=== PATIENT | male | born 1940 | race Caucasian/White ===

== ENCOUNTER 2017-09-05 09:12 | Inpatient (IN) | payer MEDICARE ==
[2017-09-05] MEDS ORDERED: MORPHINE SULFATE 2 MG/ML SYRINGE IV PRN (15:04)
[2017-09-05] MEDS ORDERED: NALOXONE 0.4 MG/ML 1 ML VIAL IV PRN (15:04)
[2017-09-05] MEDS ORDERED: NITROGLYCERIN SL TABS 0.4 MG TAB SUBLINGUAL PRN (15:16)
[2017-09-05] MEDS ORDERED: ONDANSETRON 4 MG/2 ML VIAL IVP PRN (15:17)
[2017-09-05] MEDS ORDERED: HEPARIN SODIUM,PORCINE 5,000 UNIT/ML 1 ML VIAL IV PRN (15:20)
[2017-09-05 15:45] LABS: Basophils % (A) 0 %; Eosinophils # (A) 0.1 k/uL (0-0.7); Eosinophils % (A) 0 %; HCT 38.9 % (39.0-53.0); HGB 12.9 gm/dL (13.0-17.5); Lymphocytes # (A) 1.4 k/uL (1.0-4.8); Lymphocytes % (A) 12 %; MCH 28.7 pg (25.0-35.0); MCHC 33.2 g/dL (31.0-37.0); MCV 86.4 fL (80.0-100.0); Mean Platelet Volume 7.1; Monocytes # (A) 0.7 k/uL (0-1.0); Monocytes % (A) 6 %; Neutrophils # (A) 8.9 k/uL (1.3-7.7); Neutrophils % (A) 80 %; Platelet Count 164 k/uL (150-450); RDW 14.8 % (11.5-15.5); WBC 11.1 k/uL (3.8-10.6)
[2017-09-05] MEDS: IPRATROPIUM-ALBUTEROL 3 ML NEB INHALATION SCH ×2 (15:51→20:42)
[2017-09-05 15:54] LABS: INR 1.4 (<1.2); Partial Thromboplastin Time 28.2 sec (22.0-30.0); Prothrombin Time 13.2 sec (9.0-12.0)
[2017-09-05] MEDS ORDERED: MD COMMUNICATION TO PHARMACY 1 EACH MISC PO ONE ×2 (16:25)
[2017-09-05] MEDS: GABAPENTIN 100 MG CAP PO SCH ×2 (16:30→21:03)
[2017-09-05] MEDS: DEXTROSE 5%-0.45% NACL 1,000 ML IV SCH (16:30)
--- NOTE | 2017-09-05 17:18 | US ---
EXAMINATION TYPE: US carotid duplex BILAT DATE OF EXAM: 09/05/2017 COMPARISON: NONE CLINICAL HISTORY: preop cardiac surgery. EXAM MEASUREMENTS: RIGHT: Peak Systolic Velocity (PSV) cm/sec ----- Right CCA: 71.6 ----- Right ICA: 81.0 ----- Right ECA: 101.1 ICA/CCA ratio: 1.1 RIGHT: End Diastole cm/sec ----- Right CCA: 20.7 ----- Right ICA: 29.3 ----- Right ECA: 7.7 LEFT: Peak Systolic Velocity (PSV) cm/sec ----- Left CCA: 74.4 ----- Left ICA: 76.4 ----- Left ECA: 74.4 ICA/CCA ratio: 1.0 LEFT: End Diastole cm/sec ----- Left CCA: 14.8 ----- Left ICA: 28.0 ----- Left ECA: 0.0 VERTEBRALS (direction of flow): Right Vertebral: Antegrade Left Vertebral: Antegrade Rhythm: Normal Mild to moderate atherosclerotic changes with no significant velocity elevations. IMPRESSION: There is bilateral moderate plaque formation. There is antegrade flow in the vertebral a rteries. The images and measurements suggest up to 50% stenosis in both internal carotid arteries. Criteria for Assigning % of Stenosis / Diameter reduction (Estimation based on the indirect measurements of the internal carotid artery velocities (ICA PSV). 1. Normal (no stenosis)=ICA PSV < 125 cm/s: ratio < 2.0: ICA EDV<40 cm/s. 2. Less than 50% stenosis=ICA PSV < 125 cm/s: ratio < 2.0: ICA EDV<40 cm/s. 3. 50 to 69% stenosis=ICA PSV of 125 to 230 cm/s: ration 2.0 ? 4.0: ICA EDV 40-100 cm/s. 4. Greater than 70% stenosis to near occlusion= ICA PSV > 230 cm/s: ratio > 4.0: ICA EDV > 100 cm/s. 5. Near occlusion= ICA PSV velocities may be low or undetectable: variable ratio and ICA EDV. 6. Total occlusion=unable to detect flow.
[2017-09-05] MEDS ORDERED: ATROPINE SULFATE 0.1 MG/ML 10ML SYRINGE ONE (17:52)
[2017-09-05 18:10] LABS: Appearance,Urine Clear (Clear); Bilirubin,Urine Negative (Negative); Blood,Urine Large (Negative); Color,Urine Yellow; Glucose,Urine (UA) Negative (Negative); Ketones,Urine Negative (Negative); Leukocyte Esterase,Urine Small (Negative); Mucus,Urine Rare /hpf; Nitrite,Urine Negative (Negative); PH, Urine 5.5 (5.0-8.0); Protein,Urine Trace (Negative); RBC,Urine >182 /hpf (0-5); Specific Gravity,Urine 1.023 (1.001-1.035); Urobilinogen,Urine <2.0 mg/dL (<2.0); WBC,Urine 21 /hpf (0-5)
[2017-09-05] MEDS: HEPARIN SODIUM,PORCINE/D5W PMX 25,000 UNIT in DEXTROSE/WATER 1 500ML.BAG IV SCH (21:01)
[2017-09-05] MEDS: MUPIROCIN 2% OINT 22 GM TUBE NASAL SCH (21:03)
[2017-09-06] MEDS: IPRATROPIUM-ALBUTEROL 3 ML NEB INHALATION SCH ×8 (00:16→23:48)
[2017-09-06] MEDS: DEXTROSE 5%-0.45% NACL 1,000 ML IV SCH ×3 (02:57→20:43)
[2017-09-06 03:57] LABS: Basophils % (A) 0 %; Eosinophils # (A) 0.1 k/uL (0-0.7); Eosinophils % (A) 1 %; HCT 40.4 % (39.0-53.0); HGB 13.3 gm/dL (13.0-17.5); Lymphocytes # (A) 1.4 k/uL (1.0-4.8); Lymphocytes % (A) 20 %; MCH 28.9 pg (25.0-35.0); MCHC 32.9 g/dL (31.0-37.0); MCV 87.7 fL (80.0-100.0); Mean Platelet Volume 6.7; Monocytes # (A) 0.5 k/uL (0-1.0); Monocytes % (A) 7 %; Neutrophils % (A) 71 %; Platelet Count 118 k/uL (150-450); RDW 14.9 % (11.5-15.5)
[2017-09-06 04:02] LABS: Hemoglobin A1C 5.9 % (4.0-6.0)
[2017-09-06 04:22] LABS: INR 1.3 (<1.2); Partial Thromboplastin Time 30.3 sec (22.0-30.0); Prothrombin Time 12.6 sec (9.0-12.0)
[2017-09-06 04:24] LABS: ALT 35 U/L (21-72); AST 33 U/L (17-59); Albumin 3.3 g/dL (3.5-5.0); Alkaline Phosphatase 66 U/L (38-126); Anion Gap 10 mmol/L; Blood Urea Nitrogen 24 mg/dL (9-20); Calcium 8.6 mg/dL (8.4-10.2); Carbon Dioxide 32 mmol/L (22-30); Chloride 101 mmol/L (98-107); Cholesterol 124 mg/dL (<200); Glucose 111 mg/dL (74-99); HDL Cholesterol 43 mg/dL (40-60); LDL Cholesterol,Calculated 61 mg/dL (0-99); Phosphorus 3.6 mg/dL (2.5-4.5); Potassium 3.7 mmol/L (3.5-5.1); Sodium 143 mmol/L (137-145); Total Bilirubin 0.5 mg/dL (0.2-1.3); Total Protein 5.7 g/dL (6.3-8.2); Triglycerides 102 mg/dL (<150)
--- NOTE | 2017-09-06 04:57 | HP ---
HISTORY AND PHYSICAL Mr. Multani is a 77-year-old gentleman who was transferred from [facility] after presenting there with chest pain and shortness of breath. He was found to have elevated troponin values and subsequent heart catheterization revealed severe triple-vessel disease and he has been transported here for further evaluation and appropriate treatment. The patient was seen by Dr. Guaman of Cardiology at [facility]. PAST MEDICAL HISTORY: Is positive for severe underlying COPD, previous smoking history. He also has a history of coronary artery disease, chronic diastolic congestive heart failure, osteoarthritis, specifically of the LS spine with chronic pain syndrome and recurrent feet and hand ulcerations with osteomyelitis requiring some amputations in the past. The patient also has underlying neuropathy and type 2 diabetes. BPH, GERD. HOME MEDICATIONS: Medications on transfer include his DuoNeb respiratory treatments q.4 hours, aspirin 81 mg, digoxin 0.25 daily, furosemide 40 mg daily, gabapentin 100 mg 3 times a day, Glucotrol 2.5 at breakfast, Protonix 40 mg a.c. breakfast and Flomax 0.4 mg at breakfast. ALLERGIES: No known allergies. REVIEW OF SYSTEMS: As mentioned in history of present illness with recurrent anterior chest pain that prior to admission had occurred several times with minimal exertion and also with awakening him up at night, associated with shortness of breath, some cough. No fever or chills. Some nausea, but no nausea, vomiting. No unusual urinary or bowel symptomatology. No unusual leg edema at this time. FAMILY HISTORY: Noncontributory. SOCIAL HISTORY: Is positive for the smoking history. No history of any excessive alcohol usage. He has been for the past year and does have family and some children support. PHYSICAL EXAMINATION: GENERAL: He is alert and oriented. Lying flat in bed, in no acute distress at this time. VITAL SIGNS: The pulse of 63, respirations 18, blood pressure 101/50, and he is 95% saturated on 2 L. Temperature was 98.3. HEENT: Head and neck exam unremarkable. LUNGS: Were generally diminished but otherwise clear without wheezing. HEART: Tones were a regular without murmurs or rubs. ABDOMEN was soft and nontender. EXTREMITIES: Revealed no unusual edema. He does have some partial amputation of toes on the right foot with history of osteomyelitis in the past. NEUROLOGICALLY: He is alert and oriented. Moving all extremities. No focal weakness noted. LABS: Revealed a hemoglobin 12.9 with white count 11.1, and a platelet count of 164. His INR was 1.4. Urinalysis did reveal blood, greater than 182 red cells, but only 21 white cells. Leukocyte esterase was small. Chest x-ray revealed no acute process, though consistent with COPD. The patient did have a carotid vascular studies which did reveal some bilateral plaque formation. Antegrade vertebral flow with measurements suggesting 50% stenosis of both internal carotid arteries. IMPRESSION: This gentleman with a non ST-segment elevated myocardial infarction with recurrent chest pain and elevated troponins at [facility] and also post catheterization and triple-vessel disease with underlying history of atherosclerotic heart disease, atrial fibrillation, and diastolic congestive heart failure with other comorbidities include diabetes, hypertension, previous tobacco usage and chronic obstructive pulmonary disease and also underlying severe degenerative joint disease of the spine and recurrent ulcerations of his hands and feet requiring partial amputations. BPH and GERD. The patient is to be evaluated here by Cardiology, Thoracic surgery and Pulmonary Medicine. Discussed with the patient and family at bedside. We will await further recommendations in terms of further management. Patient and family seem to understand the seriousness of patient's medical condition. MMODL / IJN: [id number] / MTDD
[2017-09-06] MEDS ORDERED: Potassium Replacement Protocol 1 EACH MISC MISCELLANE PRN (05:11)
[2017-09-06] MEDS ORDERED: FUROSEMIDE 10 MG/ML 4 ML VIAL IV STA (06:11)
--- NOTE | 2017-09-06 07:54 | XR ---
EXAMINATION TYPE: XR chest 1V portable DATE OF EXAM: 09/06/2017 COMPARISON: 06/17/2017 HISTORY: Pre-op cardiac surgery TECHNIQUE: Single frontal view of the chest is obtained. FINDINGS: Overlying external pacing devices are seen with multiple lines. Left-sided lead cardiac de vice is again noted with redemonstration of mild cardiomegaly. Minimal bibasilar subsegmental atelect asis is horizontally oriented at the left lung base. No focal consolidation, pleural effusion or pneu mothorax. Moderate acromioclavicular arthropathy and degenerative changes of the thoracic spine. No s izable pleural effusion or pneumothorax IMPRESSION: Normal left basilar subsegmental atelectasis otherwise unremarkable exam.
[2017-09-06] MEDS ORDERED: POTASSIUM CHLORIDE ER 20 MEQ TAB.ER PO SCH ×3 (08:00→20:00)
--- NOTE | 2017-09-06 08:39 | ECHOF ---
Referral Reason:preop cardiac surgery MEASUREMENTS -------- HEIGHT: 172.7 cm WEIGHT: 72.6 kg BP: IVSd: 1.3 cm (0.6 - 1.1) LVIDd: 4.8 cm (3.9 - 5.3) LVPWd: 1.2 cm (0.6 - 1.1) IVSs: 1.5 cm LVIDs: 3.0 cm LVPWs: 1.4 cm LAESV Index (A-L): 26.32 ml/m Ao Diam: 3.1 cm (2.0 - 3.7) AV Cusp: 1.4 cm (1.5 - 2.6) MV E Bernardo: 1.26 m/s MV DecT: 164 ms MV A Bernardo: 0.00 m/s MV E/A Ratio: 19916 RAP: 15.00 mmHg RVSP: 17.86 mmHg FINDINGS -------- Atrial fibrillation. This was a technically difficult study with suboptimal views. The left ventricular size is normal. There is mild concentric left ventricular hypertrophy. Overa ll left ventricular systolic function is mild-moderately impaired with, an EF between 40 - 45 %. The right ventricle is normal in size and function. Normal LA size by volume 22+/-6 ml/m2. The right atrium is normal in size. 3ml of Lumason was utilized for enhancement of images. There is mild aortic valve sclerosis. Trace to mild aortic regurgitation. There is no evidence of aortic stenosis. Moderate mitral annular calcification present. There is trace to mild mitral regurgitation. Trace tricuspid regurgitation present. Right ventricular systolic pressure is normal at < 35 mmHg. There is no evidence of pulmonary hypertension. The pulmonic valve was not well visualized. The aortic root size is normal. The inferior vena cava is dilated with poor inspiratory collapse which is consistent with estimated r ight atrial pressure of 20 mmHg. There is no pericardial effusion. CONCLUSIONS -------- 1. Atrial fibrillation. 2. This was a technically difficult study with suboptimal views. 3. The left ventricular size is normal. 4. There is mild concentric left ventricular hypertrophy. 5. Overall left ventricular systolic function is mild-moderately impaired with, an EF between 40 - 45 %. 6. Normal LA size by volume 22+/-6 ml/m2. 7. 3ml of Lumason was utilized for enhancement of images. 8. There is mild aortic valve sclerosis. 9. Trace to mild aortic regurgitation. 10. Moderate mitral annular calcification present. 11. There is trace to mild mitral regurgitation. 12. Trace tricuspid regurgitation present. 13. Right ventricular systolic pressure is normal at < 35 mmHg. 14. There is no evidence of pulmonary hypertension. 15. The pulmonic valve was not well visualized. 16. The aortic root size is normal. 17. The inferior vena cava is dilated with poor inspiratory collapse which is consistent with estimat ed right atrial pressure of 20 mmHg. 18. There is no pericardial effusion. [employer] LEADER: Sean Mujica RDCS
[2017-09-06] MEDS: ASPIRIN 81 MG PO SCH (08:40)
[2017-09-06] MEDS: DIGOXIN 250 MCG TAB PO SCH (08:40)
[2017-09-06] MEDS: TAMSULOSIN 0.4 MG CAP.ER.24H PO SCH (08:40)
[2017-09-06] MEDS: PANTOPRAZOLE 40 MG TABLET PO SCH (08:40)
[2017-09-06] MEDS: GABAPENTIN 100 MG CAP PO SCH ×3 (08:40→23:32)
[2017-09-06] MEDS: MUPIROCIN 2% OINT 22 GM TUBE NASAL SCH ×2 (08:40→20:43)
--- NOTE | 2017-09-06 10:19 | P.PN ---
Progress Note - Text The patient is a 77-year-old gentleman who was transferred yesterday from [facility] after he presented there with chest pain and an elevated troponin value along with anterior T-wave changes consistent with a non -ST segment elevated myocardial infarction. On catheterization he was found to have rather severe triple-vessel coronary artery disease. Patient has been transferred here for evaluation for further treatment. Patient does have other risk factors that include his underlying COPD with previous smoking history. Chronic diastolic/systolic congestive heart failure, osteoarthritis specifically LS spine with chronic pain. Underlying history of diabetes with neuropathy along with BPH and gastroesophageal reflux and chronic atrial fibrillation for which she has been on Coumadin prior to this admission. The patient has also had finger and feet ulcerations requiring amputations in the past. Patient presently is sitting up in bed. Alert and oriented. Does not appear to be in any distress. Denies any chest pain at this time. No nausea or vomiting. Vital signs Blood pressure is 111/49 with a pulse of 80 and respirations 13. He is 95% saturated on 2 L. Lungs are generally clear without wheezing. Heart tones are controlled with mild irregularity. Abdomen nontender. No unusual edema. No focal neurological changes at this time. Laboratory White count of 7 with a hemoglobin 13.3 and a platelet count of 118 that has changed from 164 yesterday. INR is 1.3 his patient is off his Coumadin. PTT is 30.3. Sodium 143 with a potassium 3.7. BUN of 24 with creatinine of 0.72 given a GFR of 89. Blood sugars 111. Albumin slightly low at 3.3. TSH was normal at 2.7. Urinalysis positive for hematuria with 182 RBCs with 21 white cells but small amount of leukocyte esterase. Culture is pending. Ejection fraction on echo was 40-45%. Portable chest x-ray showed some left basilar subsegmental atelectasis but otherwise unremarkable. Impressions and plans As discussed with patient at bedside this morning. Workup is ongoing to evaluate patient for likely coronary artery bypass surgery. Cardiology, thoracic surgery and pulmonary medicine on the case. We'll await their further recommendations.
--- NOTE | 2017-09-06 11:48 | P.CNPUL ---
History of Present Illness Consult date: 09/06/17 Requesting physician: Jimmy White Reason for consult: COPD Chief complaint: Chest pain History of present illness: This is a 77-year-old white male, familiar to my service, patient is known to have history of severe COPD, FEV1 is in the range of 45%, 1.27 L, patient is O2 dependent, maintained on 3 L nasal cannula. He was admitted yesterday to [facility] with acute chest pain, and increased shortness of breath. He was also noted to have elevated troponin and non-ST elevation myocardial infarction. Undergone cardiac catheterization, and he was found to have severe triple-vessel coronary artery disease. Patient was transferred yesterday to [facility], he will be seen by cardiac surgery, and anticipating myocardial revascularization early next week. Based on the pulmonary status, patient has severe COPD, he is definitely a high surgical risk , but no absolute contraindication to surgery. During my evaluation, patient was complaining of some shortness of breath, no chest pain, no cough, no wheezing, no fever, no chills, no hemoptysis, no nausea, no vomiting, no abdominal pain. Patient is known to have history of multiple medical problems including COPD, chronic atrial fibrillation, previous pacemaker implantation, hypertension, previous osteomyelitis involving feet, history of diabetes and peripheral vessel occlusive disease as well as diabetic neuropathy. He has chronic systolic congestive heart failure, ejection fraction is in the range of 45%. Review of Systems 14 point review of systems were obtained, please refer to pertinent positives and negatives as noted in HPI. Past Medical History Past Medical History: Atrial Fibrillation, Chest Pain / Angina, Heart Failure, COPD, Diabetes Mellitus, Deep Vein Thrombosis (DVT) (To his left leg.), Eye Disorder (History of cataracts), GERD/Reflux, GI Bleed (1960-bleeding peptic ulcer(sx)stated had part of stomach and foot of intestines removed.), Hypertension, Myocardial Infarction (non Q-wave), Osteoarthritis (OA), Pneumonia (Remote history), Prostate Disorder, Respiratory Disorder (COPD, uses 3 L nasal cannula at home.), Sleep Apnea/CPAP/BIPAP, Vascular Disorder Additional Past Medical History / Comment(s): pt is rt side dominant. lumbar disc disease, history of cpap for obstructive sleep apnea-no longer. pt stated he wa born with an irreg heart beat, home 02 3 liters nc at hs. "pt stated may have had a mi or tia they were'nt sure". History of sick sinus syndrome. History of Any Multi-Drug Resistant Organisms: MRSA Date of last positivie culture/infection: 10/29/20131999 MDRO Source:: Left Third Finger/ rt foot Past Surgical History: Appendectomy, Back Surgery, Cholecystectomy, Heart Catheterization, Orthopedic Surgery, Pacemaker Additional Past Surgical History / Comment(s): marshal cataracts, had part of stomach removed and a foot of bowel d/t bleeding peptic ulcers. total lt knee replacment,several sx on marshal feet had 4th toe each foot removed.rt hand 2nd finger partial amp and 3 rd finger amputated, Past Anesthesia/Blood Transfusion Reactions: No Reported Reaction Additional Past Anesthesia/Blood Transfusion Reaction / Comment(s): blood transfusion- no reaction Type of Cardiac Device: Permanent Pacemaker Device Placement Date:: unk Past Psychological History: No Psychological Hx Reported Smoking Status: Former smoker (Quit over 30 years ago.) Past Alcohol Use History: None Reported Past Drug Use History: None Reported - Past Family History Mother Family Medical History: Cancer Additional Family Medical History / Comment(s): age 52 Father Family Medical History: Cancer Additional Family Medical History / Comment(s): rectal cancer- age 75 Brother(s) Family Medical History: Coronary Artery Disease (CAD), Myocardial Infarction ([place] ) Additional Family Medical History / Comment(s): History of myocardial infarction at age 46. Medications and Allergies Home Medications Medication Instructions Recorded Confirmed Type Atenolol [Tenormin] 50 mg PO BID 09/05/17 09/05/17 History Digoxin [Lanoxin] 125 mcg PO DAILY 09/05/17 09/05/17 History Furosemide [Lasix] 40 mg PO DAILY 09/05/17 09/05/17 History Gabapentin [Neurontin] 100 mg PO TID 09/05/17 09/05/17 History Ipratropium-Albuterol Nebulize 3 ml INHALATION RT-QID 09/05/17 09/05/17 History [Duoneb 0.5 mg-3 mg/3 ml Soln] Lisinopril [Zestril] 10 mg PO DAILY 09/05/17 09/05/17 History Losartan [Cozaar] 50 mg PO DAILY 09/05/17 09/05/17 History Ranitidine HCl 150 mg PO HS 09/05/17 09/05/17 History Tamsulosin HCl [Flomax] 0.4 mg PO DAILY 09/05/17 09/05/17 History Warfarin [Coumadin] 5 mg PO DAILY 09/05/17 09/05/17 History glipiZIDE XL [Glucotrol Xl] 2.5 mg PO DAILY 09/05/17 09/05/17 History Allergies Allergy/AdvReac Type Severity Reaction Status Date / Time inhaler AdvReac Rapid Uncoded 09/05/17 15:04 Heart Rate Physical Exam Vitals: Vital Signs Temp Pulse Resp BP Pulse Ox 09/06/17 10:00 80 13 111/49 95 09/06/17 09:10 69 09/06/17 09:00 79 21 96/52 95 09/06/17 08:58 79 96 09/06/17 08:00 98.5 F 76 14 112/58 95 09/06/17 07:00 64 13 114/58 93 L 09/06/17 06:01 57 L 09/06/17 06:00 58 L 18 114/63 99 09/06/17 05:48 57 L 09/06/17 05:00 50 L 18 101/46 94 L 09/06/17 04:00 98 F 52 L 23 106/50 97 09/06/17 03:00 63 13 110/64 96 09/06/17 02:00 60 12 113/58 93 L 09/06/17 01:49 68 09/06/17 01:40 58 L 09/06/17 01:00 52 L 15 102/68 98 09/06/17 00:00 98.2 F 49 L 15 97/49 96 09/05/17 23:00 63 18 101/50 95 09/05/17 22:00 60 19 112/59 94 L 09/05/17 21:00 66 22 97/51 95 09/05/17 20:52 66 09/05/17 20:44 97 09/05/17 20:43 62 09/05/17 20:00 98.3 F 59 L 18 105/65 94 L 09/05/17 19:00 62 25 H 114/61 95 09/05/17 18:30 65 13 114/61 95 06/08/18 18:00 45 L 29 H 97 06/08/18 17:30 62 25 H 96 09/05/17 16:59 49 L 21 96 09/05/17 16:30 69 18 95 09/05/17 16:00 55 L 10 L 109/53 97 09/05/17 15:55 48 L 09/05/17 15:30 48 L 18 109/53 98 09/05/17 15:00 53 L 14 109/53 96 09/05/17 14:30 98.0 F 61 28 H 109/53 97 09/05/17 14:29 64 15 109/53 98 Intake and Output 09/05/17 09/06/17 09/06/17 22:59 06:59 14:59 Intake Total 1040 938.408 200 Output Total 701 850 1879 Balance 415 458.408 -1135 Intake: IV 300 800 200 Dextrose 5%-0.45% NaCl 1, 300 800 200 000 ml @ 100 mls/hr IV . Q10H DAMON Rx#:[id number] Intake, IV Titration 500 138.408 Amount Dextrose 5%-0.45% NaCl 1, 500 000 ml @ 100 mls/hr IV . Q10H DAMON Rx#:[id number] Heparin Sodium,Porcine/ 138.408 D5w Pmx 25,000 unit In Dextrose/Water 1 500ml. bag @ 12 UNITS/KG/HR 17. 52 mls/hr IV .Q24H DAMON Rx #:[id number] Oral 240 Output: Urine 440 514 5196 Other: Voiding Method Indwelling Catheter Indwelling Catheter Indwelling Catheter Weight 73 kg 73.4 kg Physical Exam: Revealed a 77-year-old white male in no distress. Head: Atraumatic, normocephalic. HEENT:[Neck is supple.] [No neck masses.] [No thyromegaly.] [No JVD.] Chest: [Diminished breath sounds at the bases, no crackles or rhonchi or wheezes , no chest wall tenderness..] Cardiac Exam: [Normal S1 and S2, no S3 gallop, no murmur.] Abdomen: [Soft, nontender, no megaly, no rebound, no guarding, normal bowel sounds.] Extremities: [No clubbing, no edema, no cyanosis.] Deformities noted in toes bilaterally in both feet. Diminished distal pulses bilaterally Neurological Exam: [No focal neurologic deficit.] Psychiatric: Normal mood affect and mental status examination. Lymphatics: No lymphadenopathy was appreciated. Results - Laboratory Findings CBC and BMP: 09/06/17 03:45 09/06/17 10:06 PT/INR, D-dimer PT 12.6 sec (9.0-12.0) H 09/06/17 03:45 INR 1.3 (<1.2) H 09/06/17 03:45 Abnormal lab findings: Abnormal Labs 09/05/17 09/05/17 09/05/17 15:40 15:40 17:50 WBC 11.1 H Hgb 12.9 L Hct 38.9 L Plt Count Neutrophils # 8.9 H PT 13.2 H INR 1.4 H APTT Carbon Dioxide BUN Glucose Troponin I Total Protein Albumin Urine Protein Trace H Urine Blood Large H Ur Leukocyte Esterase Small H Urine RBC >182 H Urine WBC 21 H Urine Mucus Rare H 09/06/17 09/06/17 09/06/17 03:45 03:45 03:45 WBC Hgb Hct Plt Count 118 L Neutrophils # PT 12.6 H INR 1.3 H APTT 30.3 H Carbon Dioxide 32 H BUN 24 H Glucose 111 H Troponin I Total Protein 5.7 L Albumin 3.3 L Urine Protein Urine Blood Ur Leukocyte Esterase Urine RBC Urine WBC Urine Mucus 09/06/17 09/06/17 10:06 10:06 WBC Hgb Hct Plt Count Neutrophils # PT INR APTT 31.0 H Carbon Dioxide BUN Glucose Troponin I 0.238 H* Total Protein Albumin Urine Protein Urine Blood Ur Leukocyte Esterase Urine RBC Urine WBC Urine Mucus - Diagnostic Findings Chest x-ray: image reviewed (Left basilar atelectasis otherwise unremarkable.) Assessment and Plan Assessment: Impression: 1 acute non-ST elevation myocardial infarction, status post cardiac catheterization revealing severe triple-vessel coronary artery disease. 2 severe COPD, and chronic hypoxic respiratory failure secondary to COPD FEV1 is in the range of 45%, 1.27 L. Patient is definitely a high surgical risk. 3 multiple comorbidities including chronic atrial fibrillation, type 2 diabetes with diabetic neuropathy, peripheral vessel occlusive disease, history of osteomyelitis and subsequent amputations of toes. History of hypertension, history of systolic congestive heart failure. Recommendation: Continue present treatment plan, patient is yet to be seen by cardiac surgery on consultation, clearly the patient is a high surgical risk. Decision regarding surgery will be made by cardiac surgeon on the case. Again based on his COPD status and based on his chronic hypoxic respiratory failure, patient is a significant surgical risk. Time with Patient: Greater than 30
[2017-09-06] MEDS: FUROSEMIDE 40 MG TAB PO SCH (11:56)
[2017-09-06 12:36] LABS: Hepatitis A Antibody IgM Non-Reactive (Non-Reactive); Hepatitis B Core IgM Non-Reactive (Non-Reactive)
[2017-09-06] MEDS: METOPROLOL TARTRATE 12.5 MG TAB PO SCH ×2 (12:40→20:43)
[2017-09-06 12:45] LABS: Glucose,Whole Blood 87 mg/dL (75-99)
--- NOTE | 2017-09-06 13:36 | P.GSCN ---
History of Present Illness Consult date: 09/06/17 Reason for Consult: Symptomatic multivessel coronary artery disease, recommendations for myocardial revascularization. Requesting physician: Jimmy White History of present illness: This is 77-year-old gentleman who is followed by Jimmy White on an outpatient basis. He has a past medical history significant for hypertension, severe COPD with a FEV1 of 45% of predicted and home oxygen use, chronic diastolic congestive heart failure, osteoarthritis, lumbar disc disease with chronic pain syndrome, history of deep vein thrombosis to his left leg, recurrent feet and hand ulcerations with osteomyelitis and history of MRSA requiring amputations, type 2 diabetes mellitus, peripheral vascular disease, remote history of pneumonia, non-ST elevated myocardial infarction this admission, history of early onset coronary artery disease with his brother being diagnosed with an WA at age 46, history of sick sinus syndrome with previous placement of permanent pacemaker, benign prostatic hypertrophy, history of chronic persistent atrial fibrillation on Coumadin therapy at home, remote history of smoking quit over 30 years ago, and GERD. The patient presented to the emergency department at [facility] with complaints of episodes of chest pain and shortness of breath. He reports that his chest pain has been present the last couple of days prior to presenting to the emergency department. The pain has been radiating to his left arm causing some numbness and was associated with shortness of breath and episodes of nausea. He denies any fevers, chills, vomiting, or diaphoresis. In the emergency department a 12-lead EKG was completed which did showed atrial fibrillation with a heart rate of 70 and some T-wave inversion in his anterior lateral leads. Troponins were drawn which were as high as 1.233, his hemoglobin A1c was 6.0, and his BNP level was 3727. Subsequently due to the patient's presenting symptoms, 12-lead EKG changes and positive troponins he was evaluated by Dr. Guaman from cardiology. A cardiac catheterization was performed, which demonstrated a chronically occluded right coronary artery by the ostium which fills by collaterals from the left coronary system, his left main coronary artery with mild disease, mild disease to his proximal circumflex coronary artery, a 70% stenosis to his first obtuse marginal coronary artery, and a critical lesion to his proximal left anterior and mid left anterior descending coronary artery. A 2-D echocardiogram was also completed which showed mild concentric left ventricular hypertrophy with a left ventricular systolic function to be mild to moderately impaired with an ejection fraction between 40 and 45%, mild aortic valve sclerosis, mild aortic valve regurgitation , moderate mitral annular calcification with mild mitral valve regurgitation, and trace tricuspid valve regurgitation. The above-mentioned studies were reviewed with the patient by Dr. Guaman and he was subsequently transferred to [facility] for further evaluation from Dr. Horvath from cardiothoracic surgery. Review of Systems A 14 point review of systems was completed and was negative except as mentioned in the HPI. Past Medical History Past Medical History: Atrial Fibrillation, Chest Pain / Angina, Heart Failure, COPD, Diabetes Mellitus, Deep Vein Thrombosis (DVT) (To his left leg.), Eye Disorder (History of cataracts), GERD/Reflux, GI Bleed (1960-bleeding peptic ulcer(sx)stated had part of stomach and foot of intestines removed.), Hypertension, Myocardial Infarction (non Q-wave), Osteoarthritis (OA), Pneumonia (Remote history), Prostate Disorder, Respiratory Disorder (COPD, uses 3 L nasal cannula at home.), Sleep Apnea/CPAP/BIPAP, Vascular Disorder Additional Past Medical History / Comment(s): pt is rt side dominant. lumbar disc disease, history of cpap for obstructive sleep apnea-no longer. pt stated he wa born with an irreg heart beat, home 02 3 liters nc at hs. "pt stated may have had a mi or tia they were'nt sure". History of sick sinus syndrome. History of Any Multi-Drug Resistant Organisms: MRSA Year Discovered:: 10/29/20131999 MDRO Source:: Left Third Finger/ rt foot Past Surgical History: Appendectomy, Back Surgery, Cholecystectomy, Heart Catheterization, Orthopedic Surgery, Pacemaker Additional Past Surgical History / Comment(s): marshal cataracts, had part of stomach removed and a foot of bowel d/t bleeding peptic ulcers. total lt knee replacment,several sx on marshal feet had 4th toe each foot removed.rt hand 2nd finger partial amp and 3 rd finger amputated, Past Anesthesia/Blood Transfusion Reactions: No Reported Reaction Additional Past Anesthesia/Blood Transfusion Reaction / Comm: blood transfusion - no reaction Type of Cardiac Device: Permanent Pacemaker Device Placement Date:: unk Past Psychological History: No Psychological Hx Reported Smoking Status: Former smoker (Quit over 30 years ago.) Past Alcohol Use History: None Reported Past Drug Use History: None Reported - Past Family History Mother Family Medical History: Cancer Additional Family Medical History / Comment(s): age 52 Father Family Medical History: Cancer Additional Family Medical History / Comment(s): rectal cancer- age 75 Brother(s) Family Medical History: Coronary Artery Disease (CAD), Myocardial Infarction (WA ) Additional Family Medical History / Comment(s): History of myocardial infarction at age 46. Medications and Allergies Home Medications Medication Instructions Recorded Confirmed Type Atenolol [Tenormin] 50 mg PO BID 09/05/17 09/05/17 History Digoxin [Lanoxin] 125 mcg PO DAILY 09/05/17 09/05/17 History Furosemide [Lasix] 40 mg PO DAILY 09/05/17 09/05/17 History Gabapentin [Neurontin] 100 mg PO TID 09/05/17 09/05/17 History Ipratropium-Albuterol Nebulize 3 ml INHALATION RT-QID 09/05/17 09/05/17 History [Duoneb 0.5 mg-3 mg/3 ml Soln] Lisinopril [Zestril] 10 mg PO DAILY 09/05/17 09/05/17 History Losartan [Cozaar] 50 mg PO DAILY 09/05/17 09/05/17 History Ranitidine HCl 150 mg PO HS 09/05/17 09/05/17 History Tamsulosin HCl [Flomax] 0.4 mg PO DAILY 09/05/17 09/05/17 History Warfarin [Coumadin] 5 mg PO DAILY 09/05/17 09/05/17 History glipiZIDE XL [Glucotrol Xl] 2.5 mg PO DAILY 09/05/17 09/05/17 History Allergies Allergy/AdvReac Type Severity Reaction Status Date / Time inhaler AdvReac Rapid Uncoded 09/05/17 15:04 Heart Rate Surgical - Exam Vital Signs Pulse Resp BP Pulse Ox 64 15 109/53 98 09/05/17 14:29 09/05/17 14:29 09/05/17 14:29 09/05/17 14:29 - General no distress, no pain, cachectic, chronically ill - Eyes PERRL, normal ocular movement - ENT normal pinna, normal nares, normal mucosa, no hearing loss, no congestion, dentures - Neck Neck is supple, no lymphadenopathy. no masses, no bruits, trachea midline, no venous distension - Respiratory Lungs sounds essentially clear to his bilateral upper lobes, diminished his bilateral bases. Respirations are symmetrical and nonlabored. Oxygen saturation are 95% on 3 L nasal cannula. He is achieving 1750 mL on her incentive spirometry. - Cardiovascular Irregular rhythm with controlled rate. S1 and S2 present, negative for S3, gallop or murmur. Bedside telemetry showing atrial fibrillation heart rate 68. No edema present. Doppler pulses present to his bilateral dorsalis pedis. - Abdomen Abdomen is soft, nontender and nondistended. Active bowel sounds all 4 quadrants. Tolerating oral intake. No guarding or rigidity. No organomegaly. - Genitourinary Kitchen catheter for accurate I&O. Draining clear yellow urine. - Rectum Deferred - Integumentary no rash, no growths, no abnormal pigmentation - Neurologic No focal weakness. Alert and oriented 3. - Psychiatric oriented to time, oriented to person, oriented to place, speech is normal, memory intact Results - Labs 09/06/17 03:45 09/06/17 10:06 Abnormal Lab Results - Last 24 Hours (Table) 09/05/17 09/05/17 09/05/17 Range/Units 15:40 15:40 17:50 WBC 11.1 H (3.8-10.6) k/uL Hgb 12.9 L (13.0-17.5) gm/dL Hct 38.9 L (39.0-53.0) % Plt Count (150-450) k/uL Neutrophils # 8.9 H (1.3-7.7) k/uL PT 13.2 H (9.0-12.0) sec INR 1.4 H (<1.2) APTT (22.0-30.0) sec Carbon Dioxide (22-30) mmol/L BUN (9-20) mg/dL Glucose (74-99) mg/dL Total Protein (6.3-8.2) g/dL Albumin (3.5-5.0) g/dL Urine Protein Trace H (Negative) Urine Blood Large H (Negative) Ur Leukocyte Esterase Small H (Negative) Urine RBC >182 H (0-5) /hpf Urine WBC 21 H (0-5) /hpf Urine Mucus Rare H (None) /hpf 09/06/17 09/06/17 09/06/17 Range/Units 03:45 03:45 03:45 WBC (3.8-10.6) k/uL Hgb (13.0-17.5) gm/dL Hct (39.0-53.0) % Plt Count 118 L (150-450) k/uL Neutrophils # (1.3-7.7) k/uL PT 12.6 H (9.0-12.0) sec INR 1.3 H (<1.2) APTT 30.3 H (22.0-30.0) sec Carbon Dioxide 32 H (22-30) mmol/L BUN 24 H (9-20) mg/dL Glucose 111 H (74-99) mg/dL Total Protein 5.7 L (6.3-8.2) g/dL Albumin 3.3 L (3.5-5.0) g/dL Urine Protein (Negative) Urine Blood (Negative) Ur Leukocyte Esterase (Negative) Urine RBC (0-5) /hpf Urine WBC (0-5) /hpf Urine Mucus (None) /hpf Microbiology - Last 24 Hours (Table) 09/05/17 17:50 Urine Culture - Preliminary Urine,Catheterized 09/05/17 21:10 Nasal Screen MRSA/MSSA (DWAYNE) - Preliminary Nasal Swab Diabetes panel 09/05/17 09/06/17 Range/Units 15:40 03:45 Sodium 143 (137-145) mmol/L Potassium 3.7 (3.5-5.1) mmol/L Chloride 101 (98-107) mmol/L Carbon Dioxide 32 H (22-30) mmol/L BUN 24 H (9-20) mg/dL Creatinine 0.72 (0.66-1.25) mg/dL Glucose 111 H (74-99) mg/dL Hemoglobin A1c 5.9 (4.0-6.0) % Calcium 8.6 (8.4-10.2) mg/dL AST 33 (17-59) U/L ALT 35 (21-72) U/L Alkaline Phosphatase 66 (38-126) U/L Total Protein 5.7 L (6.3-8.2) g/dL Albumin 3.3 L (3.5-5.0) g/dL Triglycerides 102 (<150) mg/dL HDL Cholesterol 43 (40-60) mg/dL Thyroid panel 09/06/17 Range/Units 03:45 TSH 2.700 (0.465-4.680) mIU/L Calcium panel 09/06/17 Range/Units 03:45 Calcium 8.6 (8.4-10.2) mg/dL Phosphorus 3.6 (2.5-4.5) mg/dL Albumin 3.3 L (3.5-5.0) g/dL Pituitary panel 09/06/17 Range/Units 03:45 Sodium 143 (137-145) mmol/L Potassium 3.7 (3.5-5.1) mmol/L Chloride 101 (98-107) mmol/L Carbon Dioxide 32 H (22-30) mmol/L BUN 24 H (9-20) mg/dL Creatinine 0.72 (0.66-1.25) mg/dL Glucose 111 H (74-99) mg/dL Calcium 8.6 (8.4-10.2) mg/dL TSH 2.700 (0.465-4.680) mIU/L Adrenal panel 09/06/17 Range/Units 03:45 Sodium 143 (137-145) mmol/L Potassium 3.7 (3.5-5.1) mmol/L Chloride 101 (98-107) mmol/L Carbon Dioxide 32 H (22-30) mmol/L BUN 24 H (9-20) mg/dL Creatinine 0.72 (0.66-1.25) mg/dL Glucose 111 H (74-99) mg/dL Calcium 8.6 (8.4-10.2) mg/dL Total Bilirubin 0.5 (0.2-1.3) mg/dL AST 33 (17-59) U/L ALT 35 (21-72) U/L Alkaline Phosphatase 66 (38-126) U/L Total Protein 5.7 L (6.3-8.2) g/dL Albumin 3.3 L (3.5-5.0) g/dL - Imaging Chest x-ray: report reviewed, image reviewed EKG: image reviewed Additional studies: 2-D echocardiogram results reviewed. Carotid Doppler results reviewed. Vein mapping results reviewed. Assessment and Plan (1) Hypertension Current Visit: Yes Status: Acute Code(s): I10 - ESSENTIAL (PRIMARY) HYPERTENSION SNOMED Code(s): 64500597 (2) Non-ST elevated myocardial infarction Current Visit: Yes Status: Acute Code(s): I21.4 - NON-ST ELEVATION (NSTEMI) MYOCARDIAL INFARCTION SNOMED Code(s): 284290621 (3) COPD (chronic obstructive pulmonary disease) Current Visit: Yes Status: Acute Code(s): J44.9 - CHRONIC OBSTRUCTIVE PULMONARY DISEASE, UNSPECIFIED SNOMED Code(s): 04442901 (4) Lumbar disc disease Current Visit: Yes Status: Acute Code(s): M51.9 - UNSP THORACIC, THORACOLUM AND LUMBOSACR INTVRT DISC DISORDER SNOMED Code(s): 043428770 (5) Peripheral vascular disease Current Visit: Yes Status: Acute Code(s): I73.9 - PERIPHERAL VASCULAR DISEASE, UNSPECIFIED SNOMED Code(s): 648677328 (6) Diabetes mellitus type 2 in nonobese Current Visit: Yes Status: Acute Code(s): E11.9 - TYPE 2 DIABETES MELLITUS WITHOUT COMPLICATIONS SNOMED Code(s): 008610752 (7) History of smoking Current Visit: Yes Status: Acute Code(s): Z87.891 - PERSONAL HISTORY OF NICOTINE DEPENDENCE SNOMED Code(s): 90490758665484961 (8) Chronic diastolic CHF (congestive heart failure) Current Visit: Yes Status: Acute Code(s): I50.32 - CHRONIC DIASTOLIC ( CONGESTIVE) HEART FAILURE SNOMED Code(s): 785467966 (9) Chronic pain syndrome Current Visit: Yes Status: Acute Code(s): G89.4 - CHRONIC PAIN SYNDROME SNOMED Code(s): 619444908 (10) History of MRSA infection Current Visit: Yes Status: Acute Code(s): Z86.14 - PERSONAL HISTORY OF METHICILLIN RESIS STAPH INFECTION SNOMED Code(s): 291842216 (11) Chronic atrial fibrillation Current Visit: Yes Status: Acute Code(s): I48.2 - CHRONIC ATRIAL FIBRILLATION SNOMED Code(s): 838932958 (12) GERD (gastroesophageal reflux disease) Current Visit: Yes Status: Acute Code(s): K21.9 - GASTRO-ESOPHAGEAL REFLUX DISEASE WITHOUT ESOPHAGITIS SNOMED Code(s): 655866924 (13) BPH (benign prostatic hyperplasia) Current Visit: Yes Status: Acute Code(s): N40.0 - BENIGN PROSTATIC HYPERPLASIA WITHOUT LOWER URINRY TRACT SYMP SNOMED Code(s): 670990987 (14) History of sick sinus syndrome Current Visit: Yes Status: Acute Code(s): Z86.79 - PERSONAL HISTORY OF OTHER DISEASES OF THE CIRCULATORY SYSTEM SNOMED Code(s): 507883425201862 (15) History of permanent cardiac pacemaker placement Current Visit: Yes Status: Acute Code(s): Z95.0 - PRESENCE OF CARDIAC PACEMAKER SNOMED Code(s): 783228691 (16) Family history of coronary artery disease in brother Current Visit: Yes Status: Acute Code(s): Z82.49 - FAMILY HX OF ISCHEM HEART DIS AND OTH DIS OF THE CIRC SYS SNOMED Code(s): 506669027 (17) History of Coumadin therapy Current Visit: Yes Status: Acute Code(s): Z92.29 - PERSONAL HISTORY OF OTHER DRUG THERAPY SNOMED Code(s): 545496104 Plan: the patient was seen and examined. His chart and diagnostics were reviewed. Preoperative testing was initiated. The patient has been seen and examined by Dr. Montrell Horvath from cardiothoracic surgery. Preoperative teaching was initiated. Continue medical management. We will add atorvastatin 80 mg by mouth daily and metoprolol 12.5 mg by mouth twice a day. A 5 m walk test was completed, time 1:7.55 seconds, time 2: 6.55 seconds, time 3: 6.48 seconds. STS risk score was calculated 6.265 risk of mortality and was discussed with the patient by Dr. Horvath. Thank you Dr. White for this consult and we look forward to working with the care the patient. Time with Patient: Greater than 30
--- NOTE | 2017-09-06 13:40 | PN ---
PROGRESS NOTE Blayne is a 77-year-old gentleman that is admitted to the hospital following cardiac catheterization that showed severe triple-vessel disease and left main stenosis. I do not have his cath report at the time of this evaluation. The patient had an echocardiogram that showed moderate LV systolic dysfunction. He is chest pain-free and hemodynamically stable. Labs show a hemoglobin of 13.3. Creatinine is 0.7. Potassium is 3.7. On exam, comfortable at rest. Vital signs are stable. There is no jugular venous distention. Chest exam reveals diminished air entry at the bases. Heart exam reveals first and second heart sounds. No gallop. Has a systolic murmur at the left lower sternal border. Abdomen is soft. Exam of extremities did not reveal any edema. Peripheral pulses are felt. The patient is currently on aspirin, Lipitor, Lanoxin, IV heparin, Lopressor. ASSESSMENT: Severe triple-vessel coronary artery disease and left main stenosis. The patient is awaiting bypass surgery. He will continue the IV heparin. MMODL / IJN: [id number] /
[2017-09-06] MEDS: SYMBICORT 160-4.5 MCG INHALER INHALATION SCH (19:55)
[2017-09-06] MEDS: HEPARIN SODIUM,PORCINE/D5W PMX 25,000 UNIT in DEXTROSE/WATER 1 500ML.BAG IV SCH (23:32)
[2017-09-07] MEDS: methylPREDNISolone SOD SUCCI 125 MG/2 ML VIAL IV SCH ×4 (00:37→17:43)
[2017-09-07] MEDS: IPRATROPIUM-ALBUTEROL 3 ML NEB INHALATION SCH ×5 (03:55→21:01)
[2017-09-07 05:13] LABS: Basophils % (A) 0 %; Eosinophils % (A) 0 %; HCT 43.7 % (39.0-53.0); HGB 14.3 gm/dL (13.0-17.5); Lymphocytes # (A) 0.6 k/uL (1.0-4.8); Lymphocytes % (A) 8 %; MCH 28.9 pg (25.0-35.0); MCHC 32.7 g/dL (31.0-37.0); MCV 88.3 fL (80.0-100.0); Monocytes # (A) 0.2 k/uL (0-1.0); Monocytes % (A) 3 %; Neutrophils # (A) 6.5 k/uL (1.3-7.7); Neutrophils % (A) 89 %; Platelet Count 103 k/uL (150-450); RBC 4.95 m/uL (4.30-5.90); RDW 14.9 % (11.5-15.5); WBC 7.4 k/uL (3.8-10.6)
[2017-09-07 05:22] LABS: Anion Gap 13 mmol/L; Blood Urea Nitrogen 22 mg/dL (9-20); Calcium 8.9 mg/dL (8.4-10.2); Carbon Dioxide 30 mmol/L (22-30); Chloride 98 mmol/L (98-107); Glucose 183 mg/dL (74-99); Magnesium 1.9 mg/dL (1.6-2.3); Sodium 141 mmol/L (137-145)
[2017-09-07 05:23] LABS: Potassium 4.7 mmol/L (3.5-5.1)
[2017-09-07] MEDS ORDERED: Magnesium Replacement Protocol 1 EACH MISC MISCELLANE PRN (06:18)
[2017-09-07] MEDS: MAGNESIUM SULFATE-D5W PMX 1 GM in DEXTROSE/WATER 1 100ML.BAG IVPB SCH ×2 (06:37→10:59)
[2017-09-07] MEDS: METOPROLOL TARTRATE 12.5 MG TAB PO SCH ×2 (08:40→21:46)
[2017-09-07] MEDS: DIGOXIN 250 MCG TAB PO SCH (08:40)
[2017-09-07] MEDS: GABAPENTIN 100 MG CAP PO SCH ×3 (08:40→21:47)
[2017-09-07] MEDS: ASPIRIN 81 MG PO SCH (08:40)
[2017-09-07] MEDS: TAMSULOSIN 0.4 MG CAP.ER.24H PO SCH (08:40)
[2017-09-07] MEDS: ATORVASTATIN 80 MG TAB PO SCH (08:40)
[2017-09-07] MEDS: FUROSEMIDE 40 MG TAB PO SCH (08:41)
[2017-09-07] MEDS: PANTOPRAZOLE 40 MG TABLET PO SCH (08:41)
[2017-09-07] MEDS: INSULIN ASPART 100 UNIT/ML 1 ML 10 ML VIAL SQ SCH ×4 (08:45→21:49)
[2017-09-07] MEDS: SYMBICORT 160-4.5 MCG INHALER INHALATION SCH ×2 (08:53→21:01)
--- NOTE | 2017-09-07 10:14 | P.PN ---
Progress Note - Text The patient is a 77-year-old gentleman who 2 days ago was transferred from [facility] after he presented there with a non-ST segment elevated myocardial infarction and found to have severe triple vessel disease by cardiology on catheterization there. Patient to has been seen by surgery, cardiology and pulmonary medicine. Anticipation for coronary artery bypass surgery. Patient does have additional risk factors to include his underlying COPD and smoking history. Chronic diastolic/systolic congestive heart failure. Chronic pain from osteoarthritis of the lumbar spine. Underlying diabetes and diabetic neuropathy. BPH, gastroesophageal reflux. Also chronic atrial fibrillation on Coumadin. Also patient has had recurrent hand and feet ulcerations which have required amputations in the past. This morning he is sitting up in bed. Alert. He denies any chest pain or unusual shortness of breath. Last vital signs reveal blood pressure 113/50 with respiratory rate of 15 and pulse of 86. He is 95% saturated on 2 L. Lungs are generally clear although diminished. Heart tones were mildly irregular with controlled rate. Abdomen nontender. No unusual edema. No focal neurological changes. Laboratory Account 7.4 with a hemoglobin 14.3 and a platelet count of 103. On His PTT Is 57.2 Potassium Is 4.7. GFR Is Greater Than 90. Blood Sugar Was 183. Urine Cultures No Growth after 18 Hours. Impressions and Plans As dictated above. Patient Is anticipating possible Coronary Artery Bypass Surgery tomorrow. Continue to monitor platelet counts. Dr. Capps on-call for me today if any medical concerns.
[2017-09-07] MEDS ORDERED: MD COMMUNICATION TO PHARMACY 1 EACH MISC PO ONE ×5 (10:40)
[2017-09-07] MEDS: MUPIROCIN 2% OINT 22 GM TUBE NASAL SCH ×2 (10:59→21:47)
--- NOTE | 2017-09-07 11:22 | P.PN ---
Subjective Progress Note Date: 09/07/17 Principal diagnosis: Symptomatic multivessel coronary artery disease with left main disease, hypertension, severe COPD with an FEV1 of 45% predicted and home oxygen use, chronic diastolic congestive heart failure, osteoarthritis, lumbar disc disease with chronic pain syndrome, history of deep vein thrombosis of his left leg, recurrent feet and hand ulcerations with osteomyelitis and history of MRSA requiring amputations, type 2 diabetes mellitus, peripheral vascular disease, remote history of pneumonia, non-ST elevated myocardial infarction this admission, family history of early onset coronary artery disease with his brother being diagnosed with a myocardial infarction at age 46, history of sick sinus syndrome with previous placement of permanent pacemaker, benign prostatic hypertrophy, history of chronic persistent atrial fibrillation on home Coumadin therapy, remote history of smoking quit over 30 years ago, and GERD. The patient is lying in bed with his head elevated. He is in no acute distress. He denies any complaints of pain or shortness of breath this time. Preoperative teaching reviewed with the patient. His questions were answered to the best of my ability. Objective - Vital Signs Vital signs: Vital Signs Temp 98.5 F 09/07/17 04:00 Pulse 83 09/07/17 09:06 Resp 19 09/07/17 07:00 BP 126/59 09/07/17 07:00 Pulse Ox 94 L 09/07/17 08:53 Intake & Output 09/06/17 09/07/17 09/07/17 18:59 06:59 18:59 Intake Total 710.09 551.502 40 Output Total 2165 1455 130 Balance -1454.91 -903.498 -90 Weight 73.5 kg Intake: IV 540 360 40 Dextrose 5%-0.45% NaCl 1, 540 260 40 000 ml @ 100 mls/hr IV . Q10H [facility] Rx#:[id number] Magnesium Sulfate-D5w Pmx 100 1 gm In Dextrose/Water 1 100ml.bag @ 100 mls/hr IVPB Q1H [facility]ON Rx#: [id number] Intake, IV Titration 170.09 191.502 Amount Heparin Sodium,Porcine/ 170.09 191.502 D5w Pmx 25,000 unit In Dextrose/Water 1 500ml. bag @ 12 UNITS/KG/HR 17. 52 mls/hr IV .Q24H [facility]ON Rx #:[id number] Output: Urine 2165 1455 130 Other: Voiding Method Indwelling Catheter Indwelling Catheter ABP, PAP, CO, CI - Last Documented Arterial Blood Pressure 124/54 - Constitutional General appearance: Present: cooperative, no acute distress - Respiratory Details: Lung sounds with expiratory wheezes throughout, diminished to his bilateral bases. Respirations are symmetrical and nonlabored. Oxygen saturation are 97% on 2 L nasal cannula. He is achieving 2000 mL on his incentive spirometry. Preoperative FEV1 was completed which demonstrated 45% of predicted value. - Cardiovascular Details: Irregular rhythm with controlled rate. S1 and S2 present, negative for S3, gallop or murmur. Bedside telemetry showing atrial fibrillation heart rate 80. Knee-high sequential compression devices in place to his bilateral lower extremities. - Gastrointestinal Gastrointestinal Comment(s): Abdomen is soft, nontender and nondistended. Active bowel sounds all 4 abdominal quadrants. Tolerating oral intake. - Genitourinary Genitourinary Comment(s): Kitchen catheter for accurate I&O. Draining clear oleksandr urine, 980 mL output in the last 8 hours. - Neurologic Neurologic: Present: CNII-XII intact, focal deficits - Musculoskeletal Musculoskeletal Comment(s): Ambulating with assistance from a walker. Musculoskeletal: Present: generalized weakness, strength equal bilaterally - Psychiatric Psychiatric: Present: A&O x's 3, appropriate affect, intact judgment & insight - Allied health notes Allied health notes reviewed: nursing - Labs CBC & Chem 7: 09/07/17 04:52 09/07/17 04:52 Labs: Abnormal Lab Results - Last 24 Hours (Table) 09/06/17 09/06/17 09/06/17 Range/Units 10:06 10:06 18:37 Plt Count (150-450) k/uL Lymphocytes # (1.0-4.8) k/uL APTT 31.0 H 46.6 H (22.0-30.0) sec BUN (9-20) mg/dL Glucose (74-99) mg/dL Troponin I 0.238 H* (0.000-0.034) ng/mL 09/07/17 09/07/17 09/07/17 Range/Units 01:21 04:52 04:52 Plt Count 103 L (150-450) k/uL Lymphocytes # 0.6 L (1.0-4.8) k/uL APTT 59.3 H (22.0-30.0) sec BUN 22 H (9-20) mg/dL Glucose 183 H (74-99) mg/dL Troponin I (0.000-0.034) ng/mL 09/07/17 Range/Units 04:52 Plt Count (150-450) k/uL Lymphocytes # (1.0-4.8) k/uL APTT 57.2 H (22.0-30.0) sec BUN (9-20) mg/dL Glucose (74-99) mg/dL Troponin I (0.000-0.034) ng/mL Microbiology - Last 24 Hours (Table) 09/05/17 17:50 Urine Culture - Final Urine,Catheterized Assessment and Plan (1) Hypertension Current Visit: Yes Status: Acute Code(s): I10 - ESSENTIAL (PRIMARY) HYPERTENSION SNOMED Code(s): 60762641 (2) Non-ST elevated myocardial infarction Current Visit: Yes Status: Acute Code(s): I21.4 - NON-ST ELEVATION (NSTEMI) MYOCARDIAL INFARCTION SNOMED Code(s): 202000763 (3) COPD (chronic obstructive pulmonary disease) Current Visit: Yes Status: Acute Code(s): J44.9 - CHRONIC OBSTRUCTIVE PULMONARY DISEASE, UNSPECIFIED SNOMED Code(s): 28974159 (4) Lumbar disc disease Current Visit: Yes Status: Acute Code(s): M51.9 - UNSP THORACIC, THORACOLUM AND LUMBOSACR INTVRT DISC DISORDER SNOMED Code(s): 187684330 (5) Peripheral vascular disease Current Visit: Yes Status: Acute Code(s): I73.9 - PERIPHERAL VASCULAR DISEASE, UNSPECIFIED SNOMED Code(s): 460496464 (6) Diabetes mellitus type 2 in nonobese Current Visit: Yes Status: Acute Code(s): E11.9 - TYPE 2 DIABETES MELLITUS WITHOUT COMPLICATIONS SNOMED Code(s): 755331607 (7) History of smoking Current Visit: Yes Status: Acute Code(s): Z87.891 - PERSONAL HISTORY OF NICOTINE DEPENDENCE SNOMED Code(s): 24147752305698679 (8) Chronic diastolic CHF (congestive heart failure) Current Visit: Yes Status: Acute Code(s): I50.32 - CHRONIC DIASTOLIC ( CONGESTIVE) HEART FAILURE SNOMED Code(s): 195114921 (9) Chronic pain syndrome Current Visit: Yes Status: Acute Code(s): G89.4 - CHRONIC PAIN SYNDROME SNOMED Code(s): 211323954 (10) History of MRSA infection Current Visit: Yes Status: Acute Code(s): Z86.14 - PERSONAL HISTORY OF METHICILLIN RESIS STAPH INFECTION SNOMED Code(s): 066409014 (11) Chronic atrial fibrillation Current Visit: Yes Status: Acute Code(s): I48.2 - CHRONIC ATRIAL FIBRILLATION SNOMED Code(s): 617667212 (12) GERD (gastroesophageal reflux disease) Current Visit: Yes Status: Acute Code(s): K21.9 - GASTRO-ESOPHAGEAL REFLUX DISEASE WITHOUT ESOPHAGITIS SNOMED Code(s): 220269031 (13) BPH (benign prostatic hyperplasia) Current Visit: Yes Status: Acute Code(s): N40.0 - BENIGN PROSTATIC HYPERPLASIA WITHOUT LOWER URINRY TRACT SYMP SNOMED Code(s): 161816840 (14) History of sick sinus syndrome Current Visit: Yes Status: Acute Code(s): Z86.79 - PERSONAL HISTORY OF OTHER DISEASES OF THE CIRCULATORY SYSTEM SNOMED Code(s): 957564679736617 (15) History of permanent cardiac pacemaker placement Current Visit: Yes Status: Acute Code(s): Z95.0 - PRESENCE OF CARDIAC PACEMAKER SNOMED Code(s): 840103050 (16) Family history of coronary artery disease in brother Current Visit: Yes Status: Acute Code(s): Z82.49 - FAMILY HX OF ISCHEM HEART DIS AND OTH DIS OF THE CIRC SYS SNOMED Code(s): 738190232 (17) History of Coumadin therapy Current Visit: Yes Status: Acute Code(s): Z92.29 - PERSONAL HISTORY OF OTHER DRUG THERAPY SNOMED Code(s): 951845429 Plan: 1. Dr. Horvath met with the patient and his grandson. He discussed the treatment options for his coronary artery disease. The patient wishes to proceed with myocardial revascularization surgery. He will be treated be scheduled for myocardial revascularization surgery with exclusion of his left atrial appendage, intraoperative transesophageal echocardiogram, epi-aortic ultrasound and graft flow measurement using the [facility] sytem for Friday, 09/08. 2. Encourage use of his incentive spirometry every hour while awake. 3. Continue to hold Coumadin. 4. Continue heparin, aspirin, statin, and beta lisa. 5. Pulmonary recommendations per Dr. Cruz. 6. Nothing by mouth after midnight. 7. Obtain consent for myocardial revascularization surgery for 09/07/2017. 8. We will send a HIT assay due to his platelet count of 103. 9. We will draw a preoperative room air arterial blood gas after the arterial line has been placed by the [employer] tomorrow morning 09/08/2017. 10. More recommendations to follow based on the patient's clinical course. Time with Patient: Greater than 30
[2017-09-07 11:51] LABS: Glucose,Whole Blood 197 mg/dL (75-99)
--- NOTE | 2017-09-07 13:01 | P.PN ---
Subjective Progress Note Date: 09/07/17 Principal diagnosis: Acute non-ST elevation myocardial infarction his is a 77-year-old white male, familiar to my service, patient is known to have history of severe COPD, FEV1 is in the range of 45%, 1.27 L, patient is O2 dependent, maintained on 3 L nasal cannula. He was admitted yesterday to [facility] with acute chest pain, and increased shortness of breath. He was also noted to have elevated troponin and non-ST elevation myocardial infarction. Undergone cardiac catheterization, and he was found to have severe triple-vessel coronary artery disease. Patient was transferred yesterday to [facility], he will be seen by cardiac surgery, and anticipating myocardial revascularization early next week. Based on the pulmonary status, patient has severe COPD, he is definitely a high surgical risk , but no absolute contraindication to surgery. During my evaluation, patient was complaining of some shortness of breath, no chest pain, no cough, no wheezing, no fever, no chills, no hemoptysis, no nausea, no vomiting, no abdominal pain. Patient is known to have history of multiple medical problems including COPD, chronic atrial fibrillation, previous pacemaker implantation, hypertension, previous osteomyelitis involving feet, history of diabetes and peripheral vessel occlusive disease as well as diabetic neuropathy. He has chronic systolic congestive heart failure, ejection fraction is in the range of 45%. Reevaluated today on 09/07/2017, patient seems to be doing relatively well. Asymptomatic, no cough no wheezing no shortness of breath and no chest pain. All his labs including CBC and basic metabolic profile and renal profile were noted. Relatively unremarkable. Patient is scheduled to undergo myocardial revascularization in the morning. Objective - Vital Signs Vital signs: Vital Signs Temp 98.2 F 09/07/17 12:00 Pulse 61 09/07/17 12:00 Resp 19 09/07/17 12:00 BP 119/57 09/07/17 12:00 Pulse Ox 96 09/07/17 12:00 Intake & Output 09/06/17 09/07/17 09/07/17 18:59 06:59 18:59 Intake Total 710.09 551.502 170 Output Total 2165 1455 330 Balance -1454.91 -903.498 -160 Weight 73.5 kg Intake: IV 540 360 170 Dextrose 5%-0.45% NaCl 1, 540 260 70 000 ml @ 100 mls/hr IV . Q10H [facility] Rx#:[id number] Magnesium Sulfate-D5w Pmx 100 100 1 gm In Dextrose/Water 1 100ml.bag @ 100 mls/hr IVPB Q1H [facility]ON Rx#: [id number] Intake, IV Titration 170.09 191.502 Amount Heparin Sodium,Porcine/ 170.09 191.502 D5w Pmx 25,000 unit In Dextrose/Water 1 500ml. bag @ 12 UNITS/KG/HR 17. 52 mls/hr IV .Q24H [facility]ON Rx #:[id number] Output: Urine 2165 1455 330 Other: Voiding Method Indwelling Catheter Indwelling Catheter Indwelling Catheter ABP, PAP, CO, CI - Last Documented Arterial Blood Pressure 124/54 - Exam Physical Exam: Revealed a 77-year-old white male in no distress. Head: Atraumatic, normocephalic. HEENT:[Neck is supple.] [No neck masses.] [No thyromegaly.] [No JVD.] Chest: [Diminished breath sounds at the bases, no crackles or rhonchi or wheezes , no chest wall tenderness..] Cardiac Exam: [Normal S1 and S2, no S3 gallop, no murmur.] Abdomen: [Soft, nontender, no megaly, no rebound, no guarding, normal bowel sounds.] Extremities: [No clubbing, no edema, no cyanosis.] Deformities noted in toes bilaterally in both feet. Diminished distal pulses bilaterally Neurological Exam: [No focal neurologic deficit.] Psychiatric: Normal mood affect and mental status examination. Lymphatics: No lymphadenopathy was appreciated. - Labs CBC & Chem 7: 09/07/17 04:52 09/07/17 04:52 Labs: Abnormal Lab Results - Last 24 Hours (Table) 09/06/17 09/07/17 09/07/17 Range/Units 18:37 01:21 04:52 Plt Count 103 L (150-450) k/uL Lymphocytes # 0.6 L (1.0-4.8) k/uL APTT 46.6 H 59.3 H (22.0-30.0) sec BUN (9-20) mg/dL Glucose (74-99) mg/dL POC Glucose (mg/dL) (75-99) mg/dL Crossmatch 09/07/17 09/07/17 09/07/17 Range/Units 04:52 04:52 11:16 Plt Count (150-450) k/uL Lymphocytes # (1.0-4.8) k/uL APTT 57.2 H (22.0-30.0) sec BUN 22 H (9-20) mg/dL Glucose 183 H (74-99) mg/dL POC Glucose (mg/dL) (75-99) mg/dL Crossmatch See Detail 09/07/17 Range/Units 11:50 Plt Count (150-450) k/uL Lymphocytes # (1.0-4.8) k/uL APTT (22.0-30.0) sec BUN (9-20) mg/dL Glucose (74-99) mg/dL POC Glucose (mg/dL) 197 H (75-99) mg/dL Crossmatch Microbiology - Last 24 Hours (Table) 09/05/17 17:50 Urine Culture - Final Urine,Catheterized Assessment and Plan Assessment: Impression: 1 acute non-ST elevation myocardial infarction, status post cardiac catheterization revealing severe triple-vessel coronary artery disease. 2 severe COPD, and chronic hypoxic respiratory failure secondary to COPD FEV1 is in the range of 45%, 1.27 L. Patient is definitely a high surgical risk. 3 multiple comorbidities including chronic atrial fibrillation, type 2 diabetes with diabetic neuropathy, peripheral vessel occlusive disease, history of osteomyelitis and subsequent amputations of toes. History of hypertension, history of systolic congestive heart failure. Recommendation: Continue present treatment plan, patient again is scheduled for surgery tomorrow. Time with Patient: Less than 30
--- NOTE | 2017-09-07 13:41 | PN ---
PROGRESS NOTE 77-year-old gentleman that is admitted to hospital with unstable angina, underwent cardiac catheterization and had been found to have severe triple-vessel disease and has underlying moderate LV systolic dysfunction. The patient is chest pain-free this morning, remains hemodynamically stable. Heart rate is normal. On exam, vital signs are stable. There is no jugular venous distention. Chest exam reveals good air entry bilaterally. Heart exam reveals first and second heart sounds. No gallop. Exam of extremities did not reveal any edema. LABS: Show a hemoglobin of 14.3, BUN is 22, creatinine is 0.7. ASSESSMENT: Unstable angina status post catheterization and awaiting bypass surgery. The patient is stable clinically and I will leave him in the ICU. MMODL / IJN: [id number] /
[2017-09-07] MEDS: DEXTROSE 5%-0.45% NACL 1,000 ML IV SCH (14:18)
[2017-09-07] MEDS: HEPARIN SODIUM,PORCINE/D5W PMX 25,000 UNIT in DEXTROSE/WATER 1 500ML.BAG IV SCH (16:12)
[2017-09-07 17:10] LABS: Glucose,Whole Blood 146 mg/dL (75-99)
[2017-09-07 21:50] LABS: Glucose,Whole Blood 177 mg/dL (75-99)
[2017-09-08] MEDS: methylPREDNISolone SOD SUCCI 125 MG/2 ML VIAL IV SCH ×4 (00:10→23:52)
[2017-09-08] MEDS: IPRATROPIUM-ALBUTEROL 3 ML NEB INHALATION SCH ×7 (00:14→19:55)
[2017-09-08 04:50] LABS: Basophils % (A) 0 %; Eosinophils % (A) 0 %; HCT 42.1 % (39.0-53.0); Lymphocytes # (A) 0.7 k/uL (1.0-4.8); Lymphocytes % (A) 6 %; MCH 29.3 pg (25.0-35.0); MCHC 33.4 g/dL (31.0-37.0); MCV 87.7 fL (80.0-100.0); Mean Platelet Volume 6.8; Monocytes # (A) 0.3 k/uL (0-1.0); Monocytes % (A) 3 %; Neutrophils # (A) 10.6 k/uL (1.3-7.7); Neutrophils % (A) 91 %; Platelet Count 131 k/uL (150-450); RDW 14.7 % (11.5-15.5); WBC 11.7 k/uL (3.8-10.6)
[2017-09-08] MEDS ORDERED: ceFAZolin 1,000 MG in SODIUM CHLORIDE 0.9% IRRIGATIO 1,000 ML IRRIGATION ONE (05:00)
[2017-09-08] MEDS ORDERED: ASPIRIN 325 MG TAB PO ONE (05:00)
[2017-09-08] MEDS ORDERED: DEXTROSE 5% IN WATER 1,000 ML with POTASSIUM CHLORIDE 110 MEQ, MAGNESIUM SULFATE 16 MEQ... IV SCH ×5 (05:00)
[2017-09-08] MEDS ORDERED: PAPAVERINE 360 MG in SODIUM CHLORIDE 0.9% 90 ML IV ONE ×2 (05:00→09:58)
[2017-09-08] MEDS ORDERED: NITROGLYCERIN-D5W PMX 25 MG/250 ML BTL IV ONE (05:00)
[2017-09-08] MEDS ORDERED: MANNITOL 25% 12.5 GM/50 ML VIAL IV ONE ×2 (05:00)
[2017-09-08] MEDS ORDERED: NITROGLYCERIN-D5W PMX 50 MG in DEXTROSE/WATER 1 250ML.BAG IV ONE (05:00)
[2017-09-08] MEDS ORDERED: PROTAMINE SULFATE 10 MG/ML 25 ML VIAL IV ONE ×2 (05:00→08:00)
[2017-09-08] MEDS ORDERED: HEPARIN SODIUM,PORCINE 5,000 UNIT in SODIUM CHLORIDE 0.9% 500 ML IV ONE (05:00)
[2017-09-08] MEDS ORDERED: HEPARIN SODIUM 1,000 UN/ML (10ML VL) IV ONE (05:00)
[2017-09-08] MEDS ORDERED: PROPOFOL 1,000 MG in EMPTY BAG 1 BAG IV ONE (05:00)
[2017-09-08] MEDS ORDERED: METOPROLOL TARTRATE 25 MG TAB PO ONE (05:00)
[2017-09-08] MEDS ORDERED: ceFAZolin 2,000 MG in SODIUM CHLORIDE 0.9% 30 ML IVPB ONE (05:00)
[2017-09-08] MEDS ORDERED: MAGNESIUM SULFATE SYG 4.06 MEQ/ML SYRINGE IV ONE (05:00)
[2017-09-08] MEDS ORDERED: CLEVIDIPINE BUTYRATE 25 MG in EMPTY BAG 1 BAG IV ONE (05:00)
[2017-09-08] MEDS ORDERED: TRANEXAMIC ACID 2,000 MG in SODIUM CHLORIDE 0.9% 180 ML IV ONE (05:00)
[2017-09-08] MEDS ORDERED: PHENYLEPHRINE-0.9% NACL SYG 1 MG/10 ML SYRINGE IV ONE ×4 (05:00)
[2017-09-08] MEDS ORDERED: ATORVASTATIN 10 MG TAB PO ONE (05:00)
[2017-09-08] MEDS ORDERED: ALBUMIN HUMAN 25% 50 ML in EMPTY BAG 1 BAG IVPB ONE (05:00)
[2017-09-08] MEDS ORDERED: ceFAZolin 2 GM in SODIUM CHLORIDE 0.9% 30 ML IVPB ONE (05:00)
[2017-09-08] MEDS ORDERED: PHENYLEPHRINE 40 MG in SODIUM CHLORIDE 0.9% 250 ML IV ONE (05:00)
[2017-09-08] MEDS ORDERED: CALCIUM CHLORIDE 100 MG/ML 10 ML SYRINGE IVP ONE (05:00)
[2017-09-08] MEDS ORDERED: PROTAMINE SULFATE 250 MG in EMPTY BAG 1 BAG IV ONE (05:00)
[2017-09-08] MEDS ORDERED: INSULIN REGULAR 100 UNIT in SODIUM CHLORIDE 0.9% 100 ML IV ONE (05:00)
[2017-09-08] MEDS ORDERED: CHLORHEXIDINE GLUCONATE 15 ML CUP MUCOUS MEM ONE (05:00)
[2017-09-08] MEDS ORDERED: SODIUM BICARB 8.4% 50 ML SYR (1 MEQ/ML) IV ONE (05:00)
[2017-09-08] MEDS ORDERED: ALBUMIN HUMAN 5% 500 ML in EMPTY BAG 1 BAG IVPB ONE ×6 (05:00)
[2017-09-08] MEDS ORDERED: DEXTROSE 5% IN WATER 1,000 ML with POTASSIUM CHLORIDE 25 MEQ, SODIUM CHLORIDE 2.5MEQ/ML... IV SCH ×6 (05:00)
[2017-09-08] MEDS ORDERED: NOREPINEPHRIN 4 MG-0.9% NS PMX 4 MG/250 ML ML IV SCH (05:00)
[2017-09-08 05:08] LABS: Anion Gap 12 mmol/L; Blood Urea Nitrogen 25 mg/dL (9-20); Calcium 8.8 mg/dL (8.4-10.2); Carbon Dioxide 28 mmol/L (22-30); Chloride 100 mmol/L (98-107); Glucose 191 mg/dL (74-99); Magnesium 2.3 mg/dL (1.6-2.3); Phosphorus 3.4 mg/dL (2.5-4.5); Potassium 4.4 mmol/L (3.5-5.1); Sodium 140 mmol/L (137-145)
[2017-09-08 06:00] LABS: INR 1.3 (<1.2); Partial Thromboplastin Time 47.6 sec (22.0-30.0)
[2017-09-08] MEDS: METOPROLOL TARTRATE 12.5 MG TAB PO SCH ×2 (06:01→20:32)
[2017-09-08 07:36] LABS: ABG Base Excess 5.2 mmol/L; ABG HCO3 29 mmol/L (21-25); ABG Oxygen Saturation 93.2 % (94-97); ABG PCO2 43 mmHg (35-45); ABG PH 7.45 (7.35-7.45); ABG PO2 62 mmHg (83-108)
[2017-09-08] MEDS ORDERED: SUCCINYLCHOLINE CHLORIDE 100 MG/5 ML SYR IV ONE (08:00)
[2017-09-08] MEDS ORDERED: SODIUM CHLORIDE 0.9% 250 ML BAG ONE (08:00)
[2017-09-08] MEDS ORDERED: SODIUM CHLORIDE 0.9% IRRIG 1,000 ML BTL IRRIGATION ONE (08:00)
[2017-09-08] MEDS ORDERED: HEPARIN SODIUM,PORCINE 10,000 UNIT/ML 1 ML VIAL ONE (08:00)
[2017-09-08] MEDS ORDERED: NOREPINEPHRINE 1 MG/ML 4 ML VIAL IV ONE (08:00)
[2017-09-08] MEDS ORDERED: MAGNESIUM SULFATE 4 MEQ/ML 2 ML VIAL ONE (08:00)
[2017-09-08] MEDS ORDERED: ELECTROLYTE-R (PH 7.4) 1,000 ML IV.SOLN IV ONE (08:00)
[2017-09-08] MEDS ORDERED: ePHEDrine SULFATE/0.9% NACL/PF 50 MG/5 ML SYRINGE IV ONE (08:00)
[2017-09-08] MEDS ORDERED: MIDAZOLAM 2 MG/2 ML VIAL ONE (08:00)
[2017-09-08] MEDS ORDERED: PHENYLEPHRINE-0.9% NACL SYG 1 MG/10 ML SYRINGE ONE (08:00)
[2017-09-08] MEDS ORDERED: fentaNYL (PF) 50 MCG/ML 50 ML VIAL ONE (08:00)
[2017-09-08] MEDS ORDERED: ALBUMIN HUMAN 5% 500 ML VIAL IVPB ONE (08:00)
[2017-09-08] MEDS ORDERED: LIDOCAINE 2% SYG (PF) 100 MG/5 ML ONE (08:00)
[2017-09-08] MEDS ORDERED: PROTAMINE SULFATE 10 MG/ML 5 ML VIAL IV ONE (08:00)
[2017-09-08] MEDS ORDERED: VECURONIUM 10 MG VIAL IV ONE (08:00)
[2017-09-08] MEDS: SYMBICORT 160-4.5 MCG INHALER INHALATION SCH (08:00)
[2017-09-08] MEDS ORDERED: TRANEXAMIC ACID 1,000 MG/10 ML VIAL ONE (08:00)
[2017-09-08 08:49] LABS: ABG Oxygen Saturation 99.9 % (94-97); ABG PO2 231 mmHg (83-108); ABG Potassium Whole Blood 4.2 mmol/L (3.4-4.5)
--- NOTE | 2017-09-08 08:50 | P.PN ---
Subjective Progress Note Date: 09/08/17 Principal diagnosis: Coronary artery disease Progress note dated 09/08/2017 77-year-old male with a history of non-ST segment elevation myocardial infarction, status post cardiac catheterization revealing severe triple-vessel CAD. In addition, he is quite severe COPD, with an FEV1 in the range of 45% of predicted. 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 The patient surgery is to be done today. The patient is on O2 3 L nasal cannula and has a dextrose half-normal saline IV at [facility]. He was on a heparin drip but obviously that was turned off prior to surgery. Other than that, the patient is doing reasonably well. He certainly is at high risk. This has been documented by my partner. Objective - Vital Signs Vital signs: Vital Signs Temp 98.0 F 09/08/17 04:43 Pulse 78 09/08/17 06:00 Resp 18 09/08/17 06:00 BP 123/56 09/08/17 06:00 Pulse Ox 92 L 09/08/17 06:00 Intake & Output 09/07/17 09/08/17 09/08/17 18:59 06:59 18:59 Intake Total 1328 110 Output Total 1380 1275 Balance -52 -1165 Weight 73.2 kg Intake: IV 240 110 Dextrose 5%-0.45% NaCl 1, 140 110 000 ml @ 10 mls/hr IV . Q24H [facility]ON Rx#:[id number] Magnesium Sulfate-D5w Pmx 100 1 gm In Dextrose/Water 1 100ml.bag @ 100 mls/hr IVPB Q1H [facility]ON Rx#: [id number] Intake, IV Titration 438 Amount Heparin Sodium,Porcine/ 438 D5w Pmx 25,000 unit In Dextrose/Water 1 500ml. bag @ 12 UNITS/KG/HR 17. 52 mls/hr IV .Q24H [facility]ON Rx #:[id number] Oral 650 Output: Urine 1380 1275 Other: Voiding Method Indwelling Catheter Indwelling Catheter ABP, PAP, CO, CI - Last Documented Arterial Blood Pressure 124/54 - Exam No acute distress, oriented 3. HEENT examination is grossly unremarkable. Mucous membranes are moist. No oral lesions. Neck supple. Full range of motion. No adenopathy thyromegaly or neck vein distention. Cardiovascular examination reveals regular rhythm rate. S1-S2 normal. No S3 or S4. No discernible murmur noted. Lungs reveal clear breath sounds. Her sounds are equal bilaterally. No adventitious lung sounds including wheezes rhonchi or crackles. Abdomen soft bowel sounds are heard. No masses or tenderness. Extremities are intact. No cyanosis clubbing or edema. Skin is without rash or lesion. Neurologic examination is brief but nonfocal. - Labs CBC & Chem 7: 09/08/17 04:09 09/08/17 04:09 Labs: Abnormal Lab Results - Last 24 Hours (Table) 09/07/17 09/07/17 09/07/17 Range/Units 11:16 11:50 17:06 WBC (3.8-10.6) k/uL Plt Count (150-450) k/uL Neutrophils # (1.3-7.7) k/uL Lymphocytes # (1.0-4.8) k/uL INR (<1.2) APTT (22.0-30.0) sec ABG pO2 (83-108) mmHg ABG HCO3 (21-25) mmol/L ABG O2 Saturation (94-97) % BUN (9-20) mg/dL Glucose (74-99) mg/dL POC Glucose (mg/dL) 197 H 146 H (75-99) mg/dL Crossmatch See Detail 09/07/17 09/08/17 09/08/17 Range/Units 21:48 04:09 04:09 WBC 11.7 H (3.8-10.6) k/uL Plt Count 131 L (150-450) k/uL Neutrophils # 10.6 H (1.3-7.7) k/uL Lymphocytes # 0.7 L (1.0-4.8) k/uL INR (<1.2) APTT (22.0-30.0) sec ABG pO2 (83-108) mmHg ABG HCO3 (21-25) mmol/L ABG O2 Saturation (94-97) % BUN 25 H (9-20) mg/dL Glucose 191 H (74-99) mg/dL POC Glucose (mg/dL) 177 H (75-99) mg/dL Crossmatch 09/08/17 09/08/17 Range/Units 05:42 07:30 WBC (3.8-10.6) k/uL Plt Count (150-450) k/uL Neutrophils # (1.3-7.7) k/uL Lymphocytes # (1.0-4.8) k/uL INR 1.3 H (<1.2) APTT 47.6 H (22.0-30.0) sec ABG pO2 62 L (83-108) mmHg ABG HCO3 29 H (21-25) mmol/L ABG O2 Saturation 93.2 L (94-97) % BUN (9-20) mg/dL Glucose (74-99) mg/dL POC Glucose (mg/dL) (75-99) mg/dL Crossmatch Microbiology - Last 24 Hours (Table) 09/08/17 04:56 Sputum Culture - Preliminary Sputum 09/05/17 21:10 Nasal Screen MRSA/MSSA ([facility]) - Final Nasal Swab Staphylococcus aureus,Not MRSA Assessment and Plan Assessment: Assessment Acute non-ST segment elevation myocardial infarction, secondary to severe triple -vessel CAD Severe COPD, stage III disease, with an FEV1 that is 45% of predicted Chronic hypoxemic respiratory failure Chronic atrial fibrillation Type 2 diabetes mellitus Diabetic neuropathy PVOD Osteomyelitis History of hypertension History of systolic heart failure. Plan: Plan dated 09/08/2017 The patient's vent will be management the patient comes back from the operating room. We'll make sure the patient's on updrafts every 4 [id number]. The patient's will be assessed carefully. We'll see if we can get the patient extubated as quickly as possible. Given his multiple comorbidities and his severe COPD, that may precipitate a bit of a problem. Additional recommendations and suggestions are forthcoming. Post extubation, use of incentive spirometry and bronchodilators will be very important and continue deep breathing coughing and clearing his secretions be beneficial as well. Critical care time 33 minutes Time with Patient: Greater than 30
[2017-09-08 09:03] LABS: ABG Base Excess 4.9 mmol/L; ABG HCO3 29 mmol/L (21-25); ABG PCO2 41 mmHg (35-45); ABG PH 7.45 (7.35-7.45); ABG Sodium Whole Blood 138 mmol/L (135-146); ABG TCO2 31 mmol/L (19-24)
[2017-09-08] MEDS ORDERED: SODIUM CHLORIDE 0.9% 500 ML with HEPARIN SODIUM,PORCINE 5,000 UNIT IV ONE ×2 (09:57)
[2017-09-08] MEDS ORDERED: ceFAZolin 1,000 MG in SODIUM CHLORIDE 0.9% 1,000 ML IRRIGATION ONE (09:58)
[2017-09-08 10:18] LABS: ABG Base Excess 3.5 mmol/L; ABG HCO3 30 mmol/L (21-25); ABG Oxygen Saturation 99.6 % (94-97); ABG PCO2 54 mmHg (35-45); ABG PH 7.36 (7.35-7.45); ABG PO2 214 mmHg (83-108); ABG Potassium Whole Blood 4.4 mmol/L (3.4-4.5); ABG Sodium Whole Blood 138 mmol/L (135-146); ABG TCO2 32 mmol/L (19-24)
[2017-09-08 11:01] LABS: ABG Base Excess 2.8 mmol/L; ABG HCO3 28 mmol/L (21-25); ABG PCO2 48 mmHg (35-45); ABG PH 7.38 (7.35-7.45); ABG Potassium Whole Blood 4.1 mmol/L (3.4-4.5); ABG Sodium Whole Blood 134 mmol/L (135-146); ABG TCO2 30 mmol/L (19-24)
[2017-09-08 11:30] LABS: ABG Base Excess 3.9 mmol/L; ABG HCO3 28 mmol/L (21-25); ABG PCO2 40 mmHg (35-45); ABG PH 7.46 (7.35-7.45); ABG PO2 276 mmHg (83-108); ABG Potassium Whole Blood 5.6 mmol/L (3.4-4.5); ABG Sodium Whole Blood 132 mmol/L (135-146); ABG TCO2 29 mmol/L (19-24)
[2017-09-08 12:04] LABS: ABG HCO3 28 mmol/L (21-25); ABG Oxygen Saturation 99.9 % (94-97); ABG PCO2 41 mmHg (35-45); ABG PH 7.43 (7.35-7.45); ABG PO2 259 mmHg (83-108); ABG Potassium Whole Blood 5.3 mmol/L (3.4-4.5); ABG Sodium Whole Blood 134 mmol/L (135-146); ABG TCO2 29 mmol/L (19-24)
[2017-09-08 12:37] LABS: ABG Base Excess 2.3 mmol/L; ABG HCO3 27 mmol/L (21-25); ABG PCO2 44 mmHg (35-45); ABG PO2 309 mmHg (83-108); ABG Potassium Whole Blood 4.9 mmol/L (3.4-4.5); ABG Sodium Whole Blood 133 mmol/L (135-146); ABG TCO2 29 mmol/L (19-24)
[2017-09-08 13:56] LABS: ABG PO2 >420 mmHg (83-108)
[2017-09-08 13:57] LABS: ABG Base Excess 1.6 mmol/L; ABG HCO3 27 mmol/L (21-25); ABG Oxygen Saturation 99.7 % (94-97); ABG PCO2 46 mmHg (35-45); ABG PH 7.38 (7.35-7.45); ABG PO2 209 mmHg (83-108); ABG Potassium Whole Blood 4.1 mmol/L (3.4-4.5); ABG Sodium Whole Blood 138 mmol/L (135-146); ABG TCO2 28 mmol/L (19-24)
[2017-09-08] MEDS ORDERED: DEXTROSE 5% IN WATER 100 ML with AMIODARONE 150 MG IV PRN (14:41)
[2017-09-08] MEDS ORDERED: PROPOFOL 1,000 MG in EMPTY BAG 1 BAG IV SCH (14:41)
[2017-09-08] MEDS ORDERED: ONDANSETRON 4 MG/2 ML VIAL IVP PRN (14:41)
[2017-09-08] MEDS ORDERED: Magnesium Replacement Protocol 1 EACH MISC MISCELLANE PRN (14:41)
[2017-09-08] MEDS ORDERED: NITROGLYCERIN-D5W PMX 50 MG in DEXTROSE/WATER 1 250ML.BAG IV SCH (14:41)
[2017-09-08] MEDS ORDERED: METOCLOPRAMIDE 5 MG/ML 2 ML VIAL IVP PRN (14:41)
[2017-09-08] MEDS ORDERED: Phosphorus Replacement Protoco 1 EACH MISC MISCELLANE PRN (14:41)
[2017-09-08] MEDS ORDERED: BENZOCAINE/MENTHOL LOZENG 1 EACH LOZENGE MUCOUS MEM PRN (14:41)
[2017-09-08] MEDS ORDERED: ALBUMIN HUMAN 5% 250 ML in EMPTY BAG 1 BAG IVPB PRN (14:41)
[2017-09-08] MEDS ORDERED: INSULIN REGULAR 100 UNIT in SODIUM CHLORIDE 0.9% 100 ML IV SCH (14:41)
[2017-09-08] MEDS ORDERED: Potassium Replacement Protocol 1 EACH MISC MISCELLANE PRN (14:41)
[2017-09-08] MEDS ORDERED: AMIODARONE 450 MG in DEXTROSE 5% IN WATER 250 ML IV PRN ×2 (14:41)
[2017-09-08] MEDS ORDERED: NOREPINEPHRINE 4 MG in SODIUM CHLORIDE 0.9% 250 ML IV SCH (14:41)
[2017-09-08] MEDS ORDERED: CALCIUM CHLORIDE 1,000 MG in SODIUM CHLORIDE 0.9% 100 ML IV PRN (14:41)
[2017-09-08 15:27] LABS: Basophils % (A) 0 %; Eosinophils % (A) 0 %; HCT 28.7 % (39.0-53.0); Lymphocytes # (A) 0.9 k/uL (1.0-4.8); Lymphocytes % (A) 4 %; MCH 28.8 pg (25.0-35.0); MCHC 32.7 g/dL (31.0-37.0); MCV 88.1 fL (80.0-100.0); Mean Platelet Volume 7.3; Monocytes # (A) 1.1 k/uL (0-1.0); Monocytes % (A) 5 %; Neutrophils # (A) 21.6 k/uL (1.3-7.7); Neutrophils % (A) 91 %; Platelet Count 115 k/uL (150-450); RBC 3.26 m/uL (4.30-5.90); RDW 14.7 % (11.5-15.5); WBC 23.7 k/uL (3.8-10.6)
[2017-09-08 15:29] LABS: Ionized Calcium 4.7 mg/dL (4.5-5.3)
[2017-09-08 15:32] LABS: HGB 9.4 gm/dL (13.0-17.5)
[2017-09-08 15:35] LABS: INR 1.5 (<1.2); Partial Thromboplastin Time 25.9 sec (22.0-30.0); Prothrombin Time 13.9 sec (9.0-12.0)
[2017-09-08 15:36] LABS: ALT 29 U/L (21-72); AST 46 U/L (17-59); Albumin 2.9 g/dL (3.5-5.0); Alkaline Phosphatase 32 U/L (38-126); Anion Gap 8 mmol/L; Blood Urea Nitrogen 24 mg/dL (9-20); Calcium 7.9 mg/dL (8.4-10.2); Carbon Dioxide 28 mmol/L (22-30); Chloride 103 mmol/L (98-107); Glucose 110 mg/dL (74-99); Magnesium 2.9 mg/dL (1.6-2.3); Potassium 4.2 mmol/L (3.5-5.1); Sodium 139 mmol/L (137-145); Total Bilirubin 0.7 mg/dL (0.2-1.3); Total Protein 4.5 g/dL (6.3-8.2)
[2017-09-08 15:40] LABS: Glucose,Whole Blood 122 mg/dL (75-99)
[2017-09-08 15:40] LABS: ABG HCO3 29 mmol/L (21-25); ABG PCO2 58 mmHg (35-45); ABG PH 7.31 (7.35-7.45); ABG PO2 >400 mmHg (83-108); ABG TCO2 31 mmol/L (19-24)
--- NOTE | 2017-09-08 15:44 | XR ---
EXAMINATION TYPE: XR chest 1V portable DATE OF EXAM: 09/08/2017 CLINICAL HISTORY: Post open cardiac surgery TECHNIQUE: Single AP portable frontal view of the chest is obtained. COMPARISON: Chest x-ray from 2 days earlier. FINDINGS: There is new endotracheal tube with tip at aortic knob level, proximally 5 to 6 cm above t he madie. There is new orogastric tube projecting below diaphragm. There is new left-sided chest tub e and mediastinal drainage catheter. There is new right internal jugular Salyer-Cinthia catheter terminati ng at level of pulmonary outflow tract. There are new sternal wires and mediastinal clips. There is p ersistent multi lead pacemaker. There is new cardiac closure device along superior left heart border. There is chronic parenchymal change with persistent bibasilar scarring and/or atelectasis. No sizable pneumothorax is seen. Cardiac silhouette size is stable and mildly enlarged with atherosclerotic aor ta. Osseous structures are intact. IMPRESSION: 1. New tubes and lines felt satisfactory in position as detailed above. 2. Cardiomegaly and chronic parenchymal change with persistent bibasilar scarring and/or atelectasis. No new infiltrate is seen.
[2017-09-08 15:55] LABS: Glucose,Whole Blood 85 mg/dL (75-99)
[2017-09-08 16:43] LABS: Glucose,Whole Blood 74 mg/dL (75-99)
[2017-09-08] MEDS ORDERED: CALCIUM CHLORIDE 1,000 MG in SODIUM CHLORIDE 0.9% 100 ML IVPB STA (16:51)
[2017-09-08] MEDS: DEXTROSE 5%-0.45% NACL 1,000 ML IV SCH (16:53)
[2017-09-08] MEDS: LACTATED RINGERS 1,000 ML IV SCH (16:54)
[2017-09-08] MEDS: CLEVIDIPINE BUTYRATE 25 MG in EMPTY BAG 1 BAG IV SCH ×2 (16:55→18:30)
[2017-09-08] MEDS: ceFAZolin IN SWFI 2 GM/20 ML SYRINGE IVP SCH ×2 (16:56→23:51)
[2017-09-08] MEDS: ACETAMINOPHEN IV (For NPO) 1,000 MG in EMPTY BAG 1 BAG IVPB SCH ×2 (16:57→23:51)
--- NOTE | 2017-09-08 17:00 | OP ---
OPERATIVE REPORT DATE OF THE SURGERY: 09/08/2017. SURGEON: Dr. Montrell Horvath. SUPERVISOR INSPECTION: 1. Adriel Arrieta, Nurse practitioner. 2. ALBER Patel. PREOPERATIVE DIAGNOSES: 1. Triple-vessel coronary artery disease. 2. Non-ST elevation myocardial infarction. 3. Mild to moderate left ventricular dysfunction. 4. Chronic atrial fibrillation. 5. Sick sinus syndrome, status post permanent pacemaker insertion. 6. Severe chronic obstructive pulmonary disease with home oxygen. 7. Arthritis. 8. Benign prostatic hypertrophy. 9. Gastroesophageal reflux disease. 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 POSTOPERATIVE DIAGNOSES: 1. Triple-vessel coronary artery disease. 2. Non-ST elevation myocardial infarction. 3. Mild to moderate left ventricular dysfunction. 4. Chronic atrial fibrillation. 5. Sick sinus syndrome, status post permanent pacemaker insertion. 6. Severe chronic obstructive pulmonary disease with home oxygen. 7. Arthritis. 8. Benign prostatic hypertrophy. 9. Gastroesophageal reflux disease. 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 PROCEDURE: 1. Quadruple coronary artery bypass grafting using the left internal mammary artery to the left anterior descending artery, reverse saphenous vein graft from the aorta to the 1st obtuse marginal artery, reverse saphenous vein graft from the aorta to the 2nd obtuse marginal artery, reverse saphenous vein graft from the aorta to the right coronary artery. 2. Exclusion of the left atrial appendage using a 40 mm AtriClip. 3. Endoscopic harvesting of the right greater saphenous vein. 4. Intraoperative transesophageal echocardiogram and epiaortic scanning. 5. Intraoperative graft flow measurements using the [employer] system. INDICATION FOR SURGERY: Patient is a 77-year-old gentleman with the above comorbidities admitted to [facility] and ruled in for non ST elevation myocardial infarction. He was transferred to [facility] for further assessment and surgical evaluation. The patient has COPD and is on home oxygen. He follows with Dr. Cruz. His FEV1 was around 1.25 L. The patient's anatomy is surgical and his left ventricular function was mildly depressed. He was deemed a candidate for high-risk coronary artery bypass grafting. The SDS risk was discussed with him and his family. They understood the risks and agreed to proceed. DESCRIPTION OF THE PROCEDURE: The patient was brought to the preoperative holding area where a right internal jugular [place] catheter and a right radial arterial line were placed. PA pressure was 45/22 and cardiac index was 2.7. He subsequently was brought to the operating room where general endotracheal anesthesia was induced uneventfully. He received 2 g of cefazolin intravenously. Kitchen catheter was inserted. The chest, abdomen and both lower extremities were prepped and draped using ChloraPrep. Ioban was used to cover the skin. Transesophageal echocardiogram showed mild to moderate left ventricular dysfunction, mild aortic valve regurgitation. A midline sternotomy was performed and the bone was moderately osteoporotic. The left hemisternum was elevated and the left internal mammary artery was harvested in a somewhat skeletonized fashion. The left pleura was intentionally opened in this process and was drained with a 28-Micronesian chest tube. She was given 5000 units of heparin and the mammary artery was clipped before its bifurcation transected, had an excellent pulsatile flow in it and was around 1.75 mm in diameter. The right pleura remained intact. In the same setting, the right greater saphenous vein was harvested endoscopically from groin to above the ankle level. The leg incisions were closed over a drain. The vein appeared to be of reasonable quality around 4 mm in diameter. Mediastinal fat was transected between 2 ties and epiaortic scanning revealed concentric intimal thickening of the ascending aorta, but no protruding atheroma. The pericardium was opened in an inverted in T-fashion and a pericardial cradle was created. Findings included a rightward displaced heart and a short aorta that was soft. There was visible diffuse coronary artery disease. After placement of respective pledgeted pursestring and after systemic heparinization, aortic cannulation with a 21-Micronesian soft flow cannula, right atrial appendage cannulation with a 3-stage 29-Micronesian cannula was performed. Antegrade cardioplegia catheter was placed. We could not insert a retrograde catheter into the coronary sinus, probably due to some valve at its ostium. In view of his anatomy, I did not think that it is essential. Cardiopulmonary bypass was initiated and we looked at the target and appeared that the mid LAD as it came out from a an intramyocardial course, the 1st obtuse marginal artery which was intramyocardial, the 2nd obtuse marginal artery and we looked at the inferior wall and there appeared to be a possible lateral branch coming either from the circumflex or the right coronary artery that was small. The PDA was small. However, I was able to find the right coronary artery before its bifurcation. It was thin-walled; however, on the small side around 1.5 mm in diameter and that will be the site for bypass. During aortic clamping, myocardial protection was achieved with initial dose of around 1 L of antegrade cold blood cardioplegia was adequate arrest at 200 mL. Subsequent doses were given via the constructed vein graft to the right coronary artery as well as antegrade. The 1st distal anastomosis was seen a segment of vein of reasonable quality and the right coronary artery which was around 1.5 mm in diameter, thin-walled, using Prolene 7- 0 in continuous fashion. The 2nd distal anastomosis was between a good quality vein segment and the 2nd obtuse marginal artery which was around 2 mm in diameter using Prolene 7-0 in continuous fashion. The 3rd distal anastomosis was between another segment of vein of good quality and the 1st obtuse marginal artery, which was intra myocardial diffuse disease around 1.7 mm in diameter using Prolene 7-0 in continuous fashion. Before this anastomosis was to the left internal mammary artery and the mid to distal aspect of the left anterior descending artery which was around 2 mm in diameter using Prolene 7-0 in continuous fashion. The mammary artery pedicle was affixed to the epicardium with 2 Prolene 6-0 sutures. Satisfied with the distal anastomosis, rewarming was started and we performed the 3 proximal anastomoses by punching out 3 buttons of 5 mm each from the ascending aorta and completing the 3 proximal anastomoses of the vein graft using Prolene 2-0 in a continuous fashion. The patient was given lidocaine and magnesium and the aorta was unclamped. He regained spontaneous slow junctional rhythm. His magnet rate was 800. So for that reason, I placed a bipolar ventricular pacing wires via the anterior aspect of the right ventricle and systolic pacing at 80 after a period of reperfusion. No atrial wires were placed. After a period of reperfusion, we were able to wean off cardiopulmonary bypass on low-dose Levophed. The cardiac index was 2.6. MALATHI showed almost normal left ventricular function. The left atrial appendage had been excluded with a 40 mm AtriClip after checking by MALATHI and ruling out any clot in it. Test dose protamine was given. Graft flow measurement was done and showed excellent flow to the left internal mammary artery, which was 151 mL/minute, pulsatility index of 1.7, and diastolic filling of 71%. The vein graft to the 1st obtuse marginal artery had a flow of 34 mL/minute, pulsatility index of 3.8, and diastolic filling of 56%. The vein going to the 2nd obtuse marginal artery had a flow of 74 mL/minute, pulsatility index of 2.1, and diastolic filling of 71% showing excellent graft. The vein graft going to the right coronary artery had a flow of 39 mL/minute, pulsatility index of 2.5, and diastolic filling of 58% showing an excellent graft. Full dose protamine was given subsequently. Decannulation followed. The venous cannulation site required reinforcement with a pledgeted 4-0 Prolene. The rene of the vein graft going to the right carotid artery was thin-walled and I had to insert a pericardial pledgetted suture at the rene to control that. The flow was rechecked into the graft. It was unchanged. One 36-Micronesian substernal chest tube was placed. A groove was made in the left pleura pericardial fat of mood. The mammary artery medial to the lung and away from the posterior sternal table. The mediastinal fat was used to cover the aorta and all the graft. The pericardial fat was approximated loosely over the heart. After ensuring adequate hemostasis and hemodynamic and after correct sponge, instrument, and needle count, the sternum was closed using 5 [id number] pineal cable after interposing fibular between the sternal edges. Thorough irrigation of cefazolin followed. The rest of the closure proceeded in layers. Skin glue was applied. The patient did not receive blood byproducts, but received 700 mL of Cell Saver blood. His cardiac index with the chest closed was 2.6. He was transferred to the ICU on low- dose Levophed with good hemodynamics and ventricular paced at 80. MMODL / IJN: [id number] /
--- NOTE | 2017-09-08 17:12 | OP ---
PLEASE SEE THE COMPLETED REPORT WITH THE SAME DATE OF SURGERY/ DICTATION OPERATIVE REPORT DATE OF SURGERY: 09/08/2017. SURGEON: Dr. Montrell Horvath. SERVICE DESK DIRECTOR: 1. Vasquez Arrieta. 2. Quinton Bennett. PREOPERATIVE DIAGNOSES: 1. Triple-vessel coronary artery disease. 2. [id number]-[id number] myocardial infarction. 3. Mild to moderate left ventricular dysfunction. 4. Sick sinus syndrome, status post permanent pacemaker insertion. 5. Chronic atrial fibrillation, on anticoagulation. 6. Recurrent extremity osteomyelitis requiring amputation of toe and fingers. 7. Severe chronic obstructive pulmonary disease, on home oxygen. 8. Benign prostatic hypertrophy. 9. Gastroesophageal reflux disease. 10.Arthritis. POSTOPERATIVE DIAGNOSES: 1. Triple-vessel coronary artery disease. 2. [id number]-[id number]-wjhrobwex myocardial infarction. 3. Mild to moderate left ventricular dysfunction. 4. Sick sinus syndrome, status post permanent pacemaker insertion. 5. Chronic atrial fibrillation, on anticoagulation. 6. Recurrent extremity osteomyelitis requiring amputation of toe and fingers. 7. Severe chronic obstructive pulmonary disease, on home oxygen. 8. Benign prostatic hypertrophy. 9. Gastroesophageal reflux disease. 10.Arthritis. PROCEDURES: 1. Quadruple coronary artery bypass grafting using the left internal mammary artery to the left anterior descending artery, reverse saphenous vein graft from the aorta to the first obtuse marginal artery, reverse saphenous vein graft from the aorta to the second obtuse marginal artery, reverse saphenous graft from the aorta to the right coronary artery. 2. Exclusion of the left atrial appendage using a 40 mm AtriClip. 3. Endoscopic harvesting of the right greater saphenous vein. 4. Intraoperative transesophageal echocardiogram and epiaortic scanning. 5. Intraoperative graft flow measurements using the [employer] system. MMODL / IJN: [id number] / MTDD
[2017-09-08 17:48] LABS: Glucose,Whole Blood 92 mg/dL (75-99)
[2017-09-08 17:57] LABS: Basophils % (A) 0 %; Eosinophils % (A) 0 %; HCT 28.5 % (39.0-53.0); HGB 9.4 gm/dL (13.0-17.5); Lymphocytes # (A) 0.8 k/uL (1.0-4.8); Lymphocytes % (A) 4 %; MCH 29.1 pg (25.0-35.0); MCHC 33.1 g/dL (31.0-37.0); Mean Platelet Volume 7.4; Monocytes # (A) 1.8 k/uL (0-1.0); Monocytes % (A) 9 %; Neutrophils # (A) 16.7 k/uL (1.3-7.7); Neutrophils % (A) 85 %; RBC 3.24 m/uL (4.30-5.90); RDW 15.1 % (11.5-15.5); WBC 19.8 k/uL (3.8-10.6)
[2017-09-08 18:02] LABS: Platelet Count 94 k/uL (150-450)
--- NOTE | 2017-09-08 18:13 | P.PN ---
Progress Note - Text The patient is a 77-year-old gentleman with triple vessel coronary artery disease that today underwent quadruple coronary artery bypass grafting along with exclusion of the left atrial appendage. He is presently on the ventilator in the intensive care unit. In discussing with the nursing staff apparently he is just beginning to come off of his anesthesia. Overall though he appears comfortable on the ventilator. Vital signs reveal a respiratory rate of 16 on the ventilator. Pulse of 84. Blood pressure 107/52. A pulmonary artery pressures 32/17. CVP of 8. O2 saturation of 99 on an FiO2 of 40%. Lungs generally some clear anteriorly at this time. Heart tones are somewhat distant. Laboratory White count is elevated at 19.8 with a hemoglobin 19.4 and a platelet count of 94. Blood sugar was 92. Chest x-ray demonstrates new tubes and lines apparently in satisfactory position. Persistence of cardiomegaly and chronic parenchymal changes. But no new infiltrate seen. Impressions and plans Overall this 77-year-old gentleman who appears to be doing generally satisfactory after coronary artery bypass surgery. He presently remains vent dependent. He does have underlying COPD and previous smoking history. Chronic diastolic/ systolic congestive heart failure. Diabetes and diabetic neuropathy. Osteoarthritis of the lumbar spine. History of chronic atrial fibrillation for which in the past he has been on Coumadin. BPH. Gastroesophageal reflux. He will presently continue the intensive care unit with follow-up care from pulmonary medicine, cardiology and thoracic surgery.
[2017-09-08 18:58] LABS: Glucose,Whole Blood 131 mg/dL (75-99)
[2017-09-08 20:01] LABS: Glucose,Whole Blood 152 mg/dL (75-99)
[2017-09-08] MEDS: MUPIROCIN 2% OINT 22 GM TUBE NASAL SCH (20:33)
[2017-09-08 20:36] LABS: ABG Base Excess 3.2 mmol/L; ABG HCO3 28 mmol/L (21-25); ABG Oxygen Saturation 95.9 % (94-97); ABG PCO2 47 mmHg (35-45); ABG PH 7.39 (7.35-7.45); ABG PO2 73 mmHg (83-108); ABG TCO2 30 mmol/L (19-24)
[2017-09-08 21:08] LABS: Glucose,Whole Blood 161 mg/dL (75-99)
[2017-09-08 21:17] LABS: Basophils % (A) 0 %; Eosinophils % (A) 0 %; HGB 9.8 gm/dL (13.0-17.5); Lymphocytes # (A) 0.6 k/uL (1.0-4.8); Lymphocytes % (A) 3 %; MCH 28.9 pg (25.0-35.0); MCHC 32.7 g/dL (31.0-37.0); MCV 88.6 fL (80.0-100.0); Mean Platelet Volume 7.2; Monocytes # (A) 1.2 k/uL (0-1.0); Monocytes % (A) 6 %; Neutrophils # (A) 17.9 k/uL (1.3-7.7); Neutrophils % (A) 90 %; Platelet Count 126 k/uL (150-450); RBC 3.39 m/uL (4.30-5.90); WBC 19.9 k/uL (3.8-10.6)
[2017-09-08 21:21] LABS: Anion Gap 8 mmol/L; Blood Urea Nitrogen 28 mg/dL (9-20); Calcium 8.9 mg/dL (8.4-10.2); Carbon Dioxide 28 mmol/L (22-30); Chloride 102 mmol/L (98-107); Glucose 146 mg/dL (74-99); Sodium 138 mmol/L (137-145)
[2017-09-08 21:56] LABS: Glucose,Whole Blood 153 mg/dL (75-99)
[2017-09-08 23:09] LABS: Glucose,Whole Blood 134 mg/dL (75-99)
[2017-09-08] MEDS: HEPARIN SODIUM,PORCINE 5,000 UNIT/ML 1 ML VIAL SQ SCH (23:16)
[2017-09-09] MEDS: HEPARIN SODIUM,PORCINE 5,000 UNIT/ML 1 ML VIAL SQ SCH ×3 (00:03→18:04)
[2017-09-09 00:13] LABS: Glucose,Whole Blood 125 mg/dL (75-99)
[2017-09-09 01:05] LABS: Glucose,Whole Blood 121 mg/dL (75-99)
[2017-09-09 02:11] LABS: Glucose,Whole Blood 140 mg/dL (75-99)
[2017-09-09 03:19] LABS: Glucose,Whole Blood 118 mg/dL (75-99)
[2017-09-09 03:59] LABS: Glucose,Whole Blood 111 mg/dL (75-99)
[2017-09-09 04:07] LABS: Basophils % (A) 0 %; Eosinophils % (A) 0 %; HCT 27.5 % (39.0-53.0); Lymphocytes # (A) 0.7 k/uL (1.0-4.8); Lymphocytes % (A) 7 %; MCH 28.9 pg (25.0-35.0); MCHC 32.8 g/dL (31.0-37.0); MCV 88.2 fL (80.0-100.0); Mean Platelet Volume 7.3; Monocytes # (A) 0.7 k/uL (0-1.0); Monocytes % (A) 6 %; Neutrophils # (A) 9.6 k/uL (1.3-7.7); Neutrophils % (A) 86 %; RBC 3.11 m/uL (4.30-5.90); RDW 15.1 % (11.5-15.5); WBC 11.2 k/uL (3.8-10.6)
[2017-09-09 04:20] LABS: ALT 33 U/L (21-72); AST 59 U/L (17-59); Albumin 3.2 g/dL (3.5-5.0); Alkaline Phosphatase 29 U/L (38-126); Anion Gap 8 mmol/L; Blood Urea Nitrogen 33 mg/dL (9-20); Calcium 8.6 mg/dL (8.4-10.2); Carbon Dioxide 28 mmol/L (22-30); Chloride 104 mmol/L (98-107); Glucose 107 mg/dL (74-99); Magnesium 2.6 mg/dL (1.6-2.3); Potassium 5.3 mmol/L (3.5-5.1); Sodium 140 mmol/L (137-145); Total Bilirubin 0.5 mg/dL (0.2-1.3); Total Protein 4.9 g/dL (6.3-8.2)
[2017-09-09 04:23] LABS: INR 1.4 (<1.2); Partial Thromboplastin Time 22.3 sec (22.0-30.0); Prothrombin Time 12.8 sec (9.0-12.0)
[2017-09-09 04:58] LABS: Platelet Count 84 k/uL (150-450)
[2017-09-09 05:02] LABS: Glucose,Whole Blood 139 mg/dL (75-99)
[2017-09-09] MEDS: IPRATROPIUM-ALBUTEROL 3 ML NEB INHALATION SCH ×5 (05:33→19:51)
[2017-09-09 06:06] LABS: Glucose,Whole Blood 156 mg/dL (75-99)
[2017-09-09] MEDS: ACETAMINOPHEN IV (For NPO) 1,000 MG in EMPTY BAG 1 BAG IVPB SCH ×3 (07:13→18:06)
[2017-09-09] MEDS ORDERED: FUROSEMIDE 10 MG/ML 2 ML VIAL IV ONE (07:26)
[2017-09-09 07:38] LABS: Glucose,Whole Blood 128 mg/dL (75-99)
--- NOTE | 2017-09-09 08:09 | P.PN ---
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 and home oxygen use, chronic diastolic congestive heart failure, osteoarthritis, lumbar disc disease with chronic pain syndrome, history of deep vein thrombosis of his left leg, recurrent feet and hand ulcerations with osteomyelitis and history of MRSA requiring amputations, type 2 diabetes mellitus, peripheral vascular disease, remote history of pneumonia, non-ST elevated myocardial infarction this admission, family history of early onset coronary artery disease with his brother being diagnosed with a myocardial infarction at age 46, history of sick sinus syndrome with previous placement of permanent pacemaker, benign prostatic hypertrophy, history of chronic persistent atrial fibrillation on home Coumadin therapy, remote history of smoking quit over 30 years ago, GERD, and a preoperative nasal swab positive for MSSA. POD #1 quadruple coronary artery bypass grafting using the left internal mammary artery to the left anterior descending coronary artery, a reverse greater saphenous vein graft from the aorta to the first obtuse marginal coronary artery, a reverse greater saphenous vein graft from the aorta to the second obtuse marginal coronary artery, a reverse greater saphenous vein graft from the aorta to the right coronary artery. Exclusion of the left atrial appendage using a 40 mm AtriClip. Endoscopic harvesting of the right greater saphenous vein, intraoperative transesophageal echocardiogram and epi-aortic scanning. Intraoperative graft flow measurements using the [employer] system. Postoperative normocytic, normochromic anemia an expected outcome of surgery related to hemodilution. Patient is sitting up to the bedside chair. He is in no acute distress. He was successfully extubated at 8:52 PM last night. He is currently on a 40% Ventimask with oxygen saturations at 97%. He is achieving 750 mL on his incentive spirometry with encouragement. He is complaining of pain to his chest tube insertion sites rating his pain 3 out of 10 on the pain scale. He is complaining of a nonproductive loose cough. Objective - Vital Signs Vital signs: Vital Signs Temp 98.1 F 09/09/17 04:00 Pulse 92 09/09/17 07:00 Resp 12 09/09/17 07:00 BP 123/56 09/08/17 06:00 Pulse Ox 98 09/09/17 07:00 Intake & Output 09/08/17 09/09/17 09/09/17 18:59 06:59 18:59 Intake Total 403 1308.716 89 Output Total 2906 1204 85 Balance -2503 104.716 4 Weight 80.2 kg Intake: IV 403 1289 89 ACETAMINOPHEN IV (For NPO 100 ) 1,000 mg In Empty Bag 1 bag @ 400 mls/hr IVPB Q6HR [facility] Rx#:[id number] Albumin Human 5% 250 ml 250 In Empty Bag 1 bag @ 250 mls/hr IVPB Q1HR PRN Rx#: [id number] Calcium Chloride 1,000 mg 100 In Sodium Chloride 0.9% 100 ml @ 100 mls/hr IV ONCE PRN Rx#:[id number] Cardiac Index/Output 360 30 Lactated Ringers 1,000 ml 200 550 50 @ 20 mls/hr IV .Q24H [facility] Rx#:[id number] Pressure bag 99 9 ceFAZolin 2 gm In Sodium 30 Chloride 0.9% 30 ml @ 60 mls/hr IVPB ONCE ONE Rx#: [id number] Intake, IV Titration 19.716 Amount Clevidipine Butyrate 25 5.5 mg In Empty Bag 1 bag @ 1 MG/HR 2 mls/hr IV .Q24H [facility] Rx#:[id number] Insulin Regular 100 unit 14.216 In Sodium Chloride 0.9% 100 ml @ Per Protocol IV .Q0M [facility] Rx#:[id number] Output: Chest Tube Drainage 344 727 40 Left Pleural Chest Tube 184 473 30 Mediastinal Chest Tube 160 254 10 Urine 562 477 45 Estimated Blood Loss 1999 Other: Voiding Method Indwelling Catheter Indwelling Catheter ABP, PAP, CO, CI - Last Documented Arterial Blood Pressure 133/45 Pulmonary Artery Pressure 29/11 Cardiac Output 5.1 Cardiac Index 3.0 - Constitutional General appearance: Present: cooperative, no acute distress - Neck Details: Right IJ Cordis in place with [place]-Cinthia catheter patent and functioning. - Respiratory Details: Lung sounds essentially clear and diminished throughout. Respirations are symmetrical and nonlabored. Oxygen saturation are 97% on a 40% FiO2 Ventimask. He is achieving 750 mL on his incentive spirometry. Mediastinal and left pleural chest tubes without air leak. Chest tubes are to low continuous wall suction -20 cm H2O. They are draining thin serosanguineous drainage. Mediastinal chest tube with 140 mL output in the last 8 hours, 450 mL output since surgery. Left pleural chest tube with 220 mL output in the last 8 hours, 620 mL output in the last 24 hours. - Cardiovascular Details: Regular rhythm and rate. S1 and S2 present, negative for S3, gallop or murmur. Sternum is stable. Bedside telemetry showing accelerated junctional rhythm with heart rate 91. Right IJ Cordis and Cleveland-Cinthia in place and functioning. Current cardiac output 5.1, cardiac index 2.7, CVP 8, PA pressures 41/18 on no inotropic support. Ventricular epicardial pacemaker wires intact and connected to backup generator. Knee-high ELLIOTT hose and sequential compression devices in place to his bilateral lower extremities. No edema present. Heart hugger is in place. - Gastrointestinal Gastrointestinal Comment(s): Abdomen is soft, nontender and nondistended. Hypoactive bowel sounds to all 4 abdominal quadrants. Tolerating oral intake. - Genitourinary Genitourinary Comment(s): Kitchen catheter for accurate I&O. Draining clear yellow urine. 340 mL output in the last 8 hours. - Integumentary Integumentary Comment(s): Skin is warm and dry. No clubbing or cyanosis present. Midline sternal incision clean dry and approximated. No drainage or redness present. Right leg EVH sites clean dry and approximated. No drainage or redness present. JESÚS drain in place to his right lower extremity draining thin serosanguineous drainage. 35 mL output since surgery. - Neurologic Neurologic: Present: CNII-XII intact, focal deficits - Musculoskeletal Musculoskeletal: Present: generalized weakness, strength equal bilaterally - Psychiatric Psychiatric Comment(s): Periods of forgetfulness. Psychiatric: Present: A&O x's 3, appropriate affect, intact judgment & insight - Allied health notes Allied health notes reviewed: nursing - Labs CBC & Chem 7: 09/09/17 03:55 09/09/17 03:55 Labs: Abnormal Lab Results - Last 24 Hours (Table) 09/07/17 09/08/17 09/08/17 Range/Units 11:16 07:30 08:48 WBC (3.8-10.6) k/uL RBC (4.30-5.90) m/uL Hgb (13.0-17.5) gm/dL Hct (39.0-53.0) % Plt Count (150-450) k/uL Neutrophils # (1.3-7.7) k/uL Lymphocytes # (1.0-4.8) k/uL Monocytes # (0-1.0) k/uL PT (9.0-12.0) sec INR (<1.2) ABG pH (7.35-7.45) ABG pCO2 (35-45) mmHg ABG pO2 62 L 231 H (83-108) mmHg ABG HCO3 29 H 29 H (21-25) mmol/L ABG Total CO2 31 H (19-24) mmol/L ABG O2 Saturation 93.2 L 99.9 H (94-97) % ABG Hematocrit (34.0-46.0) % ABG Sodium (135-146) mmol/L ABG Potassium (3.4-4.5) mmol/L ABG Ionized Calcium (4.5-5.3) mg/dL ABG Glucose 127 H (75-99) mg/dL ABG Lactic Acid 2.1 H (0.5-1.6) mmol/L Hemoglobin 12.8 L (13.0-17.5) gm/dL Potassium (3.5-5.1) mmol/L BUN (9-20) mg/dL Glucose (74-99) mg/dL POC Glucose (mg/dL) (75-99) mg/dL Calcium (8.4-10.2) mg/dL Magnesium (1.6-2.3) mg/dL Alkaline Phosphatase (38-126) U/L Total Protein (6.3-8.2) g/dL Albumin (3.5-5.0) g/dL Arterial Blood Potassium (3.4-4.5) mmol/L Arterial Blood Glucose 127 H (75-99) mg/dL Crossmatch See Detail 09/08/17 09/08/17 09/08/17 Range/Units 10:19 11:02 11:31 WBC (3.8-10.6) k/uL RBC (4.30-5.90) m/uL Hgb (13.0-17.5) gm/dL Hct (39.0-53.0) % Plt Count (150-450) k/uL Neutrophils # (1.3-7.7) k/uL Lymphocytes # (1.0-4.8) k/uL Monocytes # (0-1.0) k/uL PT (9.0-12.0) sec INR (<1.2) ABG pH 7.46 H (7.35-7.45) ABG pCO2 54 H 48 H (35-45) mmHg ABG pO2 214 H >420 H 276 H (83-108) mmHg ABG HCO3 30 H 28 H 28 H (21-25) mmol/L ABG Total CO2 32 H 30 H 29 H (19-24) mmol/L ABG O2 Saturation 99.6 H 100.0 H 100.0 H (94-97) % ABG Hematocrit 28 L 26 L (34.0-46.0) % ABG Sodium 134 L 132 L (135-146) mmol/L ABG Potassium 5.6 H (3.4-4.5) mmol/L ABG Ionized Calcium 4.2 L 4.1 L (4.5-5.3) mg/dL ABG Glucose 158 H 149 H 244 H (75-99) mg/dL ABG Lactic Acid 1.7 H 1.9 H 2.3 H* (0.5-1.6) mmol/L Hemoglobin 12.4 L 9.2 L 8.5 L (13.0-17.5) gm/dL Potassium (3.5-5.1) mmol/L BUN (9-20) mg/dL Glucose (74-99) mg/dL POC Glucose (mg/dL) (75-99) mg/dL Calcium (8.4-10.2) mg/dL Magnesium (1.6-2.3) mg/dL Alkaline Phosphatase (38-126) U/L Total Protein (6.3-8.2) g/dL Albumin (3.5-5.0) g/dL Arterial Blood Potassium 5.6 H (3.4-4.5) mmol/L Arterial Blood Glucose 158 H 149 H 244 H (75-99) mg/dL Crossmatch 09/08/17 09/08/17 09/08/17 Range/Units 12:05 12:38 13:58 WBC (3.8-10.6) k/uL RBC (4.30-5.90) m/uL Hgb (13.0-17.5) gm/dL Hct (39.0-53.0) % Plt Count (150-450) k/uL Neutrophils # (1.3-7.7) k/uL Lymphocytes # (1.0-4.8) k/uL Monocytes # (0-1.0) k/uL PT (9.0-12.0) sec INR (<1.2) ABG pH (7.35-7.45) ABG pCO2 46 H (35-45) mmHg ABG pO2 259 H 309 H 209 H (83-108) mmHg ABG HCO3 28 H 27 H 27 H (21-25) mmol/L ABG Total CO2 29 H 29 H 28 H (19-24) mmol/L ABG O2 Saturation 99.9 H 100.0 H 99.7 H (94-97) % ABG Hematocrit 26 L 25 L 27 L (34.0-46.0) % ABG Sodium 134 L 133 L (135-146) mmol/L ABG Potassium 5.3 H 4.9 H (3.4-4.5) mmol/L ABG Ionized Calcium 4.2 L 4.2 L (4.5-5.3) mg/dL ABG Glucose 259 H 292 H 190 H (75-99) mg/dL ABG Lactic Acid 2.8 H* 3.3 H* 2.7 H* (0.5-1.6) mmol/L Hemoglobin 8.4 L 8.1 L 8.9 L (13.0-17.5) gm/dL Potassium (3.5-5.1) mmol/L BUN (9-20) mg/dL Glucose (74-99) mg/dL POC Glucose (mg/dL) (75-99) mg/dL Calcium (8.4-10.2) mg/dL Magnesium (1.6-2.3) mg/dL Alkaline Phosphatase (38-126) U/L Total Protein (6.3-8.2) g/dL Albumin (3.5-5.0) g/dL Arterial Blood Potassium 5.3 H 4.9 H (3.4-4.5) mmol/L Arterial Blood Glucose 259 H 292 H 190 H (75-99) mg/dL Crossmatch 09/08/17 09/08/17 09/08/17 Range/Units 15:00 15:00 15:00 WBC 23.7 H (3.8-10.6) k/uL RBC 3.26 L (4.30-5.90) m/uL Hgb 9.4 L D (13.0-17.5) gm/dL Hct 28.7 L (39.0-53.0) % Plt Count 115 L (150-450) k/uL Neutrophils # 21.6 H (1.3-7.7) k/uL Lymphocytes # 0.9 L (1.0-4.8) k/uL Monocytes # 1.1 H (0-1.0) k/uL PT 13.9 H (9.0-12.0) sec INR 1.5 H (<1.2) ABG pH (7.35-7.45) ABG pCO2 (35-45) mmHg ABG pO2 (83-108) mmHg ABG HCO3 (21-25) mmol/L ABG Total CO2 (19-24) mmol/L ABG O2 Saturation (94-97) % ABG Hematocrit (34.0-46.0) % ABG Sodium (135-146) mmol/L ABG Potassium (3.4-4.5) mmol/L ABG Ionized Calcium (4.5-5.3) mg/dL ABG Glucose (75-99) mg/dL ABG Lactic Acid (0.5-1.6) mmol/L Hemoglobin (13.0-17.5) gm/dL Potassium (3.5-5.1) mmol/L BUN 24 H (9-20) mg/dL Glucose 110 H (74-99) mg/dL POC Glucose (mg/dL) (75-99) mg/dL Calcium 7.9 L (8.4-10.2) mg/dL Magnesium 2.9 H (1.6-2.3) mg/dL Alkaline Phosphatase 32 L (38-126) U/L Total Protein 4.5 L (6.3-8.2) g/dL Albumin 2.9 L (3.5-5.0) g/dL Arterial Blood Potassium (3.4-4.5) mmol/L Arterial Blood Glucose (75-99) mg/dL Crossmatch 09/08/17 09/08/17 09/08/17 Range/Units 15:19 15:37 16:41 WBC (3.8-10.6) k/uL RBC (4.30-5.90) m/uL Hgb (13.0-17.5) gm/dL Hct (39.0-53.0) % Plt Count (150-450) k/uL Neutrophils # (1.3-7.7) k/uL Lymphocytes # (1.0-4.8) k/uL Monocytes # (0-1.0) k/uL PT (9.0-12.0) sec INR (<1.2) ABG pH 7.31 L (7.35-7.45) ABG pCO2 58 H (35-45) mmHg ABG pO2 >400 H (83-108) mmHg ABG HCO3 29 H (21-25) mmol/L ABG Total CO2 31 H (19-24) mmol/L ABG O2 Saturation 100.0 H (94-97) % ABG Hematocrit (34.0-46.0) % ABG Sodium (135-146) mmol/L ABG Potassium (3.4-4.5) mmol/L ABG Ionized Calcium (4.5-5.3) mg/dL ABG Glucose (75-99) mg/dL ABG Lactic Acid (0.5-1.6) mmol/L Hemoglobin (13.0-17.5) gm/dL Potassium (3.5-5.1) mmol/L BUN (9-20) mg/dL Glucose (74-99) mg/dL POC Glucose (mg/dL) 122 H 74 L (75-99) mg/dL Calcium (8.4-10.2) mg/dL Magnesium (1.6-2.3) mg/dL Alkaline Phosphatase (38-126) U/L Total Protein (6.3-8.2) g/dL Albumin (3.5-5.0) g/dL Arterial Blood Potassium (3.4-4.5) mmol/L Arterial Blood Glucose (75-99) mg/dL Crossmatch 09/08/17 09/08/17 09/08/17 Range/Units 17:51 18:54 19:58 WBC 19.8 H (3.8-10.6) k/uL RBC 3.24 L (4.30-5.90) m/uL Hgb 9.4 L (13.0-17.5) gm/dL Hct 28.5 L (39.0-53.0) % Plt Count 94 L (150-450) k/uL Neutrophils # 16.7 H (1.3-7.7) k/uL Lymphocytes # 0.8 L (1.0-4.8) k/uL Monocytes # 1.8 H (0-1.0) k/uL PT (9.0-12.0) sec INR (<1.2) ABG pH (7.35-7.45) ABG pCO2 (35-45) mmHg ABG pO2 (83-108) mmHg ABG HCO3 (21-25) mmol/L ABG Total CO2 (19-24) mmol/L ABG O2 Saturation (94-97) % ABG Hematocrit (34.0-46.0) % ABG Sodium (135-146) mmol/L ABG Potassium (3.4-4.5) mmol/L ABG Ionized Calcium (4.5-5.3) mg/dL ABG Glucose (75-99) mg/dL ABG Lactic Acid (0.5-1.6) mmol/L Hemoglobin (13.0-17.5) gm/dL Potassium (3.5-5.1) mmol/L BUN (9-20) mg/dL Glucose (74-99) mg/dL POC Glucose (mg/dL) 131 H 152 H (75-99) mg/dL Calcium (8.4-10.2) mg/dL Magnesium (1.6-2.3) mg/dL Alkaline Phosphatase (38-126) U/L Total Protein (6.3-8.2) g/dL Albumin (3.5-5.0) g/dL Arterial Blood Potassium (3.4-4.5) mmol/L Arterial Blood Glucose (75-99) mg/dL Crossmatch 09/08/17 09/08/17 09/08/17 Range/Units 20:00 20:00 20:00 WBC 19.9 H (3.8-10.6) k/uL RBC 3.39 L (4.30-5.90) m/uL Hgb 9.8 L (13.0-17.5) gm/dL Hct 30.0 L (39.0-53.0) % Plt Count 126 L (150-450) k/uL Neutrophils # 17.9 H (1.3-7.7) k/uL Lymphocytes # 0.6 L (1.0-4.8) k/uL Monocytes # 1.2 H (0-1.0) k/uL PT (9.0-12.0) sec INR (<1.2) ABG pH (7.35-7.45) ABG pCO2 (35-45) mmHg ABG pO2 (83-108) mmHg ABG HCO3 (21-25) mmol/L ABG Total CO2 (19-24) mmol/L ABG O2 Saturation (94-97) % ABG Hematocrit (34.0-46.0) % ABG Sodium (135-146) mmol/L ABG Potassium (3.4-4.5) mmol/L ABG Ionized Calcium (4.5-5.3) mg/dL ABG Glucose (75-99) mg/dL ABG Lactic Acid (0.5-1.6) mmol/L Hemoglobin (13.0-17.5) gm/dL Potassium (3.5-5.1) mmol/L BUN 28 H (9-20) mg/dL Glucose 146 H (74-99) mg/dL POC Glucose (mg/dL) (75-99) mg/dL Calcium (8.4-10.2) mg/dL Magnesium 2.7 H (1.6-2.3) mg/dL Alkaline Phosphatase (38-126) U/L Total Protein (6.3-8.2) g/dL Albumin (3.5-5.0) g/dL Arterial Blood Potassium (3.4-4.5) mmol/L Arterial Blood Glucose (75-99) mg/dL Crossmatch 09/08/17 09/08/17 09/08/17 Range/Units 20:32 21:07 21:53 WBC (3.8-10.6) k/uL RBC (4.30-5.90) m/uL Hgb (13.0-17.5) gm/dL Hct (39.0-53.0) % Plt Count (150-450) k/uL Neutrophils # (1.3-7.7) k/uL Lymphocytes # (1.0-4.8) k/uL Monocytes # (0-1.0) k/uL PT (9.0-12.0) sec INR (<1.2) ABG pH (7.35-7.45) ABG pCO2 47 H (35-45) mmHg ABG pO2 73 L (83-108) mmHg ABG HCO3 28 H (21-25) mmol/L ABG Total CO2 30 H (19-24) mmol/L ABG O2 Saturation (94-97) % ABG Hematocrit (34.0-46.0) % ABG Sodium (135-146) mmol/L ABG Potassium (3.4-4.5) mmol/L ABG Ionized Calcium (4.5-5.3) mg/dL ABG Glucose (75-99) mg/dL ABG Lactic Acid (0.5-1.6) mmol/L Hemoglobin (13.0-17.5) gm/dL Potassium (3.5-5.1) mmol/L BUN (9-20) mg/dL Glucose (74-99) mg/dL POC Glucose (mg/dL) 161 H 153 H (75-99) mg/dL Calcium (8.4-10.2) mg/dL Magnesium (1.6-2.3) mg/dL Alkaline Phosphatase (38-126) U/L Total Protein (6.3-8.2) g/dL Albumin (3.5-5.0) g/dL Arterial Blood Potassium (3.4-4.5) mmol/L Arterial Blood Glucose (75-99) mg/dL Crossmatch 09/08/17 09/09/17 09/09/17 Range/Units 23:08 00:11 01:03 WBC (3.8-10.6) k/uL RBC (4.30-5.90) m/uL Hgb (13.0-17.5) gm/dL Hct (39.0-53.0) % Plt Count (150-450) k/uL Neutrophils # (1.3-7.7) k/uL Lymphocytes # (1.0-4.8) k/uL Monocytes # (0-1.0) k/uL PT (9.0-12.0) sec INR (<1.2) ABG pH (7.35-7.45) ABG pCO2 (35-45) mmHg ABG pO2 (83-108) mmHg ABG HCO3 (21-25) mmol/L ABG Total CO2 (19-24) mmol/L ABG O2 Saturation (94-97) % ABG Hematocrit (34.0-46.0) % ABG Sodium (135-146) mmol/L ABG Potassium (3.4-4.5) mmol/L ABG Ionized Calcium (4.5-5.3) mg/dL ABG Glucose (75-99) mg/dL ABG Lactic Acid (0.5-1.6) mmol/L Hemoglobin (13.0-17.5) gm/dL Potassium (3.5-5.1) mmol/L BUN (9-20) mg/dL Glucose (74-99) mg/dL POC Glucose (mg/dL) 134 H 125 H 121 H (75-99) mg/dL Calcium (8.4-10.2) mg/dL Magnesium (1.6-2.3) mg/dL Alkaline Phosphatase (38-126) U/L Total Protein (6.3-8.2) g/dL Albumin (3.5-5.0) g/dL Arterial Blood Potassium (3.4-4.5) mmol/L Arterial Blood Glucose (75-99) mg/dL Crossmatch 09/09/17 09/09/17 09/09/17 Range/Units 02:09 02:59 03:55 WBC 11.2 H (3.8-10.6) k/uL RBC 3.11 L (4.30-5.90) m/uL Hgb 9.0 L (13.0-17.5) gm/dL Hct 27.5 L (39.0-53.0) % Plt Count 84 L (150-450) k/uL Neutrophils # 9.6 H (1.3-7.7) k/uL Lymphocytes # 0.7 L (1.0-4.8) k/uL Monocytes # (0-1.0) k/uL PT (9.0-12.0) sec INR (<1.2) ABG pH (7.35-7.45) ABG pCO2 (35-45) mmHg ABG pO2 (83-108) mmHg ABG HCO3 (21-25) mmol/L ABG Total CO2 (19-24) mmol/L ABG O2 Saturation (94-97) % ABG Hematocrit (34.0-46.0) % ABG Sodium (135-146) mmol/L ABG Potassium (3.4-4.5) mmol/L ABG Ionized Calcium (4.5-5.3) mg/dL ABG Glucose (75-99) mg/dL ABG Lactic Acid (0.5-1.6) mmol/L Hemoglobin (13.0-17.5) gm/dL Potassium (3.5-5.1) mmol/L BUN (9-20) mg/dL Glucose (74-99) mg/dL POC Glucose (mg/dL) 140 H 118 H (75-99) mg/dL Calcium (8.4-10.2) mg/dL Magnesium (1.6-2.3) mg/dL Alkaline Phosphatase (38-126) U/L Total Protein (6.3-8.2) g/dL Albumin (3.5-5.0) g/dL Arterial Blood Potassium (3.4-4.5) mmol/L Arterial Blood Glucose (75-99) mg/dL Crossmatch 09/09/17 09/09/17 09/09/17 Range/Units 03:55 03:55 03:55 WBC (3.8-10.6) k/uL RBC (4.30-5.90) m/uL Hgb (13.0-17.5) gm/dL Hct (39.0-53.0) % Plt Count (150-450) k/uL Neutrophils # (1.3-7.7) k/uL Lymphocytes # (1.0-4.8) k/uL Monocytes # (0-1.0) k/uL PT 12.8 H (9.0-12.0) sec INR 1.4 H (<1.2) ABG pH (7.35-7.45) ABG pCO2 (35-45) mmHg ABG pO2 (83-108) mmHg ABG HCO3 (21-25) mmol/L ABG Total CO2 (19-24) mmol/L ABG O2 Saturation (94-97) % ABG Hematocrit (34.0-46.0) % ABG Sodium (135-146) mmol/L ABG Potassium (3.4-4.5) mmol/L ABG Ionized Calcium (4.5-5.3) mg/dL ABG Glucose (75-99) mg/dL ABG Lactic Acid (0.5-1.6) mmol/L Hemoglobin (13.0-17.5) gm/dL Potassium 5.3 H (3.5-5.1) mmol/L BUN 33 H (9-20) mg/dL Glucose 107 H (74-99) mg/dL POC Glucose (mg/dL) 111 H (75-99) mg/dL Calcium (8.4-10.2) mg/dL Magnesium 2.6 H (1.6-2.3) mg/dL Alkaline Phosphatase 29 L (38-126) U/L Total Protein 4.9 L (6.3-8.2) g/dL Albumin 3.2 L (3.5-5.0) g/dL Arterial Blood Potassium (3.4-4.5) mmol/L Arterial Blood Glucose (75-99) mg/dL Crossmatch 09/09/17 09/09/17 Range/Units 04:58 06:05 WBC (3.8-10.6) k/uL RBC (4.30-5.90) m/uL Hgb (13.0-17.5) gm/dL Hct (39.0-53.0) % Plt Count (150-450) k/uL Neutrophils # (1.3-7.7) k/uL Lymphocytes # (1.0-4.8) k/uL Monocytes # (0-1.0) k/uL PT (9.0-12.0) sec INR (<1.2) ABG pH (7.35-7.45) ABG pCO2 (35-45) mmHg ABG pO2 (83-108) mmHg ABG HCO3 (21-25) mmol/L ABG Total CO2 (19-24) mmol/L ABG O2 Saturation (94-97) % ABG Hematocrit (34.0-46.0) % ABG Sodium (135-146) mmol/L ABG Potassium (3.4-4.5) mmol/L ABG Ionized Calcium (4.5-5.3) mg/dL ABG Glucose (75-99) mg/dL ABG Lactic Acid (0.5-1.6) mmol/L Hemoglobin (13.0-17.5) gm/dL Potassium (3.5-5.1) mmol/L BUN (9-20) mg/dL Glucose (74-99) mg/dL POC Glucose (mg/dL) 139 H 156 H (75-99) mg/dL Calcium (8.4-10.2) mg/dL Magnesium (1.6-2.3) mg/dL Alkaline Phosphatase (38-126) U/L Total Protein (6.3-8.2) g/dL Albumin (3.5-5.0) g/dL Arterial Blood Potassium (3.4-4.5) mmol/L Arterial Blood Glucose (75-99) mg/dL Crossmatch Microbiology - Last 24 Hours (Table) 09/08/17 04:56 Gram Stain - Preliminary Sputum Sputum Culture - Preliminary - Imaging and Cardiology Chest x-ray: image reviewed Assessment and Plan (1) Hypertension Current Visit: Yes Status: Acute Code(s): I10 - ESSENTIAL (PRIMARY) HYPERTENSION SNOMED Code(s): 45843627 (2) Non-ST elevated myocardial infarction Current Visit: Yes Status: Acute Code(s): I21.4 - NON-ST ELEVATION (NSTEMI) MYOCARDIAL INFARCTION SNOMED Code(s): 598981470 (3) COPD (chronic obstructive pulmonary disease) Current Visit: Yes Status: Acute Code(s): J44.9 - CHRONIC OBSTRUCTIVE PULMONARY DISEASE, UNSPECIFIED SNOMED Code(s): 94914121 (4) Lumbar disc disease Current Visit: Yes Status: Acute Code(s): M51.9 - UNSP THORACIC, THORACOLUM AND LUMBOSACR INTVRT DISC DISORDER SNOMED Code(s): 362963984 (5) Peripheral vascular disease Current Visit: Yes Status: Acute Code(s): I73.9 - PERIPHERAL VASCULAR DISEASE, UNSPECIFIED SNOMED Code(s): 746530316 (6) Diabetes mellitus type 2 in nonobese Current Visit: Yes Status: Acute Code(s): E11.9 - TYPE 2 DIABETES MELLITUS WITHOUT COMPLICATIONS SNOMED Code(s): 380916907 (7) History of smoking Current Visit: Yes Status: Acute Code(s): Z87.891 - PERSONAL HISTORY OF NICOTINE DEPENDENCE SNOMED Code(s): 30384912067159962 (8) Chronic diastolic CHF (congestive heart failure) Current Visit: Yes Status: Acute Code(s): I50.32 - CHRONIC DIASTOLIC ( CONGESTIVE) HEART FAILURE SNOMED Code(s): 277116250 (9) Chronic pain syndrome Current Visit: Yes Status: Acute Code(s): G89.4 - CHRONIC PAIN SYNDROME SNOMED Code(s): 227243125 (10) History of MRSA infection Current Visit: Yes Status: Acute Code(s): Z86.14 - PERSONAL HISTORY OF METHICILLIN RESIS STAPH INFECTION SNOMED Code(s): 524747354 (11) Chronic atrial fibrillation Current Visit: Yes Status: Acute Code(s): I48.2 - CHRONIC ATRIAL FIBRILLATION SNOMED Code(s): 620925424 (12) GERD (gastroesophageal reflux disease) Current Visit: Yes Status: Acute Code(s): K21.9 - GASTRO-ESOPHAGEAL REFLUX DISEASE WITHOUT ESOPHAGITIS SNOMED Code(s): 575429285 (13) BPH (benign prostatic hyperplasia) Current Visit: Yes Status: Acute Code(s): N40.0 - BENIGN PROSTATIC HYPERPLASIA WITHOUT LOWER URINRY TRACT SYMP SNOMED Code(s): 999576386 (14) History of sick sinus syndrome Current Visit: Yes Status: Acute Code(s): Z86.79 - PERSONAL HISTORY OF OTHER DISEASES OF THE CIRCULATORY SYSTEM SNOMED Code(s): 466451075673864 (15) History of permanent cardiac pacemaker placement Current Visit: Yes Status: Acute Code(s): Z95.0 - PRESENCE OF CARDIAC PACEMAKER SNOMED Code(s): 023296751 (16) Family history of coronary artery disease in brother Current Visit: Yes Status: Acute Code(s): Z82.49 - FAMILY HX OF ISCHEM HEART DIS AND OTH DIS OF THE CIRC SYS SNOMED Code(s): 187667933 (17) History of Coumadin therapy Current Visit: Yes Status: Acute Code(s): Z92.29 - PERSONAL HISTORY OF OTHER DRUG THERAPY SNOMED Code(s): 695808597 Plan: 1. Continue aspirin, statin, Plavix, and heparin subcu. We will restart his metoprolol tartrate 12.5 mg by mouth twice a day once his pacemaker has been interrogated and set to a baseline of 70 bpm. 2. Encourage use of his incentive spirometry every hour while awake. 3. Continue to hold Coumadin. 4. We will discontinue his [place] catheter. Keep his right IJ Cordis in place to continuous CVP monitoring. 5. Pulmonary recommendations per Dr. Linares. 6. We will restart his home dose of Flomax and Neurontin. 7. Hit assay results pending. 8. Increase activity as tolerated, PT/OT/cardiac rehab consulted. 9. Pain control with current when necessary medications. 10. Will monitor daily labs and chest x-rays. 11. More recommendations to follow based on the patient's clinical course. Time with Patient: Greater than 30
[2017-09-09] MEDS: PANTOPRAZOLE 40 MG TABLET PO SCH (08:24)
[2017-09-09] MEDS: ceFAZolin IN SWFI 2 GM/20 ML SYRINGE IVP SCH (08:25)
[2017-09-09] MEDS: TAMSULOSIN 0.4 MG CAP.ER.24H PO SCH (08:26)
[2017-09-09] MEDS: GABAPENTIN 100 MG CAP PO SCH ×3 (08:26→21:20)
[2017-09-09] MEDS: ASPIRIN 325 MG TAB PO SCH (08:27)
[2017-09-09] MEDS: MUPIROCIN 2% OINT 22 GM TUBE NASAL SCH ×2 (08:27→20:15)
--- NOTE | 2017-09-09 08:34 | P.PN ---
Progress Note - Text The patient is a 77-year-old gentleman who yesterday underwent a quadruple coronary artery bypass grafting along with exclusion of the left atrial appendage for underlying triple-vessel coronary artery disease and recent non- ST elevated myocardial infarction. The patient is presently extubated and sitting up at the side of the bed. He is fatigued but responsive and appropriate. Vital signs this morning reveal a pulse of 92 with respirations 12 and blood pressure 113/45. Is 98% saturated on 40% Ventimask. Lungs are generally clear although diminished. Heart tones are somewhat irregular with history of atrial fibrillation. He does not appear to have any new neurological changes. Laboratory White count is 11.2 with a hemoglobin of 9.0 and a platelet count of 84. INR is 1.4. Electrolytes are good although potassium slightly elevated at 5.3. BUN of 33 with a creatinine of 0.8 GFR is 86. Blood sugar was 128. Albumin 3.2. Impressions and plans Overall this 77-year-old gentleman is generally doing well post bypass surgery as stated above. Continue to progress as per surgery and cardiology. I discussed with patient and staff at bedside this morning.
[2017-09-09 08:58] LABS: Glucose,Whole Blood 118 mg/dL (75-99)
[2017-09-09] MEDS ORDERED: DIGOXIN 250 MCG TAB PO SCH (09:00)
[2017-09-09] MEDS ORDERED: predniSONE 10 MG TAB PO SCH (09:00)
[2017-09-09] MEDS ORDERED: PANTOPRAZOLE 40 MG/10 ML VIAL IVP SCH (09:00)
--- NOTE | 2017-09-09 09:12 | XR ---
EXAMINATION TYPE: XR chest 1V portable DATE OF EXAM: 09/09/2017 COMPARISON: Prior chest 09/08/2017 HISTORY: Postop cardiac surgery TECHNIQUE: Single frontal view of the chest is obtained. FINDINGS: There is been interval removal of the endotracheal and NG tube. Right jugular central veno us sheath and coaxial [place] catheter present, distal tip the catheter present over the pulmonary artery. Patient is post median sternotomy. Left chest tube remains in place. Atrial appendage clippin g is noted. Left-sided pacemaker with leads in the right atrium and ventricle again noted. There are overlying cardiac leads. No sizable pneumothorax or pleural effusion. Bibasilar increased attenuation persists. Heart size is stable. IMPRESSION: Basilar atelectasis versus edema, correlate to exclude pneumonia. Interval extubation.
[2017-09-09] MEDS: SYMBICORT 160-4.5 MCG INHALER INHALATION SCH ×2 (09:16→19:51)
--- NOTE | 2017-09-09 09:33 | P.PN ---
Subjective Progress Note Date: 09/09/17 Principal diagnosis: Coronary artery disease, status post coronary artery bypass grafting, postop day 1 Progress note dated 09/08/2017 77-year-old male with a history of non-ST segment elevation myocardial infarction, status post cardiac catheterization revealing severe triple-vessel CAD. In addition, he is quite severe COPD, with an FEV1 in the range of 45% of predicted. 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 The patient surgery is to be done today. The patient is on O2 3 L nasal cannula and has a dextrose half-normal saline IV at KVO. He was on a heparin drip but obviously that was turned off prior to surgery. Other than that, the patient is doing reasonably well. He certainly is at high risk. This has been documented by my partner. On 09/09/2017 patient seen in follow-up in the intensive care unit. This is postop day 1, status post quadruple coronary artery bypass grafting using the PARSON to LAD, reverse SVG to OM1, reverse SVG to OM 2, reverse SVG to the RCA, exclusion of the left atrial appendage, and intraoperative MALATHI and AP aortic scanning. Patient was extubated in less than 6 hours post OR exit time. Patient was extubated at 9:00 last night successfully to a 40% Ventimask, on which she remains this morning. He is awake alert, sitting up in the recliner, doing well, denies any acute distress. Midsternal incision is stable, clean dry and intact One mediastinal and one left pleural chest tube draining small amount of serosanguineous drainage. Maintenance IV includes LR at a rate of 50 ML per hour, insulin drip at 2 units per hour, no vasoactive drips at this time, clever proximal has been discontinued, as well as nitroglycerin drip. Kitchen catheter is in place, and the urine output is ranging from 30-75 ML per hour. Cardiac index and output is 5.5 and 3.0 respectively. Dissipate discontinuation of the PA catheter this morning. PA pressures 28/11, with a map of 19. Patient has not required any blood transfusions. Today's labs were reviewed, WBCs 11.2, hemoglobin is 9.0, INR is 1.4, potassium is 5.3, BUN is 33 , creatinine 0.80. Today's chest x-ray has been reviewed and shows basilar atelectasis versus edema. Lung sounds positive for some crackles over left lower lobe anteriorly, diminished on the right. Patient Solu-Medrol's has been switched to oral prednisone. Objective - Vital Signs Vital signs: Vital Signs Temp 98.1 F 09/09/17 04:00 Pulse 92 09/09/17 07:00 Resp 12 09/09/17 07:00 BP 123/56 09/08/17 06:00 Pulse Ox 98 09/09/17 07:00 Intake & Output 09/08/17 09/09/17 09/09/17 18:59 06:59 18:59 Intake Total 403 1308.716 189 Output Total 2906 1204 85 Balance -2503 104.716 104 Weight 80.2 kg Intake: IV 403 1289 189 ACETAMINOPHEN IV (For NPO 100 100 ) 1,000 mg In Empty Bag 1 bag @ 400 mls/hr IVPB Q6HR DAMON Rx#:[id number] Albumin Human 5% 250 ml 250 In Empty Bag 1 bag @ 250 mls/hr IVPB Q1HR PRN Rx#: [id number] Calcium Chloride 1,000 mg 100 In Sodium Chloride 0.9% 100 ml @ 100 mls/hr IV ONCE PRN Rx#:[id number] Cardiac Index/Output 360 30 Lactated Ringers 1,000 ml 200 550 50 @ 20 mls/hr IV .Q24H [facility]ON Rx#:[id number] Pressure bag 99 9 ceFAZolin 2 gm In Sodium 30 Chloride 0.9% 30 ml @ 60 mls/hr IVPB ONCE ONE Rx#: [id number] Intake, IV Titration 19.716 Amount Clevidipine Butyrate 25 5.5 mg In Empty Bag 1 bag @ 1 MG/HR 2 mls/hr IV .Q24H [facility]ON Rx#:[id number] Insulin Regular 100 unit 14.216 In Sodium Chloride 0.9% 100 ml @ Per Protocol IV .Q0M DAMON Rx#:[id number] Output: Chest Tube Drainage 344 727 40 Left Pleural Chest Tube 184 473 30 Mediastinal Chest Tube 160 254 10 Urine 562 477 45 Estimated Blood Loss 1999 Other: Voiding Method Indwelling Catheter Indwelling Catheter ABP, PAP, CO, CI - Last Documented Arterial Blood Pressure 133/45 Pulmonary Artery Pressure 29/11 Cardiac Output 5.1 Cardiac Index 3.0 - Exam GENERAL EXAM: Alert, pleasant, 69-year-old white male comfortable in no apparent distress, on 40% Ventimask HEAD: Normocephalic/atraumatic. EYES: Normal reaction of pupils, equal size. Conjunctiva pink, sclera white. NOSE: Clear with pink turbinates. THROAT: No erythema or exudates. NECK: No masses, no JVD, no thyroid enlargement, no adenopathy. Right IJ Cordis with a PA catheter is present CHEST: No chest wall deformity. Symmetrical expansion. Midsternal incision is clean dry and intact and stable. Mediastinal and left pleural chest tubes are present connected to Pleur-evac's and to wall suction, with serosanguineous output and the collection chambers no air leak noted. LUNGS: Equal air entry with left lower lobe crackles, and diminished on the right, no rhonchi or wheezes noted CVS: Regular rate and rhythm, normal S1 and S2, no gallops, no murmurs, no rubs ABDOMEN: Soft, nontender. No hepatosplenomegaly, normal bowel sounds, no guarding or rigidity. EXTREMITIES: No clubbing, no edema, no cyanosis, 2+ pulses and upper and lower extremities. There is a JESÚS drain in the right lower leg, right lower leg is Gilberto wrapped MUSCULOSKELETAL: Muscle strength and tone normal. SPINE: No scoliosis or deformity SKIN: No rashes CENTRAL NERVOUS SYSTEM: Alert and oriented -3. No focal deficits, tone is normal in all 4 extremities. PSYCHIATRIC: Alert and oriented -3. Appropriate affect. Intact judgment and insight. - Labs CBC & Chem 7: 09/09/17 03:55 09/09/17 03:55 Labs: Abnormal Lab Results - Last 24 Hours (Table) 09/07/17 09/08/17 09/08/17 Range/Units 11:16 10:19 11:02 WBC (3.8-10.6) k/uL RBC (4.30-5.90) m/uL Hgb (13.0-17.5) gm/dL Hct (39.0-53.0) % Plt Count (150-450) k/uL Neutrophils # (1.3-7.7) k/uL Lymphocytes # (1.0-4.8) k/uL Monocytes # (0-1.0) k/uL PT (9.0-12.0) sec INR (<1.2) ABG pH (7.35-7.45) ABG pCO2 54 H 48 H (35-45) mmHg ABG pO2 214 H >420 H (83-108) mmHg ABG HCO3 30 H 28 H (21-25) mmol/L ABG Total CO2 32 H 30 H (19-24) mmol/L ABG O2 Saturation 99.6 H 100.0 H (94-97) % ABG Hematocrit 28 L (34.0-46.0) % ABG Sodium 134 L (135-146) mmol/L ABG Potassium (3.4-4.5) mmol/L ABG Ionized Calcium 4.2 L (4.5-5.3) mg/dL ABG Glucose 158 H 149 H (75-99) mg/dL ABG Lactic Acid 1.7 H 1.9 H (0.5-1.6) mmol/L Hemoglobin 12.4 L 9.2 L (13.0-17.5) gm/dL Potassium (3.5-5.1) mmol/L BUN (9-20) mg/dL Glucose (74-99) mg/dL POC Glucose (mg/dL) (75-99) mg/dL Calcium (8.4-10.2) mg/dL Magnesium (1.6-2.3) mg/dL Alkaline Phosphatase (38-126) U/L Total Protein (6.3-8.2) g/dL Albumin (3.5-5.0) g/dL Arterial Blood Potassium (3.4-4.5) mmol/L Arterial Blood Glucose 158 H 149 H (75-99) mg/dL Crossmatch See Detail 09/08/17 09/08/17 09/08/17 Range/Units 11:31 12:05 12:38 WBC (3.8-10.6) k/uL RBC (4.30-5.90) m/uL Hgb (13.0-17.5) gm/dL Hct (39.0-53.0) % Plt Count (150-450) k/uL Neutrophils # (1.3-7.7) k/uL Lymphocytes # (1.0-4.8) k/uL Monocytes # (0-1.0) k/uL PT (9.0-12.0) sec INR (<1.2) ABG pH 7.46 H (7.35-7.45) ABG pCO2 (35-45) mmHg ABG pO2 276 H 259 H 309 H (83-108) mmHg ABG HCO3 28 H 28 H 27 H (21-25) mmol/L ABG Total CO2 29 H 29 H 29 H (19-24) mmol/L ABG O2 Saturation 100.0 H 99.9 H 100.0 H (94-97) % ABG Hematocrit 26 L 26 L 25 L (34.0-46.0) % ABG Sodium 132 L 134 L 133 L (135-146) mmol/L ABG Potassium 5.6 H 5.3 H 4.9 H (3.4-4.5) mmol/L ABG Ionized Calcium 4.1 L 4.2 L 4.2 L (4.5-5.3) mg/dL ABG Glucose 244 H 259 H 292 H (75-99) mg/dL ABG Lactic Acid 2.3 H* 2.8 H* 3.3 H* (0.5-1.6) mmol/L Hemoglobin 8.5 L 8.4 L 8.1 L (13.0-17.5) gm/dL Potassium (3.5-5.1) mmol/L BUN (9-20) mg/dL Glucose (74-99) mg/dL POC Glucose (mg/dL) (75-99) mg/dL Calcium (8.4-10.2) mg/dL Magnesium (1.6-2.3) mg/dL Alkaline Phosphatase (38-126) U/L Total Protein (6.3-8.2) g/dL Albumin (3.5-5.0) g/dL Arterial Blood Potassium 5.6 H 5.3 H 4.9 H (3.4-4.5) mmol/L Arterial Blood Glucose 244 H 259 H 292 H (75-99) mg/dL Crossmatch 09/08/17 09/08/17 09/08/17 Range/Units 13:58 15:00 15:00 WBC 23.7 H (3.8-10.6) k/uL RBC 3.26 L (4.30-5.90) m/uL Hgb 9.4 L D (13.0-17.5) gm/dL Hct 28.7 L (39.0-53.0) % Plt Count 115 L (150-450) k/uL Neutrophils # 21.6 H (1.3-7.7) k/uL Lymphocytes # 0.9 L (1.0-4.8) k/uL Monocytes # 1.1 H (0-1.0) k/uL PT (9.0-12.0) sec INR (<1.2) ABG pH (7.35-7.45) ABG pCO2 46 H (35-45) mmHg ABG pO2 209 H (83-108) mmHg ABG HCO3 27 H (21-25) mmol/L ABG Total CO2 28 H (19-24) mmol/L ABG O2 Saturation 99.7 H (94-97) % ABG Hematocrit 27 L (34.0-46.0) % ABG Sodium (135-146) mmol/L ABG Potassium (3.4-4.5) mmol/L ABG Ionized Calcium (4.5-5.3) mg/dL ABG Glucose 190 H (75-99) mg/dL ABG Lactic Acid 2.7 H* (0.5-1.6) mmol/L Hemoglobin 8.9 L (13.0-17.5) gm/dL Potassium (3.5-5.1) mmol/L BUN 24 H (9-20) mg/dL Glucose 110 H (74-99) mg/dL POC Glucose (mg/dL) (75-99) mg/dL Calcium 7.9 L (8.4-10.2) mg/dL Magnesium 2.9 H (1.6-2.3) mg/dL Alkaline Phosphatase 32 L (38-126) U/L Total Protein 4.5 L (6.3-8.2) g/dL Albumin 2.9 L (3.5-5.0) g/dL Arterial Blood Potassium (3.4-4.5) mmol/L Arterial Blood Glucose 190 H (75-99) mg/dL Crossmatch 09/08/17 09/08/17 09/08/17 Range/Units 15:00 15:19 15:37 WBC (3.8-10.6) k/uL RBC (4.30-5.90) m/uL Hgb (13.0-17.5) gm/dL Hct (39.0-53.0) % Plt Count (150-450) k/uL Neutrophils # (1.3-7.7) k/uL Lymphocytes # (1.0-4.8) k/uL Monocytes # (0-1.0) k/uL PT 13.9 H (9.0-12.0) sec INR 1.5 H (<1.2) ABG pH 7.31 L (7.35-7.45) ABG pCO2 58 H (35-45) mmHg ABG pO2 >400 H (83-108) mmHg ABG HCO3 29 H (21-25) mmol/L ABG Total CO2 31 H (19-24) mmol/L ABG O2 Saturation 100.0 H (94-97) % ABG Hematocrit (34.0-46.0) % ABG Sodium (135-146) mmol/L ABG Potassium (3.4-4.5) mmol/L ABG Ionized Calcium (4.5-5.3) mg/dL ABG Glucose (75-99) mg/dL ABG Lactic Acid (0.5-1.6) mmol/L Hemoglobin (13.0-17.5) gm/dL Potassium (3.5-5.1) mmol/L BUN (9-20) mg/dL Glucose (74-99) mg/dL POC Glucose (mg/dL) 122 H (75-99) mg/dL Calcium (8.4-10.2) mg/dL Magnesium (1.6-2.3) mg/dL Alkaline Phosphatase (38-126) U/L Total Protein (6.3-8.2) g/dL Albumin (3.5-5.0) g/dL Arterial Blood Potassium (3.4-4.5) mmol/L Arterial Blood Glucose (75-99) mg/dL Crossmatch 09/08/17 09/08/17 09/08/17 Range/Units 16:41 17:51 18:54 WBC 19.8 H (3.8-10.6) k/uL RBC 3.24 L (4.30-5.90) m/uL Hgb 9.4 L (13.0-17.5) gm/dL Hct 28.5 L (39.0-53.0) % Plt Count 94 L (150-450) k/uL Neutrophils # 16.7 H (1.3-7.7) k/uL Lymphocytes # 0.8 L (1.0-4.8) k/uL Monocytes # 1.8 H (0-1.0) k/uL PT (9.0-12.0) sec INR (<1.2) ABG pH (7.35-7.45) ABG pCO2 (35-45) mmHg ABG pO2 (83-108) mmHg ABG HCO3 (21-25) mmol/L ABG Total CO2 (19-24) mmol/L ABG O2 Saturation (94-97) % ABG Hematocrit (34.0-46.0) % ABG Sodium (135-146) mmol/L ABG Potassium (3.4-4.5) mmol/L ABG Ionized Calcium (4.5-5.3) mg/dL ABG Glucose (75-99) mg/dL ABG Lactic Acid (0.5-1.6) mmol/L Hemoglobin (13.0-17.5) gm/dL Potassium (3.5-5.1) mmol/L BUN (9-20) mg/dL Glucose (74-99) mg/dL POC Glucose (mg/dL) 74 L 131 H (75-99) mg/dL Calcium (8.4-10.2) mg/dL Magnesium (1.6-2.3) mg/dL Alkaline Phosphatase (38-126) U/L Total Protein (6.3-8.2) g/dL Albumin (3.5-5.0) g/dL Arterial Blood Potassium (3.4-4.5) mmol/L Arterial Blood Glucose (75-99) mg/dL Crossmatch 09/08/17 09/08/17 09/08/17 Range/Units 19:58 20:00 20:00 WBC 19.9 H (3.8-10.6) k/uL RBC 3.39 L (4.30-5.90) m/uL Hgb 9.8 L (13.0-17.5) gm/dL Hct 30.0 L (39.0-53.0) % Plt Count 126 L (150-450) k/uL Neutrophils # 17.9 H (1.3-7.7) k/uL Lymphocytes # 0.6 L (1.0-4.8) k/uL Monocytes # 1.2 H (0-1.0) k/uL PT (9.0-12.0) sec INR (<1.2) ABG pH (7.35-7.45) ABG pCO2 (35-45) mmHg ABG pO2 (83-108) mmHg ABG HCO3 (21-25) mmol/L ABG Total CO2 (19-24) mmol/L ABG O2 Saturation (94-97) % ABG Hematocrit (34.0-46.0) % ABG Sodium (135-146) mmol/L ABG Potassium (3.4-4.5) mmol/L ABG Ionized Calcium (4.5-5.3) mg/dL ABG Glucose (75-99) mg/dL ABG Lactic Acid (0.5-1.6) mmol/L Hemoglobin (13.0-17.5) gm/dL Potassium (3.5-5.1) mmol/L BUN 28 H (9-20) mg/dL Glucose 146 H (74-99) mg/dL POC Glucose (mg/dL) 152 H (75-99) mg/dL Calcium (8.4-10.2) mg/dL Magnesium (1.6-2.3) mg/dL Alkaline Phosphatase (38-126) U/L Total Protein (6.3-8.2) g/dL Albumin (3.5-5.0) g/dL Arterial Blood Potassium (3.4-4.5) mmol/L Arterial Blood Glucose (75-99) mg/dL Crossmatch 09/08/17 09/08/17 09/08/17 Range/Units 20:00 20:32 21:07 WBC (3.8-10.6) k/uL RBC (4.30-5.90) m/uL Hgb (13.0-17.5) gm/dL Hct (39.0-53.0) % Plt Count (150-450) k/uL Neutrophils # (1.3-7.7) k/uL Lymphocytes # (1.0-4.8) k/uL Monocytes # (0-1.0) k/uL PT (9.0-12.0) sec INR (<1.2) ABG pH (7.35-7.45) ABG pCO2 47 H (35-45) mmHg ABG pO2 73 L (83-108) mmHg ABG HCO3 28 H (21-25) mmol/L ABG Total CO2 30 H (19-24) mmol/L ABG O2 Saturation (94-97) % ABG Hematocrit (34.0-46.0) % ABG Sodium (135-146) mmol/L ABG Potassium (3.4-4.5) mmol/L ABG Ionized Calcium (4.5-5.3) mg/dL ABG Glucose (75-99) mg/dL ABG Lactic Acid (0.5-1.6) mmol/L Hemoglobin (13.0-17.5) gm/dL Potassium (3.5-5.1) mmol/L BUN (9-20) mg/dL Glucose (74-99) mg/dL POC Glucose (mg/dL) 161 H (75-99) mg/dL Calcium (8.4-10.2) mg/dL Magnesium 2.7 H (1.6-2.3) mg/dL Alkaline Phosphatase (38-126) U/L Total Protein (6.3-8.2) g/dL Albumin (3.5-5.0) g/dL Arterial Blood Potassium (3.4-4.5) mmol/L Arterial Blood Glucose (75-99) mg/dL Crossmatch 09/08/17 09/08/17 09/09/17 Range/Units 21:53 23:08 00:11 WBC (3.8-10.6) k/uL RBC (4.30-5.90) m/uL Hgb (13.0-17.5) gm/dL Hct (39.0-53.0) % Plt Count (150-450) k/uL Neutrophils # (1.3-7.7) k/uL Lymphocytes # (1.0-4.8) k/uL Monocytes # (0-1.0) k/uL PT (9.0-12.0) sec INR (<1.2) ABG pH (7.35-7.45) ABG pCO2 (35-45) mmHg ABG pO2 (83-108) mmHg ABG HCO3 (21-25) mmol/L ABG Total CO2 (19-24) mmol/L ABG O2 Saturation (94-97) % ABG Hematocrit (34.0-46.0) % ABG Sodium (135-146) mmol/L ABG Potassium (3.4-4.5) mmol/L ABG Ionized Calcium (4.5-5.3) mg/dL ABG Glucose (75-99) mg/dL ABG Lactic Acid (0.5-1.6) mmol/L Hemoglobin (13.0-17.5) gm/dL Potassium (3.5-5.1) mmol/L BUN (9-20) mg/dL Glucose (74-99) mg/dL POC Glucose (mg/dL) 153 H 134 H 125 H (75-99) mg/dL Calcium (8.4-10.2) mg/dL Magnesium (1.6-2.3) mg/dL Alkaline Phosphatase (38-126) U/L Total Protein (6.3-8.2) g/dL Albumin (3.5-5.0) g/dL Arterial Blood Potassium (3.4-4.5) mmol/L Arterial Blood Glucose (75-99) mg/dL Crossmatch 09/09/17 09/09/17 09/09/17 Range/Units 01:03 02:09 02:59 WBC (3.8-10.6) k/uL RBC (4.30-5.90) m/uL Hgb (13.0-17.5) gm/dL Hct (39.0-53.0) % Plt Count (150-450) k/uL Neutrophils # (1.3-7.7) k/uL Lymphocytes # (1.0-4.8) k/uL Monocytes # (0-1.0) k/uL PT (9.0-12.0) sec INR (<1.2) ABG pH (7.35-7.45) ABG pCO2 (35-45) mmHg ABG pO2 (83-108) mmHg ABG HCO3 (21-25) mmol/L ABG Total CO2 (19-24) mmol/L ABG O2 Saturation (94-97) % ABG Hematocrit (34.0-46.0) % ABG Sodium (135-146) mmol/L ABG Potassium (3.4-4.5) mmol/L ABG Ionized Calcium (4.5-5.3) mg/dL ABG Glucose (75-99) mg/dL ABG Lactic Acid (0.5-1.6) mmol/L Hemoglobin (13.0-17.5) gm/dL Potassium (3.5-5.1) mmol/L BUN (9-20) mg/dL Glucose (74-99) mg/dL POC Glucose (mg/dL) 121 H 140 H 118 H (75-99) mg/dL Calcium (8.4-10.2) mg/dL Magnesium (1.6-2.3) mg/dL Alkaline Phosphatase (38-126) U/L Total Protein (6.3-8.2) g/dL Albumin (3.5-5.0) g/dL Arterial Blood Potassium (3.4-4.5) mmol/L Arterial Blood Glucose (75-99) mg/dL Crossmatch 09/09/17 09/09/17 09/09/17 Range/Units 03:55 03:55 03:55 WBC 11.2 H (3.8-10.6) k/uL RBC 3.11 L (4.30-5.90) m/uL Hgb 9.0 L (13.0-17.5) gm/dL Hct 27.5 L (39.0-53.0) % Plt Count 84 L (150-450) k/uL Neutrophils # 9.6 H (1.3-7.7) k/uL Lymphocytes # 0.7 L (1.0-4.8) k/uL Monocytes # (0-1.0) k/uL PT 12.8 H (9.0-12.0) sec INR 1.4 H (<1.2) ABG pH (7.35-7.45) ABG pCO2 (35-45) mmHg ABG pO2 (83-108) mmHg ABG HCO3 (21-25) mmol/L ABG Total CO2 (19-24) mmol/L ABG O2 Saturation (94-97) % ABG Hematocrit (34.0-46.0) % ABG Sodium (135-146) mmol/L ABG Potassium (3.4-4.5) mmol/L ABG Ionized Calcium (4.5-5.3) mg/dL ABG Glucose (75-99) mg/dL ABG Lactic Acid (0.5-1.6) mmol/L Hemoglobin (13.0-17.5) gm/dL Potassium 5.3 H (3.5-5.1) mmol/L BUN 33 H (9-20) mg/dL Glucose 107 H (74-99) mg/dL POC Glucose (mg/dL) (75-99) mg/dL Calcium (8.4-10.2) mg/dL Magnesium 2.6 H (1.6-2.3) mg/dL Alkaline Phosphatase 29 L (38-126) U/L Total Protein 4.9 L (6.3-8.2) g/dL Albumin 3.2 L (3.5-5.0) g/dL Arterial Blood Potassium (3.4-4.5) mmol/L Arterial Blood Glucose (75-99) mg/dL Crossmatch 09/09/17 09/09/17 09/09/17 Range/Units 03:55 04:58 06:05 WBC (3.8-10.6) k/uL RBC (4.30-5.90) m/uL Hgb (13.0-17.5) gm/dL Hct (39.0-53.0) % Plt Count (150-450) k/uL Neutrophils # (1.3-7.7) k/uL Lymphocytes # (1.0-4.8) k/uL Monocytes # (0-1.0) k/uL PT (9.0-12.0) sec INR (<1.2) ABG pH (7.35-7.45) ABG pCO2 (35-45) mmHg ABG pO2 (83-108) mmHg ABG HCO3 (21-25) mmol/L ABG Total CO2 (19-24) mmol/L ABG O2 Saturation (94-97) % ABG Hematocrit (34.0-46.0) % ABG Sodium (135-146) mmol/L ABG Potassium (3.4-4.5) mmol/L ABG Ionized Calcium (4.5-5.3) mg/dL ABG Glucose (75-99) mg/dL ABG Lactic Acid (0.5-1.6) mmol/L Hemoglobin (13.0-17.5) gm/dL Potassium (3.5-5.1) mmol/L BUN (9-20) mg/dL Glucose (74-99) mg/dL POC Glucose (mg/dL) 111 H 139 H 156 H (75-99) mg/dL Calcium (8.4-10.2) mg/dL Magnesium (1.6-2.3) mg/dL Alkaline Phosphatase (38-126) U/L Total Protein (6.3-8.2) g/dL Albumin (3.5-5.0) g/dL Arterial Blood Potassium (3.4-4.5) mmol/L Arterial Blood Glucose (75-99) mg/dL Crossmatch 09/09/17 09/09/17 Range/Units 07:36 08:56 WBC (3.8-10.6) k/uL RBC (4.30-5.90) m/uL Hgb (13.0-17.5) gm/dL Hct (39.0-53.0) % Plt Count (150-450) k/uL Neutrophils # (1.3-7.7) k/uL Lymphocytes # (1.0-4.8) k/uL Monocytes # (0-1.0) k/uL PT (9.0-12.0) sec INR (<1.2) ABG pH (7.35-7.45) ABG pCO2 (35-45) mmHg ABG pO2 (83-108) mmHg ABG HCO3 (21-25) mmol/L ABG Total CO2 (19-24) mmol/L ABG O2 Saturation (94-97) % ABG Hematocrit (34.0-46.0) % ABG Sodium (135-146) mmol/L ABG Potassium (3.4-4.5) mmol/L ABG Ionized Calcium (4.5-5.3) mg/dL ABG Glucose (75-99) mg/dL ABG Lactic Acid (0.5-1.6) mmol/L Hemoglobin (13.0-17.5) gm/dL Potassium (3.5-5.1) mmol/L BUN (9-20) mg/dL Glucose (74-99) mg/dL POC Glucose (mg/dL) 128 H 118 H (75-99) mg/dL Calcium (8.4-10.2) mg/dL Magnesium (1.6-2.3) mg/dL Alkaline Phosphatase (38-126) U/L Total Protein (6.3-8.2) g/dL Albumin (3.5-5.0) g/dL Arterial Blood Potassium (3.4-4.5) mmol/L Arterial Blood Glucose (75-99) mg/dL Crossmatch Microbiology - Last 24 Hours (Table) 09/08/17 04:56 Gram Stain - Preliminary Sputum Sputum Culture - Preliminary Assessment and Plan Plan: Assessment: Acute non-ST segment elevation myocardial infarction, secondary to severe triple -vessel CAD, status post quadruple coronary artery bypass grafting with PARSON to LAD, reverse SVG to OM1, reverse SVG to OM 2, and reverse SVG to RCA, and exclusion of the left atrial appendage with AtriCure clip, postop day 1 Severe COPD, stage III disease, with an FEV1 that is 45% of predicted Chronic hypoxemic respiratory failure Chronic atrial fibrillation Type 2 diabetes mellitus Diabetic neuropathy PVOD Osteomyelitis History of hypertension History of systolic heart failure. Plan: Patient has been successfully extubated and under 6 hours after or exit time, doing well this morning on 40% Ventimask, continue weaning FiO2, encourage incentive spirometry, early ambulation. Pain control. Tolerating extubate patient well. Continue monitoring hemodynamics, chest tube output, labs, urine output. Solu-Medrol has been switched to oral prednisone. Patient was given a dose of IV Lasix per to CT surgery, continue nebulized bronchodilators, we'll continue to follow I performed a history & physical examination of the patient and discussed their management with my nurse practitioner, Rowena Rowe. I reviewed the nurse practitioner's note and agree with the documented findings and plan of care. Lung sounds are diminished on the right, with the few crackles on the left. The findings and the impression was discussed with the patient. I attest to the documentation by the nurse practitioner. Time with Patient: Greater than 30
[2017-09-09 10:15] LABS: Glucose,Whole Blood 151 mg/dL (75-99)
[2017-09-09 11:09] LABS: Glucose,Whole Blood 157 mg/dL (75-99)
[2017-09-09 11:54] LABS: Glucose,Whole Blood 137 mg/dL (75-99)
--- NOTE | 2017-09-09 12:04 | PN ---
PROGRESS NOTE This is a 69-year-old male patient who underwent coronary artery bypass grafting yesterday. He has been extubated. He is sitting up in a chair. He denies any shortness of breath. He has minimal incisional pain. He looks quite comfortable. PHYSICAL EXAMINATION: His pulse rate is in the 80s to 90s, blood pressure 107/38 mmHg, respirations 14-16. Breath sounds are reduced bilaterally, conduction sounds are audible. Heart sounds are soft. Extremities are warm. There is no edema. IMPRESSION: 1. Multivessel coronary artery disease with left main disease. 2. Severe chronic obstructive pulmonary disease with FEV1 of 45%, on home oxygen. 3. Diastolic dysfunction, preserved left ventricular systolic function. 4. Hypertension. 5. Status post coronary artery bypass grafting. 6. History of permanent atrial fibrillation. 7. History of sick sinus syndrome, status post permanent pacemaker implantation. Suggest continue ICU care and continue current medications and follow up. MMODL / IJN: [id number] /
[2017-09-09] MEDS: ASCORBIC ACID 500 MG TAB PO SCH (12:07)
[2017-09-09] MEDS: FERROUS SULFATE 325 MG TAB PO SCH (12:08)
[2017-09-09 14:09] LABS: Glucose,Whole Blood 157 mg/dL (75-99)
[2017-09-09] MEDS: CLOPIDOGREL 75 MG TAB PO SCH (14:29)
[2017-09-09] MEDS: ATORVASTATIN 40 MG TAB PO SCH (14:29)
[2017-09-09] MEDS: METOPROLOL TARTRATE 12.5 MG TAB PO SCH ×2 (14:29→20:16)
[2017-09-09] MEDS ORDERED: HYDROcodone/APAP 5-325MG 1 EACH TAB PO PRN (14:30)
[2017-09-09] MEDS ORDERED: METOPROLOL TARTRATE 12.5 MG TAB PO SCH (14:31)
[2017-09-09] MEDS ORDERED: MAGNESIUM HYDROXIDE 2,400 MG/10 ML CUP PO PRN (14:32)
[2017-09-09] MEDS ORDERED: BISACODYL 10 MG SUPP RECTAL PRN (14:32)
[2017-09-09 16:12] LABS: Glucose,Whole Blood 142 mg/dL (75-99)
[2017-09-09] MEDS: LACTATED RINGERS 1,000 ML IV SCH (18:07)
[2017-09-09 20:09] LABS: Glucose,Whole Blood 142 mg/dL (75-99)
[2017-09-09] MEDS: SENNOSIDES-DOCUSATE SODIUM 1 EACH TAB PO SCH (20:15)
[2017-09-09] MEDS: INSULIN ASPART 100 UNIT/ML 1 ML 10 ML VIAL SQ SCH (20:15)
[2017-09-10] MEDS: HEPARIN SODIUM,PORCINE 5,000 UNIT/ML 1 ML VIAL SQ SCH (00:45)
[2017-09-10 02:37] LABS: Glucose,Whole Blood 161 mg/dL (75-99)
[2017-09-10] MEDS: HYDROcodone/APAP 5-325MG 1 EACH TAB PO PRN ×2 (02:37→10:33)
[2017-09-10] MEDS: IPRATROPIUM-ALBUTEROL 3 ML NEB INHALATION PRN (02:47)
[2017-09-10 05:24] LABS: Basophils % (A) 0 %; Eosinophils % (A) 0 %; HCT 26.1 % (39.0-53.0); HGB 8.6 gm/dL (13.0-17.5); Lymphocytes # (A) 1.2 k/uL (1.0-4.8); Lymphocytes % (A) 11 %; MCH 29.2 pg (25.0-35.0); MCV 88.4 fL (80.0-100.0); Mean Platelet Volume 7.3; Monocytes % (A) 9 %; Neutrophils # (A) 8.1 k/uL (1.3-7.7); Neutrophils % (A) 78 %; RBC 2.95 m/uL (4.30-5.90); RDW 15.6 % (11.5-15.5); WBC 10.4 k/uL (3.8-10.6)
[2017-09-10 05:34] LABS: Ionized Calcium 4.7 mg/dL (4.5-5.3)
[2017-09-10 05:57] LABS: Platelet Count 66 k/uL (150-450)
[2017-09-10 06:11] LABS: ALT 28 U/L (21-72); AST 38 U/L (17-59); Albumin 3.2 g/dL (3.5-5.0); Alkaline Phosphatase 46 U/L (38-126); Anion Gap 8 mmol/L; Blood Urea Nitrogen 34 mg/dL (9-20); Calcium 8.4 mg/dL (8.4-10.2); Carbon Dioxide 28 mmol/L (22-30); Chloride 100 mmol/L (98-107); Glucose 156 mg/dL (74-99); Magnesium 2.3 mg/dL (1.6-2.3); Potassium 4.3 mmol/L (3.5-5.1); Sodium 136 mmol/L (137-145); Total Bilirubin 0.6 mg/dL (0.2-1.3)
[2017-09-10] MEDS ORDERED: DIGOXIN 250 MCG/ML 2 ML AMP IVP STA (07:22)
[2017-09-10] MEDS ORDERED: METOPROLOL TARTRATE 25 MG TAB PO SCH (07:23)
[2017-09-10] MEDS ORDERED: CALCIUM CHLORIDE 1,000 MG in SODIUM CHLORIDE 0.9% 100 ML IVPB STA (07:24)
[2017-09-10 07:25] LABS: Glucose,Whole Blood 161 mg/dL (75-99)
[2017-09-10] MEDS ORDERED: FUROSEMIDE 10 MG/ML 2 ML VIAL IV ONE (07:25)
[2017-09-10 07:39] LABS: Glucose,Whole Blood 167 mg/dL (75-99)
--- NOTE | 2017-09-10 07:53 | XR ---
EXAMINATION TYPE: XR chest 1V portable DATE OF EXAM: 09/10/2017 COMPARISON: 09/09/2017 HISTORY: Post CABG. Follow-up exam. TECHNIQUE: Single frontal view of the chest is obtained. FINDINGS: Dual lead cardiac device is present. Left thoracostomy tube is unchanged in position. Post CABG changes are seen of the chest with aortic closure device. [place] catheter has been removed i n the interim with the right internal jugular sheath remaining. New right basilar opacity emanates fr om the infrahilar region to the hemidiaphragm. Subsegmental left basilar atelectasis is unchanged. Pr obable trace right pleural effusion blunts the costophrenic angle. No pneumothorax. No pulmonary vasc ular congestion. IMPRESSION: 1. New right basilar airspace disease that may represent atelectasis or developing pneumonia. 2. Stable left basilar subsegmental atelectasis. 3. Probable trace right pleural effusion. 4. Interval removal of the [place] catheter with right internal jugular sheath remaining. Otherwise stable postsurgical change.
[2017-09-10] MEDS: FONDAPARINUX 2.5 MG/0.5 ML SYRINGE SQ SCH (08:17)
--- NOTE | 2017-09-10 08:24 | P.PN ---
Progress Note - Text The patient is a 77-year-old gentleman who 2 days previous underwent quadruple coronary artery bypass grafting along with exclusion of the left atrial appendage for significant left main and overall triple vessel coronary disease and recent non-ST segment elevated myocardial infarction. The patient presently is sitting up in bed. Alert. Ventimask in place. Pain overall seems to be controlled. Vital signs: Temperature 98.2 pulse varies from 90 up to 119. Respiration is 17 and blood pressure 120/52. He is 99% saturated on 40% Ventimask. He is alert and oriented. Lungs are clear anteriorly. Heart tones are slightly tachycardic and irregular. Abdomen is nontender. Compression appliance is intact. Does not appear to have any focal neurological deficits. Laboratory White count 10.4 with a hemoglobin 8.6 and a platelet count of 66 Sodium 136 with potassium 4.3. BUN is 34 with creatinine 0.9 giving him a GFR of 82. Blood sugar 156. Albumin 3.2. Chest x-ray Reported as a new right basilar airspace disease. Impressions and plans Surgical, pulmonary and cardiology notes regarded. Some expected blood loss anemia. Also likely heparin-induced thrombocytopenia. Continue to progress as per thoracic surgery.
--- NOTE | 2017-09-10 08:29 | P.PN ---
Subjective Progress Note Date: 09/10/17 Principal diagnosis: Symptomatic multivessel coronary artery disease with left main disease, hypertension, severe COPD stage III with an FEV1 of 45% predicted and home oxygen use, chronic diastolic congestive heart failure, osteoarthritis, lumbar disc disease with chronic pain syndrome, history of deep vein thrombosis of his left leg, recurrent feet and hand ulcerations with osteomyelitis and history of MRSA requiring amputations, type 2 diabetes mellitus, peripheral vascular disease, remote history of pneumonia, non-ST elevated myocardial infarction this admission, family history of early onset coronary artery disease with his brother being diagnosed with a myocardial infarction at age 46, history of sick sinus syndrome with previous placement of permanent pacemaker, benign prostatic hypertrophy, history of chronic persistent atrial fibrillation on home Coumadin therapy, remote history of smoking quit over 30 years ago, GERD, and a preoperative nasal swab positive for MSSA. POD #2 quadruple coronary artery bypass grafting using the left internal mammary artery to the left anterior descending coronary artery, a reverse greater saphenous vein graft from the aorta to the first obtuse marginal coronary artery, a reverse greater saphenous vein graft from the aorta to the second obtuse marginal coronary artery, a reverse greater saphenous vein graft from the aorta to the right coronary artery. Exclusion of the left atrial appendage using a 40 mm AtriClip. Endoscopic harvesting of the right greater saphenous vein, intraoperative transesophageal echocardiogram and epi-aortic scanning. Intraoperative graft flow measurements using the [facility] system. Postoperative normocytic, normochromic anemia an expected outcome of surgery related to hemodilution. Patient is sitting up in bed with his head elevated. He is in no acute distress. He is complaining of some shortness of breath and is complaining of pain to his chest tube insertion sites, rating his pain 5 out of 10 on the pain scale. His bedside telemetry is showing atrial fibrillation with RVR heart rate 130. He is achieving 1000 L on his incentive spirometry. Objective - Vital Signs Vital signs: Vital Signs Temp 98.2 F 09/10/17 04:00 Pulse 119 H 09/10/17 07:00 Resp 17 09/10/17 07:00 BP 123/56 09/08/17 06:00 Pulse Ox 99 09/10/17 07:00 Intake & Output 09/09/17 09/10/17 09/10/17 18:59 06:59 18:59 Intake Total 2261.942 814.89 36 Output Total 1250 975 70 Balance 1011.942 -160.11 -34 Weight 80.2 kg 81.1 kg Intake: IV 891 542 36 ACETAMINOPHEN IV (For NPO 200 100 ) 1,000 mg In Empty Bag 1 bag @ 400 mls/hr IVPB Q6HR [facility] Rx#:[id number] Cardiac Index/Output 30 Lactated Ringers 1,000 ml 550 370 30 @ 20 mls/hr IV .Q24H [facility] Rx#:[id number] Pressure bag 81 72 6 ceFAZolin 2 gm In Sodium 30 Chloride 0.9% 30 ml @ 60 mls/hr IVPB ONCE ONE Rx#: [id number] Intake, IV Titration 10.942 22.89 Amount Insulin Regular 100 unit 10.942 22.89 In Sodium Chloride 0.9% 100 ml @ Per Protocol IV .Q0M [facility] Rx#:[id number] Oral 1360 250 Output: Chest Tube Drainage 140 350 40 Left Pleural Chest Tube 60 130 20 Mediastinal Chest Tube 80 220 20 Drainage 15 35 Right Calf 15 35 Urine 1095 590 30 Other: Voiding Method Indwelling Catheter Indwelling Catheter ABP, PAP, CO, CI - Last Documented Arterial Blood Pressure 120/52 Pulmonary Artery Pressure 25/8 Cardiac Output 5.5 Cardiac Index 3.0 - Constitutional General appearance: Present: cooperative, no acute distress - Neck Details: Right IJ Cordis in place and patent. Current CVP pressure is 9 mmHg. - Respiratory Details: Lung sounds are essentially clear throughout, diminished to his bilateral bases. Respirations are symmetrical and nonlabored. Occasional loose nonproductive cough. Oxygen saturations are 99% on 40% Ventimask. He is achieving 1000 mL on his incentive spirometry. Mediastinal and left pleural chest tubes intact and are to continuous low wall suction -20 cm H2O. No air leak present. They're draining thin serosanguineous drainage. Mediastinal chest tube drained 130 mL output in the last 8 hours, 420 mL output in the last 24 hours. Left pleural chest tube drained 90 mL in the last 8 hours, 240 mL output in the last 24 hours. Mediastinal chest tube was discontinued without incident at 8 AM today. Suture secured in place, folded 4 x 4 gauze to cover and secured with tape. - Cardiovascular Details: Irregular rhythm with a tachycardic rate. S1 and S2 present, negative for S3, gallop or murmur. Sternum is stable. Bedside telemetry showing atrial fibrillation with RVR heart rate 130. No edema present. Heart hugger is in place. Knee-high ELLIOTT hose and sequential compression devices in place to his bilateral lower extremities. Ventricular epicardial pacemaker wire intact and grounded. Permanent pacemaker left anterior chest was interrogated yesterday and said to a base line rate of 70. - Gastrointestinal Gastrointestinal Comment(s): Abdomen is soft, nontender and nondistended. Hypoactive bowel sounds all 4 abdominal quadrants. Tolerating oral intake. Passing flatus. No organomegaly. - Genitourinary Genitourinary Comment(s): Kitchen catheter for accurate I&O. Draining clear yellow urine. 425 mL output in the last 8 hours. - Integumentary Integumentary Comment(s): Skin is warm and dry. No clubbing or cyanosis present. Midline sternal incision clean and dry and approximated. No redness or drainage present. Right leg EVH site clean dry and approximated. No redness or drainage present. No rash or abnormal pigmentation present. - Neurologic Neurologic: Present: CNII-XII intact - Musculoskeletal Musculoskeletal: Present: generalized weakness, strength equal bilaterally - Psychiatric Psychiatric: Present: A&O x's 3, appropriate affect, intact judgment & insight - Allied health notes Allied health notes reviewed: nursing - Labs CBC & Chem 7: 09/10/17 04:41 09/10/17 04:41 Labs: Abnormal Lab Results - Last 24 Hours (Table) 09/08/17 09/09/17 09/09/17 Range/Units 04:09 08:56 10:13 RBC (4.30-5.90) m/uL Hgb (13.0-17.5) gm/dL Hct (39.0-53.0) % RDW (11.5-15.5) % Plt Count (150-450) k/uL Neutrophils # (1.3-7.7) k/uL Sodium (137-145) mmol/L BUN (9-20) mg/dL Glucose (74-99) mg/dL POC Glucose (mg/dL) 118 H 151 H (75-99) mg/dL Total Protein (6.3-8.2) g/dL Albumin (3.5-5.0) g/dL Heparin-Ind Plt Ab Scrn 0.656 H (<0.4) OD 09/09/17 09/09/17 09/09/17 Range/Units 11:07 11:52 14:07 RBC (4.30-5.90) m/uL Hgb (13.0-17.5) gm/dL Hct (39.0-53.0) % RDW (11.5-15.5) % Plt Count (150-450) k/uL Neutrophils # (1.3-7.7) k/uL Sodium (137-145) mmol/L BUN (9-20) mg/dL Glucose (74-99) mg/dL POC Glucose (mg/dL) 157 H 137 H 157 H (75-99) mg/dL Total Protein (6.3-8.2) g/dL Albumin (3.5-5.0) g/dL Heparin-Ind Plt Ab Scrn (<0.4) OD 09/09/17 09/09/17 09/10/17 Range/Units 16:09 20:06 02:34 RBC (4.30-5.90) m/uL Hgb (13.0-17.5) gm/dL Hct (39.0-53.0) % RDW (11.5-15.5) % Plt Count (150-450) k/uL Neutrophils # (1.3-7.7) k/uL Sodium (137-145) mmol/L BUN (9-20) mg/dL Glucose (74-99) mg/dL POC Glucose (mg/dL) 142 H 142 H 161 H (75-99) mg/dL Total Protein (6.3-8.2) g/dL Albumin (3.5-5.0) g/dL Heparin-Ind Plt Ab Scrn (<0.4) OD 09/10/17 09/10/17 09/10/17 Range/Units 04:41 04:41 07:24 RBC 2.95 L (4.30-5.90) m/uL Hgb 8.6 L (13.0-17.5) gm/dL Hct 26.1 L (39.0-53.0) % RDW 15.6 H (11.5-15.5) % Plt Count 66 L (150-450) k/uL Neutrophils # 8.1 H (1.3-7.7) k/uL Sodium 136 L (137-145) mmol/L BUN 34 H (9-20) mg/dL Glucose 156 H (74-99) mg/dL POC Glucose (mg/dL) 161 H (75-99) mg/dL Total Protein 5.0 L (6.3-8.2) g/dL Albumin 3.2 L (3.5-5.0) g/dL Heparin-Ind Plt Ab Scrn (<0.4) OD 09/10/17 Range/Units 07:37 RBC (4.30-5.90) m/uL Hgb (13.0-17.5) gm/dL Hct (39.0-53.0) % RDW (11.5-15.5) % Plt Count (150-450) k/uL Neutrophils # (1.3-7.7) k/uL Sodium (137-145) mmol/L BUN (9-20) mg/dL Glucose (74-99) mg/dL POC Glucose (mg/dL) 167 H (75-99) mg/dL Total Protein (6.3-8.2) g/dL Albumin (3.5-5.0) g/dL Heparin-Ind Plt Ab Scrn (<0.4) OD Microbiology - Last 24 Hours (Table) 09/08/17 04:56 Gram Stain - Preliminary Sputum Sputum Culture - Preliminary Gram Neg Bacilli Presumptive Staph aureus - Imaging and Cardiology Chest x-ray: report reviewed, image reviewed Assessment and Plan (1) Hypertension Current Visit: Yes Status: Acute Code(s): I10 - ESSENTIAL (PRIMARY) HYPERTENSION SNOMED Code(s): 03690855 (2) Non-ST elevated myocardial infarction Current Visit: Yes Status: Acute Code(s): I21.4 - NON-ST ELEVATION (NSTEMI) MYOCARDIAL INFARCTION SNOMED Code(s): 951130473 (3) COPD (chronic obstructive pulmonary disease) Current Visit: Yes Status: Acute Code(s): J44.9 - CHRONIC OBSTRUCTIVE PULMONARY DISEASE, UNSPECIFIED SNOMED Code(s): 97867077 (4) Lumbar disc disease Current Visit: Yes Status: Acute Code(s): M51.9 - UNSP THORACIC, THORACOLUM AND LUMBOSACR INTVRT DISC DISORDER SNOMED Code(s): 903880499 (5) Peripheral vascular disease Current Visit: Yes Status: Acute Code(s): I73.9 - PERIPHERAL VASCULAR DISEASE, UNSPECIFIED SNOMED Code(s): 836239132 (6) Diabetes mellitus type 2 in nonobese Current Visit: Yes Status: Acute Code(s): E11.9 - TYPE 2 DIABETES MELLITUS WITHOUT COMPLICATIONS SNOMED Code(s): 797551926 (7) History of smoking Current Visit: Yes Status: Acute Code(s): Z87.891 - PERSONAL HISTORY OF NICOTINE DEPENDENCE SNOMED Code(s): 99589300466604377 (8) Chronic diastolic CHF (congestive heart failure) Current Visit: Yes Status: Acute Code(s): I50.32 - CHRONIC DIASTOLIC ( CONGESTIVE) HEART FAILURE SNOMED Code(s): 217526507 (9) Chronic pain syndrome Current Visit: Yes Status: Acute Code(s): G89.4 - CHRONIC PAIN SYNDROME SNOMED Code(s): 358715230 (10) History of MRSA infection Current Visit: Yes Status: Acute Code(s): Z86.14 - PERSONAL HISTORY OF METHICILLIN RESIS STAPH INFECTION SNOMED Code(s): 921773255 (11) Chronic atrial fibrillation Current Visit: Yes Status: Acute Code(s): I48.2 - CHRONIC ATRIAL FIBRILLATION SNOMED Code(s): 813831236 (12) GERD (gastroesophageal reflux disease) Current Visit: Yes Status: Acute Code(s): K21.9 - GASTRO-ESOPHAGEAL REFLUX DISEASE WITHOUT ESOPHAGITIS SNOMED Code(s): 959937751 (13) BPH (benign prostatic hyperplasia) Current Visit: Yes Status: Acute Code(s): N40.0 - BENIGN PROSTATIC HYPERPLASIA WITHOUT LOWER URINRY TRACT SYMP SNOMED Code(s): 068856493 (14) History of sick sinus syndrome Current Visit: Yes Status: Acute Code(s): Z86.79 - PERSONAL HISTORY OF OTHER DISEASES OF THE CIRCULATORY SYSTEM SNOMED Code(s): 576448075393116 (15) History of permanent cardiac pacemaker placement Current Visit: Yes Status: Acute Code(s): Z95.0 - PRESENCE OF CARDIAC PACEMAKER SNOMED Code(s): 073720641 (16) Family history of coronary artery disease in brother Current Visit: Yes Status: Acute Code(s): Z82.49 - FAMILY HX OF ISCHEM HEART DIS AND OTH DIS OF THE CIRC SYS SNOMED Code(s): 352004007 (17) History of Coumadin therapy Current Visit: Yes Status: Acute Code(s): Z92.29 - PERSONAL HISTORY OF OTHER DRUG THERAPY SNOMED Code(s): 724576761 Plan: 1. Continue aspirin, statin, and Plavix. We will increase his metoprolol tartrate to 25 mg by mouth twice a day. 2. Encourage use of his incentive spirometry every hour while awake. 3. Continue to hold Coumadin. 4. Keep his right IJ Cordis in place to continuous CVP monitoring. 5. Pulmonary recommendations per Dr. Linares. 6. We will give digoxin 0.5 mg IVP 1 now for his atrial fibrillation with RVR. 7. Hit assay results 0.656, we will stop his heparin subcu and start Arixtra 2.5 mg subcu daily. 8. Increase activity as tolerated, PT/OT/cardiac rehab following. 9. Pain control with current when necessary medications. 10. Will monitor daily labs and chest x-rays. 11. Lasix 20 mg IV 1 now. 12. We will discontinue his mediastinal chest tube and keep his left pleural chest tube in place to low continuous wall suction -20 cm H2O. 13. 1 g calcium chloride IV piggyback 1 now. 14. More recommendations to follow based on the patient's clinical course. Time with Patient: Greater than 30
[2017-09-10] MEDS: SYMBICORT 160-4.5 MCG INHALER INHALATION SCH (08:41)
[2017-09-10] MEDS: IPRATROPIUM-ALBUTEROL 3 ML NEB INHALATION SCH ×4 (08:41→19:49)
[2017-09-10] MEDS: INSULIN ASPART 100 UNIT/ML 1 ML 10 ML VIAL SQ SCH ×4 (08:41→21:09)
[2017-09-10] MEDS: CLOPIDOGREL 75 MG TAB PO SCH (08:42)
[2017-09-10] MEDS: GABAPENTIN 100 MG CAP PO SCH ×3 (08:43→21:09)
[2017-09-10] MEDS: PANTOPRAZOLE 40 MG TABLET PO SCH (08:43)
[2017-09-10] MEDS: TAMSULOSIN 0.4 MG CAP.ER.24H PO SCH (08:43)
[2017-09-10] MEDS: ATORVASTATIN 40 MG TAB PO SCH (08:43)
[2017-09-10] MEDS: ASPIRIN 325 MG TAB PO SCH (08:43)
[2017-09-10] MEDS: MUPIROCIN 2% OINT 22 GM TUBE NASAL SCH ×2 (08:56→21:09)
--- NOTE | 2017-09-10 09:15 | P.PN ---
Subjective Progress Note Date: 09/10/17 Principal diagnosis: Coronary artery disease, status post coronary artery bypass grafting, postop day 1 Progress note dated 09/08/2017 77-year-old male with a history of non-ST segment elevation myocardial infarction, status post cardiac catheterization revealing severe triple-vessel CAD. In addition, he is quite severe COPD, with an FEV1 in the range of 45% of predicted. 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 The patient surgery is to be done today. The patient is on O2 3 L nasal cannula and has a dextrose half-normal saline IV at KVO. He was on a heparin drip but obviously that was turned off prior to surgery. Other than that, the patient is doing reasonably well. He certainly is at high risk. This has been documented by my partner. On 09/09/2017 patient seen in follow-up in the intensive care unit. This is postop day 1, status post quadruple coronary artery bypass grafting using the PARSON to LAD, reverse SVG to OM1, reverse SVG to OM 2, reverse SVG to the RCA, exclusion of the left atrial appendage, and intraoperative MALATHI and AP aortic scanning. Patient was extubated in less than 6 hours post OR exit time. Patient was extubated at 9:00 last night successfully to a 40% Ventimask, on which she remains this morning. He is awake alert, sitting up in the recliner, doing well, denies any acute distress. Midsternal incision is stable, clean dry and intact One mediastinal and one left pleural chest tube draining small amount of serosanguineous drainage. Maintenance IV includes LR at a rate of 50 ML per hour, insulin drip at 2 units per hour, no vasoactive drips at this time, clever proximal has been discontinued, as well as nitroglycerin drip. Kitchen catheter is in place, and the urine output is ranging from 30-75 ML per hour. Cardiac index and output is 5.5 and 3.0 respectively. Dissipate discontinuation of the PA catheter this morning. PA pressures 28/11, with a map of 19. Patient has not required any blood transfusions. Today's labs were reviewed, WBCs 11.2, hemoglobin is 9.0, INR is 1.4, potassium is 5.3, BUN is 33 , creatinine 0.80. Today's chest x-ray has been reviewed and shows basilar atelectasis versus edema. Lung sounds positive for some crackles over left lower lobe anteriorly, diminished on the right. Patient Solu-Medrol's has been switched to oral prednisone. On 09/10/2017 patient seen in follow-up in intensive care unit. This postop day 2, status post coronary artery bypass grafting 4, and exclusion of the left atrial appendage. He is awake and alert, remains on 40% Ventimask, today' s exam patient is a bit more congested, there is scattered rhonchi, and wheezes bilaterally. His chest x-ray has been reviewed and shows new right basilar airspace disease that could represent atelectasis or developing pneumonia, stable left basilar subsegmental atelectasis, and trace right pleural effusion. Incentive spirometry effort is 800 mL today. He is still chest tube has been removed, left pleural chest tube remains in place with serosanguineous output. He remains in A. fib with frequent PVCs. He was started on Arixtra for anticoagulation, he was given a dose of IV digoxin for rate control. Denies any chest pain or dyspnea. Sternal incision is clean dry and intact, stable. [place] catheter has been removed. Maintenance in the IV include LR at a rate of 30 ML per hour, no other drips. Which the oral prednisone back to Solu- Medrol 40 mg every 8 hours, we'll discontinue Symbicort and put the patient on Pulmicort. Objective - Vital Signs Vital signs: Vital Signs Temp 98.2 F 09/10/17 04:00 Pulse 125 H 09/10/17 08:53 Resp 17 09/10/17 07:00 BP 123/56 09/08/17 06:00 Pulse Ox 97 09/10/17 08:42 Intake & Output 09/09/17 09/10/17 09/10/17 18:59 06:59 18:59 Intake Total 2261.942 814.89 36 Output Total 1250 975 70 Balance 1011.942 -160.11 -34 Weight 80.2 kg 81.1 kg Intake: IV 891 542 36 ACETAMINOPHEN IV (For NPO 200 100 ) 1,000 mg In Empty Bag 1 bag @ 400 mls/hr IVPB Q6HR [facility] Rx#:[id number] Cardiac Index/Output 30 Lactated Ringers 1,000 ml 550 370 30 @ 20 mls/hr IV .Q24H [facility] Rx#:[id number] Pressure bag 81 72 6 ceFAZolin 2 gm In Sodium 30 Chloride 0.9% 30 ml @ 60 mls/hr IVPB ONCE ONE Rx#: [id number] Intake, IV Titration 10.942 22.89 Amount Insulin Regular 100 unit 10.942 22.89 In Sodium Chloride 0.9% 100 ml @ Per Protocol IV .Q0M [facility] Rx#:[id number] Oral 1360 250 Output: Chest Tube Drainage 140 350 40 Left Pleural Chest Tube 60 130 20 Mediastinal Chest Tube 80 220 20 Drainage 15 35 Right Calf 15 35 Urine 1095 590 30 Other: Voiding Method Indwelling Catheter Indwelling Catheter ABP, PAP, CO, CI - Last Documented Arterial Blood Pressure 120/52 Pulmonary Artery Pressure 25/8 Cardiac Output 5.5 Cardiac Index 3.0 - Exam GENERAL EXAM: Alert, pleasant, 69-year-old white male comfortable in no apparent distress, on 40% Ventimask HEAD: Normocephalic/atraumatic. EYES: Normal reaction of pupils, equal size. Conjunctiva pink, sclera white. NOSE: Clear with pink turbinates. THROAT: No erythema or exudates. NECK: No masses, no JVD, no thyroid enlargement, no adenopathy. Right IJ Cordis with a PA catheter is present CHEST: No chest wall deformity. Symmetrical expansion. Midsternal incision is clean dry and intact and stable. Left pleural chest tubes are present connected to Pleur-evac's and to wall suction, with serosanguineous output and the collection chambers no air leak noted. Mediastinal chest tube has been discontinued this morning. LUNGS: Equal air entry bilateral rhonchi and scattered wheezes CVS: Regular rate and rhythm, normal S1 and S2, no gallops, no murmurs, no rubs ABDOMEN: Soft, nontender. No hepatosplenomegaly, normal bowel sounds, no guarding or rigidity. EXTREMITIES: No clubbing, no edema, no cyanosis, 2+ pulses and upper and lower extremities. There is a JESÚS drain in the right lower leg, right lower leg is Gilberto wrapped MUSCULOSKELETAL: Muscle strength and tone normal. SPINE: No scoliosis or deformity SKIN: No rashes CENTRAL NERVOUS SYSTEM: Alert and oriented -3. No focal deficits, tone is normal in all 4 extremities. PSYCHIATRIC: Alert and oriented -3. Appropriate affect. Intact judgment and insight. - Labs CBC & Chem 7: 09/10/17 04:41 09/10/17 04:41 Labs: Abnormal Lab Results - Last 24 Hours (Table) 09/08/17 09/09/17 09/09/17 Range/Units 04:09 10:13 11:07 RBC (4.30-5.90) m/uL Hgb (13.0-17.5) gm/dL Hct (39.0-53.0) % RDW (11.5-15.5) % Plt Count (150-450) k/uL Neutrophils # (1.3-7.7) k/uL Sodium (137-145) mmol/L BUN (9-20) mg/dL Glucose (74-99) mg/dL POC Glucose (mg/dL) 151 H 157 H (75-99) mg/dL Total Protein (6.3-8.2) g/dL Albumin (3.5-5.0) g/dL Heparin-Ind Plt Ab Scrn 0.656 H (<0.4) OD 09/09/17 09/09/17 09/09/17 Range/Units 11:52 14:07 16:09 RBC (4.30-5.90) m/uL Hgb (13.0-17.5) gm/dL Hct (39.0-53.0) % RDW (11.5-15.5) % Plt Count (150-450) k/uL Neutrophils # (1.3-7.7) k/uL Sodium (137-145) mmol/L BUN (9-20) mg/dL Glucose (74-99) mg/dL POC Glucose (mg/dL) 137 H 157 H 142 H (75-99) mg/dL Total Protein (6.3-8.2) g/dL Albumin (3.5-5.0) g/dL Heparin-Ind Plt Ab Scrn (<0.4) OD 09/09/17 09/10/17 09/10/17 Range/Units 20:06 02:34 04:41 RBC (4.30-5.90) m/uL Hgb (13.0-17.5) gm/dL Hct (39.0-53.0) % RDW (11.5-15.5) % Plt Count (150-450) k/uL Neutrophils # (1.3-7.7) k/uL Sodium 136 L (137-145) mmol/L BUN 34 H (9-20) mg/dL Glucose 156 H (74-99) mg/dL POC Glucose (mg/dL) 142 H 161 H (75-99) mg/dL Total Protein 5.0 L (6.3-8.2) g/dL Albumin 3.2 L (3.5-5.0) g/dL Heparin-Ind Plt Ab Scrn (<0.4) OD 09/10/17 09/10/17 09/10/17 Range/Units 04:41 07:24 07:37 RBC 2.95 L (4.30-5.90) m/uL Hgb 8.6 L (13.0-17.5) gm/dL Hct 26.1 L (39.0-53.0) % RDW 15.6 H (11.5-15.5) % Plt Count 66 L (150-450) k/uL Neutrophils # 8.1 H (1.3-7.7) k/uL Sodium (137-145) mmol/L BUN (9-20) mg/dL Glucose (74-99) mg/dL POC Glucose (mg/dL) 161 H 167 H (75-99) mg/dL Total Protein (6.3-8.2) g/dL Albumin (3.5-5.0) g/dL Heparin-Ind Plt Ab Scrn (<0.4) OD Microbiology - Last 24 Hours (Table) 09/08/17 04:56 Gram Stain - Preliminary Sputum Sputum Culture - Preliminary Gram Neg Bacilli Presumptive Staph aureus Assessment and Plan Plan: Assessment: Acute non-ST segment elevation myocardial infarction, secondary to severe triple -vessel CAD, status post quadruple coronary artery bypass grafting with PARSON to LAD, reverse SVG to OM1, reverse SVG to OM 2, and reverse SVG to RCA, and exclusion of the left atrial appendage with AtriCure clip, postop day 2 Severe COPD, stage III disease, with an FEV1 that is 45% of predicted Chronic hypoxemic respiratory failure Chronic atrial fibrillation Type 2 diabetes mellitus Diabetic neuropathy PVOD Osteomyelitis History of hypertension History of systolic heart failure. Plan: We will discontinue the Symbicort, and put the patient on Pulmicort 1 mg twice daily, continue with DuoNeb, we will switch to oral prednisone back to Solu- Medrol 40 mg every 8 hours, continue encouraging incentive spirometry, continue encouraging ambulation, deep breathing and coughing. Continue monitoring chest tube output, vital signs, labs. I performed a history & physical examination of the patient and discussed their management with my nurse practitioner, Rowena Rowe. I reviewed the nurse practitioner's note and agree with the documented findings and plan of care. Lung sounds are positive for scattered rhonchi and wheezes. The findings and the impression was discussed with the patient. I attest to the documentation by the nurse practitioner. Time with Patient: Less than 30
[2017-09-10] MEDS: METOPROLOL SUCCINATE (ER) 50 MG TAB.ER.24H PO SCH (09:16)
[2017-09-10] MEDS: methylPREDNISolone SOD SUCCI 40 MG/ML 1 ML VIAL IV SCH ×3 (09:16→23:54)
[2017-09-10] MEDS ORDERED: LORazepam 2 MG/ML INJ IV STA (09:21)
--- NOTE | 2017-09-10 09:44 | PN ---
PROGRESS NOTE A 77-year-old male patient who underwent coronary artery bypass grafting the day before yesterday. He was stable yesterday. This morning he went into atrial fibrillation with RVR. He has an underlying permanent single-chamber permanent pacemaker. He also has severe lung disease with reduced FEV1. He looks a bit pale and sweaty, but he denies any chest discomfort. He is not visibly short of breath, but he looks uncomfortable. Heart sounds S1, S2 soft. Breath sounds are reduced bilaterally sounds. Extremities warm no edema. The ECG shows atrial fibrillation with intermittent ventricular pacing. The pacemaker has been reprogrammed to 70 beats per minute by CT surgery team. SUGGEST: 1. Hold off on digoxin, no more digoxin. #. 2. Change metoprolol from metoprolol tartrate to metoprolol succinate 50 mg twice daily and given 1 dose of metoprolol succinate at this time and allow for 24 hours of therapy before making any changes. If in the interim, his heart rate goes up intravenous IV metoprolol or even low-dose IV Cardizem may be used temporarily to control the heart rate. Ultimately, we should be able to control the heart rate with his beta blockers, which he says he has permanent pacemaker. His blood pressure was in the 130s to 140 systolic, so he should be able to tolerate this medication. 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 MMSHAKIR / LANEN: [id number] /
[2017-09-10 12:01] LABS: Glucose,Whole Blood 153 mg/dL (75-99)
[2017-09-10 13:21] LABS: ABG Base Excess 5.7 mmol/L; ABG HCO3 29 mmol/L (21-25); ABG PCO2 35 mmHg (35-45); ABG PH 7.52 (7.35-7.45); ABG PO2 57 mmHg (83-108); ABG TCO2 30 mmol/L (19-24)
[2017-09-10] MEDS: FERROUS SULFATE 325 MG TAB PO SCH (14:09)
[2017-09-10] MEDS: ASCORBIC ACID 500 MG TAB PO SCH (14:10)
[2017-09-10 17:35] LABS: Glucose,Whole Blood 181 mg/dL (75-99)
[2017-09-10 17:46] LABS: Glucose,Whole Blood 175 mg/dL (75-99)
[2017-09-10] MEDS: ACETAMINOPHEN IV (For NPO) 1,000 MG in EMPTY BAG 1 BAG IVPB SCH ×2 (18:27→23:54)
[2017-09-10] MEDS: LACTATED RINGERS 1,000 ML IV SCH (18:33)
[2017-09-10] MEDS: BUDESONIDE 1 MG/2 ML NEBU INHALATION SCH (19:49)
[2017-09-10 20:46] LABS: Glucose,Whole Blood 199 mg/dL (75-99)
[2017-09-10] MEDS: SENNOSIDES-DOCUSATE SODIUM 1 EACH TAB PO SCH (21:09)
[2017-09-11 01:18] LABS: Glucose,Whole Blood 156 mg/dL (75-99)
[2017-09-11] MEDS: IPRATROPIUM-ALBUTEROL 3 ML NEB INHALATION PRN (01:59)
[2017-09-11 04:19] LABS: Basophils % (A) 0 %; Eosinophils % (A) 0 %; HCT 26.3 % (39.0-53.0); HGB 8.7 gm/dL (13.0-17.5); Lymphocytes # (A) 0.7 k/uL (1.0-4.8); Lymphocytes % (A) 7 %; MCH 29.1 pg (25.0-35.0); MCV 88.3 fL (80.0-100.0); Mean Platelet Volume 7.6; Monocytes # (A) 0.5 k/uL (0-1.0); Monocytes % (A) 5 %; Neutrophils % (A) 88 %; RBC 2.97 m/uL (4.30-5.90); RDW 15.2 % (11.5-15.5); WBC 10.2 k/uL (3.8-10.6)
[2017-09-11 04:36] LABS: ALT 39 U/L (21-72); AST 111 U/L (17-59); Albumin 3.2 g/dL (3.5-5.0); Alkaline Phosphatase 45 U/L (38-126); Anion Gap 10 mmol/L; Blood Urea Nitrogen 35 mg/dL (9-20); Calcium 8.6 mg/dL (8.4-10.2); Carbon Dioxide 28 mmol/L (22-30); Chloride 97 mmol/L (98-107); Glucose 165 mg/dL (74-99); Magnesium 2.1 mg/dL (1.6-2.3); Phosphorus 3.6 mg/dL (2.5-4.5); Potassium 4.5 mmol/L (3.5-5.1); Sodium 135 mmol/L (137-145); Total Bilirubin 0.6 mg/dL (0.2-1.3)
[2017-09-11 04:41] LABS: Platelet Count 84 k/uL (150-450); Poikilocytosis (M) Present
[2017-09-11] MEDS: ACETAMINOPHEN IV (For NPO) 1,000 MG in EMPTY BAG 1 BAG IVPB SCH ×2 (05:58→11:40)
[2017-09-11] MEDS: BUDESONIDE 1 MG/2 ML NEBU INHALATION SCH ×2 (07:29→20:02)
[2017-09-11] MEDS: IPRATROPIUM-ALBUTEROL 3 ML NEB INHALATION SCH ×4 (07:30→20:02)
[2017-09-11] MEDS ORDERED: FUROSEMIDE 10 MG/ML 2 ML VIAL IV ONE (07:50)
[2017-09-11 08:02] LABS: Glucose,Whole Blood 206 mg/dL (75-99)
[2017-09-11] MEDS: INSULIN ASPART 100 UNIT/ML 1 ML 10 ML VIAL SQ SCH ×4 (08:02→20:26)
[2017-09-11] MEDS: ASPIRIN 325 MG TAB PO SCH (08:05)
[2017-09-11] MEDS: CLOPIDOGREL 75 MG TAB PO SCH (08:05)
[2017-09-11] MEDS: ATORVASTATIN 40 MG TAB PO SCH (08:05)
[2017-09-11] MEDS: PANTOPRAZOLE 40 MG TABLET PO SCH (08:05)
[2017-09-11] MEDS: TAMSULOSIN 0.4 MG CAP.ER.24H PO SCH (08:05)
[2017-09-11] MEDS: FONDAPARINUX 2.5 MG/0.5 ML SYRINGE SQ SCH (08:06)
[2017-09-11] MEDS: methylPREDNISolone SOD SUCCI 40 MG/ML 1 ML VIAL IV SCH ×3 (08:06→23:37)
[2017-09-11] MEDS: GABAPENTIN 100 MG CAP PO SCH ×3 (08:07→21:29)
[2017-09-11] MEDS: METOPROLOL SUCCINATE (ER) 50 MG TAB.ER.24H PO SCH ×2 (08:08→20:27)
[2017-09-11] MEDS: MUPIROCIN 2% OINT 22 GM TUBE NASAL SCH ×2 (08:08→20:27)
--- NOTE | 2017-09-11 08:15 | P.PN ---
Progress Note - Text The patient is a 77-year-old gentleman who 3 days previous underwent quadruple coronary artery bypass grafting along with exclusion of the left atrial appendage for significant left main and overall triple vessel disease and recent non-ST segment elevated myocardial infarction. Patient remains in the intensive care unit. The nurses state that he has not slept well and has been somewhat restless. Patient is up in a chair beside the bed. Overall alert and pleasant. He does know who I am. he states that his pain is controlled and he is not nauseated. Apparently also has had episodes of atrial fibrillation with rapid ventricular response. Vital signs: Temperature 98.1 with a pulse of 103, irregular. Respiratory rate of 19. Blood pressure 113/58 and he is 96% saturated on 5 L nasal cannula. Lungs are generally clear anteriorly. No abdominal tenderness. Pneumatic compression stockings intact. He does seem somewhat confused but overall alert. No cranial nerve deficits. No focal weakness. Laboratory White count is 10.2 with a hemoglobin 8.7 and a platelet count mildly improved up to 84. Sodium 135 with a potassium 4.5. BUN is 35 with creatinine 0.8 and a GFR of 86. Blood sugar 165. Chest x-ray Report pending but overall appears fairly clear except for right lower lung changes. Impressions and plans Overall this 77-year-old gentleman post quadruple coronary artery bypass appears to be doing well. Discussed with nursing staff this morning. Surgery, pulmonary and cardiology notes were regarded. Presently atrial fib appears to be controlled and there is improvement in his heparin-induced thrombocytopenia. Continued advancement as per cardiology and surgery.
--- NOTE | 2017-09-11 08:32 | P.PN ---
Subjective Progress Note Date: 09/11/17 Principal diagnosis: Symptomatic triple-vessel coronary artery disease with left main disease, non- ST elevation myocardial infarction, mild to moderate left ventricular dysfunction. Chronic persistent atrial fibrillation on home Coumadin therapy. Sick sinus syndrome, status post permanent pacemaker insertion. Chronic diastolic congestive heart failure. Hypertension. Previous tobacco dependence. Severe chronic obstructive pulmonary disease with home oxygen with preoperative FEV1 45% of predicted. Arthritis. Benign prostatic hypertrophy. Gastroesophageal reflux disease. 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 Lumbar disc disease with chronic pain syndrome. History of deep vein thrombosis of his left leg. Type 2 diabetes mellitus with preoperative hemoglobin A1c 5.9%. Peripheral vascular disease. Remote history of pneumonia. Family history of early onset coronary artery disease with brother being diagnosed with myocardial infarction at age 46. Preoperative nasal swab positive for MSSA. Preoperative sputum culture positive for pseudomonas. POD #3 urgent quadruple coronary artery bypass grafting using the left internal mammary artery to the left anterior descending artery, reverse saphenous vein graft from the aorta to the first obtuse marginal artery, reverse saphenous vein graft from the aorta to the second obtuse marginal artery, reverse saphenous vein graft from the aorta to the right coronary artery. Exclusion of the left atrial appendage using a 40 mm AtriClip. Endoscopic harvesting of the right greater saphenous vein. Intraoperative transesophageal echocardiogram and epi-aortic scanning. Intraoperative graft flow measurements using the [employer] system. Postoperative normocytic, normochromic anemia, an expected outcome of surgery related to hemodilution and cardiopulmonary bypass pump. Heparin-induced thrombocytopenia, an unexpected but potential outcome of IV heparin use. Patient's currently sitting in chair in no acute distress. Denies pain, shortness of breath. Patient is slightly confused and agitated, per nursing staff he did not sleep all night. He did pull out his arterial line. Hemodynamically he is stable. Objective - Vital Signs Vital signs: Vital Signs Temp 98.3 F 09/11/17 04:00 Pulse 94 09/11/17 07:49 Resp 21 09/11/17 07:30 BP 105/61 09/11/17 07:00 Pulse Ox 96 09/11/17 07:38 Intake & Output 09/10/17 09/11/17 09/11/17 18:59 06:59 18:59 Intake Total 1112 617 33 Output Total 5179 6140 75 Balance -603 -633 -42 Weight 81.1 kg 80.8 kg Intake: IV 432 517 33 Lactated Ringers 1,000 ml 360 460 30 @ 20 mls/hr IV .Q24H [facility] Rx#:[id number] Pressure bag 72 57 3 Intake, IV Titration 200 100 Amount ACETAMINOPHEN IV (For NPO 100 100 ) 1,000 mg In Empty Bag 1 bag @ 400 mls/hr IVPB Q6HR [facility] Rx#:[id number] Calcium Chloride 1,000 mg 100 In Sodium Chloride 0.9% 100 ml @ 100 mls/hr IVPB ONCE [facility] Rx#:[id number] Oral 480 Output: Chest Tube Drainage 300 170 Left Pleural Chest Tube 280 170 Mediastinal Chest Tube 20 Drainage 135 110 Right Calf 135 110 Urine 1280 970 75 Other: Voiding Method Indwelling Catheter Indwelling Catheter ABP, PAP, CO, CI - Last Documented Arterial Blood Pressure 133/59 Pulmonary Artery Pressure 25/8 Cardiac Output 5.5 Cardiac Index 3.0 - Constitutional General appearance: Present: cooperative - Respiratory Details: Lungs sounds diminished and coarse bilaterally. Respirations even, nonlabored. Currently on 8 L high flow nasal cannula with oxygen saturation 99%. Able to achieve 3733-0162 mL on his incentive spirometry. Productive cough. Left pleural chest tube to continuous wall suction, 110 mL serous drainage, 500 mL last 24 hours. No air leak present. - Cardiovascular Details: S1, S2 present. Irregular rate and rhythm, atrial fibrillation with occasional PVCs and occasional paced beats on telemetry. Ventricular epicardial pacemaker wire present, grounded. Sternum stable. Palpable peripheral pulses bilaterally. No edema present. No calf pain or tenderness noted. Right internal jugular Cordis present. Heart hugger in place with patient demonstrating appropriate use. Antiembolism stockings, SCDs present. - Gastrointestinal Gastrointestinal Comment(s): Abdomen soft, nontender, nondistended. Active bowel sounds 4 quadrants. Tolerating diet. Positive flatus, negative bowel movement. - Genitourinary Genitourinary Comment(s): Kitchen present draining clear, yellow urine. Output 60-175 mL/h overnight, 690 mL total the last 8 hours. - Integumentary Integumentary Comment(s): Skin is warm and dry. Anterior chest incision well approximated and covered with dry intact dressing. Right lower extremity EVH site well approximated, JESÚS drain present with 80 mL serosanguineous drainage in the last 8 hours. - Neurologic Neurologic: Present: CNII-XII intact - Musculoskeletal Musculoskeletal: Present: generalized weakness, strength equal bilaterally - Psychiatric Psychiatric Comment(s): Alert and oriented to person and place. Slightly agitated this morning. - Allied health notes Allied health notes reviewed: nursing - Labs CBC & Chem 7: 09/11/17 04:05 09/11/17 04:05 Labs: Abnormal Lab Results - Last 24 Hours (Table) 09/10/17 09/10/17 09/10/17 Range/Units 11:59 13:19 17:34 RBC (4.30-5.90) m/uL Hgb (13.0-17.5) gm/dL Hct (39.0-53.0) % Plt Count (150-450) k/uL Neutrophils # (1.3-7.7) k/uL Lymphocytes # (1.0-4.8) k/uL ABG pH 7.52 H (7.35-7.45) ABG pO2 57 L (83-108) mmHg ABG HCO3 29 H (21-25) mmol/L ABG Total CO2 30 H (19-24) mmol/L Sodium (137-145) mmol/L Chloride (98-107) mmol/L BUN (9-20) mg/dL Glucose (74-99) mg/dL POC Glucose (mg/dL) 153 H 181 H (75-99) mg/dL AST (17-59) U/L Total Protein (6.3-8.2) g/dL Albumin (3.5-5.0) g/dL 09/10/17 09/10/17 09/11/17 Range/Units 17:38 20:44 01:16 RBC (4.30-5.90) m/uL Hgb (13.0-17.5) gm/dL Hct (39.0-53.0) % Plt Count (150-450) k/uL Neutrophils # (1.3-7.7) k/uL Lymphocytes # (1.0-4.8) k/uL ABG pH (7.35-7.45) ABG pO2 (83-108) mmHg ABG HCO3 (21-25) mmol/L ABG Total CO2 (19-24) mmol/L Sodium (137-145) mmol/L Chloride (98-107) mmol/L BUN (9-20) mg/dL Glucose (74-99) mg/dL POC Glucose (mg/dL) 175 H 199 H 156 H (75-99) mg/dL AST (17-59) U/L Total Protein (6.3-8.2) g/dL Albumin (3.5-5.0) g/dL 09/11/17 09/11/17 Range/Units 04:05 04:05 RBC 2.97 L (4.30-5.90) m/uL Hgb 8.7 L (13.0-17.5) gm/dL Hct 26.3 L (39.0-53.0) % Plt Count 84 L (150-450) k/uL Neutrophils # 9.0 H (1.3-7.7) k/uL Lymphocytes # 0.7 L (1.0-4.8) k/uL ABG pH (7.35-7.45) ABG pO2 (83-108) mmHg ABG HCO3 (21-25) mmol/L ABG Total CO2 (19-24) mmol/L Sodium 135 L (137-145) mmol/L Chloride 97 L (98-107) mmol/L BUN 35 H (9-20) mg/dL Glucose 165 H (74-99) mg/dL POC Glucose (mg/dL) (75-99) mg/dL AST 111 H (17-59) U/L Total Protein 5.0 L (6.3-8.2) g/dL Albumin 3.2 L (3.5-5.0) g/dL Microbiology - Last 24 Hours (Table) 09/08/17 04:56 Gram Stain - Preliminary Sputum Sputum Culture - Preliminary Pseudomonas aeruginosa Presumptive Staph aureus - Imaging and Cardiology Chest x-ray: image reviewed Assessment and Plan (1) Family history of early CAD Current Visit: Yes Status: Chronic Code(s): Z82.49 - FAMILY HX OF ISCHEM HEART DIS AND OTH DIS OF THE CIRC SYS SNOMED Code(s): 069682928 (2) On home oxygen therapy Current Visit: Yes Status: Chronic Code(s): Z99.81 - DEPENDENCE ON SUPPLEMENTAL OXYGEN SNOMED Code(s): 244455643176 (3) BPH (benign prostatic hyperplasia) Current Visit: Yes Status: Chronic Code(s): N40.0 - BENIGN PROSTATIC HYPERPLASIA WITHOUT LOWER URINRY TRACT SYMP SNOMED Code(s): 798992712 (4) CAD (coronary artery disease) Current Visit: Yes Status: Chronic Code(s): I25.10 - ATHSCL HEART DISEASE OF [place] CORONARY ARTERY W/O ANG PCTRS SNOMED Code(s): 76303874 (5) COPD (chronic obstructive pulmonary disease) Current Visit: Yes Status: Chronic Code(s): J44.9 - CHRONIC OBSTRUCTIVE PULMONARY DISEASE, UNSPECIFIED SNOMED Code(s): 54927436 (6) Chronic atrial fibrillation Current Visit: Yes Status: Chronic Code(s): I48.2 - CHRONIC ATRIAL FIBRILLATION SNOMED Code(s): 840353881 (7) Chronic diastolic CHF (congestive heart failure) Current Visit: Yes Status: Chronic Code(s): I50.32 - CHRONIC DIASTOLIC ( CONGESTIVE) HEART FAILURE SNOMED Code(s): 827883383 (8) Chronic pain syndrome Current Visit: Yes Status: Chronic Code(s): G89.4 - CHRONIC PAIN SYNDROME SNOMED Code(s): 197127529 (9) Diabetes mellitus type 2 in nonobese Current Visit: Yes Status: Chronic Code(s): E11.9 - TYPE 2 DIABETES MELLITUS WITHOUT COMPLICATIONS SNOMED Code(s): 689116508 (10) GERD (gastroesophageal reflux disease) Current Visit: Yes Status: Chronic Code(s): K21.9 - GASTRO-ESOPHAGEAL REFLUX DISEASE WITHOUT ESOPHAGITIS SNOMED Code(s): 609544662 (11) History of Coumadin therapy Current Visit: Yes Status: Chronic Code(s): Z92.29 - PERSONAL HISTORY OF OTHER DRUG THERAPY SNOMED Code(s): 099972434 (12) History of MRSA infection Current Visit: No Status: Resolved Code(s): Z86.14 - PERSONAL HISTORY OF METHICILLIN RESIS STAPH INFECTION SNOMED Code(s): 002594532 (13) History of permanent cardiac pacemaker placement Current Visit: Yes Status: Chronic Code(s): Z95.0 - PRESENCE OF CARDIAC PACEMAKER SNOMED Code(s): 479277129 (14) History of sick sinus syndrome Current Visit: Yes Status: Chronic Code(s): Z86.79 - PERSONAL HISTORY OF OTHER DISEASES OF THE CIRCULATORY SYSTEM SNOMED Code(s): 511931426853925 (15) History of smoking Current Visit: No Status: Resolved Code(s): Z87.891 - PERSONAL HISTORY OF NICOTINE DEPENDENCE SNOMED Code(s): 13693393803446167 (16) Hypertension Current Visit: Yes Status: Chronic Code(s): I10 - ESSENTIAL (PRIMARY) HYPERTENSION SNOMED Code(s): 41384010 (17) Lumbar disc disease Current Visit: Yes Status: Chronic Code(s): M51.9 - UNSP THORACIC, THORACOLUM AND LUMBOSACR INTVRT DISC DISORDER SNOMED Code(s): 753374400 (18) Non-ST elevated myocardial infarction Current Visit: Yes Status: Acute Code(s): I21.4 - NON-ST ELEVATION (NSTEMI) MYOCARDIAL INFARCTION SNOMED Code(s): 512926407 (19) Peripheral vascular disease Current Visit: Yes Status: Chronic Code(s): I73.9 - PERIPHERAL VASCULAR DISEASE, UNSPECIFIED SNOMED Code(s): 015527184 Plan: 1. Continue aspirin, statin, Plavix, Arixtra, Toprol XL. Will increase beta lisa therapy as tolerated. Hold Coumadin until all lines and tubes have been discontinued. 2. Wean O2 as tolerated. Encourage incentive spirometry use 10 times every hour while awake. 3. Encourage continued smoking cessation. 4. Will discontinue epicardial pacemaker wire. 5. Will give Lasix 20 mg IV push 1. DC Kitchen later today. 6. Obtain peripheral IV, discontinue Cordis. 7. Bronchodilators, steroids per pulmonology. Will discuss initiation of antibiotics for preoperative pseudomonas sputum culture with Dr. Linares. 8. One-to-one sitter at bedside for patient safety. Will add Seroquel. 9. Increase activity, out of bed to chair, ambulate as tolerated. PT/OT/ chronic rehab following. 10. Will monitor daily labs and x-rays. 11. Insulin management per Dr. White. 12. Pain management with current medication regimen. 13. If no significant output in left pleural chest tube today will discontinue later today, otherwise will discontinue tomorrow. 14. May transfer out of ICU to [facility] later today. 15. More recommendations to follow. Time with Patient: Greater than 30
--- NOTE | 2017-09-11 08:49 | XR ---
EXAMINATION TYPE: XR chest 1V portable DATE OF EXAM: 09/11/2017 COMPARISON: Prior chest x-ray 09/10/2017 HISTORY: Status post coronary artery bypass graft TECHNIQUE: Single frontal view of the chest is obtained. FINDINGS: Right jugular central venous sheath remains in place, pacemaker is stable, postop changes again noted. Left chest tube is unchanged. No sizable pneumothorax is evident. 5 basilar increased de nsity is present, there is blunting of the right costophrenic angle. Heart size is stable. Suspect so me improvement in aeration, lung volume. IMPRESSION: Small effusion, basilar atelectasis. Postop changes. Additional follow-up recommended.
--- NOTE | 2017-09-11 09:59 | P.PN ---
Subjective Progress Note Date: 09/11/17 Principal diagnosis: Coronary artery disease, status post coronary artery bypass grafting, postop day 1 Progress note dated 09/08/2017 77-year-old male with a history of non-ST segment elevation myocardial infarction, status post cardiac catheterization revealing severe triple-vessel CAD. In addition, he is quite severe COPD, with an FEV1 in the range of 45% of predicted. 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 The patient surgery is to be done today. The patient is on O2 3 L nasal cannula and has a dextrose half-normal saline IV at KVO. He was on a heparin drip but obviously that was turned off prior to surgery. Other than that, the patient is doing reasonably well. He certainly is at high risk. This has been documented by my partner. On 09/09/2017 patient seen in follow-up in the intensive care unit. This is postop day 1, status post quadruple coronary artery bypass grafting using the PARSON to LAD, reverse SVG to OM1, reverse SVG to OM 2, reverse SVG to the RCA, exclusion of the left atrial appendage, and intraoperative MALATHI and AP aortic scanning. Patient was extubated in less than 6 hours post OR exit time. Patient was extubated at 9:00 last night successfully to a 40% Ventimask, on which she remains this morning. He is awake alert, sitting up in the recliner, doing well, denies any acute distress. Midsternal incision is stable, clean dry and intact One mediastinal and one left pleural chest tube draining small amount of serosanguineous drainage. Maintenance IV includes LR at a rate of 50 ML per hour, insulin drip at 2 units per hour, no vasoactive drips at this time, clever proximal has been discontinued, as well as nitroglycerin drip. Kitchen catheter is in place, and the urine output is ranging from 30-75 ML per hour. Cardiac index and output is 5.5 and 3.0 respectively. Dissipate discontinuation of the PA catheter this morning. PA pressures 28/11, with a map of 19. Patient has not required any blood transfusions. Today's labs were reviewed, WBCs 11.2, hemoglobin is 9.0, INR is 1.4, potassium is 5.3, BUN is 33 , creatinine 0.80. Today's chest x-ray has been reviewed and shows basilar atelectasis versus edema. Lung sounds positive for some crackles over left lower lobe anteriorly, diminished on the right. Patient Solu-Medrol's has been switched to oral prednisone. On 09/10/2017 patient seen in follow-up in intensive care unit. This postop day 2, status post coronary artery bypass grafting 4, and exclusion of the left atrial appendage. He is awake and alert, remains on 40% Ventimask, today' s exam patient is a bit more congested, there is scattered rhonchi, and wheezes bilaterally. His chest x-ray has been reviewed and shows new right basilar airspace disease that could represent atelectasis or developing pneumonia, stable left basilar subsegmental atelectasis, and trace right pleural effusion. Incentive spirometry effort is 800 mL today. He is still chest tube has been removed, left pleural chest tube remains in place with serosanguineous output. He remains in A. fib with frequent PVCs. He was started on Arixtra for anticoagulation, he was given a dose of IV digoxin for rate control. Denies any chest pain or dyspnea. Sternal incision is clean dry and intact, stable. Hartwick-Cinthia catheter has been removed. Maintenance in the IV include LR at a rate of 30 ML per hour, no other drips. Which the oral prednisone back to Solu- Medrol 40 mg every 8 hours, we'll discontinue Symbicort and put the patient on Pulmicort. On 09/11/2017 patient seen in follow-up in the intensive care unit. He is confused, and only oriented to person and the president. Nursing staff reports patient is not sleeping well, and was having periods of agitation, during which she pulled out and IV. belt notcher is at the bedside this morning. Patient is awake, alert, and appears to be in no acute distress. Denies any dyspnea, his pain is reasonable control. Pox on 5 L per nasal cannula is 99%. Hemodynamically stable. Today's chest x-ray has been reviewed by Dr. Linares, and shows small pleural effusion, and basilar atelectasis. Cardiothoracic surgery has been dosing patient's IV Lasix, and the patient will receive another 20 mg of Lasix this morning. Continues on nebulized bronchodilators, has a loose productive cough with cullen-colored thick sputum, and the sputum culture was positive for pseudomonas aeruginosa, and presumptive staph aureus. She will be started on oral Cipro, and further adjustment antibiotics will be made once the final culture and sensitivity is done on organism #2, for presumptive staph aureus. Patient remains afebrile. Lung sounds are positive for scattered rhonchi, and bibasilar crackles. Patient's incentive spirometry effort today's 1250 ML. Mediastinal chest tube has been discontinued yesterday , left pleural chest tube remains in place with serosanguineous output. Epicardial wires have been discontinued. Today lab work has been reviewed, and shows no leukocytosis, WBCs 10.2, hemoglobin is 8.7, platelet count is 84, serum sodium is 135, potassium is 4.5, chloride is 97, BUN 35, creatinine 0.80. Patient is tolerating a regular diet. Nonoliguric. Objective - Vital Signs Vital signs: Vital Signs Temp 98.1 F 09/11/17 08:00 Pulse 105 H 09/11/17 09:00 Resp 26 H 09/11/17 09:00 BP 128/59 09/11/17 09:00 Pulse Ox 99 09/11/17 09:00 Intake & Output 09/10/17 09/11/17 09/11/17 18:59 06:59 18:59 Intake Total 1112 617 99 Output Total 1715 1250 465 Balance -603 -633 -366 Weight 81.1 kg 80.8 kg Intake: IV 432 517 99 Lactated Ringers 1,000 ml 360 460 90 @ 20 mls/hr IV .Q24H [facility] Rx#:[id number] Pressure bag 72 57 9 Intake, IV Titration 200 100 Amount ACETAMINOPHEN IV (For NPO 100 100 ) 1,000 mg In Empty Bag 1 bag @ 400 mls/hr IVPB Q6HR [facility] Rx#:[id number] Calcium Chloride 1,000 mg 100 In Sodium Chloride 0.9% 100 ml @ 100 mls/hr IVPB ONCE [facility] Rx#:[id number] Oral 480 Output: Chest Tube Drainage 300 170 70 Left Pleural Chest Tube 280 170 70 Mediastinal Chest Tube 20 Drainage 135 110 Right Calf 135 110 Urine 1280 970 395 Other: Voiding Method Indwelling Catheter Indwelling Catheter ABP, PAP, CO, CI - Last Documented Arterial Blood Pressure 133/59 Pulmonary Artery Pressure 25/8 Cardiac Output 5.5 Cardiac Index 3.0 - Exam GENERAL EXAM: Alert, pleasant, 69-year-old white male comfortable in no apparent distress, confused, oriented times one, to person but in no acute distress with a enforcement safety officer at the bedside. [place] on 5 L per nasal cannula HEAD: Normocephalic/atraumatic. EYES: Normal reaction of pupils, equal size. Conjunctiva pink, sclera white. NOSE: Clear with pink turbinates. THROAT: No erythema or exudates. NECK: No masses, no JVD, no thyroid enlargement, no adenopathy. Right IJ Cordis with a PA catheter is present CHEST: No chest wall deformity. Symmetrical expansion. Midsternal incision is clean dry and intact and stable. Left pleural chest tubes are present connected to Pleur-evac's and to wall suction, with serosanguineous output and the collection chambers no air leak noted. Mediastinal chest tube has been discontinued. Epicardial wires have been discontinued LUNGS: Equal air entry bilateral rhonchi and scattered wheezes CVS: Regular rate and rhythm, normal S1 and S2, no gallops, no murmurs, no rubs ABDOMEN: Soft, nontender. No hepatosplenomegaly, normal bowel sounds, no guarding or rigidity. EXTREMITIES: No clubbing, no edema, no cyanosis, 2+ pulses and upper and lower extremities. There is a JESÚS drain in the right lower leg, right lower leg is Gilberto wrapped MUSCULOSKELETAL: Muscle strength and tone normal. SPINE: No scoliosis or deformity SKIN: No rashes CENTRAL NERVOUS SYSTEM: Alert and oriented -1. No focal deficits, tone is normal in all 4 extremities. PSYCHIATRIC: Alert and oriented -1. Confused - Labs CBC & Chem 7: 09/11/17 04:05 09/11/17 04:05 Labs: Abnormal Lab Results - Last 24 Hours (Table) 09/10/17 09/10/17 09/10/17 Range/Units 11:59 13:19 17:34 RBC (4.30-5.90) m/uL Hgb (13.0-17.5) gm/dL Hct (39.0-53.0) % Plt Count (150-450) k/uL Neutrophils # (1.3-7.7) k/uL Lymphocytes # (1.0-4.8) k/uL ABG pH 7.52 H (7.35-7.45) ABG pO2 57 L (83-108) mmHg ABG HCO3 29 H (21-25) mmol/L ABG Total CO2 30 H (19-24) mmol/L Sodium (137-145) mmol/L Chloride (98-107) mmol/L BUN (9-20) mg/dL Glucose (74-99) mg/dL POC Glucose (mg/dL) 153 H 181 H (75-99) mg/dL AST (17-59) U/L Total Protein (6.3-8.2) g/dL Albumin (3.5-5.0) g/dL 09/10/17 09/10/17 09/11/17 Range/Units 17:38 20:44 01:16 RBC (4.30-5.90) m/uL Hgb (13.0-17.5) gm/dL Hct (39.0-53.0) % Plt Count (150-450) k/uL Neutrophils # (1.3-7.7) k/uL Lymphocytes # (1.0-4.8) k/uL ABG pH (7.35-7.45) ABG pO2 (83-108) mmHg ABG HCO3 (21-25) mmol/L ABG Total CO2 (19-24) mmol/L Sodium (137-145) mmol/L Chloride (98-107) mmol/L BUN (9-20) mg/dL Glucose (74-99) mg/dL POC Glucose (mg/dL) 175 H 199 H 156 H (75-99) mg/dL AST (17-59) U/L Total Protein (6.3-8.2) g/dL Albumin (3.5-5.0) g/dL 09/11/17 09/11/17 09/11/17 Range/Units 04:05 04:05 08:00 RBC 2.97 L (4.30-5.90) m/uL Hgb 8.7 L (13.0-17.5) gm/dL Hct 26.3 L (39.0-53.0) % Plt Count 84 L (150-450) k/uL Neutrophils # 9.0 H (1.3-7.7) k/uL Lymphocytes # 0.7 L (1.0-4.8) k/uL ABG pH (7.35-7.45) ABG pO2 (83-108) mmHg ABG HCO3 (21-25) mmol/L ABG Total CO2 (19-24) mmol/L Sodium 135 L (137-145) mmol/L Chloride 97 L (98-107) mmol/L BUN 35 H (9-20) mg/dL Glucose 165 H (74-99) mg/dL POC Glucose (mg/dL) 206 H (75-99) mg/dL AST 111 H (17-59) U/L Total Protein 5.0 L (6.3-8.2) g/dL Albumin 3.2 L (3.5-5.0) g/dL Microbiology - Last 24 Hours (Table) 09/08/17 04:56 Gram Stain - Preliminary Sputum Sputum Culture - Preliminary Pseudomonas aeruginosa Presumptive Staph aureus Assessment and Plan Plan: Assessment: Acute non-ST segment elevation myocardial infarction, secondary to severe triple -vessel CAD, status post quadruple coronary artery bypass grafting with PARSON to LAD, reverse SVG to OM1, reverse SVG to OM 2, and reverse SVG to RCA, and exclusion of the left atrial appendage with AtriCure clip, postop day 3 Severe COPD, stage III disease, with an FEV1 that is 45% of predicted Chronic hypoxemic respiratory failure Chronic atrial fibrillation Type 2 diabetes mellitus Diabetic neuropathy PVOD Osteomyelitis History of hypertension History of systolic heart failure. Plan: Continue with nebulized bronchodilators, continue encouraging incentive spirometry, ambulation, continue with enforcement safety officer for patient's confusion, and periods of agitation. We will start the patient on oral Cipro 500 mg twice daily for evidence of pseudomonas aeruginosa in the sputum culture, further adjustments may have to be made once the second organism in the sputum is identified and the sensitivities complete. It is presumably staph aureus. Continue Pulmicort. Patient will receive another dose of IV Lasix per cardiothoracic surgery. We'll continue to follow I performed a history & physical examination of the patient and discussed their management with my nurse practitioner, Rowena Rowe. I reviewed the nurse practitioner's note and agree with the documented findings and plan of care. Lung sounds are positive for scattered rhonchi. The findings and the impression was discussed with the patient. I attest to the documentation by the nurse practitioner. Time with Patient: Greater than 30
[2017-09-11] MEDS: CIPROFLOXACIN HCL 500 MG TAB PO SCH ×2 (10:04→20:27)
[2017-09-11] MEDS: FERROUS SULFATE 325 MG TAB PO SCH (11:36)
[2017-09-11] MEDS: ASCORBIC ACID 500 MG TAB PO SCH (11:36)
[2017-09-11 11:51] LABS: Glucose,Whole Blood 191 mg/dL (75-99)
--- NOTE | 2017-09-11 16:09 | PN ---
PROGRESS NOTE Mr. Draper underwent coronary artery bypass grafting. Today is postop day 2. Yesterday, he was having atrial fibrillation with RVR and today his rates are better controlled on beta blockers. However, he has become increasingly confused and somewhat delirious and did not sleep well last night. He has severe lung disease and his sputum cultures grew Pseudomonas and he is being treated for this. EXAMINATION: His blood pressure is 112/52 mmHg, pulse rate ranges from 80 to 100 beats per minute, irregular. Permanent atrial fibrillation. Heart sounds S1, S2 soft. Breath sounds are reduced bilaterally. ABDOMEN: Soft. Extremities warm. IMPRESSION: 1. Coronary disease status post coronary bypass grafting. 2. Severe lung disease with chronic obstructive pulmonary disease. 3. Permanent atrial fibrillation. 4. Status post coronary artery bypass grafting for multivessel coronary artery disease as well as left atrial appendectomy. SUGGEST: Continue rate control medications for atrial fibrillation. Continue anticoagulation for now. Continue aspirin and atorvastatin and Plavix. Digoxin has been discontinued. He gets Lasix on a p.r.n. basis. He is also on metoprolol 50 mg twice daily for rate control and I will maximize this based upon his response. Once he is better from a neuropsychiatric standpoint, he may go to [facility]. MMODL / IJN: [id number] /
[2017-09-11] MEDS: LACTATED RINGERS 1,000 ML IV SCH (16:33)
[2017-09-11 17:14] LABS: Glucose,Whole Blood 190 mg/dL (75-99)
[2017-09-11 20:25] LABS: Glucose,Whole Blood 128 mg/dL (75-99)
[2017-09-11] MEDS: MELATONIN 1 MG TAB PO SCH (20:27)
[2017-09-11] MEDS: SENNOSIDES-DOCUSATE SODIUM 1 EACH TAB PO SCH (20:28)
[2017-09-12 02:16] LABS: Glucose,Whole Blood 180 mg/dL (75-99)
[2017-09-12 04:49] LABS: Anisocytosis Slight; Basophils % (A) 0 %; Eosinophils # (A) 0.1 k/uL (0-0.7); Eosinophils % (A) 1 %; HCT 26.5 % (39.0-53.0); HGB 8.8 gm/dL (13.0-17.5); Lymphocytes # (A) 0.7 k/uL (1.0-4.8); Lymphocytes % (A) 8 %; MCH 29.8 pg (25.0-35.0); MCHC 33.2 g/dL (31.0-37.0); MCV 89.7 fL (80.0-100.0); Monocytes # (A) 0.3 k/uL (0-1.0); Monocytes % (A) 4 %; Neutrophils # (A) 7.9 k/uL (1.3-7.7); Neutrophils % (A) 87 %; Platelet Count 101 k/uL (150-450); RBC 2.95 m/uL (4.30-5.90); RDW 17.3 % (11.5-15.5); WBC 9.1 k/uL (3.8-10.6)
[2017-09-12 05:01] LABS: ALT 36 U/L (21-72); AST 64 U/L (17-59); Alkaline Phosphatase 41 U/L (38-126); Anion Gap 7 mmol/L; Blood Urea Nitrogen 32 mg/dL (9-20); Calcium 8.1 mg/dL (8.4-10.2); Carbon Dioxide 31 mmol/L (22-30); Chloride 100 mmol/L (98-107); Glucose 165 mg/dL (74-99); Potassium 4.3 mmol/L (3.5-5.1); Sodium 138 mmol/L (137-145); Total Bilirubin 0.7 mg/dL (0.2-1.3); Total Protein 4.9 g/dL (6.3-8.2)
[2017-09-12 07:10] LABS: Glucose,Whole Blood 180 mg/dL (75-99)
[2017-09-12] MEDS: INSULIN ASPART 100 UNIT/ML 1 ML 10 ML VIAL SQ SCH ×5 (07:12→21:06)
[2017-09-12] MEDS: PANTOPRAZOLE 40 MG TABLET PO SCH ×2 (07:12→10:16)
[2017-09-12] MEDS: IPRATROPIUM-ALBUTEROL 3 ML NEB INHALATION SCH ×4 (07:25→20:23)
[2017-09-12] MEDS: BUDESONIDE 1 MG/2 ML NEBU INHALATION SCH ×2 (07:25→20:23)
--- NOTE | 2017-09-12 07:29 | P.PN ---
Subjective Progress Note Date: 09/12/17 Principal diagnosis: Symptomatic triple-vessel coronary artery disease with left main disease, non- ST elevation myocardial infarction, mild to moderate left ventricular dysfunction. Chronic persistent atrial fibrillation on home Coumadin therapy. Sick sinus syndrome, status post permanent pacemaker insertion. Chronic systolic heart failure with EF 40-45% and diastolic dysfunction. Hypertension. Hyperlipidemia. Bilateral carotid stenosis, 50-79% bilaterally, Previous tobacco dependence. Severe chronic obstructive pulmonary disease with home oxygen with preoperative FEV1 45% of predicted. Arthritis. Benign prostatic hypertrophy. Gastroesophageal reflux disease. 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 Lumbar disc disease with chronic pain syndrome. History of deep vein thrombosis of his left leg. Type 2 diabetes mellitus with preoperative hemoglobin A1c 5.9%. Peripheral vascular disease. Remote history of pneumonia. Family history of early onset coronary artery disease with brother being diagnosed with myocardial infarction at age 46. Preoperative nasal swab positive for MSSA. Preoperative sputum culture positive for pseudomonas and MSSA. POD #4 urgent quadruple coronary artery bypass grafting using the left internal mammary artery to the left anterior descending artery, reverse saphenous vein graft from the aorta to the first obtuse marginal artery, reverse saphenous vein graft from the aorta to the second obtuse marginal artery, reverse saphenous vein graft from the aorta to the right coronary artery. Exclusion of the left atrial appendage using a 40 mm AtriClip. Endoscopic harvesting of the right greater saphenous vein. Intraoperative transesophageal echocardiogram and epi-aortic scanning. Intraoperative graft flow measurements using the Selltag[employer] system. Postoperative normocytic, normochromic anemia, an expected outcome of surgery related to hemodilution and cardiopulmonary bypass pump. Heparin-induced thrombocytopenia, an unexpected but potential outcome of IV heparin use. Patient's currently sitting in chair in no acute distress. Denies pain, appears slightly short of breath. Patient is still confused but better than yesterday, per nursing staff he did sleep last night. Left pleural chest tube and ventricular epicardial pacemaker wire discontinued yesterday. Objective - Vital Signs Vital signs: Vital Signs Temp 98.7 F 09/12/17 04:00 Pulse 84 09/12/17 07:00 Resp 18 09/12/17 07:00 BP 105/59 09/12/17 07:00 Pulse Ox 94 L 09/12/17 07:00 Intake & Output 06/14/18 06/15/18 06/15/18 18:59 06:59 18:59 Intake Total 372 Output Total 1140 790 0 Balance -768 -790 0 Weight 80.8 kg 77.1 kg Intake: IV 132 Lactated Ringers 1,000 ml 120 @ 20 mls/hr IV .Q24H [facility] Rx#:[id number] Pressure bag 12 Oral 240 Output: Chest Tube Drainage 70 Left Pleural Chest Tube 70 Drainage 40 40 Right Calf 40 40 Urine 1030 750 0 Other: Voiding Method Urinal Urinal # Voids 1 ABP, PAP, CO, CI - Last Documented Arterial Blood Pressure 133/59 Pulmonary Artery Pressure 25/8 Cardiac Output 5.5 Cardiac Index 3.0 - Constitutional General appearance: Present: cooperative, no acute distress - Respiratory Details: Lungs sounds diminished and coarse bilaterally with faint expiratory wheezes present. Respirations even, slightly short of breath. Currently on 3 L nasal cannula with oxygen saturation 97%. Able to achieve 750 mL on his incentive spirometry. Wet cough. - Cardiovascular Details: S1, S2 present. Irregular rate and rhythm, atrial fibrillation on telemetry. Sternum stable. Palpable peripheral pulses bilaterally. No edema present. No calf pain or tenderness noted. Heart hugger in place with patient demonstrating appropriate use. Antiembolism stockings, SCDs present. - Gastrointestinal Gastrointestinal Comment(s): Abdomen soft, nontender, nondistended. Active bowel sounds 4 quadrants. Tolerating diet. Positive flatus, negative bowel movement. - Genitourinary Genitourinary Comment(s): Kitchen discontinued yesterday. Excellent diuresis after IV Lasix given. Positive void 300 mL last night. - Integumentary Integumentary Comment(s): Skin is warm and dry. Anterior chest incision well approximated and covered with dry intact dressing. Right lower extremity EVH site well approximated, JESÚS drain present with 40 mL serosanguineous drainage in the last 8 hours. - Neurologic Neurologic: Present: CNII-XII intact - Musculoskeletal Musculoskeletal: Present: gait normal, strength equal bilaterally - Psychiatric Psychiatric Comment(s): Alert and oriented to person and place, still confused regarding time. Much more appropriate, less agitated. Psychiatric: Present: appropriate affect - Allied health notes Allied health notes reviewed: nursing - Labs CBC & Chem 7: 09/12/17 04:34 09/12/17 04:34 Labs: Abnormal Lab Results - Last 24 Hours (Table) 09/11/17 09/11/17 09/11/17 Range/Units 08:00 11:50 17:12 RBC (4.30-5.90) m/uL Hgb (13.0-17.5) gm/dL Hct (39.0-53.0) % RDW (11.5-15.5) % Plt Count (150-450) k/uL Neutrophils # (1.3-7.7) k/uL Lymphocytes # (1.0-4.8) k/uL Carbon Dioxide (22-30) mmol/L BUN (9-20) mg/dL Glucose (74-99) mg/dL POC Glucose (mg/dL) 206 H 191 H 190 H (75-99) mg/dL Calcium (8.4-10.2) mg/dL AST (17-59) U/L Total Protein (6.3-8.2) g/dL Albumin (3.5-5.0) g/dL 09/11/17 09/12/17 09/12/17 Range/Units 20:23 02:13 04:34 RBC 2.95 L (4.30-5.90) m/uL Hgb 8.8 L (13.0-17.5) gm/dL Hct 26.5 L (39.0-53.0) % RDW 17.3 H (11.5-15.5) % Plt Count 101 L (150-450) k/uL Neutrophils # 7.9 H (1.3-7.7) k/uL Lymphocytes # 0.7 L (1.0-4.8) k/uL Carbon Dioxide (22-30) mmol/L BUN (9-20) mg/dL Glucose (74-99) mg/dL POC Glucose (mg/dL) 128 H 180 H (75-99) mg/dL Calcium (8.4-10.2) mg/dL AST (17-59) U/L Total Protein (6.3-8.2) g/dL Albumin (3.5-5.0) g/dL 09/12/17 09/12/17 Range/Units 04:34 07:09 RBC (4.30-5.90) m/uL Hgb (13.0-17.5) gm/dL Hct (39.0-53.0) % RDW (11.5-15.5) % Plt Count (150-450) k/uL Neutrophils # (1.3-7.7) k/uL Lymphocytes # (1.0-4.8) k/uL Carbon Dioxide 31 H (22-30) mmol/L BUN 32 H (9-20) mg/dL Glucose 165 H (74-99) mg/dL POC Glucose (mg/dL) 180 H (75-99) mg/dL Calcium 8.1 L (8.4-10.2) mg/dL AST 64 H (17-59) U/L Total Protein 4.9 L (6.3-8.2) g/dL Albumin 3.0 L (3.5-5.0) g/dL Microbiology - Last 24 Hours (Table) 09/08/17 04:56 Gram Stain - Final Sputum Sputum Culture - Final Pseudomonas aeruginosa Staphylococcus aureus - Imaging and Cardiology Chest x-ray: image reviewed Assessment and Plan (1) Family history of early CAD Current Visit: Yes Status: Chronic Code(s): Z82.49 - FAMILY HX OF ISCHEM HEART DIS AND OTH DIS OF THE [facility] SNOMED Code(s): 956930028 (2) On home oxygen therapy Current Visit: Yes Status: Chronic Code(s): Z99.81 - DEPENDENCE ON SUPPLEMENTAL OXYGEN SNOMED Code(s): 330845259110 (3) BPH (benign prostatic hyperplasia) Current Visit: Yes Status: Chronic Code(s): N40.0 - BENIGN PROSTATIC HYPERPLASIA WITHOUT LOWER URINRY TRACT SYMP SNOMED Code(s): 016807145 (4) CAD (coronary artery disease) Current Visit: Yes Status: Chronic Code(s): I25.10 - ATHSCL HEART DISEASE OF [place] CORONARY ARTERY W/O ANG PCTRS SNOMED Code(s): 78999595 (5) COPD (chronic obstructive pulmonary disease) Current Visit: Yes Status: Chronic Code(s): J44.9 - CHRONIC OBSTRUCTIVE PULMONARY DISEASE, UNSPECIFIED SNOMED Code(s): 89144569 (6) Chronic atrial fibrillation Current Visit: Yes Status: Chronic Code(s): I48.2 - CHRONIC ATRIAL FIBRILLATION SNOMED Code(s): 864157454 (7) Chronic diastolic CHF (congestive heart failure) Current Visit: Yes Status: Chronic Code(s): I50.32 - CHRONIC DIASTOLIC ( CONGESTIVE) HEART FAILURE SNOMED Code(s): 066625173 (8) Chronic pain syndrome Current Visit: Yes Status: Chronic Code(s): G89.4 - CHRONIC PAIN SYNDROME SNOMED Code(s): 297133311 (9) Diabetes mellitus type 2 in nonobese Current Visit: Yes Status: Chronic Code(s): E11.9 - TYPE 2 DIABETES MELLITUS WITHOUT COMPLICATIONS SNOMED Code(s): 592566575 (10) GERD (gastroesophageal reflux disease) Current Visit: Yes Status: Chronic Code(s): K21.9 - GASTRO-ESOPHAGEAL REFLUX DISEASE WITHOUT ESOPHAGITIS SNOMED Code(s): 840098991 (11) History of Coumadin therapy Current Visit: Yes Status: Chronic Code(s): Z92.29 - PERSONAL HISTORY OF OTHER DRUG THERAPY SNOMED Code(s): 070946796 (12) History of MRSA infection Current Visit: No Status: Resolved Code(s): Z86.14 - PERSONAL HISTORY OF METHICILLIN RESIS STAPH INFECTION SNOMED Code(s): 778983031 (13) History of permanent cardiac pacemaker placement Current Visit: Yes Status: Chronic Code(s): Z95.0 - PRESENCE OF CARDIAC PACEMAKER SNOMED Code(s): 438780218 (14) History of sick sinus syndrome Current Visit: Yes Status: Chronic Code(s): Z86.79 - PERSONAL HISTORY OF OTHER DISEASES OF THE CIRCULATORY SYSTEM SNOMED Code(s): 461516923510278 (15) History of smoking Current Visit: No Status: Resolved Code(s): Z87.891 - PERSONAL HISTORY OF NICOTINE DEPENDENCE SNOMED Code(s): 86377271590932285 (16) Hypertension Current Visit: Yes Status: Chronic Code(s): I10 - ESSENTIAL (PRIMARY) HYPERTENSION SNOMED Code(s): 37429306 (17) Lumbar disc disease Current Visit: Yes Status: Chronic Code(s): M51.9 - UNSP THORACIC, THORACOLUM AND LUMBOSACR INTVRT DISC DISORDER SNOMED Code(s): 734434654 (18) Non-ST elevated myocardial infarction Current Visit: Yes Status: Acute Code(s): I21.4 - NON-ST ELEVATION (NSTEMI) MYOCARDIAL INFARCTION SNOMED Code(s): 617344141 (19) Peripheral vascular disease Current Visit: Yes Status: Chronic Code(s): I73.9 - PERIPHERAL VASCULAR DISEASE, UNSPECIFIED SNOMED Code(s): 408804330 Plan: 1. Continue aspirin, statin, Plavix, Arixtra, Toprol XL. Will increase beta lisa therapy as tolerated. Hold Coumadin until all lines and tubes have been discontinued. 2. Wean O2 as tolerated. Encourage incentive spirometry use 10 times every hour while awake. 3. Encourage continued smoking cessation. 4. Bronchodilators, steroids, antibiotics per pulmonology. 5. Increase activity, out of bed to chair, ambulate as tolerated. PT/OT/ chronic rehab following. 6. Will monitor daily labs and x-rays. 7. Insulin management per Dr. White. 8. Pain management with current medication regimen. 9. GI/DVT prophylaxis. 10. Reorient PRN. 11. Will transfer out of ICU to [facility] later today. 12. More recommendations to follow. Time with Patient: Greater than 30
--- NOTE | 2017-09-12 08:07 | P.PN ---
Progress Note - Text The patient is a 77-year-old gentleman who has undergone quadruple coronary bypass grafting. He presently is in the intensive care unit with the likelihood of being transferred to a cardiac floor later today. Patient is sitting up in the chair at the side of the bed. Alert and oriented today. States his pain is better controlled. He does have some intermittent shortness of breath. No nausea or vomiting. Vital signs: Pulse of 76 with respirations 18 and blood pressure 105/59. He is 94% saturated on 3 L. Last temperature was 98.7 axillary. Lungs are generally clear although diminished at bases. Heart tones were slightly irregular. Rate controlled. Abdomen nontender. Compression appliances intact. No marked edema noted. Oriented 3. No focal weakness. Laboratory White count was 9.1 with a hemoglobin of 8.1 and a platelet count of 101. Potassium 4.3. BUN of 32 with a creatinine 0.77 given him a GFR of 87. blood sugars in the 160-180 range. Albumin 3.0. Chest x-ray official report pending but overall appears fairly clear. Impressions and plans We will add Amaryl for his blood sugar. Continue with Accu-Cheks and coverage. Consults have been previously placed with physical and occupational therapy. At this point patient does appear to be ready to be moved to the cardiac floor. We'll continue to follow.
[2017-09-12] MEDS: FONDAPARINUX 2.5 MG/0.5 ML SYRINGE SQ SCH (08:17)
[2017-09-12] MEDS: ATORVASTATIN 40 MG TAB PO SCH (08:17)
[2017-09-12] MEDS: CIPROFLOXACIN HCL 500 MG TAB PO SCH (08:17)
[2017-09-12] MEDS: ASPIRIN 325 MG TAB PO SCH (08:17)
[2017-09-12] MEDS: GLIMEPIRIDE 1 MG TAB PO SCH (08:17)
[2017-09-12] MEDS: TAMSULOSIN 0.4 MG CAP.ER.24H PO SCH ×2 (08:17→10:16)
[2017-09-12] MEDS: methylPREDNISolone SOD SUCCI 40 MG/ML 1 ML VIAL IV SCH (08:17)
[2017-09-12] MEDS: GABAPENTIN 100 MG CAP PO SCH ×4 (08:18→21:26)
[2017-09-12] MEDS: METOPROLOL SUCCINATE (ER) 50 MG TAB.ER.24H PO SCH ×2 (08:18→21:26)
[2017-09-12] MEDS: CLOPIDOGREL 75 MG TAB PO SCH (08:18)
--- NOTE | 2017-09-12 09:05 | P.PN ---
Subjective Progress Note Date: 09/12/17 Principal diagnosis: Coronary artery disease, status post coronary artery bypass grafting, postop day 1 Progress note dated 09/08/2017 77-year-old male with a history of non-ST segment elevation myocardial infarction, status post cardiac catheterization revealing severe triple-vessel CAD. In addition, he is quite severe COPD, with an FEV1 in the range of 45% of predicted. 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 The patient surgery is to be done today. The patient is on O2 3 L nasal cannula and has a dextrose half-normal saline IV at KVO. He was on a heparin drip but obviously that was turned off prior to surgery. Other than that, the patient is doing reasonably well. He certainly is at high risk. This has been documented by my partner. On 09/09/2017 patient seen in follow-up in the intensive care unit. This is postop day 1, status post quadruple coronary artery bypass grafting using the PARSON to LAD, reverse SVG to OM1, reverse SVG to OM 2, reverse SVG to the RCA, exclusion of the left atrial appendage, and intraoperative MALATHI and AP aortic scanning. Patient was extubated in less than 6 hours post OR exit time. Patient was extubated at 9:00 last night successfully to a 40% Ventimask, on which she remains this morning. He is awake alert, sitting up in the recliner, doing well, denies any acute distress. Midsternal incision is stable, clean dry and intact One mediastinal and one left pleural chest tube draining small amount of serosanguineous drainage. Maintenance IV includes LR at a rate of 50 ML per hour, insulin drip at 2 units per hour, no vasoactive drips at this time, clever proximal has been discontinued, as well as nitroglycerin drip. Kitchen catheter is in place, and the urine output is ranging from 30-75 ML per hour. Cardiac index and output is 5.5 and 3.0 respectively. Dissipate discontinuation of the PA catheter this morning. PA pressures 28/11, with a map of 19. Patient has not required any blood transfusions. Today's labs were reviewed, WBCs 11.2, hemoglobin is 9.0, INR is 1.4, potassium is 5.3, BUN is 33 , creatinine 0.80. Today's chest x-ray has been reviewed and shows basilar atelectasis versus edema. Lung sounds positive for some crackles over left lower lobe anteriorly, diminished on the right. Patient Solu-Medrol's has been switched to oral prednisone. On 09/10/2017 patient seen in follow-up in intensive care unit. This postop day 2, status post coronary artery bypass grafting 4, and exclusion of the left atrial appendage. He is awake and alert, remains on 40% Ventimask, today' s exam patient is a bit more congested, there is scattered rhonchi, and wheezes bilaterally. His chest x-ray has been reviewed and shows new right basilar airspace disease that could represent atelectasis or developing pneumonia, stable left basilar subsegmental atelectasis, and trace right pleural effusion. Incentive spirometry effort is 800 mL today. He is still chest tube has been removed, left pleural chest tube remains in place with serosanguineous output. He remains in A. fib with frequent PVCs. He was started on Arixtra for anticoagulation, he was given a dose of IV digoxin for rate control. Denies any chest pain or dyspnea. Sternal incision is clean dry and intact, stable. [place] catheter has been removed. Maintenance in the IV include LR at a rate of 30 ML per hour, no other drips. Which the oral prednisone back to Solu- Medrol 40 mg every 8 hours, we'll discontinue Symbicort and put the patient on Pulmicort. On 09/11/2017 patient seen in follow-up in the intensive care unit. He is confused, and only oriented to person and the president. Nursing staff reports patient is not sleeping well, and was having periods of agitation, during which she pulled out and IV. certified orthoptist is at the bedside this morning. Patient is awake, alert, and appears to be in no acute distress. Denies any dyspnea, his pain is reasonable control. Pox on 5 L per nasal cannula is 99%. Hemodynamically stable. Today's chest x-ray has been reviewed by Dr. Linares, and shows small pleural effusion, and basilar atelectasis. Cardiothoracic surgery has been dosing patient's IV Lasix, and the patient will receive another 20 mg of Lasix this morning. Continues on nebulized bronchodilators, has a loose productive cough with cullen-colored thick sputum, and the sputum culture was positive for pseudomonas aeruginosa, and presumptive staph aureus. She will be started on oral Cipro, and further adjustment antibiotics will be made once the final culture and sensitivity is done on organism #2, for presumptive staph aureus. Patient remains afebrile. Lung sounds are positive for scattered rhonchi, and bibasilar crackles. Patient's incentive spirometry effort today's 1250 ML. Mediastinal chest tube has been discontinued yesterday , left pleural chest tube remains in place with serosanguineous output. Epicardial wires have been discontinued. Today lab work has been reviewed, and shows no leukocytosis, WBCs 10.2, hemoglobin is 8.7, platelet count is 84, serum sodium is 135, potassium is 4.5, chloride is 97, BUN 35, creatinine 0.80. Patient is tolerating a regular diet. Nonoliguric. On 09/12/2017 patient seen again in follow-up in the intensive care unit. He sitting up in the recliner, currently on 3 L per nasal cannula, denies any acute distress, no chest pain, no shortness of breath, no cough or congestion. Lung sounds are diminished with a few scattered rhonchi, no significant wheezing noted. Overall improved compared to yesterday's exam. Midsternal incision is clean dry and intact, sternum stable, no edema present. Hugger is in place, and the patient is utilizing his incentive spirometer able to achieve 1443-6875 mL today. Today's chest x-ray has been reviewed and still shows small pleural effusions, and basilar atelectasis, stable exam. Patient remains in A. fib, with a controlled rate, he had been started on Arixtra for anticoagulation, he was given 20 mg of IV Lasix yesterday, and he is in -1558 mL. His left pleural chest tube has been discontinued. No IV fluids or drips at this time, . he is tolerating oral diet, no fever or chills, microbiology results were reviewed, and the sputum culture was positive for pseudomonas aeruginosa, and Staphylococcus aureus, oxacillin sensitive. Both organisms are susceptible to Levaquin, hence we will switch to Cipro to Levaquin. Objective - Vital Signs Vital signs: Vital Signs Temp 98.7 F 09/12/17 04:00 Pulse 76 09/12/17 07:41 Resp 18 09/12/17 07:00 BP 105/59 09/12/17 07:00 Pulse Ox 94 L 09/12/17 07:00 Intake & Output 09/11/17 09/12/17 09/12/17 18:59 06:59 18:59 Intake Total 372 Output Total 1140 790 0 Balance -768 -790 0 Weight 80.8 kg 77.1 kg Intake: IV 132 Lactated Ringers 1,000 ml 120 @ 20 mls/hr IV .Q24H [facility] Rx#:[id number] Pressure bag 12 Oral 240 Output: Chest Tube Drainage 70 Left Pleural Chest Tube 70 Drainage 40 40 Right Calf 40 40 Urine 1030 750 0 Other: Voiding Method Urinal Urinal # Voids 1 ABP, PAP, CO, CI - Last Documented Arterial Blood Pressure 133/59 Pulmonary Artery Pressure 25/8 Cardiac Output 5.5 Cardiac Index 3.0 - Exam GENERAL EXAM: Alert, pleasant, 69-year-old white male comfortable in no apparent distress, confused, oriented times one, to person but in no acute distress with a process safety engineering technologist at the bedside. Jean on 5 L per nasal cannula HEAD: Normocephalic/atraumatic. EYES: Normal reaction of pupils, equal size. Conjunctiva pink, sclera white. NOSE: Clear with pink turbinates. THROAT: No erythema or exudates. NECK: No masses, no JVD, no thyroid enlargement, no adenopathy. Right IJ Cordis with a PA catheter is present CHEST: No chest wall deformity. Symmetrical expansion. Midsternal incision is clean dry and intact and stable. Mediastinal, left pleural chest tubes and epicardial wires have been all discontinued LUNGS: Equal air entry bilateral rhonchi and scattered wheezes CVS: Irregular rate and rhythm, normal S1 and S2, no gallops, no murmurs, no rubs ABDOMEN: Soft, nontender. No hepatosplenomegaly, normal bowel sounds, no guarding or rigidity. EXTREMITIES: No clubbing, no edema, no cyanosis, 2+ pulses and upper and lower extremities. There is a JESÚS drain in the right lower leg, right lower leg is Gilberto wrapped MUSCULOSKELETAL: Muscle strength and tone normal. SPINE: No scoliosis or deformity SKIN: No rashes CENTRAL NERVOUS SYSTEM: Alert and oriented -3. No focal deficits, tone is normal in all 4 extremities. PSYCHIATRIC: Alert and oriented -3. Mentation is much improved on today's exam - Labs CBC & Chem 7: 09/12/17 04:34 09/12/17 04:34 Labs: Abnormal Lab Results - Last 24 Hours (Table) 09/11/17 09/11/17 09/11/17 Range/Units 11:50 17:12 20:23 RBC (4.30-5.90) m/uL Hgb (13.0-17.5) gm/dL Hct (39.0-53.0) % RDW (11.5-15.5) % Plt Count (150-450) k/uL Neutrophils # (1.3-7.7) k/uL Lymphocytes # (1.0-4.8) k/uL Carbon Dioxide (22-30) mmol/L BUN (9-20) mg/dL Glucose (74-99) mg/dL POC Glucose (mg/dL) 191 H 190 H 128 H (75-99) mg/dL Calcium (8.4-10.2) mg/dL AST (17-59) U/L Total Protein (6.3-8.2) g/dL Albumin (3.5-5.0) g/dL 09/12/17 09/12/17 09/12/17 Range/Units 02:13 04:34 04:34 RBC 2.95 L (4.30-5.90) m/uL Hgb 8.8 L (13.0-17.5) gm/dL Hct 26.5 L (39.0-53.0) % RDW 17.3 H (11.5-15.5) % Plt Count 101 L (150-450) k/uL Neutrophils # 7.9 H (1.3-7.7) k/uL Lymphocytes # 0.7 L (1.0-4.8) k/uL Carbon Dioxide 31 H (22-30) mmol/L BUN 32 H (9-20) mg/dL Glucose 165 H (74-99) mg/dL POC Glucose (mg/dL) 180 H (75-99) mg/dL Calcium 8.1 L (8.4-10.2) mg/dL AST 64 H (17-59) U/L Total Protein 4.9 L (6.3-8.2) g/dL Albumin 3.0 L (3.5-5.0) g/dL 09/12/17 Range/Units 07:09 RBC (4.30-5.90) m/uL Hgb (13.0-17.5) gm/dL Hct (39.0-53.0) % RDW (11.5-15.5) % Plt Count (150-450) k/uL Neutrophils # (1.3-7.7) k/uL Lymphocytes # (1.0-4.8) k/uL Carbon Dioxide (22-30) mmol/L BUN (9-20) mg/dL Glucose (74-99) mg/dL POC Glucose (mg/dL) 180 H (75-99) mg/dL Calcium (8.4-10.2) mg/dL AST (17-59) U/L Total Protein (6.3-8.2) g/dL Albumin (3.5-5.0) g/dL Microbiology - Last 24 Hours (Table) 09/08/17 04:56 Gram Stain - Final Sputum Sputum Culture - Final Pseudomonas aeruginosa Staphylococcus aureus Assessment and Plan Plan: Assessment: Acute non-ST segment elevation myocardial infarction, secondary to severe triple -vessel CAD, status post quadruple coronary artery bypass grafting with PARSON to LAD, reverse SVG to OM1, reverse SVG to OM 2, and reverse SVG to RCA, and exclusion of the left atrial appendage with AtriCure clip, postop day 4 Severe COPD, stage III disease, with an FEV1 that is 45% of predicted Chronic hypoxemic respiratory failure Sputum cultures positive for pseudomonas aeruginosa and oxacillin sensitive Staphylococcus aureus from's 09/08/2017 Chronic atrial fibrillation Type 2 diabetes mellitus Diabetic neuropathy PVOD Osteomyelitis History of hypertension History of systolic heart failure. Plan: Continue current medical treatment, nebulas bronchodilators. Continue pulmonary toileting, ambulation. We will switch the Cipro to seven-day course of oral Levaquin for pseudomonal and oxacillin sensitive staph aureus found in the sputum cultures. We'll switch the IV Solu-Medrol to oral prednisone. Patient is hemodynamically stable, mentation has significantly improved. Tolerating oral intake, nonoliguric. Patient is stable to transfer out of intensive care unit today once cleared by cardiothoracic surgery. I performed a history & physical examination of the patient and discussed their management with my nurse practitioner, Rowena Rowe. I reviewed the nurse practitioner's note and agree with the documented findings and plan of care. Lung sounds are coarse lung sounds, with a few rhonchi. The findings and the impression was discussed with the patient. I attest to the documentation by the nurse practitioner. Time with Patient: Greater than 30
[2017-09-12] MEDS: MUPIROCIN 2% OINT 22 GM TUBE NASAL SCH ×3 (10:00→21:27)
[2017-09-12] MEDS: DEXTROSE 5%-0.45% NACL 1,000 ML IV SCH (10:08)
[2017-09-12] MEDS: FUROSEMIDE 40 MG TAB PO SCH (10:16)
[2017-09-12] MEDS: DIGOXIN 250 MCG TAB PO SCH (10:16)
[2017-09-12] MEDS: ATORVASTATIN 80 MG TAB PO SCH (10:16)
[2017-09-12] MEDS: ASPIRIN 81 MG PO SCH (10:16)
--- NOTE | 2017-09-12 10:16 | XR ---
EXAMINATION TYPE: XR chest 1V portable DATE OF EXAM: 09/12/2017 COMPARISON: Prior chest x-ray 09/11/2017 HISTORY: Status post cardiac surgery, abnormal chest x-ray TECHNIQUE: Single frontal view of the chest is obtained. FINDINGS: Postop changes are noted. Patchy basilar increased density is present. Chest tube has been removed. Central venous catheter has been removed. No evident pneumothorax. Heart size is stable. IMPRESSION: Basilar atelectasis, there may be some associated effusion. Cardiomegaly. Postop changes . No evident complication status post chest tube removal.
[2017-09-12] MEDS: methylPREDNISolone SOD SUCCI 125 MG/2 ML VIAL IV SCH (10:17)
[2017-09-12 12:19] LABS: Glucose,Whole Blood 193 mg/dL (75-99)
--- NOTE | 2017-09-12 12:37 | PN ---
PROGRESS NOTE Patient is doing well today. He is much more alert and awake. He had a good night's sleep. He is eating lunch. He looks very comfortable. No respiratory distress. Denies chest pain. Denies any breathing trouble. Vitals are stable. He remains in atrial fibrillation with a controlled ventricular response on metoprolol. He is on Toprol-XL 50 b.i.d. He is also on aspirin, Plavix and statins. Heart rates are in the 70s and 80s, irregular. Blood pressure is 105/54 mmHg. Breath sounds are reduced bilaterally. No rhonchi, no crackles. Heart sounds are irregular, but normal. Extremities are warm, no edema. Chest tubes have been removed. IMPRESSION: 1. Multivessel coronary artery disease, status post coronary artery bypass grafting. 2. Permanent atrial fibrillation, status post left atrial appendectomy. SUGGEST: Continue metoprolol for rate control. Continue aspirin and Plavix. He should be anticoagulated for the next 2-3 months even after his left atrial appendectomy. MMODL / IJN: [id number] /
[2017-09-12] MEDS: LEVOFLOXACIN 750 MG TAB PO SCH (15:10)
[2017-09-12 16:59] LABS: Glucose,Whole Blood 187 mg/dL (75-99)
[2017-09-12 21:06] LABS: Glucose,Whole Blood 128 mg/dL (75-99)
[2017-09-12] MEDS: MELATONIN 1 MG TAB PO SCH (21:26)
[2017-09-12] MEDS: SENNOSIDES-DOCUSATE SODIUM 1 EACH TAB PO SCH (21:26)
[2017-09-13] MEDS ORDERED: ALPRAZolam 0.25 MG TAB PO PRN (01:18)
[2017-09-13 02:07] LABS: Glucose,Whole Blood 201 mg/dL (75-99)
[2017-09-13] MEDS: ACETAMINOPHEN TAB 500 MG TAB PO PRN (05:52)
[2017-09-13 05:55] LABS: Glucose,Whole Blood 150 mg/dL (75-99)
[2017-09-13 06:31] LABS: ALT 41 U/L (21-72); AST 53 U/L (17-59); Albumin 3.2 g/dL (3.5-5.0); Alkaline Phosphatase 54 U/L (38-126); Anion Gap 7 mmol/L; Blood Urea Nitrogen 31 mg/dL (9-20); Calcium 8.1 mg/dL (8.4-10.2); Carbon Dioxide 31 mmol/L (22-30); Chloride 98 mmol/L (98-107); Glucose 119 mg/dL (74-99); Potassium 4.1 mmol/L (3.5-5.1); Sodium 136 mmol/L (137-145); Total Bilirubin 0.8 mg/dL (0.2-1.3); Total Protein 5.1 g/dL (6.3-8.2)
[2017-09-13 06:46] LABS: Anisocytosis Slight; HCT 27.1 % (39.0-53.0); MCH 29.9 pg (25.0-35.0); MCHC 33.2 g/dL (31.0-37.0); MCV 90.1 fL (80.0-100.0); Mean Platelet Volume 6.8; Platelet Count 159 k/uL (150-450); RDW 19.7 % (11.5-15.5); WBC 14.7 k/uL (3.8-10.6)
[2017-09-13] MEDS: GLIMEPIRIDE 1 MG TAB PO SCH (06:54)
[2017-09-13] MEDS: PANTOPRAZOLE 40 MG TABLET PO SCH (06:54)
[2017-09-13] MEDS: INSULIN ASPART 100 UNIT/ML 1 ML 10 ML VIAL SQ SCH ×4 (06:56→21:07)
--- NOTE | 2017-09-13 07:58 | P.PN ---
Subjective Progress Note Date: 09/13/17 Principal diagnosis: Symptomatic triple-vessel coronary artery disease with left main disease, non- ST elevation myocardial infarction, mild to moderate left ventricular dysfunction. Chronic persistent atrial fibrillation on home Coumadin therapy. Sick sinus syndrome, status post permanent pacemaker insertion. Chronic systolic heart failure with EF 40-45% and diastolic dysfunction. Hypertension. Hyperlipidemia. Bilateral carotid stenosis, 50-79% bilaterally, Previous tobacco dependence. Severe chronic obstructive pulmonary disease with home oxygen with preoperative FEV1 45% of predicted. Arthritis. Benign prostatic hypertrophy. Gastroesophageal reflux disease. 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 Lumbar disc disease with chronic pain syndrome. History of deep vein thrombosis of his left leg. Type 2 diabetes mellitus with preoperative hemoglobin A1c 5.9%. Peripheral vascular disease. Remote history of pneumonia. Family history of early onset coronary artery disease with brother being diagnosed with myocardial infarction at age 46. Preoperative nasal swab positive for MSSA. Preoperative sputum culture positive for pseudomonas and MSSA. POD #5 urgent quadruple coronary artery bypass grafting using the left internal mammary artery to the left anterior descending artery, reverse saphenous vein graft from the aorta to the first obtuse marginal artery, reverse saphenous vein graft from the aorta to the second obtuse marginal artery, reverse saphenous vein graft from the aorta to the right coronary artery. Exclusion of the left atrial appendage using a 40 mm AtriClip. Endoscopic harvesting of the right greater saphenous vein. Intraoperative transesophageal echocardiogram and epi-aortic scanning. Intraoperative graft flow measurements using the TrewCapstim system. Postoperative normocytic, normochromic anemia, an expected outcome of surgery related to hemodilution and cardiopulmonary bypass pump. Heparin-induced thrombocytopenia, an unexpected but potential outcome of IV heparin use. Patient's currently sitting in chair in no acute distress. Denies pain, appears slightly short of breath. Per nursing patient does have a rough night with his breathing, appears stable right now. He was transferred out of ICU to [address] [place] [address] care yesterday. Less confusion present. Objective - Vital Signs Vital signs: Vital Signs Temp 97.5 F L 09/13/17 04:00 Pulse 88 09/13/17 04:00 Resp 20 09/13/17 04:00 BP 120/70 09/13/17 04:00 Pulse Ox 99 09/13/17 04:00 Intake & Output 09/12/17 09/13/17 09/13/17 18:59 06:59 18:59 Intake Total 540 Output Total 2 220 Balance 538 -220 Weight 75.3 kg Intake: Oral 540 Output: Drainage 95 Right Calf 95 Urine 0 125 Stool 2 Other: Voiding Method Bedside Commode Bedside Commode Urinal Urinal # Voids 1 1 # Bowel Movements 1 ABP, PAP, CO, CI - Last Documented Arterial Blood Pressure 133/59 Pulmonary Artery Pressure 25/8 Cardiac Output 5.5 Cardiac Index 3.0 - Constitutional General appearance: Present: cooperative, no acute distress - Respiratory Details: Lungs sounds diminished and coarse bilaterally with faint expiratory wheezes present. Respirations even, slightly short of breath. Currently on 3 L nasal cannula with oxygen saturation 99%. Able to achieve 750-1000 mL on his incentive spirometry. Wet cough. - Cardiovascular Details: S1, S2 present. Irregular rate and rhythm, atrial fibrillation on telemetry. Sternum stable. Palpable peripheral pulses bilaterally. No edema present. No calf pain or tenderness noted. Heart hugger in place with patient demonstrating appropriate use. Antiembolism stockings, SCDs present. - Gastrointestinal Gastrointestinal Comment(s): Abdomen soft, nontender, nondistended. Active bowel sounds 4 quadrants. Tolerating diet. Positive bowel movement. - Genitourinary Genitourinary Comment(s): Continues to void clear, yellow urine. - Integumentary Integumentary Comment(s): Skin is warm and dry. Anterior chest incision well approximated and covered with dry intact dressing. Right lower extremity EVH site well approximated, JESÚS drain present with 30 mL serosanguineous drainage in the last 8 hours. - Neurologic Neurologic: Present: CNII-XII intact - Musculoskeletal Musculoskeletal: Present: generalized weakness, strength equal bilaterally - Psychiatric Psychiatric: Present: A&O x's 3, appropriate affect, intact judgment & insight - Allied health notes Allied health notes reviewed: nursing - Labs CBC & Chem 7: 09/13/17 05:55 09/13/17 05:55 Labs: Abnormal Lab Results - Last 24 Hours (Table) 09/12/17 09/12/17 09/12/17 Range/Units 12:16 16:55 21:04 WBC (3.8-10.6) k/uL RBC (4.30-5.90) m/uL Hgb (13.0-17.5) gm/dL Hct (39.0-53.0) % RDW (11.5-15.5) % Sodium (137-145) mmol/L Carbon Dioxide (22-30) mmol/L BUN (9-20) mg/dL Glucose (74-99) mg/dL POC Glucose (mg/dL) 193 H 187 H 128 H (75-99) mg/dL Calcium (8.4-10.2) mg/dL Total Protein (6.3-8.2) g/dL Albumin (3.5-5.0) g/dL 09/13/17 09/13/17 09/13/17 Range/Units 02:05 05:53 05:55 WBC 14.7 H (3.8-10.6) k/uL RBC 3.00 L (4.30-5.90) m/uL Hgb 9.0 L (13.0-17.5) gm/dL Hct 27.1 L (39.0-53.0) % RDW 19.7 H (11.5-15.5) % Sodium (137-145) mmol/L Carbon Dioxide (22-30) mmol/L BUN (9-20) mg/dL Glucose (74-99) mg/dL POC Glucose (mg/dL) 201 H 150 H (75-99) mg/dL Calcium (8.4-10.2) mg/dL Total Protein (6.3-8.2) g/dL Albumin (3.5-5.0) g/dL 09/13/17 Range/Units 05:55 WBC (3.8-10.6) k/uL RBC (4.30-5.90) m/uL Hgb (13.0-17.5) gm/dL Hct (39.0-53.0) % RDW (11.5-15.5) % Sodium 136 L (137-145) mmol/L Carbon Dioxide 31 H (22-30) mmol/L BUN 31 H (9-20) mg/dL Glucose 119 H (74-99) mg/dL POC Glucose (mg/dL) (75-99) mg/dL Calcium 8.1 L (8.4-10.2) mg/dL Total Protein 5.1 L (6.3-8.2) g/dL Albumin 3.2 L (3.5-5.0) g/dL - Imaging and Cardiology Chest x-ray: image reviewed Assessment and Plan (1) Family history of early CAD Current Visit: Yes Status: Chronic Code(s): Z82.49 - FAMILY HX OF ISCHEM HEART DIS AND OTH DIS OF THE CIRC SYS SNOMED Code(s): 972994486 (2) On home oxygen therapy Current Visit: Yes Status: Chronic Code(s): Z99.81 - DEPENDENCE ON SUPPLEMENTAL OXYGEN SNOMED Code(s): 088689329370 (3) BPH (benign prostatic hyperplasia) Current Visit: Yes Status: Chronic Code(s): N40.0 - BENIGN PROSTATIC HYPERPLASIA WITHOUT LOWER URINRY TRACT SYMP SNOMED Code(s): 096691559 (4) CAD (coronary artery disease) Current Visit: Yes Status: Chronic Code(s): I25.10 - ATHSCL HEART DISEASE OF [place] CORONARY ARTERY W/O ANG PCTRS SNOMED Code(s): 90746158 (5) COPD (chronic obstructive pulmonary disease) Current Visit: Yes Status: Chronic Code(s): J44.9 - CHRONIC OBSTRUCTIVE PULMONARY DISEASE, UNSPECIFIED SNOMED Code(s): 08066964 (6) Chronic atrial fibrillation Current Visit: Yes Status: Chronic Code(s): I48.2 - CHRONIC ATRIAL FIBRILLATION SNOMED Code(s): 645355018 (7) Chronic diastolic CHF (congestive heart failure) Current Visit: Yes Status: Chronic Code(s): I50.32 - CHRONIC DIASTOLIC ( CONGESTIVE) HEART FAILURE SNOMED Code(s): 494309351 (8) Chronic pain syndrome Current Visit: Yes Status: Chronic Code(s): G89.4 - CHRONIC PAIN SYNDROME SNOMED Code(s): 929219927 (9) Diabetes mellitus type 2 in nonobese Current Visit: Yes Status: Chronic Code(s): E11.9 - TYPE 2 DIABETES MELLITUS WITHOUT COMPLICATIONS SNOMED Code(s): 568406139 (10) GERD (gastroesophageal reflux disease) Current Visit: Yes Status: Chronic Code(s): K21.9 - GASTRO-ESOPHAGEAL REFLUX DISEASE WITHOUT ESOPHAGITIS SNOMED Code(s): 424447044 (11) History of Coumadin therapy Current Visit: Yes Status: Chronic Code(s): Z92.29 - PERSONAL HISTORY OF OTHER DRUG THERAPY SNOMED Code(s): 641203083 (12) History of MRSA infection Current Visit: No Status: Resolved Code(s): Z86.14 - PERSONAL HISTORY OF METHICILLIN RESIS STAPH INFECTION SNOMED Code(s): 540847160 (13) History of permanent cardiac pacemaker placement Current Visit: Yes Status: Chronic Code(s): Z95.0 - PRESENCE OF CARDIAC PACEMAKER SNOMED Code(s): 673963696 (14) History of sick sinus syndrome Current Visit: Yes Status: Chronic Code(s): Z86.79 - PERSONAL HISTORY OF OTHER DISEASES OF THE CIRCULATORY SYSTEM SNOMED Code(s): 094314760695799 (15) History of smoking Current Visit: No Status: Resolved Code(s): Z87.891 - PERSONAL HISTORY OF NICOTINE DEPENDENCE SNOMED Code(s): 20146288695158247 (16) Hypertension Current Visit: Yes Status: Chronic Code(s): I10 - ESSENTIAL (PRIMARY) HYPERTENSION SNOMED Code(s): 13225587 (17) Lumbar disc disease Current Visit: Yes Status: Chronic Code(s): M51.9 - UNSP THORACIC, THORACOLUM AND LUMBOSACR INTVRT DISC DISORDER SNOMED Code(s): 370779418 (18) Non-ST elevated myocardial infarction Current Visit: Yes Status: Acute Code(s): I21.4 - NON-ST ELEVATION (NSTEMI) MYOCARDIAL INFARCTION SNOMED Code(s): 692279377 (19) Peripheral vascular disease Current Visit: Yes Status: Chronic Code(s): I73.9 - PERIPHERAL VASCULAR DISEASE, UNSPECIFIED SNOMED Code(s): 655684567 Plan: 1. Continue aspirin, statin, Plavix, Arixtra, Toprol XL. Will increase beta lisa therapy as tolerated. Will restart Coumadin today.Will restart low dose LANG-I today. 2. Wean O2 as tolerated. Encourage incentive spirometry use 10 times every hour while awake. 3. Encourage continued smoking cessation. 4. Bronchodilators, steroids, antibiotics per pulmonology. 5. Increase activity, out of bed to chair, ambulate as tolerated. PT/OT/ chronic rehab following. 6. Will monitor daily labs and x-rays. 7. Insulin management per Dr. White. 8. Pain management with current medication regimen. 9. GI/DVT prophylaxis. 10. Reorient PRN. 11. Will discontinue JESÚS drain today 12. Discharge planning in progress. Possible discharge to [facility] on Friday. 13. More recommendations to follow. Time with Patient: Greater than 30
[2017-09-13] MEDS: IPRATROPIUM-ALBUTEROL 3 ML NEB INHALATION SCH ×4 (08:01→20:38)
[2017-09-13] MEDS: BUDESONIDE 1 MG/2 ML NEBU INHALATION SCH ×2 (08:01→20:38)
--- NOTE | 2017-09-13 08:26 | XR ---
EXAMINATION: XR chest 2V DATE AND TIME: 09/13/2017 6:42 AM ORDERING PROVIDER: Ryann Sheldon CLINICAL INDICATION: post cardiac surgery TECHNIQUE: PA and lateral COMPARISON: AP portable upright 09/12/2017 at 6:36 AM DESCRIPTION: Cardiac pacemaker, sternal sutures and mediastinal clips and EKG leads. Marked hyperinflation redemonstrated, particularly on the right. No definite pneumothorax. Mildly enlarged cardiac silhouette redemonstrated. IMPRESSION: STABLE APPEARANCE; NO NEW PROCESS.
[2017-09-13] MEDS: GABAPENTIN 100 MG CAP PO SCH ×3 (08:51→21:07)
[2017-09-13] MEDS: MUPIROCIN 2% OINT 22 GM TUBE NASAL SCH ×2 (08:51→21:07)
[2017-09-13] MEDS: FONDAPARINUX 2.5 MG/0.5 ML SYRINGE SQ SCH (08:52)
[2017-09-13] MEDS: ATORVASTATIN 40 MG TAB PO SCH (08:52)
[2017-09-13] MEDS: ASPIRIN 325 MG TAB PO SCH (08:52)
[2017-09-13] MEDS: METOPROLOL SUCCINATE (ER) 50 MG TAB.ER.24H PO SCH ×2 (08:52→21:07)
[2017-09-13] MEDS: CLOPIDOGREL 75 MG TAB PO SCH (08:52)
[2017-09-13] MEDS: TAMSULOSIN 0.4 MG CAP.ER.24H PO SCH (08:52)
[2017-09-13] MEDS: LEVOFLOXACIN 750 MG TAB PO SCH (08:53)
[2017-09-13] MEDS: predniSONE 20 MG TAB PO SCH (08:53)
--- NOTE | 2017-09-13 10:19 | P.PN ---
Subjective Progress Note Date: 09/13/17 Principal diagnosis: Coronary artery disease status post coronary artery bypass grafting Progress note dated 09/08/2017 77-year-old male with a history of non-ST segment elevation myocardial infarction, status post cardiac catheterization revealing severe triple-vessel CAD. In addition, he is quite severe COPD, with an FEV1 in the range of 45% of predicted. 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 The patient surgery is to be done today. The patient is on O2 3 L nasal cannula and has a dextrose half-normal saline IV at KVO. He was on a heparin drip but obviously that was turned off prior to surgery. Other than that, the patient is doing reasonably well. He certainly is at high risk. This has been documented by my partner. On 09/09/2017 patient seen in follow-up in the intensive care unit. This is postop day 1, status post quadruple coronary artery bypass grafting using the PARSON to LAD, reverse SVG to OM1, reverse SVG to OM 2, reverse SVG to the RCA, exclusion of the left atrial appendage, and intraoperative MALATHI and AP aortic scanning. Patient was extubated in less than 6 hours post OR exit time. Patient was extubated at 9:00 last night successfully to a 40% Ventimask, on which she remains this morning. He is awake alert, sitting up in the recliner, doing well, denies any acute distress. Midsternal incision is stable, clean dry and intact One mediastinal and one left pleural chest tube draining small amount of serosanguineous drainage. Maintenance IV includes LR at a rate of 50 ML per hour, insulin drip at 2 units per hour, no vasoactive drips at this time, clever proximal has been discontinued, as well as nitroglycerin drip. Kitchen catheter is in place, and the urine output is ranging from 30-75 ML per hour. Cardiac index and output is 5.5 and 3.0 respectively. Dissipate discontinuation of the PA catheter this morning. PA pressures 28/11, with a map of 19. Patient has not required any blood transfusions. Today's labs were reviewed, WBCs 11.2, hemoglobin is 9.0, INR is 1.4, potassium is 5.3, BUN is 33 , creatinine 0.80. Today's chest x-ray has been reviewed and shows basilar atelectasis versus edema. Lung sounds positive for some crackles over left lower lobe anteriorly, diminished on the right. Patient Solu-Medrol's has been switched to oral prednisone. On 09/10/2017 patient seen in follow-up in intensive care unit. This postop day 2, status post coronary artery bypass grafting 4, and exclusion of the left atrial appendage. He is awake and alert, remains on 40% Ventimask, today' s exam patient is a bit more congested, there is scattered rhonchi, and wheezes bilaterally. His chest x-ray has been reviewed and shows new right basilar airspace disease that could represent atelectasis or developing pneumonia, stable left basilar subsegmental atelectasis, and trace right pleural effusion. Incentive spirometry effort is 800 mL today. He is still chest tube has been removed, left pleural chest tube remains in place with serosanguineous output. He remains in A. fib with frequent PVCs. He was started on Arixtra for anticoagulation, he was given a dose of IV digoxin for rate control. Denies any chest pain or dyspnea. Sternal incision is clean dry and intact, stable. [place] catheter has been removed. Maintenance in the IV include LR at a rate of 30 ML per hour, no other drips. Which the oral prednisone back to Solu- Medrol 40 mg every 8 hours, we'll discontinue Symbicort and put the patient on Pulmicort. On 09/11/2017 patient seen in follow-up in the intensive care unit. He is confused, and only oriented to person and the president. Nursing staff reports patient is not sleeping well, and was having periods of agitation, during which she pulled out and IV. director of consulting services is at the bedside this morning. Patient is awake, alert, and appears to be in no acute distress. Denies any dyspnea, his pain is reasonable control. Pox on 5 L per nasal cannula is 99%. Hemodynamically stable. Today's chest x-ray has been reviewed by Dr. Linares, and shows small pleural effusion, and basilar atelectasis. Cardiothoracic surgery has been dosing patient's IV Lasix, and the patient will receive another 20 mg of Lasix this morning. Continues on nebulized bronchodilators, has a loose productive cough with cullen-colored thick sputum, and the sputum culture was positive for pseudomonas aeruginosa, and presumptive staph aureus. She will be started on oral Cipro, and further adjustment antibiotics will be made once the final culture and sensitivity is done on organism #2, for presumptive staph aureus. Patient remains afebrile. Lung sounds are positive for scattered rhonchi, and bibasilar crackles. Patient's incentive spirometry effort today's 1250 ML. Mediastinal chest tube has been discontinued yesterday , left pleural chest tube remains in place with serosanguineous output. Epicardial wires have been discontinued. Today lab work has been reviewed, and shows no leukocytosis, WBCs 10.2, hemoglobin is 8.7, platelet count is 84, serum sodium is 135, potassium is 4.5, chloride is 97, BUN 35, creatinine 0.80. Patient is tolerating a regular diet. Nonoliguric. On 09/12/2017 patient seen again in follow-up in the intensive care unit. He sitting up in the recliner, currently on 3 L per nasal cannula, denies any acute distress, no chest pain, no shortness of breath, no cough or congestion. Lung sounds are diminished with a few scattered rhonchi, no significant wheezing noted. Overall improved compared to yesterday's exam. Midsternal incision is clean dry and intact, sternum stable, no edema present. Hugger is in place, and the patient is utilizing his incentive spirometer able to achieve 4563-1025 mL today. Today's chest x-ray has been reviewed and still shows small pleural effusions, and basilar atelectasis, stable exam. Patient remains in A. fib, with a controlled rate, he had been started on Arixtra for anticoagulation, he was given 20 mg of IV Lasix yesterday, and he is in -1558 mL. His left pleural chest tube has been discontinued. No IV fluids or drips at this time, . he is tolerating oral diet, no fever or chills, microbiology results were reviewed, and the sputum culture was positive for pseudomonas aeruginosa, and Staphylococcus aureus, oxacillin sensitive. Both organisms are susceptible to Levaquin, hence we will switch to Cipro to Levaquin. The patient is seen again today 09/13/2017 in follow-up on the selective care unit. He is awake and alert in no acute distress. He is currently sitting up in the chair at the bedside. He denies any worsening shortness of breath, cough or congestion. He is maintaining good O2 saturations up to 100% on 3 L/m per nasal cannula. Currently afebrile. Hemodynamically stable. Chest x-ray stable. No new acute processes. White count 14.7. Hemoglobin 9.0. Creatinine 0.70. Sputum cultures were positive for pseudomonas aeruginosa and Staphylococcus aureus. He remains on Levaquin. He is working well with the incentive spirometer. The plan is for transfer to inpatient rehabilitation upon discharge. Objective - Vital Signs Vital signs: Vital Signs Temp 97.6 F 09/13/17 08:40 Pulse 91 09/13/17 08:40 Resp 18 09/13/17 08:40 BP 111/56 09/13/17 08:40 Pulse Ox 100 09/13/17 08:40 Intake & Output 09/12/17 09/13/17 09/13/17 18:59 06:59 18:59 Intake Total 540 118 Output Total 2 220 Balance 538 -220 118 Weight 75.3 kg Intake: Oral 540 118 Output: Drainage 95 Right Calf 95 Urine 0 125 Stool 2 Other: Voiding Method Bedside Commode Bedside Commode Urinal Urinal # Voids 1 1 # Bowel Movements 1 ABP, PAP, CO, CI - Last Documented Arterial Blood Pressure 133/59 Pulmonary Artery Pressure 25/8 Cardiac Output 5.5 Cardiac Index 3.0 - Exam GENERAL EXAM: Alert, pleasant, 69-year-old white male comfortable in no apparent distress, confused, oriented times one, to person but in no acute distress with a chief security and safety officer at the bedside. Currently on 3 L per nasal cannula HEAD: Normocephalic/atraumatic. EYES: Normal reaction of pupils, equal size. Conjunctiva pink, sclera white. NOSE: Clear with pink turbinates. THROAT: No erythema or exudates. NECK: No masses, no JVD, no thyroid enlargement, no adenopathy. CHEST: No chest wall deformity. Symmetrical expansion. Midsternal incision is clean dry and intact and stable. Mediastinal, left pleural chest tubes and epicardial wires have been all discontinued LUNGS: Equal air entry bilateral rhonchi and scattered wheezes CVS: Irregular rate and rhythm, normal S1 and S2, no gallops, no murmurs, no rubs ABDOMEN: Soft, nontender. No hepatosplenomegaly, normal bowel sounds, no guarding or rigidity. EXTREMITIES: No clubbing, no edema, no cyanosis, 2+ pulses and upper and lower extremities. MUSCULOSKELETAL: Muscle strength and tone normal. SPINE: No scoliosis or deformity SKIN: No rashes CENTRAL NERVOUS SYSTEM: Alert and oriented -3. No focal deficits, tone is normal in all 4 extremities. PSYCHIATRIC: Alert and oriented -3. Mentation is much improved on today's exam - Labs CBC & Chem 7: 09/13/17 05:55 09/13/17 05:55 Labs: Abnormal Lab Results - Last 24 Hours (Table) 09/12/17 09/12/17 09/12/17 Range/Units 12:16 16:55 21:04 WBC (3.8-10.6) k/uL RBC (4.30-5.90) m/uL Hgb (13.0-17.5) gm/dL Hct (39.0-53.0) % RDW (11.5-15.5) % Sodium (137-145) mmol/L Carbon Dioxide (22-30) mmol/L BUN (9-20) mg/dL Glucose (74-99) mg/dL POC Glucose (mg/dL) 193 H 187 H 128 H (75-99) mg/dL Calcium (8.4-10.2) mg/dL Total Protein (6.3-8.2) g/dL Albumin (3.5-5.0) g/dL 09/13/17 09/13/17 09/13/17 Range/Units 02:05 05:53 05:55 WBC 14.7 H (3.8-10.6) k/uL RBC 3.00 L (4.30-5.90) m/uL Hgb 9.0 L (13.0-17.5) gm/dL Hct 27.1 L (39.0-53.0) % RDW 19.7 H (11.5-15.5) % Sodium (137-145) mmol/L Carbon Dioxide (22-30) mmol/L BUN (9-20) mg/dL Glucose (74-99) mg/dL POC Glucose (mg/dL) 201 H 150 H (75-99) mg/dL Calcium (8.4-10.2) mg/dL Total Protein (6.3-8.2) g/dL Albumin (3.5-5.0) g/dL 09/13/17 Range/Units 05:55 WBC (3.8-10.6) k/uL RBC (4.30-5.90) m/uL Hgb (13.0-17.5) gm/dL Hct (39.0-53.0) % RDW (11.5-15.5) % Sodium 136 L (137-145) mmol/L Carbon Dioxide 31 H (22-30) mmol/L BUN 31 H (9-20) mg/dL Glucose 119 H (74-99) mg/dL POC Glucose (mg/dL) (75-99) mg/dL Calcium 8.1 L (8.4-10.2) mg/dL Total Protein 5.1 L (6.3-8.2) g/dL Albumin 3.2 L (3.5-5.0) g/dL Assessment and Plan Assessment: Assessment: Acute non-ST segment elevation myocardial infarction, secondary to severe triple -vessel CAD, status post quadruple coronary artery bypass grafting with PARSON to LAD, reverse SVG to OM1, reverse SVG to OM 2, and reverse SVG to RCA, and exclusion of the left atrial appendage with AtriCure clip, Severe COPD, stage III disease, with an FEV1 that is 45% of predicted Chronic hypoxemic respiratory failure Sputum cultures positive for pseudomonas aeruginosa and oxacillin sensitive Staphylococcus aureus from's 09/08/2017 Chronic atrial fibrillation Type 2 diabetes mellitus Diabetic neuropathy PVOD Osteomyelitis History of hypertension History of systolic heart failure. Plan: The patient was seen and evaluated by Dr. Linares. Chest x-ray and labs were reviewed. We'll continue with his current treatment plan. Continue to encourage increased use of the incentive spirometer and cough and deep breathing exercises. Increase his activity as tolerated. Continue to titrate down the FiO2 as tolerated. We'll continue to follow. I, the cosigning physician, performed a history & physical examination of the patient. Lungs sounds faint crackles in the posterior bases. Maintaining good O2 saturations in the 90s on 3 L/m per nasal cannula. I discussed the assessment and plan of care with my nurse practitioner, Verónica Joseph. I attest to the above note as dictated by her.
--- NOTE | 2017-09-13 10:28 | P.PN ---
Progress Note - Text The patient is a 77-year-old gentleman who has undergone quadruple coronary bypass grafting. He presently has been moved to the cardiac floor and is sitting in a chair at the side of the bed. He is alert and oriented and pleasant. States he is feeling better. Pain seems to be controlled and he does not appear to be in any respiratory distress. Vital signs reveal temperature of 97.6 with a pulse of 91 and slightly irregular. Respiratory rate of 18 and blood pressure 111/56. He is 100% saturated on 3 L nasal cannula. Lungs generally are clear. Heart tones slightly irregular but rate controlled. Abdomen nontender. Compression stockings in place. No marked edema noted. He is alert and oriented. Cranial nerves intact. No focal weakness noted. Laboratory White count is 14.7 with a hemoglobin 9.0 and a platelet count 159. Sodium 136 with potassium 4.1. BUN of 31 with creatinine 0.7. Glucose 119. Albumin 3.2. Chest x-ray shows a stable appearance with no new process. Impressions and plans Overall patient appears to be doing well post coronary artery bypass surgery. Blood sugars are generally running better and he is back on an oral hypoglycemic agent. Continue to monitor. Continue activity as per surgery. Patient appears to be anticipating possible discharge to rehab early next week. Dr. Adi Schaefer on-call for me over the weekend if any concerns should develop.
--- NOTE | 2017-09-13 11:44 | PN ---
PROGRESS NOTE A 77-year-old male patient underwent coronary artery bypass grafting. He is doing well at this time. His atrial fibrillation rates are controlled and anticoagulation is being re-initiated. Blood pressure is in the normal range. He denies any chest discomfort. He is sitting up comfortably in a chair. Breath sounds are reduced bilaterally. Heart sounds are soft, but irregular. He does have permanent pacemaker. IMPRESSION: 1. Coronary artery disease status post coronary artery bypass grafting. 2. Permanent atrial fibrillation with a controlled ventricular response. SUGGEST: Continue current medications and discharge planning per CT Surgery. MMODL / IJN: [id number] /
[2017-09-13 11:52] LABS: Glucose,Whole Blood 192 mg/dL (75-99)
[2017-09-13] MEDS: LISINOPRIL 2.5 MG TAB PO SCH (12:02)
[2017-09-13 17:06] LABS: Glucose,Whole Blood 182 mg/dL (75-99)
[2017-09-13] MEDS ORDERED: WARFARIN 5 MG TAB PO ONE (18:00)
[2017-09-13 20:45] LABS: Glucose,Whole Blood 170 mg/dL (75-99)
[2017-09-13] MEDS: MELATONIN 1 MG TAB PO SCH (21:06)
[2017-09-13] MEDS: SENNOSIDES-DOCUSATE SODIUM 1 EACH TAB PO SCH (21:07)
[2017-09-14 02:13] LABS: Glucose,Whole Blood 97 mg/dL (75-99)
[2017-09-14] MEDS: IPRATROPIUM-ALBUTEROL 3 ML NEB INHALATION PRN ×2 (05:43→07:35)
[2017-09-14] MEDS: BUDESONIDE 1 MG/2 ML NEBU INHALATION SCH (05:43)
[2017-09-14] MEDS: IPRATROPIUM-ALBUTEROL 3 ML NEB INHALATION SCH ×4 (05:44→20:31)
[2017-09-14 05:55] LABS: Glucose,Whole Blood 112 mg/dL (75-99)
[2017-09-14 06:10] LABS: Anisocytosis Slight; HCT 26.8 % (39.0-53.0); MCH 30.4 pg (25.0-35.0); MCHC 33.6 g/dL (31.0-37.0); MCV 90.2 fL (80.0-100.0); Mean Platelet Volume 6.8; Platelet Count 186 k/uL (150-450); RBC 2.97 m/uL (4.30-5.90); RDW 18.4 % (11.5-15.5); WBC 13.6 k/uL (3.8-10.6)
[2017-09-14] MEDS: INSULIN ASPART 100 UNIT/ML 1 ML 10 ML VIAL SQ SCH ×4 (06:10→21:33)
[2017-09-14 06:24] LABS: ALT 40 U/L (21-72); AST 36 U/L (17-59); Albumin 3.1 g/dL (3.5-5.0); Alkaline Phosphatase 51 U/L (38-126); Anion Gap 6 mmol/L; Blood Urea Nitrogen 22 mg/dL (9-20); Calcium 8.1 mg/dL (8.4-10.2); Carbon Dioxide 32 mmol/L (22-30); Chloride 97 mmol/L (98-107); Glucose 99 mg/dL (74-99); Potassium 4.2 mmol/L (3.5-5.1); Sodium 135 mmol/L (137-145); Total Bilirubin 0.9 mg/dL (0.2-1.3); Total Protein 5.1 g/dL (6.3-8.2)
[2017-09-14 06:30] LABS: INR 1.1 (<1.2)
[2017-09-14] MEDS: PANTOPRAZOLE 40 MG TABLET PO SCH (06:46)
[2017-09-14] MEDS: GLIMEPIRIDE 1 MG TAB PO SCH (06:46)
--- NOTE | 2017-09-14 07:18 | XR ---
EXAMINATION TYPE: XR chest 2V DATE OF EXAM: 09/14/2017 COMPARISON: 09/13/2017 TECHNIQUE: PA and lateral views submitted. HISTORY: Post cardiac surgery FINDINGS: Bilateral consolidation and pleural effusion. Underlying COPD noted. Postoperative change and cardiom egaly stable. Cardiac device noted. Shoulders. IMPRESSION: 1. COPD with bilateral infiltrate and small effusion stable.
[2017-09-14] MEDS: TAMSULOSIN 0.4 MG CAP.ER.24H PO SCH (07:37)
--- NOTE | 2017-09-14 08:27 | P.PN ---
Subjective Progress Note Date: 09/14/17 Principal diagnosis: Symptomatic triple-vessel coronary artery disease with left main disease, non- ST elevation myocardial infarction, mild to moderate left ventricular dysfunction. Chronic persistent atrial fibrillation on home Coumadin therapy. Sick sinus syndrome, status post permanent pacemaker insertion. Chronic systolic heart failure with EF 40-45% and diastolic dysfunction. Hypertension. Hyperlipidemia. Bilateral carotid stenosis, 50-79% bilaterally, Previous tobacco dependence. Severe chronic obstructive pulmonary disease with home oxygen with preoperative FEV1 45% of predicted. Arthritis. Benign prostatic hypertrophy. Gastroesophageal reflux disease. 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 Lumbar disc disease with chronic pain syndrome. History of deep vein thrombosis of his left leg. Type 2 diabetes mellitus with preoperative hemoglobin A1c 5.9%. Peripheral vascular disease. Remote history of pneumonia. Family history of early onset coronary artery disease with brother being diagnosed with myocardial infarction at age 46. Preoperative nasal swab positive for MSSA. Preoperative sputum culture positive for pseudomonas and MSSA. POD #6 urgent quadruple coronary artery bypass grafting using the left internal mammary artery to the left anterior descending artery, reverse saphenous vein graft from the aorta to the first obtuse marginal artery, reverse saphenous vein graft from the aorta to the second obtuse marginal artery, reverse saphenous vein graft from the aorta to the right coronary artery. Exclusion of the left atrial appendage using a 40 mm AtriClip. Endoscopic harvesting of the right greater saphenous vein. Intraoperative transesophageal echocardiogram and epi-aortic scanning. Intraoperative graft flow measurements using the [employer]loolastim system. Postoperative normocytic, normochromic anemia, an expected outcome of surgery related to hemodilution and cardiopulmonary bypass pump. Heparin-induced thrombocytopenia, an unexpected but potential outcome of IV heparin use. Patient's currently sitting in chair in no acute distress. Denies pain, does complain of mild shortness of breath. The patient states he slept well last night, no new complaints. Objective - Vital Signs Vital signs: Vital Signs Temp 97 F L 09/13/17 23:47 Pulse 98 09/14/17 08:03 Resp 22 09/14/17 04:00 BP 106/56 09/14/17 04:00 Pulse Ox 100 09/14/17 07:35 Intake & Output 09/13/17 09/14/17 09/14/17 18:59 06:59 18:59 Intake Total 358 360 Balance 358 360 Intake: Oral 358 360 Other: # Voids 1 2 ABP, PAP, CO, CI - Last Documented Arterial Blood Pressure 133/59 Pulmonary Artery Pressure 25/8 Cardiac Output 5.5 Cardiac Index 3.0 - Constitutional General appearance: Present: cooperative, no acute distress - Respiratory Details: Lungs sounds diminished and coarse bilaterally with faint expiratory wheezes present. Respirations even, nonlabored. Currently on 3 L nasal cannula with oxygen saturation 100%. Able to achieve 7415-5948 mL on his incentive spirometry. Productive cough with yellow sputum. - Cardiovascular Details: S1, S2 present. Irregular rate and rhythm, atrial fibrillation on telemetry. Sternum stable. Palpable peripheral pulses bilaterally. Trace lower extremity edema present. No calf pain or tenderness noted. Heart hugger in place with patient demonstrating appropriate use. Antiembolism stockings, SCDs present. - Gastrointestinal Gastrointestinal Comment(s): Abdomen soft, nontender, nondistended. Active bowel sounds 4 quadrants. Tolerating diet. Positive bowel movement. - Genitourinary Genitourinary Comment(s): Continues to void clear, yellow urine. - Integumentary Integumentary Comment(s): Skin is warm and dry. Anterior chest incision well approximated and covered with dry intact dressing. Right lower extremity EVH site well approximated with some drainage overnight per nursing. - Neurologic Neurologic: Present: CNII-XII intact - Musculoskeletal Musculoskeletal: Present: generalized weakness, strength equal bilaterally - Psychiatric Psychiatric: Present: A&O x's 3, appropriate affect, intact judgment & insight - Allied health notes Allied health notes reviewed: nursing - Labs CBC & Chem 7: 09/14/17 05:49 09/14/17 05:49 Labs: Abnormal Lab Results - Last 24 Hours (Table) 09/13/17 09/13/17 09/13/17 Range/Units 11:41 17:02 20:43 WBC (3.8-10.6) k/uL RBC (4.30-5.90) m/uL Hgb (13.0-17.5) gm/dL Hct (39.0-53.0) % RDW (11.5-15.5) % Sodium (137-145) mmol/L Chloride (98-107) mmol/L Carbon Dioxide (22-30) mmol/L BUN (9-20) mg/dL POC Glucose (mg/dL) 192 H 182 H 170 H (75-99) mg/dL Calcium (8.4-10.2) mg/dL Total Protein (6.3-8.2) g/dL Albumin (3.5-5.0) g/dL 09/14/17 09/14/17 09/14/17 Range/Units 05:49 05:49 05:53 WBC 13.6 H (3.8-10.6) k/uL RBC 2.97 L (4.30-5.90) m/uL Hgb 9.0 L (13.0-17.5) gm/dL Hct 26.8 L (39.0-53.0) % RDW 18.4 H (11.5-15.5) % Sodium 135 L (137-145) mmol/L Chloride 97 L (98-107) mmol/L Carbon Dioxide 32 H (22-30) mmol/L BUN 22 H (9-20) mg/dL POC Glucose (mg/dL) 112 H (75-99) mg/dL Calcium 8.1 L (8.4-10.2) mg/dL Total Protein 5.1 L (6.3-8.2) g/dL Albumin 3.1 L (3.5-5.0) g/dL - Imaging and Cardiology Chest x-ray: report reviewed, image reviewed Assessment and Plan (1) Family history of early CAD Current Visit: Yes Status: Chronic Code(s): Z82.49 - FAMILY HX OF ISCHEM HEART DIS AND OTH DIS OF THE CIRC S SNOMED Code(s): 482052825 (2) On home oxygen therapy Current Visit: Yes Status: Chronic Code(s): Z99.81 - DEPENDENCE ON SUPPLEMENTAL OXYGEN SNOMED Code(s): 094172775465 (3) BPH (benign prostatic hyperplasia) Current Visit: Yes Status: Chronic Code(s): N40.0 - BENIGN PROSTATIC HYPERPLASIA WITHOUT LOWER URINRY TRACT SYMP SNOMED Code(s): 474296173 (4) CAD (coronary artery disease) Current Visit: Yes Status: Chronic Code(s): I25.10 - ATHSCL HEART DISEASE OF [place] CORONARY ARTERY W/O ANG PCTRS SNOMED Code(s): 11198095 (5) COPD (chronic obstructive pulmonary disease) Current Visit: Yes Status: Chronic Code(s): J44.9 - CHRONIC OBSTRUCTIVE PULMONARY DISEASE, UNSPECIFIED SNOMED Code(s): 49314945 (6) Chronic atrial fibrillation Current Visit: Yes Status: Chronic Code(s): I48.2 - CHRONIC ATRIAL FIBRILLATION SNOMED Code(s): 236837098 (7) Chronic diastolic CHF (congestive heart failure) Current Visit: Yes Status: Chronic Code(s): I50.32 - CHRONIC DIASTOLIC ( CONGESTIVE) HEART FAILURE SNOMED Code(s): 376581987 (8) Chronic pain syndrome Current Visit: Yes Status: Chronic Code(s): G89.4 - CHRONIC PAIN SYNDROME SNOMED Code(s): 836646539 (9) Diabetes mellitus type 2 in nonobese Current Visit: Yes Status: Chronic Code(s): E11.9 - TYPE 2 DIABETES MELLITUS WITHOUT COMPLICATIONS SNOMED Code(s): 822445107 (10) GERD (gastroesophageal reflux disease) Current Visit: Yes Status: Chronic Code(s): K21.9 - GASTRO-ESOPHAGEAL REFLUX DISEASE WITHOUT ESOPHAGITIS SNOMED Code(s): 459662069 (11) History of Coumadin therapy Current Visit: Yes Status: Chronic Code(s): Z92.29 - PERSONAL HISTORY OF OTHER DRUG THERAPY SNOMED Code(s): 025017156 (12) History of MRSA infection Current Visit: No Status: Resolved Code(s): Z86.14 - PERSONAL HISTORY OF METHICILLIN RESIS STAPH INFECTION SNOMED Code(s): 316155654 (13) History of permanent cardiac pacemaker placement Current Visit: Yes Status: Chronic Code(s): Z95.0 - PRESENCE OF CARDIAC PACEMAKER SNOMED Code(s): 642345845 (14) History of sick sinus syndrome Current Visit: Yes Status: Chronic Code(s): Z86.79 - PERSONAL HISTORY OF OTHER DISEASES OF THE CIRCULATORY SYSTEM SNOMED Code(s): 137700929770588 (15) History of smoking Current Visit: No Status: Resolved Code(s): Z87.891 - PERSONAL HISTORY OF NICOTINE DEPENDENCE SNOMED Code(s): 59374617702227359 (16) Hypertension Current Visit: Yes Status: Chronic Code(s): I10 - ESSENTIAL (PRIMARY) HYPERTENSION SNOMED Code(s): 69170501 (17) Lumbar disc disease Current Visit: Yes Status: Chronic Code(s): M51.9 - UNSP THORACIC, THORACOLUM AND LUMBOSACR INTVRT DISC DISORDER SNOMED Code(s): 871003086 (18) Non-ST elevated myocardial infarction Current Visit: Yes Status: Acute Code(s): I21.4 - NON-ST ELEVATION (NSTEMI) MYOCARDIAL INFARCTION SNOMED Code(s): 781435707 (19) Peripheral vascular disease Current Visit: Yes Status: Chronic Code(s): I73.9 - PERIPHERAL VASCULAR DISEASE, UNSPECIFIED SNOMED Code(s): 779819651 Plan: 1. Continue aspirin, statin, Plavix, Arixtra, LANG inhibitor, Toprol XL. Will increase beta lisa therapy as tolerated. 2. Will give 5 mg Coumadin today. Daily INRs. Goal INR 2-2.5. Will stop Arixtra and Plavix once INR is therapeutic. 3. Wean O2 as tolerated. Encourage incentive spirometry use 10 times every hour while awake. 4. Encourage continued smoking cessation. 5. Bronchodilators, steroids, antibiotics per pulmonology. 6. Increase activity, ambulate in hallway. PT/OT/chronic rehab following. 7. Will monitor daily labs and x-rays. 8. Insulin management per Dr. White. 9. Pain management with current medication regimen. 10. GI/DVT prophylaxis. 11. Reorient PRN. 12. Discharge planning in progress. Possible discharge to [facility] on Friday. Plan was for [facility], patient would prefer [facility]. Will discuss with case management in the morning. 13. More recommendations to follow. Time with Patient: Greater than 30
[2017-09-14] MEDS: LEVOFLOXACIN 750 MG TAB PO SCH (09:08)
[2017-09-14] MEDS: MUPIROCIN 2% OINT 22 GM TUBE NASAL SCH ×2 (09:08→20:18)
[2017-09-14] MEDS: GABAPENTIN 100 MG CAP PO SCH ×3 (09:08→20:17)
[2017-09-14] MEDS: ASPIRIN 325 MG TAB PO SCH (09:08)
[2017-09-14] MEDS: ATORVASTATIN 40 MG TAB PO SCH (09:09)
[2017-09-14] MEDS: METOPROLOL SUCCINATE (ER) 50 MG TAB.ER.24H PO SCH ×2 (09:09→20:17)
[2017-09-14] MEDS: CLOPIDOGREL 75 MG TAB PO SCH (09:09)
[2017-09-14] MEDS: predniSONE 20 MG TAB PO SCH (09:09)
[2017-09-14] MEDS: FONDAPARINUX 2.5 MG/0.5 ML SYRINGE SQ SCH (09:09)
--- NOTE | 2017-09-14 09:33 | P.PN ---
Subjective Progress Note Date: 09/14/17 Principal diagnosis: Coronary artery disease Progress note dated 09/08/2017 77-year-old male with a history of non-ST segment elevation myocardial infarction, status post cardiac catheterization revealing severe triple-vessel CAD. In addition, he is quite severe COPD, with an FEV1 in the range of 45% of predicted. 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 The patient surgery is to be done today. The patient is on O2 3 L nasal cannula and has a dextrose half-normal saline IV at [facility]. He was on a heparin drip but obviously that was turned off prior to surgery. Other than that, the patient is doing reasonably well. He certainly is at high risk. This has been documented by my partner. Progress note dated 09/14/2017 77-year-old male with history of non-ST segment elevation myocardial infarction. The patient underwent a bypass grafting. I believe that was a three-vessel bypass. He is doing much better. Feeling better. The patient was weaned from mechanical ventilation and less than 6 hours. He has a history of multiple other medical problems including severe COPD with an FEV1 that's 45 % of predicted, chronic atrial fibrillation type 2 diabetes diabetic neuropathy , peripheral vascular occlusive disease, osteomyelitis hypertension, systolic heart failure. The patient remains on a couple liters of O2. Saturations are excellent. Chest x-ray reveals some bibasilar atelectasis and small pleural effusions. White count 13.6 hemoglobin 9 hematocrit 26.8 platelet count 86,000. PT/INR normal. Sodium 135 potassium 4.2 chloride 97 CO2 32 evening horton were 22 and 0.7. Sputum showed evidence of both pseudomonas aeruginosa and oxacillin sensitive staph aureus. Objective - Vital Signs Vital signs: Vital Signs Temp 97 F L 09/13/17 23:47 Pulse 98 09/14/17 08:03 Resp 22 09/14/17 04:00 BP 106/56 09/14/17 04:00 Pulse Ox 100 09/14/17 07:35 Intake & Output 09/13/17 09/14/17 09/14/17 18:59 06:59 18:59 Intake Total 358 360 Balance 358 360 Intake: Oral 358 360 Other: # Voids 1 2 ABP, PAP, CO, CI - Last Documented Arterial Blood Pressure 133/59 Pulmonary Artery Pressure 25/8 Cardiac Output 5.5 Cardiac Index 3.0 - Exam No acute distress, oriented 3. Nasal O2 was noted. HEENT examination is grossly unremarkable. Mucous membranes are moist. No oral lesions. Neck supple. Full range of motion. No adenopathy thyromegaly or neck vein distention. Cardiovascular examination reveals regular rhythm rate. S1-S2 normal. No S3 or S4. No discernible murmur noted. Lungs reveal occasional mild rhonchi. No wheezes. No crackles. Breath sounds equal bilaterally. Diminished throughout. Abdomen soft bowel sounds are heard. No masses or tenderness. Extremities are intact. No cyanosis clubbing or edema. Skin is without rash or lesion. Neurologic examination is brief but nonfocal. - Labs CBC & Chem 7: 09/14/17 05:49 09/14/17 05:49 Labs: Abnormal Lab Results - Last 24 Hours (Table) 09/13/17 09/13/17 09/13/17 Range/Units 11:41 17:02 20:43 WBC (3.8-10.6) k/uL RBC (4.30-5.90) m/uL Hgb (13.0-17.5) gm/dL Hct (39.0-53.0) % RDW (11.5-15.5) % Sodium (137-145) mmol/L Chloride (98-107) mmol/L Carbon Dioxide (22-30) mmol/L BUN (9-20) mg/dL POC Glucose (mg/dL) 192 H 182 H 170 H (75-99) mg/dL Calcium (8.4-10.2) mg/dL Total Protein (6.3-8.2) g/dL Albumin (3.5-5.0) g/dL 09/14/17 09/14/17 09/14/17 Range/Units 05:49 05:49 05:53 WBC 13.6 H (3.8-10.6) k/uL RBC 2.97 L (4.30-5.90) m/uL Hgb 9.0 L (13.0-17.5) gm/dL Hct 26.8 L (39.0-53.0) % RDW 18.4 H (11.5-15.5) % Sodium 135 L (137-145) mmol/L Chloride 97 L (98-107) mmol/L Carbon Dioxide 32 H (22-30) mmol/L BUN 22 H (9-20) mg/dL POC Glucose (mg/dL) 112 H (75-99) mg/dL Calcium 8.1 L (8.4-10.2) mg/dL Total Protein 5.1 L (6.3-8.2) g/dL Albumin 3.1 L (3.5-5.0) g/dL Assessment and Plan Assessment: Assessment Status post four-vessel bypass grafting Postoperative respiratory failure with hypoxemia Pseudomonas and oxacillin sensitive staph aureus purulent tracheobronchitis as bronchopneumonia Acute non-ST segment elevation myocardial infarction, secondary to severe triple -vessel CAD Severe COPD, stage III disease, with an FEV1 that is 45% of predicted Chronic hypoxemic respiratory failure Chronic atrial fibrillation Type 2 diabetes mellitus Diabetic neuropathy PVOD Osteomyelitis History of hypertension History of systolic heart failure. Plan: Plan dated 09/08/2017 The patient's vent will be management the patient comes back from the operating room. We'll make sure the patient's on updrafts every 4 [id number]. The patient's will be assessed carefully. We'll see if we can get the patient extubated as quickly as possible. Given his multiple comorbidities and his severe COPD, that may precipitate a bit of a problem. Additional recommendations and suggestions are forthcoming. Post extubation, use of incentive spirometry and bronchodilators will be very important and continue deep breathing coughing and clearing his secretions be beneficial as well. Critical care time 33 minutes Plan dated 09/14/2017 The patient continues to show improvement. Respiratory status is much more stable. He is on appropriate antibiotics for the current infection. The patient continues on updrafts and all other appropriate medications. We'll continue to follow. Prognosis is guarded. Time with Patient: Less than 30
[2017-09-14] MEDS ORDERED: FUROSEMIDE 10 MG/ML 2 ML VIAL IV ONE (10:00)
--- NOTE | 2017-09-14 10:42 | P.PN ---
Progress Note - Text The patient is a 77-year-old gentleman who is post quadruple coronary artery bypass grafting. He continues to be on the cardiac floor and is sitting in the chair in his room. He appears alert and oriented. In no acute distress. States he was somewhat short of breath this morning but feels better now. Patient does have history of severe COPD and previous smoking history. Temperature is 96.2 with a pulse of 98 and respirations 20. Blood pressure was 96/55 and he was 95% saturated on 3 L. Lungs are generally clear although diminished at bases. Heart tones were irregular but rate is controlled. Abdomen nontender. No unusual edema. No focal neurological deficits. Laboratory White count 13.6 with a hemoglobin 9 and a platelet count of 186. INR is 1.1. Sodium 135 with a potassium 4.2. BUN of 22 with a creatinine of 0.7 giving him a GFR greater than 90. Blood sugar 112. Chest x-ray shows evidence of COPD and bilateral infiltrates with small pleural effusion/stable Impressions and plans Patient overall appears to be doing well post surgery. Continue to advance activity as per surgery. Anticipating likely transfer to extended care rehab over the next 24-48 hours. Patient is aware and would like to go to [facility].
[2017-09-14] MEDS: LISINOPRIL 2.5 MG TAB PO SCH (11:28)
[2017-09-14] MEDS: ACETAMINOPHEN TAB 500 MG TAB PO PRN (11:28)
[2017-09-14 11:39] LABS: Glucose,Whole Blood 116 mg/dL (75-99)
--- NOTE | 2017-09-14 11:54 | PN ---
PROGRESS NOTE Blayne Draper is a 77-year-old male patient. Mr. Draper is doing well from a chronic standpoint. He denies any chest discomfort. No breathing trouble. He looks very comfortable. His vitals are stable. He is afebrile 96.2 degrees Fahrenheit, pulse rate is in the 80s, blood pressure is 96/55 mmHg. Head and neck examination normal. Heart sounds are S1, S2 soft. Breath sounds are reduced bilaterally especially at the left base. IMPRESSION: 1. Coronary artery disease status post coronary bypass grafting. 2. Rate controlled atrial fibrillation, permanent. 3. History of permanent pacing. SUGGEST: Continue on current medications and from a cardiac standpoint he may be discharged whenever is okay with CT surgery. MMODL / IJN: [id number] /
[2017-09-14 16:55] LABS: Glucose,Whole Blood 212 mg/dL (75-99)
[2017-09-14] MEDS ORDERED: WARFARIN 5 MG TAB PO ONE (18:00)
[2017-09-14] MEDS: MELATONIN 1 MG TAB PO SCH (20:17)
[2017-09-14] MEDS: SYMBICORT 160-4.5 MCG INHALER INHALATION SCH (20:31)
[2017-09-14 21:12] LABS: Glucose,Whole Blood 176 mg/dL (75-99)
[2017-09-15 02:06] LABS: Glucose,Whole Blood 153 mg/dL (75-99)
[2017-09-15] MEDS: ACETAMINOPHEN TAB 500 MG TAB PO PRN (03:24)
[2017-09-15 03:38] VITALS: RESP 19
[2017-09-15 05:50] LABS: Glucose,Whole Blood 105 mg/dL (75-99)
[2017-09-15] MEDS: INSULIN ASPART 100 UNIT/ML 1 ML 10 ML VIAL SQ SCH ×2 (05:53→11:35)
[2017-09-15 05:57] LABS: Anisocytosis Slight; HCT 26.4 % (39.0-53.0); HGB 8.5 gm/dL (13.0-17.5); MCH 29.1 pg (25.0-35.0); MCHC 32.3 g/dL (31.0-37.0); Mean Platelet Volume 7.1; Platelet Count 190 k/uL (150-450); RBC 2.93 m/uL (4.30-5.90); RDW 18.8 % (11.5-15.5)
[2017-09-15 06:04] LABS: INR 1.4 (<1.2); Prothrombin Time 12.9 sec (9.0-12.0)
[2017-09-15 06:08] LABS: ALT 42 U/L (21-72); AST 30 U/L (17-59); Albumin 3.1 g/dL (3.5-5.0); Alkaline Phosphatase 53 U/L (38-126); Anion Gap 5 mmol/L; Blood Urea Nitrogen 21 mg/dL (9-20); Calcium 8.2 mg/dL (8.4-10.2); Carbon Dioxide 32 mmol/L (22-30); Chloride 97 mmol/L (98-107); Glucose 96 mg/dL (74-99); Potassium 4.2 mmol/L (3.5-5.1); Sodium 134 mmol/L (137-145); Total Bilirubin 0.8 mg/dL (0.2-1.3); Total Protein 5.1 g/dL (6.3-8.2)
[2017-09-15] MEDS: PANTOPRAZOLE 40 MG TABLET PO SCH (06:26)
[2017-09-15] MEDS: GLIMEPIRIDE 1 MG TAB PO SCH (06:26)
[2017-09-15] MEDS: IPRATROPIUM-ALBUTEROL 3 ML NEB INHALATION SCH ×3 (07:29→15:07)
[2017-09-15] MEDS: SYMBICORT 160-4.5 MCG INHALER INHALATION SCH (07:29)
[2017-09-15] MEDS: ATORVASTATIN 40 MG TAB PO SCH (07:45)
[2017-09-15] MEDS: LEVOFLOXACIN 750 MG TAB PO SCH (07:45)
[2017-09-15] MEDS: CLOPIDOGREL 75 MG TAB PO SCH (07:45)
[2017-09-15] MEDS: GABAPENTIN 100 MG CAP PO SCH (07:46)
[2017-09-15] MEDS: TAMSULOSIN 0.4 MG CAP.ER.24H PO SCH (07:46)
[2017-09-15] MEDS: ASPIRIN 325 MG TAB PO SCH (07:46)
[2017-09-15] MEDS: MUPIROCIN 2% OINT 22 GM TUBE NASAL SCH (07:46)
[2017-09-15] MEDS: FONDAPARINUX 2.5 MG/0.5 ML SYRINGE SQ SCH (07:46)
[2017-09-15] MEDS: METOPROLOL SUCCINATE (ER) 50 MG TAB.ER.24H PO SCH (07:46)
--- NOTE | 2017-09-15 07:59 | P.PN ---
<Ryann Sheldon - Last Filed: 09/15/17 14:35> Subjective Progress Note Date: 09/15/17 Principal diagnosis: Symptomatic triple-vessel coronary artery disease with left main disease, non- ST elevation myocardial infarction, mild to moderate left ventricular dysfunction. Chronic persistent atrial fibrillation on home Coumadin therapy. Sick sinus syndrome, status post permanent pacemaker insertion. Chronic systolic heart failure with EF 40-45% and diastolic dysfunction. Hypertension. Hyperlipidemia. Bilateral carotid stenosis, 50-79% bilaterally, Previous tobacco dependence. Severe chronic obstructive pulmonary disease with home oxygen with preoperative FEV1 45% of predicted. Arthritis. Benign prostatic hypertrophy. Gastroesophageal reflux disease. 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 Lumbar disc disease with chronic pain syndrome. History of deep vein thrombosis of his left leg. Type 2 diabetes mellitus with preoperative hemoglobin A1c 5.9%. Peripheral vascular disease. Remote history of pneumonia. Family history of early onset coronary artery disease with brother being diagnosed with myocardial infarction at age 46. Preoperative nasal swab positive for MSSA. Preoperative sputum culture positive for pseudomonas and MSSA. POD #7 urgent quadruple coronary artery bypass grafting using the left internal mammary artery to the left anterior descending artery, reverse saphenous vein graft from the aorta to the first obtuse marginal artery, reverse saphenous vein graft from the aorta to the second obtuse marginal artery, reverse saphenous vein graft from the aorta to the right coronary artery. Exclusion of the left atrial appendage using a 40 mm AtriClip. Endoscopic harvesting of the right greater saphenous vein. Intraoperative transesophageal echocardiogram and epi-aortic scanning. Intraoperative graft flow measurements using the [employer]ist[employer] system. Postoperative normocytic, normochromic anemia, an expected outcome of surgery related to hemodilution and cardiopulmonary bypass pump. Heparin-induced thrombocytopenia, an unexpected but potential outcome of IV heparin use. Patient's currently sitting in chair in no acute distress. Denies pain, does complain of mild shortness of breath every morning but does state that it gets better throughout the day. The patient states he slept well last night, no new complaints. Objective - Vital Signs Vital signs: Vital Signs Temp 97.5 F L 09/15/17 03:34 Pulse 76 09/15/17 07:49 Resp 19 09/15/17 03:34 BP 96/57 09/15/17 03:34 Pulse Ox 93 L 09/15/17 07:30 Intake & Output 09/14/17 09/15/17 09/15/17 18:59 06:59 18:59 Intake Total 1010 Output Total 600 250 Balance 410 -250 Weight 76.8 kg Intake: Oral 1010 Output: Urine 600 250 Other: # Voids 1 1 # Bowel Movements 1 ABP, PAP, CO, CI - Last Documented Arterial Blood Pressure 133/59 Pulmonary Artery Pressure 25/8 Cardiac Output 5.5 Cardiac Index 3.0 - Constitutional General appearance: Present: cooperative, no acute distress - Respiratory Details: Lungs sounds diminished bilaterally with scattered rhonchi. Respirations even, nonlabored. Currently on 3 L nasal cannula with oxygen saturation 98%. Able to achieve 4134-0201 mL on his incentive spirometry. Productive cough with yellow sputum. - Cardiovascular Details: S1, S2 present. Irregular rate and rhythm, atrial fibrillation on telemetry. Sternum stable. Palpable peripheral pulses bilaterally. Trace lower extremity edema present. No calf pain or tenderness noted. Heart hugger in place with patient demonstrating appropriate use. Antiembolism stockings, SCDs present. - Gastrointestinal Gastrointestinal Comment(s): Abdomen soft, nontender, nondistended. Active bowel sounds 4 quadrants. Tolerating diet. Positive bowel movement. - Genitourinary Genitourinary Comment(s): Continues to void clear, yellow urine. - Integumentary Integumentary Comment(s): Skin is warm and dry. Anterior chest incision well approximated and covered with dry intact dressing. Right lower extremity EVH site well approximated with dry dressing in place. - Neurologic Neurologic: Present: CNII-XII intact - Musculoskeletal Musculoskeletal: Present: generalized weakness, strength equal bilaterally - Psychiatric Psychiatric: Present: A&O x's 3, appropriate affect, intact judgment & insight - Allied health notes Allied health notes reviewed: nursing - Labs CBC & Chem 7: 09/15/17 05:42 09/15/17 05:42 Labs: Abnormal Lab Results - Last 24 Hours (Table) 09/14/17 09/14/17 09/14/17 Range/Units 11:30 16:32 21:11 WBC (3.8-10.6) k/uL RBC (4.30-5.90) m/uL Hgb (13.0-17.5) gm/dL Hct (39.0-53.0) % RDW (11.5-15.5) % PT (9.0-12.0) sec INR (<1.2) Sodium (137-145) mmol/L Chloride (98-107) mmol/L Carbon Dioxide (22-30) mmol/L BUN (9-20) mg/dL POC Glucose (mg/dL) 116 H 212 H 176 H (75-99) mg/dL Calcium (8.4-10.2) mg/dL Total Protein (6.3-8.2) g/dL Albumin (3.5-5.0) g/dL 09/15/17 09/15/17 09/15/17 Range/Units 02:05 05:42 05:42 WBC 15.0 H (3.8-10.6) k/uL RBC 2.93 L (4.30-5.90) m/uL Hgb 8.5 L (13.0-17.5) gm/dL Hct 26.4 L (39.0-53.0) % RDW 18.8 H (11.5-15.5) % PT (9.0-12.0) sec INR (<1.2) Sodium 134 L (137-145) mmol/L Chloride 97 L (98-107) mmol/L Carbon Dioxide 32 H (22-30) mmol/L BUN 21 H (9-20) mg/dL POC Glucose (mg/dL) 153 H (75-99) mg/dL Calcium 8.2 L (8.4-10.2) mg/dL Total Protein 5.1 L (6.3-8.2) g/dL Albumin 3.1 L (3.5-5.0) g/dL 09/15/17 09/15/17 Range/Units 05:42 05:47 WBC (3.8-10.6) k/uL RBC (4.30-5.90) m/uL Hgb (13.0-17.5) gm/dL Hct (39.0-53.0) % RDW (11.5-15.5) % PT 12.9 H (9.0-12.0) sec INR 1.4 H (<1.2) Sodium (137-145) mmol/L Chloride (98-107) mmol/L Carbon Dioxide (22-30) mmol/L BUN (9-20) mg/dL POC Glucose (mg/dL) 105 H (75-99) mg/dL Calcium (8.4-10.2) mg/dL Total Protein (6.3-8.2) g/dL Albumin (3.5-5.0) g/dL - Imaging and Cardiology Chest x-ray: image reviewed Assessment and Plan (1) Family history of early CAD Current Visit: Yes Status: Chronic Code(s): Z82.49 - FAMILY HX OF ISCHEM HEART DIS AND OTH DIS OF THE CIRC SYS SNOMED Code(s): 743911613 (2) On home oxygen therapy Current Visit: Yes Status: Chronic Code(s): Z99.81 - DEPENDENCE ON SUPPLEMENTAL OXYGEN SNOMED Code(s): 923585275304 (3) BPH (benign prostatic hyperplasia) Current Visit: Yes Status: Chronic Code(s): N40.0 - BENIGN PROSTATIC HYPERPLASIA WITHOUT LOWER URINRY TRACT SYMP SNOMED Code(s): 176142469 (4) CAD (coronary artery disease) Current Visit: Yes Status: Chronic Code(s): I25.10 - ATHSCL HEART DISEASE OF [place] CORONARY ARTERY W/O ANG PCTRS SNOMED Code(s): 60972389 (5) COPD (chronic obstructive pulmonary disease) Current Visit: Yes Status: Chronic Code(s): J44.9 - CHRONIC OBSTRUCTIVE PULMONARY DISEASE, UNSPECIFIED SNOMED Code(s): 93984157 (6) Chronic atrial fibrillation Current Visit: Yes Status: Chronic Code(s): I48.2 - CHRONIC ATRIAL FIBRILLATION SNOMED Code(s): 156430699 (7) Chronic diastolic CHF (congestive heart failure) Current Visit: Yes Status: Chronic Code(s): I50.32 - CHRONIC DIASTOLIC ( CONGESTIVE) HEART FAILURE SNOMED Code(s): 495132185 (8) Chronic pain syndrome Current Visit: Yes Status: Chronic Code(s): G89.4 - CHRONIC PAIN SYNDROME SNOMED Code(s): 716719117 (9) Diabetes mellitus type 2 in nonobese Current Visit: Yes Status: Chronic Code(s): E11.9 - TYPE 2 DIABETES MELLITUS WITHOUT COMPLICATIONS SNOMED Code(s): 868585925 (10) GERD (gastroesophageal reflux disease) Current Visit: Yes Status: Chronic Code(s): K21.9 - GASTRO-ESOPHAGEAL REFLUX DISEASE WITHOUT ESOPHAGITIS SNOMED Code(s): 597613381 (11) History of Coumadin therapy Current Visit: Yes Status: Chronic Code(s): Z92.29 - PERSONAL HISTORY OF OTHER DRUG THERAPY SNOMED Code(s): 593394726 (12) History of MRSA infection Current Visit: No Status: Resolved Code(s): Z86.14 - PERSONAL HISTORY OF METHICILLIN RESIS STAPH INFECTION SNOMED Code(s): 940084494 (13) History of permanent cardiac pacemaker placement Current Visit: Yes Status: Chronic Code(s): Z95.0 - PRESENCE OF CARDIAC PACEMAKER SNOMED Code(s): 930712642 (14) History of sick sinus syndrome Current Visit: Yes Status: Chronic Code(s): Z86.79 - PERSONAL HISTORY OF OTHER DISEASES OF THE CIRCULATORY SYSTEM SNOMED Code(s): 840890107987178 (15) History of smoking Current Visit: No Status: Resolved Code(s): Z87.891 - PERSONAL HISTORY OF NICOTINE DEPENDENCE SNOMED Code(s): 41772100865255316 (16) Hypertension Current Visit: Yes Status: Chronic Code(s): I10 - ESSENTIAL (PRIMARY) HYPERTENSION SNOMED Code(s): 53319319 (17) Lumbar disc disease Current Visit: Yes Status: Chronic Code(s): M51.9 - UNSP THORACIC, THORACOLUM AND LUMBOSACR INTVRT DISC DISORDER SNOMED Code(s): 579396035 (18) Non-ST elevated myocardial infarction Current Visit: Yes Status: Acute Code(s): I21.4 - NON-ST ELEVATION (NSTEMI) MYOCARDIAL INFARCTION SNOMED Code(s): 407627584 (19) Peripheral vascular disease Current Visit: Yes Status: Chronic Code(s): I73.9 - PERIPHERAL VASCULAR DISEASE, UNSPECIFIED SNOMED Code(s): 070335840 Plan: 1. Continue aspirin, statin, Plavix, Arixtra, LANG inhibitor, Toprol XL. 2. Will give 5 mg Coumadin today. Daily INRs. Goal INR 2-2.5. Will stop Arixtra and Plavix once INR is therapeutic. 3. Wean O2 as tolerated. Encourage incentive spirometry use 10 times every hour while awake. 4. Encourage continued smoking cessation. 5. Bronchodilators, steroids, antibiotics per pulmonology. 6. Increase activity, ambulate in hallway. PT/OT/chronic rehab following. 7. Will monitor daily labs and x-rays. 8. Insulin management per Dr. White. 9. Pain management with current medication regimen. 10. GI/DVT prophylaxis. 11. Reorient PRN. 12. Discharge planning in progress. Possible discharge to [facility] today. Plan was for [facility], patient would prefer [facility]. Will discuss with case management/social work. 13. More recommendations to follow. Time with Patient: Greater than 30 <Javon Lpoez - Last Filed: 09/15/17 14:44> Objective - Vital Signs Vital signs: Vital Signs Temp 97.8 F 09/15/17 07:54 Pulse 72 09/15/17 11:25 Resp 19 09/15/17 07:54 BP 103/59 09/15/17 09:17 Pulse Ox 100 09/15/17 09:17 Intake & Output 09/14/17 09/15/17 09/15/17 18:59 06:59 18:59 Intake Total 1010 660 Output Total 600 250 451 Balance 410 -250 209 Weight 76.8 kg Intake: Oral 1010 660 Output: Urine 600 250 450 Stool 1 Other: Voiding Method Bedside Commode Urinal # Voids 1 1 # Bowel Movements 1 ABP, PAP, CO, CI - Last Documented Arterial Blood Pressure 133/59 Pulmonary Artery Pressure 25/8 Cardiac Output 5.5 Cardiac Index 3.0 - Labs CBC & Chem 7: 09/15/17 05:42 09/15/17 05:42 Labs: Abnormal Lab Results - Last 24 Hours (Table) 09/14/17 09/14/17 09/15/17 Range/Units 16:32 21:11 02:05 WBC (3.8-10.6) k/uL RBC (4.30-5.90) m/uL Hgb (13.0-17.5) gm/dL Hct (39.0-53.0) % RDW (11.5-15.5) % PT (9.0-12.0) sec INR (<1.2) Sodium (137-145) mmol/L Chloride (98-107) mmol/L Carbon Dioxide (22-30) mmol/L BUN (9-20) mg/dL POC Glucose (mg/dL) 212 H 176 H 153 H (75-99) mg/dL Calcium (8.4-10.2) mg/dL Total Protein (6.3-8.2) g/dL Albumin (3.5-5.0) g/dL 09/15/17 09/15/17 09/15/17 Range/Units 05:42 05:42 05:42 WBC 15.0 H (3.8-10.6) k/uL RBC 2.93 L (4.30-5.90) m/uL Hgb 8.5 L (13.0-17.5) gm/dL Hct 26.4 L (39.0-53.0) % RDW 18.8 H (11.5-15.5) % PT 12.9 H (9.0-12.0) sec INR 1.4 H (<1.2) Sodium 134 L (137-145) mmol/L Chloride 97 L (98-107) mmol/L Carbon Dioxide 32 H (22-30) mmol/L BUN 21 H (9-20) mg/dL POC Glucose (mg/dL) (75-99) mg/dL Calcium 8.2 L (8.4-10.2) mg/dL Total Protein 5.1 L (6.3-8.2) g/dL Albumin 3.1 L (3.5-5.0) g/dL 09/15/17 09/15/17 Range/Units 05:47 11:29 WBC (3.8-10.6) k/uL RBC (4.30-5.90) m/uL Hgb (13.0-17.5) gm/dL Hct (39.0-53.0) % RDW (11.5-15.5) % PT (9.0-12.0) sec INR (<1.2) Sodium (137-145) mmol/L Chloride (98-107) mmol/L Carbon Dioxide (22-30) mmol/L BUN (9-20) mg/dL POC Glucose (mg/dL) 105 H 125 H (75-99) mg/dL Calcium (8.4-10.2) mg/dL Total Protein (6.3-8.2) g/dL Albumin (3.5-5.0) g/dL Assessment and Plan Plan: The patient was seen and examined. The history and physical findings were verified. I agree with the above assessment and plan. The patient appears to be on his baseline oxygen supplementation. He will get daily prednisone as directed by pulmonary. His laboratory studies were reviewed. We will continue with Coumadin. He is stable for discharge to subacute rehab this afternoon.
--- NOTE | 2017-09-15 08:35 | XR ---
EXAMINATION TYPE: XR chest 2V DATE OF EXAM: 09/15/2017 COMPARISON: 09/14/2017 TECHNIQUE: PA and lateral views submitted. HISTORY: Post cardiac surgery FINDINGS: Postsurgical changes are noted there is hypertrophic and degenerative change of the spine. Cardiac de vice is seen and there is bilateral infiltrate and pleural effusion. Heart is enlarged. No overt fail ure. IMPRESSION: 1. Bilateral infiltrate and small effusion. 2. COPD.
[2017-09-15] MEDS ORDERED: predniSONE 20 MG TAB PO SCH (09:00)
--- NOTE | 2017-09-15 10:59 | P.PN ---
Subjective Progress Note Date: 09/15/17 Principal diagnosis: CABG His is a 77-year-old gentleman with history of non-ST elevation myocardial infarction, status post cardiac cath which revealed severe triple- vessel CAD, he also has history of severe COPD, chronic persistent atrial fibrillation, diabetes, hypertension, hyperlipidemia. He is status post coronary bypass grafting surgery, seen on the telemetry unit this morning, sitting up in the chair at bedside. Feels well overall, breathing stable. Blood pressure 114/56 with a heart rate in the 80s to 90s, afebrile. 94% on 3 L of oxygen. White blood cell count 15.0, hemoglobin 8.5, platelet count 190. Sodium 134, potassium 4.2, BUN 21, creatinine 0.7. INR 1.4. Objective - Vital Signs Vital signs: Vital Signs Temp 97.8 F 09/15/17 07:54 Pulse 83 09/15/17 09:17 Resp 19 09/15/17 07:54 BP 103/59 09/15/17 09:17 Pulse Ox 100 09/15/17 09:17 Intake & Output 09/14/17 09/15/17 09/15/17 18:59 06:59 18:59 Intake Total 1010 360 Output Total 600 250 1 Balance 410 -250 359 Weight 76.8 kg Intake: Oral 1010 360 Output: Urine 600 250 Stool 1 Other: Voiding Method Bedside Commode Urinal # Voids 1 1 # Bowel Movements 1 ABP, PAP, CO, CI - Last Documented Arterial Blood Pressure 133/59 Pulmonary Artery Pressure 25/8 Cardiac Output 5.5 Cardiac Index 3.0 - Exam PHYSICAL EXAMINATION: GENERAL: 77-year-old gentleman in no apparent distress at the time of my examination HEENT: Head is atraumatic, normocephalic. Pupils equal, round. Sclera anicteric. Conjunctiva are clear. Mucous membranes of the mouth are moist. Neck is supple. There is no elevated jugular venous pressure.] bruit is heard. HEART EXAMINATION: Heart S1 and S2 irregularly irregular. Heart had are in place. CHEST EXAMINATION: Lungs reveal scattered coarse rhonchi bilaterally. Reaching 1500 on his incentive spirometry. ABDOMEN: Soft, nontender. Bowel sounds are heard. No organomegaly noted. EXTREMITIES: 2+ peripheral pulses with no evidence of peripheral edema and no calf tenderness noted. NEUROLOGIC patient is awake, alert and oriented -3. . - Labs CBC & Chem 7: 09/15/17 05:42 09/15/17 05:42 Labs: Abnormal Lab Results - Last 24 Hours (Table) 09/14/17 09/14/17 09/14/17 Range/Units 11:30 16:32 21:11 WBC (3.8-10.6) k/uL RBC (4.30-5.90) m/uL Hgb (13.0-17.5) gm/dL Hct (39.0-53.0) % RDW (11.5-15.5) % PT (9.0-12.0) sec INR (<1.2) Sodium (137-145) mmol/L Chloride (98-107) mmol/L Carbon Dioxide (22-30) mmol/L BUN (9-20) mg/dL POC Glucose (mg/dL) 116 H 212 H 176 H (75-99) mg/dL Calcium (8.4-10.2) mg/dL Total Protein (6.3-8.2) g/dL Albumin (3.5-5.0) g/dL 09/15/17 09/15/17 09/15/17 Range/Units 02:05 05:42 05:42 WBC 15.0 H (3.8-10.6) k/uL RBC 2.93 L (4.30-5.90) m/uL Hgb 8.5 L (13.0-17.5) gm/dL Hct 26.4 L (39.0-53.0) % RDW 18.8 H (11.5-15.5) % PT (9.0-12.0) sec INR (<1.2) Sodium 134 L (137-145) mmol/L Chloride 97 L (98-107) mmol/L Carbon Dioxide 32 H (22-30) mmol/L BUN 21 H (9-20) mg/dL POC Glucose (mg/dL) 153 H (75-99) mg/dL Calcium 8.2 L (8.4-10.2) mg/dL Total Protein 5.1 L (6.3-8.2) g/dL Albumin 3.1 L (3.5-5.0) g/dL 06/18/18 06/18/18 Range/Units 05:42 05:47 WBC (3.8-10.6) k/uL RBC (4.30-5.90) m/uL Hgb (13.0-17.5) gm/dL Hct (39.0-53.0) % RDW (11.5-15.5) % PT 12.9 H (9.0-12.0) sec INR 1.4 H (<1.2) Sodium (137-145) mmol/L Chloride (98-107) mmol/L Carbon Dioxide (22-30) mmol/L BUN (9-20) mg/dL POC Glucose (mg/dL) 105 H (75-99) mg/dL Calcium (8.4-10.2) mg/dL Total Protein (6.3-8.2) g/dL Albumin (3.5-5.0) g/dL Assessment and Plan Plan: Assessment and plan #1 non-Q wave myocardial infarction status post coronary artery bypass grafting surgery #2 COPD #3 chronic persistent atrial fibrillation #4 hypertension # 5 diabetes #6 hyperlipidemia #7 history of prior pacer implantation #8 history of nicotine dependence #9 peripheral vascular disease #10 H IT Plan From cardiology's perspective, we will continue the patient on his current medications. Arrangements are being made for possible transferred to rehab today. DNP note has been reviewed, I agree with a documented findings and plan of care. Patient was seen and examined.
[2017-09-15] MEDS: LISINOPRIL 2.5 MG TAB PO SCH (11:35)
[2017-09-15 11:37] LABS: Glucose,Whole Blood 125 mg/dL (75-99)
--- NOTE | 2017-09-15 13:13 | P.PN ---
Subjective Progress Note Date: 09/15/17 Principal diagnosis: Coronary artery disease, status post coronary artery bypass grafting, postop day 1 Progress note dated 09/08/2017 77-year-old male with a history of non-ST segment elevation myocardial infarction, status post cardiac catheterization revealing severe triple-vessel CAD. In addition, he is quite severe COPD, with an FEV1 in the range of 45% of predicted. 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 The patient surgery is to be done today. The patient is on O2 3 L nasal cannula and has a dextrose half-normal saline IV at KVO. He was on a heparin drip but obviously that was turned off prior to surgery. Other than that, the patient is doing reasonably well. He certainly is at high risk. This has been documented by my partner. On 09/09/2017 patient seen in follow-up in the intensive care unit. This is postop day 1, status post quadruple coronary artery bypass grafting using the PARSON to LAD, reverse SVG to OM1, reverse SVG to OM 2, reverse SVG to the RCA, exclusion of the left atrial appendage, and intraoperative AMLATHI and AP aortic scanning. Patient was extubated in less than 6 hours post OR exit time. Patient was extubated at 9:00 last night successfully to a 40% Ventimask, on which she remains this morning. He is awake alert, sitting up in the recliner, doing well, denies any acute distress. Midsternal incision is stable, clean dry and intact One mediastinal and one left pleural chest tube draining small amount of serosanguineous drainage. Maintenance IV includes LR at a rate of 50 ML per hour, insulin drip at 2 units per hour, no vasoactive drips at this time, clever proximal has been discontinued, as well as nitroglycerin drip. Kitchen catheter is in place, and the urine output is ranging from 30-75 ML per hour. Cardiac index and output is 5.5 and 3.0 respectively. Dissipate discontinuation of the PA catheter this morning. PA pressures 28/11, with a map of 19. Patient has not required any blood transfusions. Today's labs were reviewed, WBCs 11.2, hemoglobin is 9.0, INR is 1.4, potassium is 5.3, BUN is 33 , creatinine 0.80. Today's chest x-ray has been reviewed and shows basilar atelectasis versus edema. Lung sounds positive for some crackles over left lower lobe anteriorly, diminished on the right. Patient Solu-Medrol's has been switched to oral prednisone. On 09/10/2017 patient seen in follow-up in intensive care unit. This postop day 2, status post coronary artery bypass grafting 4, and exclusion of the left atrial appendage. He is awake and alert, remains on 40% Ventimask, today' s exam patient is a bit more congested, there is scattered rhonchi, and wheezes bilaterally. His chest x-ray has been reviewed and shows new right basilar airspace disease that could represent atelectasis or developing pneumonia, stable left basilar subsegmental atelectasis, and trace right pleural effusion. Incentive spirometry effort is 800 mL today. He is still chest tube has been removed, left pleural chest tube remains in place with serosanguineous output. He remains in A. fib with frequent PVCs. He was started on Arixtra for anticoagulation, he was given a dose of IV digoxin for rate control. Denies any chest pain or dyspnea. Sternal incision is clean dry and intact, stable. [place] catheter has been removed. Maintenance in the IV include LR at a rate of 30 ML per hour, no other drips. Which the oral prednisone back to Solu- Medrol 40 mg every 8 hours, we'll discontinue Symbicort and put the patient on Pulmicort. On 09/11/2017 patient seen in follow-up in the intensive care unit. He is confused, and only oriented to person and the president. Nursing staff reports patient is not sleeping well, and was having periods of agitation, during which she pulled out and IV. parts expediter is at the bedside this morning. Patient is awake, alert, and appears to be in no acute distress. Denies any dyspnea, his pain is reasonable control. Pox on 5 L per nasal cannula is 99%. Hemodynamically stable. Today's chest x-ray has been reviewed by Dr. Linares, and shows small pleural effusion, and basilar atelectasis. Cardiothoracic surgery has been dosing patient's IV Lasix, and the patient will receive another 20 mg of Lasix this morning. Continues on nebulized bronchodilators, has a loose productive cough with cullen-colored thick sputum, and the sputum culture was positive for pseudomonas aeruginosa, and presumptive staph aureus. She will be started on oral Cipro, and further adjustment antibiotics will be made once the final culture and sensitivity is done on organism #2, for presumptive staph aureus. Patient remains afebrile. Lung sounds are positive for scattered rhonchi, and bibasilar crackles. Patient's incentive spirometry effort today's 1250 ML. Mediastinal chest tube has been discontinued yesterday , left pleural chest tube remains in place with serosanguineous output. Epicardial wires have been discontinued. Today lab work has been reviewed, and shows no leukocytosis, WBCs 10.2, hemoglobin is 8.7, platelet count is 84, serum sodium is 135, potassium is 4.5, chloride is 97, BUN 35, creatinine 0.80. Patient is tolerating a regular diet. Nonoliguric. On 09/12/2017 patient seen again in follow-up in the intensive care unit. He sitting up in the recliner, currently on 3 L per nasal cannula, denies any acute distress, no chest pain, no shortness of breath, no cough or congestion. Lung sounds are diminished with a few scattered rhonchi, no significant wheezing noted. Overall improved compared to yesterday's exam. Midsternal incision is clean dry and intact, sternum stable, no edema present. Hugger is in place, and the patient is utilizing his incentive spirometer able to achieve 3057-0566 mL today. Today's chest x-ray has been reviewed and still shows small pleural effusions, and basilar atelectasis, stable exam. Patient remains in A. fib, with a controlled rate, he had been started on Arixtra for anticoagulation, he was given 20 mg of IV Lasix yesterday, and he is in -1558 mL. His left pleural chest tube has been discontinued. No IV fluids or drips at this time, . he is tolerating oral diet, no fever or chills, microbiology results were reviewed, and the sputum culture was positive for pseudomonas aeruginosa, and Staphylococcus aureus, oxacillin sensitive. Both organisms are susceptible to Levaquin, hence we will switch to Cipro to Levaquin. On 09/15/2017 patient seen again on selective care unit. He sitting up in the chair, eating lunch, in no acute distress. Pulse ox on 3 L per nasal cannula is 100%, but signs are stable, the patient is afebrile, denies any dyspnea, denies any chest pain, lung sounds are clear to auscultation, no rhonchi, no wheezes. She is compliant with his incentive spirometer, and is able to achieve 1632-1914 on it today. This is postop day 8 post 4 vessel coronary artery bypass grafting with left atrial appendage exclusion. Chest x-ray has been reviewed by Dr. Camargo, and shows bilateral infiltrate and small pleural effusion, COPD. Patient has been treated with Levaquin for evidence of pseudomonas aeruginosa in the preop sputum culture and MSSA both susceptible to Levaquin. Today's labs were noted. Discharge planning is in progress for discharge to monitor with nursing and rehab today or tomorrow. Objective - Vital Signs Vital signs: Vital Signs Temp 97.8 F 09/15/17 07:54 Pulse 72 09/15/17 11:25 Resp 19 09/15/17 07:54 BP 103/59 09/15/17 09:17 Pulse Ox 100 09/15/17 09:17 Intake & Output 09/14/17 09/15/17 09/15/17 18:59 06:59 18:59 Intake Total 1010 360 Output Total 600 250 1 Balance 410 -250 359 Weight 76.8 kg Intake: Oral 1010 360 Output: Urine 600 250 Stool 1 Other: Voiding Method Bedside Commode Urinal # Voids 1 1 # Bowel Movements 1 ABP, PAP, CO, CI - Last Documented Arterial Blood Pressure 133/59 Pulmonary Artery Pressure 25/8 Cardiac Output 5.5 Cardiac Index 3.0 - Exam GENERAL EXAM: Alert, pleasant, 69-year-old white male comfortable in no apparent distress, currently on 3 L per nasal cannula HEAD: Normocephalic/atraumatic. EYES: Normal reaction of pupils, equal size. Conjunctiva pink, sclera white. NOSE: Clear with pink turbinates. THROAT: No erythema or exudates. NECK: No masses, no JVD, no thyroid enlargement, no adenopathy. CHEST: No chest wall deformity. Symmetrical expansion. Midsternal incision is clean dry and intact and stable. Mediastinal, left pleural chest tubes and epicardial wires have been all discontinued LUNGS: Equal air entry bilateral rhonchi and scattered wheezes CVS: Irregular rate and rhythm, normal S1 and S2, no gallops, no murmurs, no rubs ABDOMEN: Soft, nontender. No hepatosplenomegaly, normal bowel sounds, no guarding or rigidity. EXTREMITIES: No clubbing, no edema, no cyanosis, 2+ pulses and upper and lower extremities. There is a JESÚS drain in the right lower leg, right lower leg is Gilberto wrapped MUSCULOSKELETAL: Muscle strength and tone normal. SPINE: No scoliosis or deformity SKIN: No rashes CENTRAL NERVOUS SYSTEM: Alert and oriented -3. No focal deficits, tone is normal in all 4 extremities. PSYCHIATRIC: Alert and oriented -3. Mentation is much improved on today's exam - Labs CBC & Chem 7: 09/15/17 05:42 09/15/17 05:42 Labs: Abnormal Lab Results - Last 24 Hours (Table) 09/14/17 09/14/17 09/15/17 Range/Units 16:32 21:11 02:05 WBC (3.8-10.6) k/uL RBC (4.30-5.90) m/uL Hgb (13.0-17.5) gm/dL Hct (39.0-53.0) % RDW (11.5-15.5) % PT (9.0-12.0) sec INR (<1.2) Sodium (137-145) mmol/L Chloride (98-107) mmol/L Carbon Dioxide (22-30) mmol/L BUN (9-20) mg/dL POC Glucose (mg/dL) 212 H 176 H 153 H (75-99) mg/dL Calcium (8.4-10.2) mg/dL Total Protein (6.3-8.2) g/dL Albumin (3.5-5.0) g/dL 09/15/17 09/15/17 09/15/17 Range/Units 05:42 05:42 05:42 WBC 15.0 H (3.8-10.6) k/uL RBC 2.93 L (4.30-5.90) m/uL Hgb 8.5 L (13.0-17.5) gm/dL Hct 26.4 L (39.0-53.0) % RDW 18.8 H (11.5-15.5) % PT 12.9 H (9.0-12.0) sec INR 1.4 H (<1.2) Sodium 134 L (137-145) mmol/L Chloride 97 L (98-107) mmol/L Carbon Dioxide 32 H (22-30) mmol/L BUN 21 H (9-20) mg/dL POC Glucose (mg/dL) (75-99) mg/dL Calcium 8.2 L (8.4-10.2) mg/dL Total Protein 5.1 L (6.3-8.2) g/dL Albumin 3.1 L (3.5-5.0) g/dL 09/15/17 09/15/17 Range/Units 05:47 11:29 WBC (3.8-10.6) k/uL RBC (4.30-5.90) m/uL Hgb (13.0-17.5) gm/dL Hct (39.0-53.0) % RDW (11.5-15.5) % PT (9.0-12.0) sec INR (<1.2) Sodium (137-145) mmol/L Chloride (98-107) mmol/L Carbon Dioxide (22-30) mmol/L BUN (9-20) mg/dL POC Glucose (mg/dL) 105 H 125 H (75-99) mg/dL Calcium (8.4-10.2) mg/dL Total Protein (6.3-8.2) g/dL Albumin (3.5-5.0) g/dL Assessment and Plan Plan: Assessment: Acute non-ST segment elevation myocardial infarction, secondary to severe triple -vessel CAD, status post quadruple coronary artery bypass grafting with PARSON to LAD, reverse SVG to OM1, reverse SVG to OM 2, and reverse SVG to RCA, and exclusion of the left atrial appendage with AtriCure clip, postop day 8 Severe COPD, stage III disease, with an FEV1 that is 45% of predicted Chronic hypoxemic respiratory failure Sputum cultures positive for pseudomonas aeruginosa and oxacillin sensitive Staphylococcus aureus from's 09/08/2017 Chronic atrial fibrillation Type 2 diabetes mellitus Diabetic neuropathy PVOD Osteomyelitis History of hypertension History of systolic heart failure. Plan: Continue current medical treatment, continue encouraging incentive spirometry, ambulation. Patient is doing well, stable. Today's chest x-ray has been reviewed with Dr. Camargo, showed small bilateral pleural effusions. Patient has been receiving IV diuretics per to CT surgery. We'll continue Levaquin, continue oral prednisone. Discharge planning is in progress for transfer to [facility] and rehab today or tomorrow. I performed a history & physical examination of the patient and discussed their management with my nurse practitioner, Rowena Rowe. I reviewed the nurse practitioner's note and agree with the documented findings and plan of care. Lung sounds are coarse lung sounds, with a few rhonchi. The findings and the impression was discussed with the patient. I attest to the documentation by the nurse practitioner. Time with Patient: Less than 30
--- NOTE | 2017-09-15 14:40 | P.DS ---
Providers Date of admission: 09/05/17 14:25 Expected date of discharge: 09/15/17 Attending physician: Montrell Horvath Consults: 09/05/17 15:04 Consult Physician Routine Consulting Provider: Montrell Horvath Consult Reason/Comments: triple vessel disease Do you want consulting provider notified?: Already Contacted Consult Physician Routine Consulting Provider: Johanny Cruz Consult Reason/Comments: ICU management Do you want consulting provider notified?: Already Contacted Consult Physician Routine Consulting Provider: Art Guaman Consult Reason/Comments: chest pain Do you want consulting provider notified?: Already Contacted 09/08/17 14:41 Consult Physician Routine Consulting Provider: Jimmy White Consult Reason/Comments: medical mangement Do you want consulting provider notified?: Already Contacted Primary care physician: Stated None - Discharge Diagnosis(es) (1) Family history of early CAD Current Visit: Yes Status: Chronic (2) On home oxygen therapy Current Visit: Yes Status: Chronic (3) BPH (benign prostatic hyperplasia) Current Visit: Yes Status: Chronic (4) CAD (coronary artery disease) Current Visit: Yes Status: Chronic (5) COPD (chronic obstructive pulmonary disease) Current Visit: Yes Status: Chronic (6) Chronic atrial fibrillation Current Visit: Yes Status: Chronic (7) Chronic diastolic CHF (congestive heart failure) Current Visit: Yes Status: Chronic (8) Chronic pain syndrome Current Visit: Yes Status: Chronic (9) Diabetes mellitus type 2 in nonobese Current Visit: Yes Status: Chronic (10) GERD (gastroesophageal reflux disease) Current Visit: Yes Status: Chronic (11) History of Coumadin therapy Current Visit: Yes Status: Chronic (12) History of MRSA infection Current Visit: No Status: Resolved (13) History of permanent cardiac pacemaker placement Current Visit: Yes Status: Chronic (14) History of sick sinus syndrome Current Visit: Yes Status: Chronic (15) History of smoking Current Visit: No Status: Resolved (16) Hypertension Current Visit: Yes Status: Chronic (17) Lumbar disc disease Current Visit: Yes Status: Chronic (18) Non-ST elevated myocardial infarction Current Visit: Yes Status: Acute (19) Peripheral vascular disease Current Visit: Yes Status: Chronic Hospital Course: FINAL DIAGNOSIS: 1. Symptomatic triple-vessel coronary artery disease with left main disease 2. Non-ST elevation myocardial infarction 3. Mild to moderate left ventricular dysfunction 4. Chronic persistent atrial fibrillation on home Coumadin therapy 5. Sick sinus syndrome, status post permanent pacemaker insertion 6. Chronic systolic heart failure with EF 40-45% and diastolic dysfunction 7. Hypertension 8. Hyperlipidemia 9. Carotid stenosis, 50-79% bilaterally 10. Previous tobacco dependence 11. Severe chronic objective pulmonary disease with home oxygen with preoperative FEV1 45% of predicted 12. Arthritis 13. Benign prostatic hypertrophy 14. Gastroesophageal reflux disease 15. 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 Type 2 diabetes mellitus with preoperative hemoglobin A1c 5.9% 17. Peripheral vascular disease 18. Remote history of pneumonia 19. Family history of early onset coronary artery disease 20. Preoperative nasal swab positive for MSSA 21. Preoperative sputum culture positive for pseudomonas and MSSA PRINCIPAL PROCEDURE: 1. Urgent quadruple coronary artery bypass grafting using left internal mammary artery to the left anterior descending artery, reverse saphenous vein graft from the aorta to the first obtuse marginal artery, reverse saphenous vein graft from the aorta to the second obtuse marginal artery, reverse saphenous vein graft from the aorta to the right coronary artery 2. Exclusion of the left atrial appendage using a 40 mm AtriClip 3. Endoscopic harvesting of the right greater saphenous vein 4. Intraoperative transesophageal echocardiogram and epi-aortic scanning 5. Intraoperative graft flow measurements using the [employer] system HISTORY OF PRESENT ILLNESS: This is a 77-year-old gentleman who follows with Dr. White on an outpatient basis. He presented to the emergency department at [facility] with complaints of anginal-type chest pain and shortness of breath over a few days. EKG completed in the emergency room demonstrated atrial fibrillation with T-wave inversions in the anterior lateral leads. Troponins were elevated and patient was recommended to undergo heart catheterization which demonstrated chronically occluded right coronary artery with collaterals from the left system, left main with mild disease, mild disease to the proximal circumflex, 70% stenosis to the first obtuse marginal coronary artery, and critical lesion to the proximal and mid left anterior descending coronary artery. A 2-D echocardiogram was also completed at [facility] demonstrating mild concentric left ventricular hypertrophy with mild to moderately impaired systolic function and an ejection fraction 40- 45%, mild aortic regurgitation, mild mitral valve regurgitation, and trace tricuspid valve regurgitation. The patient was subsequently transferred to [facility] and the consult was placed for Dr. Horvath from cardiothoracic surgery for the possibility of surgical revascularization. Upon completion of preoperative testing coronary artery bypass grafting surgery was recommended, an extensive discussion was had with the patient and his family, risks and benefits were explained in detail, all questions were answered, and consent was obtained to proceed with surgery. HOSPITAL COURSE: On 09/08/2017, the patient was taken to the preoperative area, prepared in the usual fashion, and subsequently taken to the operating room or Dr. Horvath performed an urgent quadruple coronary artery bypass grafting using left internal mammary artery to the left anterior descending artery, reverse saphenous vein graft from the aorta to the first obtuse marginal artery, reverse saphenous vein graft from the aorta to the second obtuse marginal artery , reverse saphenous vein graft from the aorta to the right coronary artery, exclusion of the left atrial appendage using a 40 mm AtriClip, endoscopic harvesting of the right greater saphenous vein, intraoperative transesophageal echocardiogram, epi-aortic scanning, and intraoperative graft flow measurements using the [employer] system. Upon completion of surgery the patient was transferred to the cardiovascular intensive care unit where he was recovered, monitored hemodynamically, and where he progressed to cardiac rehabilitation phase 1. He was extubated, all lines, tubes, and drips were discontinued when appropriate, and he was transferred to [address] [place] [address] for further monitoring and rehabilitation. His oxygen was titrated down to 3 L nasal cannula, he continued to work with physical and occupational therapy, and was ready to be discharged to subacute rehab on postop day #7. He received written and verbal instruction regarding his medications, activity restrictions, signs and symptoms requiring physician notification, and follow-up appointments. COMPLICATIONS: The patient experienced postoperative normocytic, normochromic anemia, and expected outcome of surgery and heparin-induced thrombocytopenia, both treated accordingly. Plan - Discharge Summary Discharge Rx Participant: No New Discharge Prescriptions: New Acetaminophen Tab [Tylenol] 500 mg PO Q4HR PRN tab PRN Reason: Fever And/ Or Pain Aspirin 325 mg PO DAILY tab Atorvastatin [Lipitor] 40 mg PO DAILY tab Budesonide-Formot 160-4.5 Mcg [Symbicort 160-4.5 Mcg Inhaler] 2 puff INHALATION RT-BID puff Clopidogrel [Plavix] 75 mg PO DAILY #0 tab Fondaparinux [Arixtra] 2.5 mg SQ DAILY syringe Glimepiride [Amaryl] 1 mg PO AC-BRKFST tab Insulin Aspart [NovoLOG (formulary)] 0 unit SQ ACHS vial Ipratropium-Albuterol Nebulize [Duoneb 0.5 mg-3 mg/3 ml Soln] 3 ml INHALATION RT-Q2H PRN ampul.neb PRN Reason: Shortness Of Breath Or Wheezing Levofloxacin [Levaquin] 750 mg PO DAILY #7 tab Lisinopril [Zestril] 2.5 mg PO DAILY@1200 tab Magnesium Hydroxide [Milk of Magnesia Concentrate] 2,400 mg PO BID PRN ml PRN Reason: Constipation Melatonin 2 mg PO HS tab Metoprolol Succinate (ER) [Toprol XL] 50 mg PO BID tab.er.24h Pantoprazole [Protonix] 40 mg PO AC-BRKFST tablet.dr predniSONE 10 mg PO DAILY tab Continue Tamsulosin HCl [Flomax] 0.4 mg PO DAILY Ipratropium-Albuterol Nebulize [Duoneb 0.5 mg-3 mg/3 ml Soln] 3 ml INHALATION RT-QID Gabapentin [Neurontin] 100 mg PO TID Warfarin [Coumadin] 5 mg PO DAILY #0 Discontinued Furosemide [Lasix] 40 mg PO DAILY Digoxin [Lanoxin] 125 mcg PO DAILY Losartan [Cozaar] 50 mg PO DAILY Lisinopril [Zestril] 10 mg PO DAILY Atenolol [Tenormin] 50 mg PO BID glipiZIDE XL [Glucotrol Xl] 2.5 mg PO DAILY Ranitidine HCl 150 mg PO HS Discharge Medication List Gabapentin [Neurontin] 100 mg PO TID 09/05/17 [History] Ipratropium-Albuterol Nebulize [Duoneb 0.5 mg-3 mg/3 ml Soln] 3 ml INHALATION RT -QID 09/05/17 [History] Tamsulosin HCl [Flomax] 0.4 mg PO DAILY 09/05/17 [History] Acetaminophen Tab [Tylenol] 500 mg PO Q4HR PRN tab 09/15/17 [Rx] Aspirin 325 mg PO DAILY tab 09/15/17 [Rx] Atorvastatin [Lipitor] 40 mg PO DAILY tab 09/15/17 [Rx] Budesonide-Formot 160-4.5 Mcg [Symbicort 160-4.5 Mcg Inhaler] 2 puff INHALATION RT-BID puff 09/15/17 [Rx] Clopidogrel [Plavix] 75 mg PO DAILY #0 tab 09/15/17 [Rx] Fondaparinux [Arixtra] 2.5 mg SQ DAILY syringe 09/15/17 [Rx] Glimepiride [Amaryl] 1 mg PO AC-BRKFST tab 09/15/17 [Rx] Insulin Aspart [NovoLOG (formulary)] 0 unit SQ ACHS vial 09/15/17 [Rx] Ipratropium-Albuterol Nebulize [Duoneb 0.5 mg-3 mg/3 ml Soln] 3 ml INHALATION RT -Q2H PRN ampul.neb 09/15/17 [Rx] Levofloxacin [Levaquin] 750 mg PO DAILY #7 tab 09/15/17 [Rx] Lisinopril [Zestril] 2.5 mg PO DAILY@1200 tab 09/15/17 [Rx] Magnesium Hydroxide [Milk of Magnesia Concentrate] 2,400 mg PO BID PRN ml 09/15 [Rx] Melatonin 2 mg PO HS tab 09/15/17 [Rx] Metoprolol Succinate (ER) [Toprol XL] 50 mg PO BID tab.er.24h 09/15/17 [Rx] Pantoprazole [Protonix] 40 mg PO AC-BRKFST tablet. 09/15/17 [Rx] Warfarin [Coumadin] 5 mg PO DAILY #0 09/15/17 [Rx] predniSONE 10 mg PO DAILY tab 09/15/17 [Rx] Follow up Appointment(s)/Referral(s): Johanny Cruz MD [STAFF PHYSICIAN] - 10/06/17 10:30 am Montrell Horvath MD [STAFF PHYSICIAN] - 10/10/17 10:45 am Jimmy White MD [STAFF PHYSICIAN] - 1 Week (Please make appointment to follow up with Dr. White upon discharge from [facility].) Anders Angel MD [STAFF PHYSICIAN] - 09/29/17 3:45 pm (At [facility] [address] [place] ) Ambulatory/Diagnostic Orders: Complete Blood Count w/diff [LAB.AMB] Time Frame: 3 Days, Location: Determined By Patient Comprehensive Metabolic Panel [LAB.AMB] Time Frame: 3 Days, Location: Determined By Patient Prothrombin Time INR [LAB.AMB] Time Frame: 1 Day, Facility: [facility], Location: [facility] Activity/Diet/Wound Care/Special Instructions: DISCHARGE INSTRUCTIONS: 1. No driving for 4 weeks, or until physician gives their ok. 2. The patient should sleep in their own bed, no medical bed needed. 3. Stairs are not an issue. If the bedroom is upstairs, it is advised that the patient go up at night and down in the morning for the first week. Go slowly, using handrail and take 1 step at a time. 4. ELLIOTT hose are to be worn for 30 days or until physician discontinues. 5. Heart hugger is to be worn 100% of the time until physician discontinues.( except when showering) 6. No lifting, pushing, or pulling more than 10 pounds for 12 weeks. The physician will advise of any restriction changes. 7. The patient is expected to continue the prescribed walking program. 8. Continue pain control per as needed orders. 9. Continue with incentive spirometry and splinting/heart hugger until otherwise directed by the physician. 10. Must shower daily using liquid antibacterial soap and a separate white washcloth for each individual incision. 11. Routine sternal incision care. No powders, lotions, ointments on incisions. 12. Please call surgeon/EMPLOYEE BENEFITS ATTORNEY for temp greater than 101 F or purulent drainage from incisions. 13. All prescriptions refills need to be filled through drum worker/primary care physician. 15. A Red armband has been placed on the patient. It should be worn for 30 days post surgery and will be removed by the cardiac surgeons. If an ER visit is necessary, please make sure the number on the Red armband is called. REHAB FACILITIES/HOME HEALTH SERVICES TO PROVIDE: RN SKILLED HOME CARE SERVICES FOR POST-OP SURGICAL PATIENTS WITH THE FOLLOWING: Coronary Artery Bypass Surgery (CABG), Mitral Valve Replacement/ Repair ( MVR), Aortic Valve Replacement/Repair (AVR) RN TO CONTINUE EDUCATION FROM ``ROAD TO A HEALTH HEART PATIENT EDUCATION MANUAL (GIVEN TO PATIENT IN THE HOSPITAL) MEDICATION RECONCILIATION WITH EDUCATION NEEDED ON FIRST HOME VISIT EMPHASIZE IMPORTANCE OF WEARING BREAST SUPPORT/HEART HUGGER ENCOURAGE USE OF INCENTIVE SPIROMETER 10 X EVERY HOUR WHILE AWAKE ENCOURAGE UTILIZATION OF LOWER EXTREMITY COMPRESSION STOCKINGS/ELLIOTT HOSE and ELEVATE LEGS ABOVE LEVEL OF HEART WHILE AT REST. ENCOURAGE AMBULATION 3-5x/day INCREASING TOLERATES, WHILE AVOID EXTREMES IN TEMPERATURE FREQUENCY: RN TO OPEN THE PATIENT WITHIN 24 HOURS OF DISCHARGE FROM THE HOSPITAL /REHAB FACILITY WITH TELEHEALTH INSTALLED AT [facility], RN TO VISIT 2-3 X A WEEK FOR 4 WEEKS ESTABLISHED BY PATIENT NEEDS. LABORATORY: CBC, CMP TO BE DRAWN ON THE THIRD DAY HOME, 09/18/2017 (RAN STAT ) FAX RESULTS TO [phone]. For patients on Coumadin, PT/INR to be drawn daily, ran as STAT , and results faxed to [facility] at [phone] for Coumadin dosing. TELEHEALTH PARAMETERS: WEIGHT: NOTIFY MD OF WEIGHT GAIN OF 2 LBS IN 24 HOURS OR 5 LBS IN ONE WEEK HR: NOTIFY MD OF HR <55 BPM OR HR>100 BPM BP: NOTIFY MD IF BP <90/55 OR BP>140/100 O2 SAT: NOTIFY MD IF PO2<93% ON ROOM AIR SEND TELEHEALTH REPORT TO CRUSHING FOREMAN AND CARDIOVASCULAR SURGEON THE FIRST WEEK OF CARE AND THEN BI-WEEKLY. PLEASE ADDITIONALLY COMMUNICATE ANY ABNORMALS AND NEW FINDINGS TO THE SURGEONS OFFICE.
[2017-09-15 14:47] VITALS: BP 97/54; TEMP 97.6
[2017-09-15 15:22] VITALS: PULSE 76
[2017-09-15 15:23] VITALS: BMI 25.3
[2017-09-15] MEDS ORDERED: WARFARIN 5 MG TAB PO ONE (18:00)
--- NOTE | 2017-09-16 08:32 | PN ---
Progress Note - Text The patient is a 77-year-old gentleman who is post quadruple coronary artery bypass grafting. He is presently sitting up in his room in a chair. He does not appear to be in any distress but does state he feels somewhat short of breath when he first wakes up in the morning. Denies any unusual chest pain. No nausea or vomiting. Patient does have underlying severe COPD and previous smoking history. Vital signs blood temperature 97.8 with a pulse of 69 and respirations 16. Blood pressure is 93/54 and he is 94% saturated on 3 L. Lungs are generally clear. Heart tones were irregular but rate is controlled. No unusual edema. No neurological changes. Laboratory White count 15 with a hemoglobin 8.5 and a platelet count of 190. INR is 1.4. Sodium is 134 with a potassium 4.2. CO2 content is 32. BUN is 21 with creatinine of 0.7. Albumin is 3.1. Impressions and plans Patient continues to improve slowly post coronary artery bypass surgery. Discharge planning in progress for possible extended care rehab. [facility]
--- NOTE | 2017-09-16 10:58 | P.VSCSTY ---
Greater Saphenous Vein Mapping This is bilateral lower extremity greater saphenous vein mapping. Date of service 09/06/2017 Vein quality and ultrasound appearance no obvious wall changes or intraluminal thrombus. Vein size groin right 7.0 x 7.7 groin left 4.6 x 4.8 High thigh right 4.0 x 5.2 high thigh left 4.6 x 5.1 Mid thigh right 4.2 x 5.9 mid thigh left 3.8 x 5.3 Above-knee right 3.9 x 6.1 above-knee left 3.3 x 3.6 Below knee right 3.0 x 4.7 below-knee left 2.0 x 2.4 Mid calf right 2.0 x 3.3 mid calf left 1.3 x 2.4 Ankle right 2.1 x 4.6 ankle left 1.3 x 3.2 Impression usable bilateral greater saphenous vein. Left leg at the knee and below appears a bit small. Greater saphenous veins appear usable on the left and a bit small but possibly usable on the right..
--- NOTE | 2017-09-16 11:04 | P.ARTDOP ---
Arterial Doppler LOWER EXTREMITY ARTERIAL DOPPLER: DATE OF SERVICE: 09/06/2017 Reason for study: Pre-CABG. Doppler waveforms: Multiphasic throughout on the left. Atypical below the popliteal on the right and multiphasic more proximally.. Pulse volume recording: Mild blunting throughout.. Pressure gradients: Mild gradient above the ankle. Ankle-brachial indices: 0.81 on the right and 0.88 on the left. Toe pressures: [] on the right, [] on the left Impression: Mild bilateral fem-pop disease..
--- NOTE | 2017-09-16 14:09 | CDI ---
Documentation Clarification Form Date: 09/16/2017 12:00:00 AM From: KIMMY Ta; Shae Ochoa Cushion Maker Phone: If you have a question about this query, please contact Shae Ochoa Cushion Maker at [phone] between 8am and 5pm. Admit Date: 09/05/2017 2:25:00 PM Patient Name: Blayne Draper Visit Number: [id number] Discharge Date: 09/15/2017 ATTENTION: The Clinical Documentation Specialists (CDI) and [facility] Coding Staff appreciate your assistance in clarifying documentation. Please respond to the clarification below the line at the bottom and electronically sign. The CDI & [facility] Coding staff will review the response and follow-up if needed. Please note: Queries are made part of the Legal Health Record. If you have any questions, please contact the author of this message via ITS. Dr. Horvath, This patient presented for CABG. Sputum cultures were positive for MSSA and note dated 09/14 states purulent tracheobronchitis as bronchopneumonia. The discharge summary does not carry this diagnosis, just mentions the positive sputum cultures. In your professional opinion, please clarify if? Bronchopneumonia ruled in Bronchopneumonia ruled out Other, please specify Unable to determine This represents pre-op colonization and not post-op complication MTDD
== END 2017-09-15 16:27 | DRG 236 ==
LOC: 6ICU 14:25 → 6SEL 09-12 15:27
PROVIDERS: ADMIT Internal Medicine Interventional Cardiology; ATTEND Surgery
PROC: 02100Z9 Bypass Coronary Artery, One Artery from Left Internal Mammary, Open Approach (ICD-10-PCS; principal; 2017-09-08 08:00)
PROC: B246ZZ4 Ultrasonography of Right and Left Heart, Transesophageal (ICD-10-PCS; principal; 2017-09-08 08:00)
PROC: 06BP4ZZ Excision of Right Saphenous Vein, Percutaneous Endoscopic Approach (ICD-10-PCS; principal; 2017-09-08 08:00)
PROC: 5A1221Z Performance of Cardiac Output, Continuous (ICD-10-PCS; principal; 2017-09-08 08:00)
PROC: 4A0305C Measurement of Arterial Flow, Coronary, Open Approach (ICD-10-PCS; principal; 2017-09-08 08:00)
PROC: 02L70CK Occlusion of Left Atrial Appendage with Extraluminal Device, Open Approach (ICD-10-PCS; principal; 2017-09-08 08:00)
PROC: 021209W Bypass Coronary Artery, Three Arteries from Aorta with Autologous Venous Tissue, Open Approach (ICD-10-PCS; principal; 2017-09-08 08:00)
DX: I21.4 Non-ST elevation (NSTEMI) myocardial infarction (principal); I50.42 Chronic combined systolic (congestive) and diastolic (congestive) heart failure; J96.11 Chronic respiratory failure with hypoxia; J98.11 Atelectasis; I25.110 Atherosclerotic heart disease of native coronary artery with unstable angina pectoris; Z86.14 Personal history of Methicillin resistant Staphylococcus aureus infection; D64.9 Anemia, unspecified; D75.82 Heparin induced thrombocytopenia (HIT); E11.40 Type 2 diabetes mellitus with diabetic neuropathy, unspecified; E11.51 Type 2 diabetes mellitus with diabetic peripheral angiopathy without gangrene; E78.5 Hyperlipidemia, unspecified; F17.200 Nicotine dependence, unspecified, uncomplicated; G47.33 Obstructive sleep apnea (adult) (pediatric); G89.4 Chronic pain syndrome; I08.0 Rheumatic disorders of both mitral and aortic valves; I11.0 Hypertensive heart disease with heart failure; I48.2 Chronic atrial fibrillation; I65.23 Occlusion and stenosis of bilateral carotid arteries; J44.9 Chronic obstructive pulmonary disease, unspecified; K21.9 Gastro-esophageal reflux disease without esophagitis; M47.816 Spondylosis without myelopathy or radiculopathy, lumbar region; M51.9 Unspecified thoracic, thoracolumbar and lumbosacral intervertebral disc disorder; N40.0 Benign prostatic hyperplasia without lower urinary tract symptoms; Z79.01 Long term (current) use of anticoagulants; Z79.02 Long term (current) use of antithrombotics/antiplatelets; Z79.82 Long term (current) use of aspirin; Z79.899 Other long term (current) drug therapy; Z80.0 Family history of malignant neoplasm of digestive organs; Z82.49 Family history of ischemic heart disease and other diseases of the circulatory system; Z86.718 Personal history of other venous thrombosis and embolism; Z87.01 Personal history of pneumonia (recurrent); Z87.11 Personal history of peptic ulcer disease; Z95.0 Presence of cardiac pacemaker; Z99.81 Dependence on supplemental oxygen; Z89.421 Acquired absence of other right toe(s); Z90.49 Acquired absence of other specified parts of digestive tract; Z96.652 Presence of left artificial knee joint; Z89.021 Acquired absence of right finger(s); H26.9 Unspecified cataract; Z79.84 Long term (current) use of oral hypoglycemic drugs
CPT/HCPCS: 71045; 71046; 80048; 80053; 80061; 80074; 81001; 82330; 82805; 83036; 83735; 84100; 84132; 84443; 84484; 85025; 85027; 85520; 85610; 85730; 86022; 86850; 86891; 86900; 86901; 86920; 87070; 87077; 87086; 87186; 87205; 93306; 93880; 93923; 93970; 94002; 94640; 94760

== ENCOUNTER → 2017-10-10 | Outpatient (CLI) | payer MEDICARE ==
--- NOTE | 2017-10-10 15:03 | US ---
EXAMINATION TYPE: US chest DATE OF EXAM: 10/10/2017 COMPARISON: Chest X ray CLINICAL HISTORY: J44.9 CHR OBSTRUCTIVE LUNG DISEASE; Post CABG EXAM MEASUREMENTS: Right Pleural Effusion fluid pocket: no free fluid seen Left Pleural Effusion fluid pocket: 10.1 cm A/P Sagittal Left skin to fluid thickness: 2.5 cm A/P Left side was marked for possible thoracentesis outside the dept. Pulmonologists are able to review the images in the patient?s EMR. IMPRESSIONS: Left-sided pleural effusion appears overall small to moderate degree with surrounding at electatic lung.
== END | disposition home or self-care (01) ==
LOC: RADUSWWP 14:02
PROVIDERS: ATTEND Internal Medicine
DX: J90 Pleural effusion, not elsewhere classified (principal); J98.11 Atelectasis; J44.9 Chronic obstructive pulmonary disease, unspecified
CPT/HCPCS: 76604

== ENCOUNTER 2017-10-14 01:48 | Inpatient (IN) | payer MEDICARE ==
--- NOTE | 2017-10-14 02:31 | ED ---
General Adult HPI - General Chief complaint: Shortness of Breath Stated complaint: NICHOLAS Time Seen by Provider: 10/14/17 02:00 Source: patient, EMS, RN notes reviewed Mode of arrival: EMS Limitations: physical limitation - History of Present Illness Initial comments: This is a 77-year-old male who presents emergency Department complaining of difficulty breathing and coughing up blood. Patient states he had open heart surgery 3 weeks ago. Patient states the hemoptysis started this evening. Patient states she was supposed to see Dr. Walsh today to get his lung drained of fluid. Patient denies any fever or chills. Patient denies any new chest pain. Patient denies any lightheadedness or dizziness. Patient denies abdominal pain. Patient denies any leg swelling or calf tenderness. Patient states she was on Coumadin up until Friday. - Related Data Home Medications Medication Instructions Recorded Confirmed Gabapentin [Neurontin] 100 mg PO TID 09/05/17 09/05/17 Ipratropium-Albuterol Nebulize 3 ml INHALATION RT-QID 09/05/17 09/05/17 [Duoneb 0.5 mg-3 mg/3 ml Soln] Tamsulosin HCl [Flomax] 0.4 mg PO DAILY 09/05/17 09/05/17 Previous Rx's Medication Instructions Recorded Acetaminophen Tab [Tylenol] 500 mg PO Q4HR PRN tab 09/15/17 Aspirin 325 mg PO DAILY tab 09/15/17 Atorvastatin [Lipitor] 40 mg PO DAILY tab 09/15/17 Budesonide-Formot 160-4.5 Mcg 2 puff INHALATION RT-BID puff 09/15/17 [Symbicort 160-4.5 Mcg Inhaler] Clopidogrel [Plavix] 75 mg PO DAILY #0 tab 09/15/17 Fondaparinux [Arixtra] 2.5 mg SQ DAILY syringe 09/15/17 Glimepiride [Amaryl] 1 mg PO AC-BRKFST tab 09/15/17 Insulin Aspart [NovoLOG 0 unit SQ ACHS vial 09/15/17 (formulary)] Ipratropium-Albuterol Nebulize 3 ml INHALATION RT-Q2H PRN 09/15/17 [Duoneb 0.5 mg-3 mg/3 ml Soln] ampul.neb Levofloxacin [Levaquin] 750 mg PO DAILY #7 tab 09/15/17 Lisinopril [Zestril] 2.5 mg PO DAILY@1200 tab 09/15/17 Magnesium Hydroxide [Milk of 2,400 mg PO BID PRN ml 09/15/17 Magnesia Concentrate] Melatonin 2 mg PO HS tab 09/15/17 Metoprolol Succinate (ER) [Toprol 50 mg PO BID tab.er.24h 09/15/17 XL] Pantoprazole [Protonix] 40 mg PO AC-BRKFST tablet. 09/15/17 Warfarin [Coumadin] 5 mg PO DAILY #0 09/15/17 predniSONE 10 mg PO DAILY tab 09/15/17 Allergies Allergy/AdvReac Type Severity Reaction Status Date / Time inhaler AdvReac Rapid Uncoded 09/05/17 15:04 Heart Rate Review of Systems ROS Statement: Those systems with pertinent positive or pertinent negative responses have been documented in the HPI. ROS Other: All systems not noted in ROS Statement are negative. Past Medical History Past Medical History: Atrial Fibrillation, Chest Pain / Angina, Heart Failure, COPD, Diabetes Mellitus, Deep Vein Thrombosis (DVT), Eye Disorder, GERD/Reflux, GI Bleed, Hypertension, Myocardial Infarction (non Q-wave), Osteoarthritis (OA) , Pneumonia, Prostate Disorder, Respiratory Disorder, Sleep Apnea/CPAP/BIPAP, Vascular Disorder Additional Past Medical History / Comment(s): pt is rt side dominant. lumbar disc disease, history of cpap for obstructive sleep apnea-no longer. pt stated he wa born with an irreg heart beat, home 02 3 liters nc at hs. "pt stated may have had a mi or tia they were'nt sure". History of sick sinus syndrome. History of Any Multi-Drug Resistant Organisms: MRSA Date of last positivie culture/infection: 10/29/20131999 MDRO Source:: Left Third Finger/ rt foot Past Surgical History: Appendectomy, Back Surgery, Cholecystectomy, Heart Catheterization, Orthopedic Surgery, Pacemaker Additional Past Surgical History / Comment(s): marshal cataracts, had part of stomach removed and a foot of bowel d/t bleeding peptic ulcers. total lt knee replacment,several sx on marshal feet had 4th toe each foot removed.rt hand 2nd finger partial amp and 3 rd finger amputated, Past Anesthesia/Blood Transfusion Reactions: No Reported Reaction Additional Past Anesthesia/Blood Transfusion Reaction / Comment(s): blood transfusion- no reaction Type of Cardiac Device: Permanent Pacemaker Device Placement Date:: unk Past Psychological History: No Psychological Hx Reported Smoking Status: Former smoker Past Alcohol Use History: None Reported Past Drug Use History: None Reported - Past Family History Mother Family Medical History: Cancer Additional Family Medical History / Comment(s): age 52 Father Family Medical History: Cancer Additional Family Medical History / Comment(s): rectal cancer- age 75 Brother(s) Family Medical History: Coronary Artery Disease (CAD), Myocardial Infarction ([place] ) Additional Family Medical History / Comment(s): History of myocardial infarction at age 46. General Exam - General Exam Comments Initial Comments: GENERAL: Patient is well-developed and well-nourished. Patient is nontoxic and well- hydrated and is in mild distress. ENT: Neck is soft and supple. No significant lymphadenopathy is noted. Oropharynx is clear. Moist mucous membranes. EYES: The sclera were anicteric and conjunctiva were pink and moist. Extraocular movements were intact and pupils were equal round and reactive to light. Eyelids were unremarkable. PULMONARY: Diminished breath sounds with some rhonchi in the left base CARDIOVASCULAR: There is a regular rate and rhythm without any murmurs gallops or rubs. ABDOMEN: Soft and nontender with normal bowel sounds. No palpable organomegaly was noted. There is no palpable pulsatile mass. SKIN: Skin is clear with no lesions or rashes and otherwise unremarkable. NEUROLOGIC: Patient is alert and oriented x3. Cranial nerves II through XII are grossly intact. Motor and sensory are also intact. Normal speech, volume and content. Symmetrical smile. MUSCULOSKELETAL: Normal extremities with adequate strength and full range of motion. No lower extremity swelling or edema. No calf tenderness. LYMPHATICS: No significant lymphadenopathy is noted PSYCHIATRIC: Normal psychiatric evaluation. Normal interpersonal interactions appears functionally intact in deals appropriately with others. No signs of depression. No signs of anxiety. Limitations: physical limitation Course Vital Signs 10/14/17 10/14/17 10/14/17 02:13 03:43 04:06 Temperature 98.1 F Pulse Rate 112 H 110 H 112 H Respiratory 20 20 Rate Blood Pressure 116/69 108/60 O2 Sat by Pulse 97 99 Oximetry 10/14/17 10/14/17 04:16 04:45 Temperature Pulse Rate 115 H 104 H Respiratory 19 Rate Blood Pressure 124/62 O2 Sat by Pulse 100 Oximetry Medical Decision Making - Medical Decision Making EKG shows atrial fibrillation at a rate of 116 bpm QRS is 100 a QT interval 348 QTC is 483. EKG is of poor quality secondary to the patient's dyspnea Repeat EKG was done because the patient was breathing better at this time.EKG shows atrial fibrillation with RVR 115 bpm QRS 114 QT interval 324 QTC is 448. Patient's EKG shows no ST segment elevation. CT of the chest shows right lower lobe pneumonia versus aspiration and a left pleural effusion. I started the patient on antibiotics. I called the cardiothoracic surgeons to make him aware of the patient's admission. I spoke with Dr. White he agreed to admit the patient. I wrote admitting orders I consult the cardiothoracic surgery and pulmonary - Lab Data Result diagrams: 10/14/17 02:00 10/14/17 03:31 Lab Results 10/14/17 10/14/17 10/14/17 Range/Units 02:00 02:00 03:31 WBC 17.7 H (3.8-10.6) k/uL RBC 4.86 (4.30-5.90) m/uL Hgb 13.3 D (13.0-17.5) gm/dL Hct 42.4 (39.0-53.0) % MCV 87.2 D (80.0-100.0) fL MCH 27.3 (25.0-35.0) pg MCHC 31.3 (31.0-37.0) g/dL RDW 16.2 H (11.5-15.5) % Plt Count 326 (150-450) k/uL Neutrophils % (Manual) 62 % Band Neutrophils % 23 % Lymphocytes % (Manual) 10 % Monocytes % (Manual) 6 % Neutrophils # (Manual) 15.00 H (1.3-7.7) k/uL Lymphocytes # (Manual) 1.77 (1.0-4.8) k/uL Monocytes # (Manual) 1.06 H (0-1.0) k/uL Nucleated RBCs 0 (0-0) /100 WBC Polychromasia Present Hypochromasia Marked Poikilocytosis Slight Anisocytosis Slight PT 12.1 H (9.0-12.0) sec INR 1.3 H (<1.2) APTT 22.2 (22.0-30.0) sec D-Dimer 2.71 H (<0.60) mg/L FEU Sodium (137-145) mmol/L Potassium (3.5-5.1) mmol/L Chloride (98-107) mmol/L Carbon Dioxide (22-30) mmol/L Anion Gap mmol/L BUN (9-20) mg/dL Creatinine (0.66-1.25) mg/dL Est GFR (CKD-EPI)AfAm (>60 ml/min/1.73 sqM) Est GFR (CKD-EPI)NonAf (>60 ml/min/1.73 sqM) Glucose (74-99) mg/dL Calcium (8.4-10.2) mg/dL Total Bilirubin (0.2-1.3) mg/dL AST (17-59) U/L ALT (21-72) U/L Alkaline Phosphatase (38-126) U/L Total Creatine Kinase (55-170) U/L CK-MB (CK-2) (0.0-2.4) ng/mL CK-MB (CK-2) Rel Index Troponin I (0.000-0.034) ng/mL NT-Pro-B Natriuret Pep 2480 pg/mL Total Protein (6.3-8.2) g/dL Albumin (3.5-5.0) g/dL 10/14/17 10/14/17 Range/Units 03:31 03:31 WBC (3.8-10.6) k/uL RBC (4.30-5.90) m/uL Hgb (13.0-17.5) gm/dL Hct (39.0-53.0) % MCV (80.0-100.0) fL MCH (25.0-35.0) pg MCHC (31.0-37.0) g/dL RDW (11.5-15.5) % Plt Count (150-450) k/uL Neutrophils % (Manual) % Band Neutrophils % % Lymphocytes % (Manual) % Monocytes % (Manual) % Neutrophils # (Manual) (1.3-7.7) k/uL Lymphocytes # (Manual) (1.0-4.8) k/uL Monocytes # (Manual) (0-1.0) k/uL Nucleated RBCs (0-0) /100 WBC Polychromasia Hypochromasia Poikilocytosis Anisocytosis PT (9.0-12.0) sec INR (<1.2) APTT (22.0-30.0) sec D-Dimer (<0.60) mg/L FEU Sodium 137 (137-145) mmol/L Potassium 4.4 (3.5-5.1) mmol/L Chloride 96 L (98-107) mmol/L Carbon Dioxide 31 H (22-30) mmol/L Anion Gap 10 mmol/L BUN 31 H (9-20) mg/dL Creatinine 0.70 (0.66-1.25) mg/dL Est GFR (CKD-EPI)AfAm >90 (>60 ml/min/1.73 sqM) Est GFR (CKD-EPI)NonAf >90 (>60 ml/min/1.73 sqM) Glucose 112 H (74-99) mg/dL Calcium 9.2 (8.4-10.2) mg/dL Total Bilirubin 0.9 (0.2-1.3) mg/dL AST 29 (17-59) U/L ALT 36 (21-72) U/L Alkaline Phosphatase 101 (38-126) U/L Total Creatine Kinase 28 L (55-170) U/L CK-MB (CK-2) 1.9 (0.0-2.4) ng/mL CK-MB (CK-2) Rel Index 6.8 Troponin I 0.031 (0.000-0.034) ng/mL NT-Pro-B Natriuret Pep pg/mL Total Protein 6.2 L (6.3-8.2) g/dL Albumin 3.5 (3.5-5.0) g/dL Disposition Clinical Impression: Pneumonia, Pleural effusion Disposition: ADMITTED IP TO THIS HOSP Referrals: Jimmy White MD [Primary Care Provider] - 1-2 days Time of Disposition: 05:49
[2017-10-14 02:47] LABS: Anisocytosis Slight; HCT 42.4 % (39.0-53.0); Hypochromasia Marked; MCH 27.3 pg (25.0-35.0); MCHC 31.3 g/dL (31.0-37.0); Mean Platelet Volume 8.1; Platelet Count 326 k/uL (150-450); Poikilocytosis Slight; RBC 4.86 m/uL (4.30-5.90); RDW 16.2 % (11.5-15.5); WBC 17.7 k/uL (3.8-10.6)
[2017-10-14 03:09] LABS: HGB 13.3 gm/dL (13.0-17.5)
[2017-10-14 03:10] LABS: MCV 87.2 fL (80.0-100.0)
[2017-10-14] MEDS ORDERED: IPRATROPIUM-ALBUTEROL 3 ML NEB INHALATION STA ×2 (03:54→06:38)
[2017-10-14 04:10] LABS: ALT 36 U/L (21-72); AST 29 U/L (17-59); Albumin 3.5 g/dL (3.5-5.0); Alkaline Phosphatase 101 U/L (38-126); Anion Gap 10 mmol/L; Blood Urea Nitrogen 31 mg/dL (9-20); Calcium 9.2 mg/dL (8.4-10.2); Carbon Dioxide 31 mmol/L (22-30); Chloride 96 mmol/L (98-107); Glucose 112 mg/dL (74-99); Potassium 4.4 mmol/L (3.5-5.1); Sodium 137 mmol/L (137-145); Total Bilirubin 0.9 mg/dL (0.2-1.3); Total Protein 6.2 g/dL (6.3-8.2)
[2017-10-14 04:19] LABS: INR 1.3 (<1.2); Partial Thromboplastin Time 22.2 sec (22.0-30.0); Prothrombin Time 12.1 sec (9.0-12.0)
[2017-10-14 04:31] LABS: D-Dimer 2.71 mg/L FEU (<0.60)
[2017-10-14 04:48] LABS: Creatine Kinase MB 1.9 ng/mL (0.0-2.4); Troponin I 0.031 ng/mL (0.000-0.034)
--- NOTE | 2017-10-14 05:06 | CT ---
EXAM: CT Angiography Chest With Intravenous Contrast CLINICAL HISTORY: Pain TECHNIQUE: Axial computed tomographic angiography images of the chest with intravenous contrast using pulmonary embolism protocol. CTDI is 4.9 mGy and DLP is 330.80 mGy-cm. This CT exam was performed using one or more of the following dose reduction techniques: automated exposure control, adjustment of the mA and/or kV according to patient size, and/or use of iterative reconstruction technique. MIP reconstructed images were created and reviewed. COMPARISON: No relevant prior studies available. FINDINGS: Pulmonary arteries: Unremarkable. No pulmonary embolism. Aorta: See below. Lungs: There is consolidation involving almost the entire right lower lobe. There is opacification of the bronchial segments involving the lower lobes. There is some airspace disease involving the left lower lobe with volume loss and compressive atelectatic changes. Panlobular emphysematous changes are noted predominantly involving the upper lung zones. Pleural space: A slightly lobulated left pleural effusion is noted posteriorly measuring up to 4 cm. No pneumothorax. Heart: Coronary artery calcification noted. There is evidence of coronary artery bypass involving the ascending aorta and left PARSON. No significant pericardial effusion. No evidence of RV dysfunction. Bones/joints: No acute fracture. No dislocation. Soft tissues: Unremarkable. Lymph nodes: Subcarinal lymphadenopathy measuring up to 18 mm. Scattered paratracheal and precarinal lymph nodes measuring up to 11 mm. Liver: Slightly irregular contours to the liver, partially visualized. Tubes, lines and devices: Left subclavian pacer leads identified. IMPRESSION: 1. No evidence for pulmonary embolism. 2. Consolidation involving the right lower lobe. Subsegmental changes involving the left lower lobe with endobronchial opacification. Primary consideration is pneumonia versus aspiration. Presumed reactive subcarinal and paratracheal lymph nodes. 3. Left pleural effusion layering posteriorly with mild lobulation.
[2017-10-14 05:21] LABS: Band Neutrophils % 23 %; Lymphocytes # (M) 1.77 k/uL (1.0-4.8); Monocytes # (M) 1.06 k/uL (0-1.0); Neutrophils % (M) 62 %; Nucleated Red Blood Cells 0 /100 WBC (0-0); Polychromasia Present; Total Cells Counted 200
[2017-10-14] MEDS ORDERED: PIPERACILLIN-TAZOBACTAM 3.375 GM in DEXTROSE/WATER 1 50ML.BAG IVPB STA (05:43)
[2017-10-14] MEDS ORDERED: PNEUMONIA PROTOCOL UTILIZED 1 EACH MISC PO PRN (05:53)
[2017-10-14] MEDS ORDERED: LEVOFLOXACIN 750MG-D5W PMX 750 MG in DEXTROSE/WATER 1 150ML.BAG IVPB STA (05:59)
[2017-10-14] MEDS ORDERED: ACETAMINOPHEN TAB 500 MG TAB PO PRN (06:56)
[2017-10-14] MEDS ORDERED: BISACODYL 10 MG SUPP RECTAL PRN (06:56)
[2017-10-14] MEDS ORDERED: MAGNESIUM HYDROXIDE 2,400 MG/10 ML CUP PO PRN (06:56)
[2017-10-14] MEDS: LEVOFLOXACIN 750MG-D5W PMX 750 MG in DEXTROSE/WATER 1 150ML.BAG IVPB SCH (07:58)
[2017-10-14] MEDS ORDERED: predniSONE 10 MG TAB PO SCH (08:00)
[2017-10-14] MEDS ORDERED: NON-FORMULARY DRUG (Glucerna Shake 1 CAN) PO SCH (08:00)
[2017-10-14] MEDS ORDERED: SYMBICORT 160-4.5 MCG INHALER INHALATION SCH (08:00)
[2017-10-14] MEDS: GLIMEPIRIDE 0.5 MG TAB PO SCH (08:09)
[2017-10-14] MEDS: guaiFENesin 600 MG TABLET.ER PO SCH ×2 (08:10→22:27)
[2017-10-14] MEDS: PANTOPRAZOLE 40 MG TABLET PO SCH (08:11)
[2017-10-14] MEDS: FUROSEMIDE 40 MG TAB PO SCH (08:11)
[2017-10-14] MEDS: DOCUSATE 100 MG CAP PO SCH ×2 (08:11→22:19)
[2017-10-14] MEDS: GABAPENTIN 100 MG CAP PO SCH ×2 (08:12→22:19)
[2017-10-14] MEDS: METOPROLOL SUCCINATE (ER) 50 MG TAB.ER.24H PO SCH ×2 (08:12→23:00)
--- NOTE | 2017-10-14 08:12 | P.HPIM ---
History of Present Illness Chief complaint Shortness of breath History of present illness The patient was transferred [facility] yesterday to the emergency room. I received a call at 1:00 this morning from [facility] nursing the patient was coughing up frothy hemorrhagic sputum and was short of breath and dropping his O2 saturation into the 80s. The patient was transferred here to the emergency room. He denied any fever or chills but has had some continuing coughing. Recurrent shortness of breath but worse the past evening. Patient is status post coronary artery bypass last month. Past medical history Coronary artery disease with recent coronary bypass with a symptomatic triple- vessel disease and non-ST segment elevated myocardial infarction. History of chronic systolic congestive heart failure, ejection fraction of 40-45 % Chronic atrial fibrillation History of sick sinus syndrome with previous pacemaker placement. Hypertension Hyperlipidemia History of carotid vascular disease Previous tobacco usage COPD with FEV1 of 45% Diffuse degenerative arthritis, more specific lumbar disc disease. BPH Gastroesophageal reflux Recurrent ulcerations of the feet and fingers requiring amputations in the past. Type 2 diabetes Peripheral vascular disease Previous surgeries include the coronary artery bypass Appendectomy Cholecystectomy Lumbar surgery Previous amputations of fingers and toes. Total left knee replacement Gastrectomy for peptic ulcer disease in the past when Medications Prednisone 10 mg daily Mucinex 600 mg twice a day Coumadin 5 mg daily but was on hold for possible pulmonary medicine evaluation Tamsulosin 0.4 mg daily MiraLAX 17 g daily Protonix 40 mg daily Fleet enema 130 mL daily as needed Metoprolol succinate ER 50 mg twice a day Calmoseptine 17 g ointment to apply topical twice a day Melatonin 2 mg at at bedtime for sleep Milk of magnesia 2400 mg twice a day when necessary for constipation Zestril 2.5 mg daily DuoNeb respiratory treatments 4 times a day and every 2 hours when necessary He has been on NovoLog insulin subcu per protocol before meals and at at bedtime Glucerna shakes one twice a day Amaryl 0.5 mg before breakfast Neurontin 100 mg 3 times a day Lasix 40 mg daily Colace 100 mg twice a day Symbicort 160-4.5 g inhaler 2 puffs twice a day Dulcolax 10 mg daily Atorvastatin 40 mg at at bedtime Aspirin 325 mg daily Acetaminophen 500 every 4 hours when necessary pain Review of systems Patient denies any visual disturbances or unusual headaches. No nausea or vomiting. He does have some chronic constipation for which she is on medications for. No blood per rectum. He does have some intermittent lower leg edema. No new focal neurological symptoms or weakness. Family history Mother had cancer and at the age of 52. Father had rectal cancer and at age 74. Patient does have history with his other with myocardial infarction at the age of 46. Social history Patient lives with family members caring for him at home. He is . He does not smoke at this time or drink any alcohol. Physical examination the reveals patient to be alert lying in bed. Mildly fatigued. Temperature was 98.1 with a pulse of 100-112. Respirations 20. Blood pressure 108/60 and he was 99% saturated with 15 flowrate nonrebreather mask. Lungs reveal diminished breath sounds at both bases. Heart tones revealed irregular irregular rhythm with a mildly increased rate. Abdomen was nontender. No organomegaly. There were some aches wraps on the lower extremities but no marked edema noted. Extremities also reveal amputations of several fingers and toes. Neurologically he is alert and oriented. No cranial nerve deficits no focal deficits of weakness. Laboratory White count was 17.7 with a hemoglobin 13.1 and a platelet count of 326. INR was 1.3. D-dimer though was 2.71. BUN was 31 with a creatinine of 0.7 given him a GFR greater than 90. Potassium was 4.4 and sodium 137. Blood sugar 112. Liver function tests generally were good. Troponin was only 0.031 CK was 28. BNP elevated at 2480. A chest CT angiographically performed study revealed no evidence of pulmonary embolism but did show evidence for consolidation in the right lower lobe and left lower lobe. Along with a left pleural effusion. EKG showed atrial fibrillation with a rapid ventricular response of 116. Right bundle branch block pattern. No definite acute ischemic changes noted. Impressions Patient presented which shortness of breath associated with hemoptysis up frothy sputum. Bilateral pneumonias with left pleural effusions being seen on chest x-ray and CT angiogram. Patient is status post coronary artery bypass surgery. Other past medical history as delineated above in the body of the text. Plans Respiratory treatments and antibiotics have been started with some initial clinical improvement. Consultations be obtained with pulmonary medicine and thoracic surgery. Further recommendations pending clinical response and results of above. Coumadin on hold in light of any further need for invasive procedures. Discussed with the patient and nursing staff at bedside this morning. Past Medical History Past Medical History: Atrial Fibrillation, Chest Pain / Angina, Heart Failure, COPD, Diabetes Mellitus, Deep Vein Thrombosis (DVT), Eye Disorder, GERD/Reflux, GI Bleed, Hypertension, Myocardial Infarction (non Q-wave), Osteoarthritis (OA) , Pneumonia, Prostate Disorder, Respiratory Disorder, Sleep Apnea/CPAP/BIPAP, Vascular Disorder Additional Past Medical History / Comment(s): pt is rt side dominant. lumbar disc disease, history of cpap for obstructive sleep apnea-no longer. pt stated he wa born with an irreg heart beat, home 02 3 liters nc at hs. "pt stated may have had a mi or tia they were'nt sure". History of sick sinus syndrome. History of Any Multi-Drug Resistant Organisms: MRSA Date of last positivie culture/infection: 10/29/20131999 MDRO Source:: Left Third Finger/ rt foot Past Surgical History: Appendectomy, Back Surgery, Cholecystectomy, Heart Catheterization, Orthopedic Surgery, Pacemaker Additional Past Surgical History / Comment(s): marshal cataracts, had part of stomach removed and a foot of bowel d/t bleeding peptic ulcers. total lt knee replacment,several sx on marshal feet had 4th toe each foot removed.rt hand 2nd finger partial amp and 3 rd finger amputated, Past Anesthesia/Blood Transfusion Reactions: No Reported Reaction Additional Past Anesthesia/Blood Transfusion Reaction / Comment(s): blood transfusion- no reaction Type of Cardiac Device: Permanent Pacemaker Device Placement Date:: unk Past Psychological History: No Psychological Hx Reported Smoking Status: Former smoker Past Alcohol Use History: None Reported Past Drug Use History: None Reported - Past Family History Mother Family Medical History: Cancer Additional Family Medical History / Comment(s): age 52 Father Family Medical History: Cancer Additional Family Medical History / Comment(s): rectal cancer- age 75 Brother(s) Family Medical History: Coronary Artery Disease (CAD), Myocardial Infarction ([place] ) Additional Family Medical History / Comment(s): History of myocardial infarction at age 46. Medications and Allergies Home Medications Medication Instructions Recorded Confirmed Type Gabapentin [Neurontin] 100 mg PO TID@0600,1400,2100 09/05/17 10/14/17 History Ipratropium-Albuterol Nebulize 3 ml INHALATION RT-QID 09/05/17 10/14/17 History [Duoneb 0.5 mg-3 mg/3 ml Soln] Tamsulosin HCl [Flomax] 0.4 mg PO DAILY@0800 09/05/17 10/14/17 History Acetaminophen Tab [Tylenol] 500 mg PO Q4HR PRN tab 09/15/17 10/14/17 Rx Budesonide-Formot 160-4.5 Mcg 2 puff INHALATION RT-BID puff 09/15/17 10/14/17 Rx [Symbicort 160-4.5 Mcg Inhaler] Ipratropium-Albuterol Nebulize 3 ml INHALATION RT-Q2H PRN 09/15/17 10/14/17 Rx [Duoneb 0.5 mg-3 mg/3 ml Soln] ampul.neb Lisinopril [Zestril] 2.5 mg PO DAILY@1200 tab 09/15/17 10/14/17 Rx Magnesium Hydroxide [Milk of 2,400 mg PO BID PRN ml 09/15/17 10/14/17 Rx Magnesia Concentrate] Metoprolol Succinate (ER) [Toprol 50 mg PO BID tab.er.24h 09/15/17 10/14/17 Rx XL] Aspirin 325 mg PO DAILY@1700 10/14/17 10/14/17 History Atorvastatin [Lipitor] 40 mg PO HS@209910/14/17 10/14/17 History Bisacodyl [Dulcolax] 10 mg RECTAL DAILY PRN 10/14/17 10/14/17 History Docusate [Colace] 100 mg PO BID@0800,2100 10/14/17 10/14/17 History Furosemide [Lasix] 40 mg PO DAILY@0600 10/14/17 10/14/17 History Glimepiride [Amaryl] 0.5 mg PO AC-BRKFST 10/14/17 10/14/17 History Glucerna Shake 1 can PO BID@0800,1700 10/14/17 10/14/17 History Insulin Aspart [NovoLOG See Protocol SQ ACHS 10/14/17 10/14/17 History (formulary)] Melatonin 2 mg PO HS@209910/14/17 10/14/17 History Menthol/Zinc Oxide [Calmoseptine 1 applic TOPICAL BID@0800,2100 10/14/1710/14/ 18 History Ointment] Na Phos,M-B/Na Phos,Di-Ba [Fleet 133 ml RECTAL DAILY PRN 10/14/17 10/14/17 History Adult] Pantoprazole [Protonix] 40 mg PO DAILY@0600 10/14/17 10/14/17 History Polyethylene Glycol 3350 [Miralax] 17 gm PO DAILY@0800 10/14/17 10/14/17 History Warfarin [Coumadin] 5 mg PO DAILY@1700 10/14/17 10/14/17 History guaiFENesin [Mucinex] 600 mg PO BID@0800,2100 10/14/17 10/14/17 History predniSONE 10 mg PO DAILY@0800 10/14/17 10/14/17 History Allergies Allergy/AdvReac Type Severity Reaction Status Date / Time inhaler AdvReac Rapid Uncoded 09/05/17 15:04 Heart Rate PACEMAKER AdvReac Unknown Uncoded 10/14/17 06:38 Physical Exam Vitals: Vital Signs Temp Pulse Resp BP Pulse Ox 10/14/17 06:56 114 H 22 10/14/17 06:49 114 H 24 10/14/17 06:38 102 H 19 115/75 95 10/14/17 05:21 101 H 19 93/56 100 10/14/17 04:45 104 H 19 124/62 100 10/14/17 04:16 115 H 10/14/17 04:06 112 H 10/14/17 03:43 110 H 20 108/60 99 10/14/17 02:13 98.1 F 112 H 20 116/69 97 Intake and Output 10/13/17 10/14/17 10/14/17 22:59 06:59 14:59 Other: Weight 74.843 kg Results CBC & Chem 7: 10/14/17 02:00 10/14/17 03:31 Labs: Abnormal Lab Results - Last 24 Hours (Table) 10/14/17 10/14/17 10/14/17 Range/Units 02:00 03:31 03:31 WBC 17.7 H (3.8-10.6) k/uL RDW 16.2 H (11.5-15.5) % Neutrophils # (Manual) 15.00 H (1.3-7.7) k/uL Monocytes # (Manual) 1.06 H (0-1.0) k/uL PT 12.1 H (9.0-12.0) sec INR 1.3 H (<1.2) D-Dimer 2.71 H (<0.60) mg/L FEU Chloride 96 L (98-107) mmol/L Carbon Dioxide 31 H (22-30) mmol/L BUN 31 H (9-20) mg/dL Glucose 112 H (74-99) mg/dL Total Creatine Kinase (55-170) U/L Total Protein 6.2 L (6.3-8.2) g/dL 10/14/17 Range/Units 03:31 WBC (3.8-10.6) k/uL RDW (11.5-15.5) % Neutrophils # (Manual) (1.3-7.7) k/uL Monocytes # (Manual) (0-1.0) k/uL PT (9.0-12.0) sec INR (<1.2) D-Dimer (<0.60) mg/L FEU Chloride (98-107) mmol/L Carbon Dioxide (22-30) mmol/L BUN (9-20) mg/dL Glucose (74-99) mg/dL Total Creatine Kinase 28 L (55-170) U/L Total Protein (6.3-8.2) g/dL
--- NOTE | 2017-10-14 08:27 | P.GSCN ---
History of Present Illness Consult date: 10/14/17 Reason for Consult: Recent coronary artery bypass grafting surgery. Requesting physician: Paulo Stahl History of present illness: This is a 77-year-old gentleman who follows with Dr. White on an outpatient basis. His has a previous medical history of triple-vessel coronary artery disease with left main disease and non-ST elevation myocardial infarction status post urgent quadruple coronary artery bypass grafting as well as exclusion of the left atrial appendage on 09/08/2017, mild to moderate left ventricular dysfunction, chronic systolic heart failure with ejection fraction 40-45% as well as diastolic dysfunction, chronic persistent atrial fibrillation on home Coumadin therapy, sick sinus syndrome status post permanent pacemaker insertion, hypertension, hyperlipidemia, carotid stenosis 50-79% bilaterally, previous tobacco dependence, severe COPD with FEV1 45% of predicted, arthritis, BPH, GERD, 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 He was recovering and rehabilitating at [facility], and did see Dr. Horvath from cardiothoracic surgery last 10/10/2017 in the office with no new complaints. He was also being followed by Dr. Cruz on an outpatient basis, chest x-ray was completed on October 10 which demonstrated small to moderate left pleural effusion. Ultrasound of the chest was completed demonstrating 10.1 cm fluid pocket on the left, and the patient was marked for thoracentesis, which was to be completed later today by Dr. Cruz as an outpatient. In the last 24 hours, however the patient developed increased shortness of breath and was coughing up blood tinged sputum. He had conversational dyspnea, and nasal flaring, as well as requirements for higher oxygen at [facility]. The decision was made to transport the patient to [facility] for further evaluation and treatment. Chest CTA completed in the emergency room demonstrated no evidence of pulmonary embolism, consolidation in the right lower lobe, and left pleural effusion. The patient was admitted to Dr. White for IV antibiotics and treatment of his left pleural effusion. Dr. Horvath from cardiothoracic surgery was consulted as this patient is well-known to us and was previously admitted for his open heart surgery. Review of Systems Review of systems was completed and was negative except as noted. - Constitutional Reports fatigue - Cardiovascular Reports as per HPI, Reports dyspnea on exertion, Reports irregular heart beat, Reports shortness of breath - Respiratory Reports as per HPI, Reports cough with sputum Past Medical History Past Medical History: Atrial Fibrillation, Coronary Artery Disease (CAD), Chest Pain / Angina, Heart Failure, COPD, Diabetes Mellitus, Deep Vein Thrombosis (DVT ), Eye Disorder, GERD/Reflux, GI Bleed, Hyperlipidemia, Hypertension, Myocardial Infarction (non Q-wave), Osteoarthritis (OA), Pneumonia, Prostate Disorder, Respiratory Disorder, Sleep Apnea/CPAP/BIPAP, Vascular Disorder Additional Past Medical History / Comment(s): pt is rt side dominant. lumbar disc disease, history of cpap for obstructive sleep apnea-no longer. pt stated he wa born with an irreg heart beat, home 02 3 liters nc at hs. "pt stated may have had a mi or tia they were'nt sure". History of sick sinus syndrome. Bilateral carotid stenosis History of Any Multi-Drug Resistant Organisms: MRSA Year Discovered:: 2018 MDRO Source:: Sputum culture positive for pseudomonas and MSSA Past Surgical History: Appendectomy, Back Surgery, Cholecystectomy, Coronary Bypass/CABG, Heart Catheterization, Orthopedic Surgery, Pacemaker Additional Past Surgical History / Comment(s): marshal cataracts, had part of stomach removed and a foot of bowel d/t bleeding peptic ulcers. total lt knee replacment,several sx on marshal feet had 4th toe each foot removed.rt hand 2nd finger partial amp and 3 rd finger amputated, CABG x 4 with left atrial appendage ligation in August 2017 Past Anesthesia/Blood Transfusion Reactions: No Reported Reaction Additional Past Anesthesia/Blood Transfusion Reaction / Comm: blood transfusion - no reaction Type of Cardiac Device: Permanent Pacemaker Device Placement Date:: un Past Psychological History: No Psychological Hx Reported Smoking Status: Former smoker Past Alcohol Use History: None Reported Past Drug Use History: None Reported - Past Family History Mother Family Medical History: Cancer Additional Family Medical History / Comment(s): age 52 Father Family Medical History: Cancer Additional Family Medical History / Comment(s): rectal cancer- age 75 Brother(s) Family Medical History: Coronary Artery Disease (CAD), Myocardial Infarction (PR ) Additional Family Medical History / Comment(s): History of myocardial infarction at age 46. Medications and Allergies Home Medications Medication Instructions Recorded Confirmed Type Gabapentin [Neurontin] 100 mg PO TID@0600,1400,2100 09/05/17 10/14/17 History Ipratropium-Albuterol Nebulize 3 ml INHALATION RT-QID 09/05/17 10/14/17 History [Duoneb 0.5 mg-3 mg/3 ml Soln] Tamsulosin HCl [Flomax] 0.4 mg PO DAILY@0800 09/05/17 10/14/17 History Acetaminophen Tab [Tylenol] 500 mg PO Q4HR PRN tab 09/15/17 10/14/17 Rx Budesonide-Formot 160-4.5 Mcg 2 puff INHALATION RT-BID puff 09/15/17 10/14/17 Rx [Symbicort 160-4.5 Mcg Inhaler] Ipratropium-Albuterol Nebulize 3 ml INHALATION RT-Q2H PRN 09/15/17 10/14/17 Rx [Duoneb 0.5 mg-3 mg/3 ml Soln] ampul.neb Lisinopril [Zestril] 2.5 mg PO DAILY@1200 tab 09/15/17 10/14/17 Rx Magnesium Hydroxide [Milk of 2,400 mg PO BID PRN ml 09/15/17 10/14/17 Rx Magnesia Concentrate] Metoprolol Succinate (ER) [Toprol 50 mg PO BID tab.er.24h 09/15/17 10/14/17 Rx XL] Aspirin 325 mg PO DAILY@1700 10/14/17 10/14/17 History Atorvastatin [Lipitor] 40 mg PO HS@2100 10/14/17 10/14/17 History Bisacodyl [Dulcolax] 10 mg RECTAL DAILY PRN 10/14/17 10/14/17 History Docusate [Colace] 100 mg PO BID@0800,2100 10/14/17 10/14/17 History Furosemide [Lasix] 40 mg PO DAILY@0600 10/14/17 10/14/17 History Glimepiride [Amaryl] 0.5 mg PO AC-BRKFST 10/14/17 10/14/17 History Glucerna Shake 1 can PO BID@0800,1700 10/14/17 10/14/17 History Insulin Aspart [NovoLOG See Protocol SQ ACHS 10/14/17 10/14/17 History (formulary)] Melatonin 2 mg PO HS@209910/14/17 10/14/17 History Menthol/Zinc Oxide [Calmoseptine 1 applic TOPICAL BID@0800,209910/14/17 History Ointment] Na Phos,M-B/Na Phos,Di-Ba [Fleet 133 ml RECTAL DAILY PRN 10/14/17 10/14/17 History Adult] Pantoprazole [Protonix] 40 mg PO DAILY@0600 10/14/17 10/14/17 History Polyethylene Glycol 3350 [Miralax] 17 gm PO DAILY@0800 10/14/17 10/14/17 History Warfarin [Coumadin] 5 mg PO DAILY@1700 10/14/17 10/14/17 History guaiFENesin [Mucinex] 600 mg PO BID@0800,2100 10/14/17 10/14/17 History predniSONE 10 mg PO DAILY@0800 10/14/17 10/14/17 History Allergies Allergy/AdvReac Type Severity Reaction Status Date / Time inhaler AdvReac Rapid Uncoded 09/05/17 15:04 Heart Rate PACEMAKER AdvReac Unknown Uncoded 10/14/17 06:38 Surgical - Exam Vital Signs Temp Pulse Resp BP Pulse Ox 98.1 F 112 H 20 116/69 97 10/14/17 02:13 10/14/17 02:13 10/14/17 02:13 10/14/17 02:13 10/14/17 02:13 - General well developed, well nourished, no distress, no pain, chronically ill - Eyes PERRL, normal ocular movement - ENT no hearing loss - Neck no masses, no bruits, trachea midline - Respiratory Lungs sounds diminished and coarse bilaterally. Respirations even, nonlabored. Currently on 5 L nasal cannula with oxygen saturation 98%. - Cardiovascular S1, S2 present. Irregular rate and rhythm, atrial fibrillation with occasional PVCs on telemetry. Sternum stable. Palpable peripheral pulses bilaterally. Trace bilateral lower extremity edema present. No calf pain or tenderness noted. Bilateral lower extremities Gilberto wrapped. - Abdomen Abdomen: soft, non tender, bowel sounds - Genitourinary Deferred - Rectum Deferred - Integumentary Skin is warm and dry. Sternal incision well approximated and well-healed. Right lower extremity EVH site with dressing in place. - Neurologic normal coordination, normal sensation - Psychiatric oriented to time, oriented to person, oriented to place, speech is normal, memory intact Results - Labs 10/14/17 02:00 10/14/17 03:31 Abnormal Lab Results - Last 24 Hours (Table) 10/14/17 10/14/17 10/14/17 Range/Units 02:00 03:31 03:31 WBC 17.7 H (3.8-10.6) k/uL RDW 16.2 H (11.5-15.5) % Neutrophils # (Manual) 15.00 H (1.3-7.7) k/uL Monocytes # (Manual) 1.06 H (0-1.0) k/uL PT 12.1 H (9.0-12.0) sec INR 1.3 H (<1.2) D-Dimer 2.71 H (<0.60) mg/L FEU Chloride 96 L (98-107) mmol/L Carbon Dioxide 31 H (22-30) mmol/L BUN 31 H (9-20) mg/dL Glucose 112 H (74-99) mg/dL Total Creatine Kinase (55-170) U/L Total Protein 6.2 L (6.3-8.2) g/dL 10/14/17 Range/Units 03:31 WBC (3.8-10.6) k/uL RDW (11.5-15.5) % Neutrophils # (Manual) (1.3-7.7) k/uL Monocytes # (Manual) (0-1.0) k/uL PT (9.0-12.0) sec INR (<1.2) D-Dimer (<0.60) mg/L FEU Chloride (98-107) mmol/L Carbon Dioxide (22-30) mmol/L BUN (9-20) mg/dL Glucose (74-99) mg/dL Total Creatine Kinase 28 L (55-170) U/L Total Protein (6.3-8.2) g/dL Diabetes panel 10/14/17 Range/Units 03:31 Sodium 137 (137-145) mmol/L Potassium 4.4 (3.5-5.1) mmol/L Chloride 96 L (98-107) mmol/L Carbon Dioxide 31 H (22-30) mmol/L BUN 31 H (9-20) mg/dL Creatinine 0.70 (0.66-1.25) mg/dL Glucose 112 H (74-99) mg/dL Calcium 9.2 (8.4-10.2) mg/dL AST 29 (17-59) U/L ALT 36 (21-72) U/L Alkaline Phosphatase 101 (38-126) U/L Total Protein 6.2 L (6.3-8.2) g/dL Albumin 3.5 (3.5-5.0) g/dL Calcium panel 10/14/17 Range/Units 03:31 Calcium 9.2 (8.4-10.2) mg/dL Albumin 3.5 (3.5-5.0) g/dL Pituitary panel 10/14/17 Range/Units 03:31 Sodium 137 (137-145) mmol/L Potassium 4.4 (3.5-5.1) mmol/L Chloride 96 L (98-107) mmol/L Carbon Dioxide 31 H (22-30) mmol/L BUN 31 H (9-20) mg/dL Creatinine 0.70 (0.66-1.25) mg/dL Glucose 112 H (74-99) mg/dL Calcium 9.2 (8.4-10.2) mg/dL Adrenal panel 10/14/17 Range/Units 03:31 Sodium 137 (137-145) mmol/L Potassium 4.4 (3.5-5.1) mmol/L Chloride 96 L (98-107) mmol/L Carbon Dioxide 31 H (22-30) mmol/L BUN 31 H (9-20) mg/dL Creatinine 0.70 (0.66-1.25) mg/dL Glucose 112 H (74-99) mg/dL Calcium 9.2 (8.4-10.2) mg/dL Total Bilirubin 0.9 (0.2-1.3) mg/dL AST 29 (17-59) U/L ALT 36 (21-72) U/L Alkaline Phosphatase 101 (38-126) U/L Total Protein 6.2 L (6.3-8.2) g/dL Albumin 3.5 (3.5-5.0) g/dL - Imaging CT scan - chest: report reviewed, image reviewed Assessment and Plan (1) Chronic systolic heart failure Current Visit: Yes Status: Chronic Code(s): I50.22 - CHRONIC SYSTOLIC ( CONGESTIVE) HEART FAILURE SNOMED Code(s): 975470897 (2) Pleural effusion Current Visit: Yes Status: Acute Code(s): J90 - PLEURAL EFFUSION, NOT ELSEWHERE CLASSIFIED SNOMED Code(s): 77263047 (3) Pneumonia Current Visit: Yes Status: Acute Code(s): J18.9 - PNEUMONIA, UNSPECIFIED ORGANISM SNOMED Code(s): 156655457 (4) Non-ST elevated myocardial infarction Current Visit: No Status: Resolved Code(s): I21.4 - NON-ST ELEVATION (NSTEMI ) MYOCARDIAL INFARCTION SNOMED Code(s): 036114730 (5) BPH (benign prostatic hyperplasia) Current Visit: Yes Status: Chronic Code(s): N40.0 - BENIGN PROSTATIC HYPERPLASIA WITHOUT LOWER URINRY TRACT SYMP SNOMED Code(s): 366825207 (6) CAD (coronary artery disease) Current Visit: Yes Status: Chronic Code(s): I25.10 - ATHSCL HEART DISEASE OF [place] CORONARY ARTERY W/O ANG PCTRS SNOMED Code(s): 68197203 (7) COPD (chronic obstructive pulmonary disease) Current Visit: Yes Status: Chronic Code(s): J44.9 - CHRONIC OBSTRUCTIVE PULMONARY DISEASE, UNSPECIFIED SNOMED Code(s): 80472657 (8) Chronic atrial fibrillation Current Visit: Yes Status: Chronic Code(s): I48.2 - CHRONIC ATRIAL FIBRILLATION SNOMED Code(s): 558253388 (9) Diabetes mellitus type 2 in nonobese Current Visit: Yes Status: Chronic Code(s): E11.9 - TYPE 2 DIABETES MELLITUS WITHOUT COMPLICATIONS SNOMED Code(s): 702482239 (10) Family history of early CAD Current Visit: Yes Status: Chronic Code(s): Z82.49 - FAMILY HX OF ISCHEM HEART DIS AND OTH DIS OF THE CIRC SYS SNOMED Code(s): 448277046 (11) GERD (gastroesophageal reflux disease) Current Visit: Yes Status: Chronic Code(s): K21.9 - GASTRO-ESOPHAGEAL REFLUX DISEASE WITHOUT ESOPHAGITIS SNOMED Code(s): 648933950 (12) History of Coumadin therapy Current Visit: Yes Status: Chronic Code(s): Z92.29 - PERSONAL HISTORY OF OTHER DRUG THERAPY SNOMED Code(s): 801534879 (13) History of permanent cardiac pacemaker placement Current Visit: Yes Status: Chronic Code(s): Z95.0 - PRESENCE OF CARDIAC PACEMAKER SNOMED Code(s): 933544067 (14) History of sick sinus syndrome Current Visit: Yes Status: Chronic Code(s): Z86.79 - PERSONAL HISTORY OF OTHER DISEASES OF THE CIRCULATORY SYSTEM SNOMED Code(s): 731277490030100 (15) Hypertension Current Visit: Yes Status: Chronic Code(s): I10 - ESSENTIAL (PRIMARY) HYPERTENSION SNOMED Code(s): 65141011 (16) On home oxygen therapy Current Visit: Yes Status: Chronic Code(s): Z99.81 - DEPENDENCE ON SUPPLEMENTAL OXYGEN SNOMED Code(s): 334155737744 (17) Peripheral vascular disease Current Visit: Yes Status: Chronic Code(s): I73.9 - PERIPHERAL VASCULAR DISEASE, UNSPECIFIED SNOMED Code(s): 536345556 (18) History of MRSA infection Current Visit: No Status: Resolved Code(s): Z86.14 - PERSONAL HISTORY OF METHICILLIN RESIS STAPH INFECTION SNOMED Code(s): 494805407 (19) History of smoking Current Visit: No Status: Resolved Code(s): Z87.891 - PERSONAL HISTORY OF NICOTINE DEPENDENCE SNOMED Code(s): 73614735634553246 (20) History of coronary artery bypass graft Current Visit: Yes Status: Chronic Code(s): Z95.1 - PRESENCE OF AORTOCORONARY BYPASS GRAFT SNOMED Code(s): 324830115 Plan: 1. Continue aspirin, statin, beta lisa. Will increase beta lisa therapy as tolerated. 2. Hold Coumadin for now in anticipation of thoracentesis by Dr. Cruz. Heparin subcu added in for DVT prophylaxis. 3. Wean O2 as tolerated. Will order and encourage incentive spirometry use 10 times every hour. 4. Bronchodilators, steroids per Dr. Cruz. 5. Continue antibiotics. It 6. Will monitor daily labs and x-rays. 7. Increase activity, ambulate as tolerated. Will order PT/OT for evaluation. 8. Protonix for GI prophylaxis. 9. Insulin, other medical comorbidities per Dr. Crane. 10. More recommendations to follow. Thank you for this consult. We look forward to working with you in the care of your patient. Time with Patient: Greater than 30
[2017-10-14] MEDS: IPRATROPIUM-ALBUTEROL 3 ML NEB INHALATION SCH ×4 (09:44→20:48)
[2017-10-14] MEDS: BUDESONIDE 1 MG/2 ML NEBU INHALATION SCH ×2 (09:50→20:47)
[2017-10-14] MEDS: FORMOTEROL FUMARATE 20 MCG/2 ML NEBU INHALATION SCH ×2 (09:50→20:47)
--- NOTE | 2017-10-14 10:05 | P.CNPUL ---
History of Present Illness Consult date: 10/14/17 Requesting physician: Jimmy White Reason for consult: dyspnea, abnormal CXR/CT Chief complaint: Shortness of breath History of present illness: This is a very pleasant 77-year-old gentleman who follows with Dr. White as his primary care physician. He has a history of hypertension, osteomyelitis, peripheral vascular occlusive disease, diabetic neuropathy, diabetes mellitus type 2, chronic atrial fibrillation, chronic hypoxic respiratory failure with severe COPD, Gold stage III with an FEV1 value of 45% of predicted. He follows in our office for the same. He has a history of pseudomonas aeruginosa and oxacillin sensitive Staphylococcus aureus positive sputum cultures in August 2017. He also has history of coronary artery disease and recently sustained a non-ST segment myocardial infarction requiring subsequent coronary artery bypass grafting utilizing a PARSON to the LAD, reverse saphenous vein graft to the OM1, OM 2, RCA. He had been seen by Dr. Cruz last week and follow-up in the office. He was found to have a left pleural effusion measuring 10 cm with shortness of breath. He was asked to hold his warfarin and the plan was for a left thoracentesis to be done in the outpatient setting today. However, he presented to the emergency room approximately at 2:00 this morning from the [facility] with worsening shortness of breath and coughing up pink frothy sputum. CT angiogram ruled out pulmonary embolism. There was a noted consolidation involving the right lower lobe with subsegmental changes in the left lower lobe and endobronchial opacification suspicious for pneumonia. There is a left pleural effusion layering posteriorly with mild loculation. He was seen and evaluated in the emergency room this morning with Dr. Cruz. He is awake and alert in mild respiratory distress. He initially required 15L nonrebreather mask. He is currently on 5 L/m per nasal cannula to maintain O2 saturations in the 90s. Afebrile. He slightly tachycardic. Atrial fibrillation. White count 17.7. Hemoglobin 13.3. INR 1.3. Creatinine 0.70. ProBNP 2480. He has been initiated on Zosyn and Levaquin. Review of Systems Constitutional: Reports malaise, Reports poor appetite, Reports weakness Eyes: denies blurred vision, denies decreased vision Ears: deny: decreased hearing Ears, nose, mouth and throat: Denies headache, Denies sore throat Cardiovascular: Reports dyspnea on exertion, Reports irregular heart beat, Reports palpitations, Reports shortness of breath Respiratory: Reports cough with sputum, Reports dyspnea, Reports home oxygen, Reports wheezing Gastrointestinal: Reports loss of appetite Genitourinary: Reports as per HPI Musculoskeletal: Reports gait dysfunction, Reports low back pain, Reports prior amputations Integumentary: Denies pruritus, Denies rash Neurological: Reports weakness Psychiatric: Reports anxiety Endocrine: Denies fatigue, Denies weight change Hematologic/Lymphatic: Reports easy bleeding Allergic/Immunologic: Reports as per HPI Past Medical History Past Medical History: Atrial Fibrillation, Coronary Artery Disease (CAD), Chest Pain / Angina, Heart Failure, COPD, Diabetes Mellitus, Deep Vein Thrombosis (DVT ), Eye Disorder, GERD/Reflux, GI Bleed, Hyperlipidemia, Hypertension, Myocardial Infarction (non Q-wave), Osteoarthritis (OA), Pneumonia, Prostate Disorder, Respiratory Disorder, Sleep Apnea/CPAP/BIPAP, Vascular Disorder Additional Past Medical History / Comment(s): pt is rt side dominant. lumbar disc disease, history of cpap for obstructive sleep apnea-no longer. pt stated he wa born with an irreg heart beat, home 02 3 liters nc at hs. "pt stated may have had a mi or tia they were'nt sure". History of sick sinus syndrome. Bilateral carotid stenosis History of Any Multi-Drug Resistant Organisms: MRSA Date of last positivie culture/infection: 2017 MDRO Source:: Sputum culture positive for pseudomonas and MSSA Past Surgical History: Appendectomy, Back Surgery, Cholecystectomy, Coronary Bypass/CABG, Heart Catheterization, Orthopedic Surgery, Pacemaker Additional Past Surgical History / Comment(s): marshal cataracts, had part of stomach removed and a foot of bowel d/t bleeding peptic ulcers. total lt knee replacment,several sx on marshal feet had 4th toe each foot removed.rt hand 2nd finger partial amp and 3 rd finger amputated, CABG x 4 with left atrial appendage ligation in August 2017 Past Anesthesia/Blood Transfusion Reactions: No Reported Reaction Additional Past Anesthesia/Blood Transfusion Reaction / Comment(s): blood transfusion- no reaction Type of Cardiac Device: Permanent Pacemaker Device Placement Date:: unk Past Psychological History: No Psychological Hx Reported Smoking Status: Former smoker Past Alcohol Use History: None Reported Past Drug Use History: None Reported - Past Family History Mother Family Medical History: Cancer Additional Family Medical History / Comment(s): age 52 Father Family Medical History: Cancer Additional Family Medical History / Comment(s): rectal cancer- age 75 Brother(s) Family Medical History: Coronary Artery Disease (CAD), Myocardial Infarction (MS ) Additional Family Medical History / Comment(s): History of myocardial infarction at age 46. Medications and Allergies Home Medications Medication Instructions Recorded Confirmed Type Gabapentin [Neurontin] 100 mg PO TID@0600,1400,2100 09/05/17 10/14/17 History Ipratropium-Albuterol Nebulize 3 ml INHALATION RT-QID 09/05/17 10/14/17 History [Duoneb 0.5 mg-3 mg/3 ml Soln] Tamsulosin HCl [Flomax] 0.4 mg PO DAILY@0800 09/05/17 10/14/17 History Acetaminophen Tab [Tylenol] 500 mg PO Q4HR PRN tab 09/15/17 10/14/17 Rx Budesonide-Formot 160-4.5 Mcg 2 puff INHALATION RT-BID puff 09/15/17 10/14/17 Rx [Symbicort 160-4.5 Mcg Inhaler] Ipratropium-Albuterol Nebulize 3 ml INHALATION RT-Q2H PRN 09/15/17 10/14/17 Rx [Duoneb 0.5 mg-3 mg/3 ml Soln] ampul.neb Lisinopril [Zestril] 2.5 mg PO DAILY@1200 tab 09/15/17 10/14/17 Rx Magnesium Hydroxide [Milk of 2,400 mg PO BID PRN ml 09/15/17 10/14/17 Rx Magnesia Concentrate] Metoprolol Succinate (ER) [Toprol 50 mg PO BID tab.er.24h 09/15/17 10/14/17 Rx XL] Aspirin 325 mg PO DAILY@1700 10/14/17 10/14/17 History Atorvastatin [Lipitor] 40 mg PO HS@209910/14/17 10/14/17 History Bisacodyl [Dulcolax] 10 mg RECTAL DAILY PRN 10/14/17 10/14/17 History Docusate [Colace] 100 mg PO BID@0800,2100 10/14/17 10/14/17 History Furosemide [Lasix] 40 mg PO DAILY@0600 10/14/17 10/14/17 History Glimepiride [Amaryl] 0.5 mg PO AC-BRKFST 10/14/17 10/14/17 History Glucerna Shake 1 can PO BID@0800,1700 10/14/17 10/14/17 History Insulin Aspart [NovoLOG See Protocol SQ ACHS 10/14/17 10/14/17 History (formulary)] Melatonin 2 mg PO HS@209910/14/17 10/14/17 History Menthol/Zinc Oxide [Calmoseptine 1 applic TOPICAL BID@0800,2100 10/14/17 History Ointment] Na Phos,M-B/Na Phos,Di-Ba [Fleet 133 ml RECTAL DAILY PRN 10/14/17 10/14/17 History Adult] Pantoprazole [Protonix] 40 mg PO DAILY@0600 10/14/17 10/14/17 History Polyethylene Glycol 3350 [Miralax] 17 gm PO DAILY@0800 10/14/17 10/14/17 History Warfarin [Coumadin] 5 mg PO DAILY@1700 10/14/17 10/14/17 History guaiFENesin [Mucinex] 600 mg PO BID@0800,2100 10/14/17 10/14/17 History predniSONE 10 mg PO DAILY@0800 10/14/17 10/14/17 History Allergies Allergy/AdvReac Type Severity Reaction Status Date / Time inhaler AdvReac Rapid Uncoded 09/05/17 15:04 Heart Rate PACEMAKER AdvReac Unknown Uncoded 10/14/17 06:38 Physical Exam Vitals: Vital Signs Temp Pulse Resp BP Pulse Ox 10/14/17 06:56 114 H 22 10/14/17 06:49 114 H 24 10/14/17 06:38 102 H 19 115/75 95 10/14/17 05:21 101 H 19 93/56 100 10/14/17 04:45 104 H 19 124/62 100 10/14/17 04:16 115 H 10/14/17 04:06 112 H 10/14/17 03:43 110 H 20 108/60 99 10/14/17 02:13 98.1 F 112 H 20 116/69 97 Intake and Output 10/13/17 10/14/17 10/14/17 22:59 06:59 14:59 Other: Weight 74.843 kg - Constitutional General appearance: cooperative, mild distress - EENT Eyes: EOMI, PERRLA ENT: hearing grossly normal Ears: bilateral: normal - Neck Carotids: bilateral: upstroke normal Thyroid: bilateral: normal size - Respiratory Respiratory: bilateral: diminished, rales, wheezing - Cardiovascular Rhythm: irregularly irregular Heart sounds: normal: S1, S2 - Gastrointestinal General gastrointestinal: normal bowel sounds - Integumentary Integumentary: decreased turgor - Neurologic Neurologic: CNII-XII intact - Musculoskeletal Musculoskeletal: generalized weakness - Psychiatric Psychiatric: A&O x's 3, appropriate affect, intact judgment & insight Results - Laboratory Findings CBC and BMP: 10/14/17 02:00 10/14/17 03:31 PT/INR, D-dimer PT 12.1 sec (9.0-12.0) H 10/14/17 03:31 INR 1.3 (<1.2) H 10/14/17 03:31 D-Dimer 2.71 mg/L FEU (<0.60) H 10/14/17 03:31 Abnormal lab findings: Abnormal Labs 10/14/17 10/14/17 10/14/17 02:00 03:31 03:31 WBC 17.7 H RDW 16.2 H Neutrophils # (Manual) 15.00 H Monocytes # (Manual) 1.06 H PT 12.1 H INR 1.3 H D-Dimer 2.71 H Chloride 96 L Carbon Dioxide 31 H BUN 31 H Glucose 112 H Total Creatine Kinase Total Protein 6.2 L 10/14/17 03:31 WBC RDW Neutrophils # (Manual) Monocytes # (Manual) PT INR D-Dimer Chloride Carbon Dioxide BUN Glucose Total Creatine Kinase 28 L Total Protein - Diagnostic Findings Chest x-ray: image reviewed CT scan - chest: image reviewed Assessment and Plan Assessment: Impression: #1 Acute on chronic hypoxic respiratory failure secondary to bilateral healthcare acquired pneumonia with left pleural effusion, COPD exacerbation and CHF exacerbation #2 Left pleural effusion, warfarin on hold for plans for an outpatient thoracentesis today prior to his arrival to the emergency room. Repeat ultrasound is pending. #3 Acute exacerbation of oxygen dependent chronic obstructive pulmonary disease , Gold stage III with FEV1 value of 45% of predicted. #4 Recent pneumonia with positive sputum cultures of Pseudomonas and oxacillin sensitive Staphylococcus aureus from 09/08/2017. #5 Acute exacerbation of chronic systolic congestive heart failure. Mild to moderately impaired left ventricular systolic function with ejection fraction 40 -45%. #6 Atrial fibrillation with varying ventricular response. Warfarin currently on hold. INR 1.3. #7 Recent non-ST segment elevation myocardial infarction and subsequent coronary artery bypass grafting on 09/08/2017. PARSON to the LAD, reverse this saphenous vein grafts to the first obtuse marginal artery, second obtuse marginal artery, right coronary artery. #8 Diabetes mellitus, type II. #9 Diabetic neuropathy. #10 Peripheral vascular occlusive disease. Multiple surgeries including palpitations of the fourth toe bilaterally. 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 #12 Hypertension, history of. #13 History of peptic ulcer disease with partial gastrectomy and colectomy. #14 Poor overall functional performance based on the above-mentioned multiple comorbidities. Plan: The patient was seen and evaluated by Dr. Cruz. CAT scan and labs were all reviewed. The previously marked left chest was quite low, possibly below the diaphragm. We'll request a repeat ultrasound of the left chest with new markings. Continue to hold warfarin for now. Heparin for DVT prophylaxis. Protonix for GI prophylaxis. Continue antibiotics in the form of Zosyn and Levaquin. DuoNeb inhalations every 4 hours and when necessary, Pulmicort and Perforomist inhalations twice a day, IV Solu-Medrol 60 mg every 6 hours. Repeat sputum culture. Continue diuretics. Transfer to the selective care unit once a bed becomes available. We'll continue to follow and make further recommendations based on his clinical status. I, the cosigning physician, performed a history & physical examination of the patient. Lungs sounds with bilateral wheezing, crackles in the posterior bases, diminished. Maintaining good O2 saturations in the 90s on 5 L/m per nasal cannula. I discussed the assessment and plan of care with my nurse practitioner , Verónica Joseph. I attest to the above note as dictated by her. Time with Patient: Greater than 30
--- NOTE | 2017-10-14 11:37 | US ---
EXAMINATION TYPE: US chest DATE OF EXAM: 10/14/2017 COMPARISON: US 10/10/[address] 10/14/2017 CLINICAL HISTORY: Left pleural effusion. EXAM MEASUREMENTS: Left Pleural Effusion fluid pocket: 8.1 cm A/P SAG Left skin to fluid thickness: 3.3 cm A/P Left side was marked for possible thoracentesis outside the dept. Pulmonologists are able to review the images in the patient?s EMR. IMPRESSIONS: Moderate left pleural effusion
[2017-10-14] MEDS: PIPERACILLIN-TAZOBACTAM 3.375 GM in DEXTROSE/WATER 1 50ML.BAG IVPB SCH (12:04)
[2017-10-14 12:20] LABS: Glucose,Whole Blood 195 mg/dL (75-99)
[2017-10-14] MEDS: methylPREDNISolone SOD SUCCI 125 MG/2 ML VIAL IV SCH ×2 (12:22→18:15)
[2017-10-14] MEDS: INSULIN ASPART 100 UNIT/ML 1 ML 10 ML VIAL SQ SCH ×3 (13:03→22:28)
[2017-10-14] MEDS: HEPARIN SODIUM,PORCINE 5,000 UNIT/ML 1 ML VIAL SQ SCH ×2 (16:25→22:19)
[2017-10-14 18:05] LABS: Glucose,Whole Blood 168 mg/dL (75-99)
[2017-10-14] MEDS: ASPIRIN 325 MG TAB PO SCH (18:15)
[2017-10-14 19:11] LABS: Hemoglobin A1C 4.7 % (4.0-6.0)
[2017-10-14 20:39] LABS: Glucose,Whole Blood 237 mg/dL (75-99)
[2017-10-14] MEDS: ATORVASTATIN 40 MG TAB PO SCH (22:19)
[2017-10-14] MEDS: TAMSULOSIN 0.4 MG CAP.ER.24H PO SCH (22:27)
[2017-10-14] MEDS: MELATONIN 1 MG TAB PO SCH (23:00)
[2017-10-15] MEDS ORDERED: methylPREDNISolone SOD SUCCI 125 MG/2 ML VIAL ONE (00:33)
[2017-10-15] MEDS ORDERED: IPRATROPIUM-ALBUTEROL 3 ML NEB ONE (00:33)
[2017-10-15] MEDS: IPRATROPIUM-ALBUTEROL 3 ML NEB INHALATION PRN (04:21)
[2017-10-15 06:10] LABS: Glucose,Whole Blood 177 mg/dL (75-99)
[2017-10-15 06:45] LABS: Anisocytosis Slight; Basophils % (A) 0 %; Eosinophils % (A) 0 %; HCT 36.3 % (39.0-53.0); HGB 11.2 gm/dL (13.0-17.5); Hypochromasia Marked; Lymphocytes # (A) 0.6 k/uL (1.0-4.8); Lymphocytes % (A) 4 %; MCH 27.1 pg (25.0-35.0); MCHC 30.7 g/dL (31.0-37.0); MCV 88.2 fL (80.0-100.0); Mean Platelet Volume 6.5; Monocytes # (A) 0.5 k/uL (0-1.0); Monocytes % (A) 4 %; Neutrophils # (A) 11.8 k/uL (1.3-7.7); Neutrophils % (A) 92 %; Platelet Count 232 k/uL (150-450); RBC 4.12 m/uL (4.30-5.90); RDW 16.4 % (11.5-15.5); WBC 12.9 k/uL (3.8-10.6)
[2017-10-15 06:53] LABS: INR 1.3 (<1.2); Prothrombin Time 12.3 sec (9.0-12.0)
[2017-10-15 06:58] LABS: ALT 32 U/L (21-72); AST 25 U/L (17-59); Albumin 3.3 g/dL (3.5-5.0); Alkaline Phosphatase 90 U/L (38-126); Anion Gap 9 mmol/L; Blood Urea Nitrogen 28 mg/dL (9-20); Carbon Dioxide 34 mmol/L (22-30); Chloride 94 mmol/L (98-107); Glucose 165 mg/dL (74-99); Magnesium 2.5 mg/dL (1.6-2.3); Potassium 4.7 mmol/L (3.5-5.1); Sodium 137 mmol/L (137-145); Total Bilirubin 0.7 mg/dL (0.2-1.3); Total Protein 5.7 g/dL (6.3-8.2)
[2017-10-15] MEDS: HEPARIN SODIUM,PORCINE 5,000 UNIT/ML 1 ML VIAL SQ SCH ×4 (07:05→23:24)
[2017-10-15] MEDS: methylPREDNISolone SOD SUCCI 125 MG/2 ML VIAL IV SCH ×3 (07:05→12:26)
[2017-10-15] MEDS: PIPERACILLIN-TAZOBACTAM 3.375 GM in DEXTROSE/WATER 1 50ML.BAG IVPB SCH ×4 (07:06→23:25)
[2017-10-15] MEDS: GABAPENTIN 100 MG CAP PO SCH ×3 (07:06→21:01)
[2017-10-15] MEDS: GLIMEPIRIDE 0.5 MG TAB PO SCH (07:08)
[2017-10-15] MEDS: INSULIN ASPART 100 UNIT/ML 1 ML 10 ML VIAL SQ SCH ×4 (07:34→22:34)
--- NOTE | 2017-10-15 07:52 | XR ---
EXAMINATION TYPE: XR chest 2V DATE OF EXAM: 10/15/2017 COMPARISON: Prior chest 09/15/2017 HISTORY: Pleural effusion TECHNIQUE: Frontal and lateral views of the chest are obtained. FINDINGS: The left hemidiaphragm is obscured, there is blunting of the left costophrenic angle. Clarissa ent is post median sternotomy and the heart is enlarged. Pacemaker is stable with leads in the right atrium and ventricle. Atrial appendage clipping change is noted. Prominent lung volumes compatible wi th underlying COPD. Pulmonary vascularity and latonya within normal limits. No evident pneumothorax. Bas ilar density suspected on the right. IMPRESSION: Pleural effusion has increased in the interval. There may be basilar atelectasis versus pneumonia, atypical presentation of congestive heart failure in a patient with pre-existing COPD. Cor relate. Follow-up recommended.
--- NOTE | 2017-10-15 08:24 | P.PN ---
Progress Note - Text The patient is a 77-year-old gentleman who 2 days ago was transferred from [facility] after episodes of coughing up hemorrhagic sputum with increasing shortness of breath and decreasing O2 saturation values. Patient's chest x-ray is consistent with bilateral lower lobe pneumonias and he has a left plural effusion. Patient has been seen by thoracic surgery as he is post coronary artery bypass and also has been seen by a pulmonary medicine. Overall patient states he feels better. States he ate breakfast well this morning. Denies any unusual chest discomfort. Vital signs show a temperature of 97.2 with a pulse of 92 and respirations 18. Last blood pressure late yesterday was 96/73 and he was 94% saturated on 2 L. Lungs do reveal diminished breath sounds on the left but otherwise are generally diminished but clear. Heart tones are somewhat distant and irregular with history of atrial fibrillation. No unusual distal edema. He does appear somewhat anxious this morning but overall alert and oriented without any new focal deficits. Laboratory White count is 12.9 with a hemoglobin 11.2 and a platelet count of 232. INR this morning is 1.3 as Coumadin has been on hold for possible thoracentesis. Sodium is 137 with potassium 4.7. CO2 content is 34. BUN is 28 with a creatinine 0.8 given him a GFR of 86. Blood sugar this morning was 165. Magnesium is 2.5. Albumin 3.3. Chest x-ray Per radiology there has been increase in the left pleural effusion. Along with basilar pneumonic processes. Impressions and plans Patient overall appears to be doing well on present antibiotics which include Zosyn and levofloxacin. He is also on IV corticosteroids. Along with his maintenance pulmonary and Cardiologic medications. We'll await further recommendations from thoracic surgery and pulmonary medicine. Discussed with patient at bedside this morning. He remains on subcu heparin and but his Coumadin is on hold. Continue with his glimepiride for his blood sugar along with Accu-Cheks and coverage especially while he is on corticosteroids.
[2017-10-15] MEDS: BUDESONIDE 1 MG/2 ML NEBU INHALATION SCH ×2 (08:26→19:08)
[2017-10-15] MEDS: FORMOTEROL FUMARATE 20 MCG/2 ML NEBU INHALATION SCH ×2 (08:26→19:08)
[2017-10-15] MEDS: IPRATROPIUM-ALBUTEROL 3 ML NEB INHALATION SCH ×4 (08:26→19:08)
--- NOTE | 2017-10-15 10:19 | P.PN ---
Subjective Progress Note Date: 10/15/17 Principal diagnosis: Admission for right lower lobe pneumonia. Current left-sided pleural effusion. Previous medical history of triple-vessel coronary artery disease with left main disease and non-ST elevation myocardial infarction status post urgent quadruple coronary artery bypass grafting as well as exclusion of the left atrial appendage on 09/08/2017, mild to moderate left ventricular dysfunction, chronic systolic heart failure with ejection fraction of 40-45% as well as diastolic dysfunction, chronic persistent atrial fibrillation on home Coumadin therapy, sick sinus syndrome status post pacemaker insertion, hypertension, hyperlipidemia, carotid stenosis 50-79% bilaterally, previous tobacco dependence , 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 Patient's currently sitting up in chair in no acute distress. States his shortness of breath has improved significantly. He has no new complaints at this time. Objective - Vital Signs Vital signs: Vital Signs Temp 96.2 F L 10/14/17 20:30 Pulse 102 H 10/15/17 08:52 Resp 20 10/15/17 09:14 BP 115/75 10/15/17 09:14 Pulse Ox 94 L 10/15/17 09:14 Intake & Output 10/14/17 10/15/17 10/15/17 18:59 06:59 18:59 Intake Total 236 Output Total 200 Balance -200 236 Weight 71.2 kg Intake: Oral 236 Output: Urine 200 Other: Voiding Method Toilet # Voids 3 - Constitutional General appearance: Present: cooperative, no acute distress - Respiratory Details: Lungs sounds diminished bilaterally with coarse breath sounds in the bases. Respirations even, nonlabored. Currently on 3 L nasal cannula with oxygen saturation 94%. Able to achieve 1000 mL on his incentive spirometry. Effective productive cough. - Cardiovascular Details: S1, S2 present. Irregular rate and rhythm, atrial fibrillation on telemetry. Sternum stable. Palpable peripheral pulses bilaterally. No edema present. No calf pain or tenderness noted. SCDs present. - Gastrointestinal Gastrointestinal Comment(s): Abdomen soft, nontender, nondistended. Active bowel sounds 4 quadrants. Tolerating diet. - Genitourinary Genitourinary Comment(s): Continues to void clear, yellow urine. - Integumentary Integumentary Comment(s): Skin is warm and dry. Anterior chest incision well healed. Right lower extremity EVH site open with small amount of drainage. - Neurologic Neurologic: Present: CNII-XII intact - Musculoskeletal Musculoskeletal: Present: strength equal bilaterally - Psychiatric Psychiatric: Present: A&O x's 3, appropriate affect, intact judgment & insight - Allied health notes Allied health notes reviewed: nursing - Labs CBC & Chem 7: 10/15/17 05:47 10/15/17 05:47 Labs: Abnormal Lab Results - Last 24 Hours (Table) 10/14/17 10/14/17 10/14/17 Range/Units 12:16 18:03 20:38 WBC (3.8-10.6) k/uL RBC (4.30-5.90) m/uL Hgb (13.0-17.5) gm/dL Hct (39.0-53.0) % MCHC (31.0-37.0) g/dL RDW (11.5-15.5) % Neutrophils # (1.3-7.7) k/uL Lymphocytes # (1.0-4.8) k/uL PT (9.0-12.0) sec INR (<1.2) Chloride (98-107) mmol/L Carbon Dioxide (22-30) mmol/L BUN (9-20) mg/dL Glucose (74-99) mg/dL POC Glucose (mg/dL) 195 H 168 H 237 H (75-99) mg/dL Magnesium (1.6-2.3) mg/dL Total Protein (6.3-8.2) g/dL Albumin (3.5-5.0) g/dL 10/15/17 10/15/17 10/15/17 Range/Units 05:47 05:47 05:47 WBC 12.9 H (3.8-10.6) k/uL RBC 4.12 L (4.30-5.90) m/uL Hgb 11.2 L (13.0-17.5) gm/dL Hct 36.3 L (39.0-53.0) % MCHC 30.7 L (31.0-37.0) g/dL RDW 16.4 H (11.5-15.5) % Neutrophils # 11.8 H (1.3-7.7) k/uL Lymphocytes # 0.6 L (1.0-4.8) k/uL PT 12.3 H (9.0-12.0) sec INR 1.3 H (<1.2) Chloride 94 L (98-107) mmol/L Carbon Dioxide 34 H (22-30) mmol/L BUN 28 H (9-20) mg/dL Glucose 165 H (74-99) mg/dL POC Glucose (mg/dL) (75-99) mg/dL Magnesium 2.5 H (1.6-2.3) mg/dL Total Protein 5.7 L (6.3-8.2) g/dL Albumin 3.3 L (3.5-5.0) g/dL 10/15/17 Range/Units 06:09 WBC (3.8-10.6) k/uL RBC (4.30-5.90) m/uL Hgb (13.0-17.5) gm/dL Hct (39.0-53.0) % MCHC (31.0-37.0) g/dL RDW (11.5-15.5) % Neutrophils # (1.3-7.7) k/uL Lymphocytes # (1.0-4.8) k/uL PT (9.0-12.0) sec INR (<1.2) Chloride (98-107) mmol/L Carbon Dioxide (22-30) mmol/L BUN (9-20) mg/dL Glucose (74-99) mg/dL POC Glucose (mg/dL) 177 H (75-99) mg/dL Magnesium (1.6-2.3) mg/dL Total Protein (6.3-8.2) g/dL Albumin (3.5-5.0) g/dL Microbiology - Last 24 Hours (Table) 10/14/17 02:49 Blood Culture - Preliminary Blood No Growth after 24 hours 10/14/17 20:54 Gram Stain - Preliminary Sputum Sputum Culture - Preliminary - Imaging and Cardiology Chest x-ray: report reviewed, image reviewed Assessment and Plan (1) Chronic systolic heart failure Current Visit: Yes Status: Chronic Code(s): I50.22 - CHRONIC SYSTOLIC ( CONGESTIVE) HEART FAILURE SNOMED Code(s): 273106086 (2) Pleural effusion Current Visit: Yes Status: Acute Code(s): J90 - PLEURAL EFFUSION, NOT ELSEWHERE CLASSIFIED SNOMED Code(s): 32941746 (3) Pneumonia Current Visit: Yes Status: Acute Code(s): J18.9 - PNEUMONIA, UNSPECIFIED ORGANISM SNOMED Code(s): 930634845 (4) Non-ST elevated myocardial infarction Current Visit: No Status: Resolved Code(s): I21.4 - NON-ST ELEVATION (NSTEMI ) MYOCARDIAL INFARCTION SNOMED Code(s): 023037348 (5) BPH (benign prostatic hyperplasia) Current Visit: Yes Status: Chronic Code(s): N40.0 - BENIGN PROSTATIC HYPERPLASIA WITHOUT LOWER URINRY TRACT SYMP SNOMED Code(s): 101066069 (6) CAD (coronary artery disease) Current Visit: Yes Status: Chronic Code(s): I25.10 - ATHSCL HEART DISEASE OF [place] CORONARY ARTERY W/O ANG PCTRS SNOMED Code(s): 77945094 (7) COPD (chronic obstructive pulmonary disease) Current Visit: Yes Status: Chronic Code(s): J44.9 - CHRONIC OBSTRUCTIVE PULMONARY DISEASE, UNSPECIFIED SNOMED Code(s): 05500072 (8) Chronic atrial fibrillation Current Visit: Yes Status: Chronic Code(s): I48.2 - CHRONIC ATRIAL FIBRILLATION SNOMED Code(s): 480293871 (9) Diabetes mellitus type 2 in nonobese Current Visit: Yes Status: Chronic Code(s): E11.9 - TYPE 2 DIABETES MELLITUS WITHOUT COMPLICATIONS SNOMED Code(s): 221831201 (10) Family history of early CAD Current Visit: Yes Status: Chronic Code(s): Z82.49 - FAMILY HX OF ISCHEM HEART DIS AND OTH DIS OF THE CIRC SYS SNOMED Code(s): 071491648 (11) GERD (gastroesophageal reflux disease) Current Visit: Yes Status: Chronic Code(s): K21.9 - GASTRO-ESOPHAGEAL REFLUX DISEASE WITHOUT ESOPHAGITIS SNOMED Code(s): 723609279 (12) History of Coumadin therapy Current Visit: Yes Status: Chronic Code(s): Z92.29 - PERSONAL HISTORY OF OTHER DRUG THERAPY SNOMED Code(s): 277522665 (13) History of permanent cardiac pacemaker placement Current Visit: Yes Status: Chronic Code(s): Z95.0 - PRESENCE OF CARDIAC PACEMAKER SNOMED Code(s): 557213832 (14) History of sick sinus syndrome Current Visit: Yes Status: Chronic Code(s): Z86.79 - PERSONAL HISTORY OF OTHER DISEASES OF THE CIRCULATORY SYSTEM SNOMED Code(s): 106885765531619 (15) Hypertension Current Visit: Yes Status: Chronic Code(s): I10 - ESSENTIAL (PRIMARY) HYPERTENSION SNOMED Code(s): 44206851 (16) On home oxygen therapy Current Visit: Yes Status: Chronic Code(s): Z99.81 - DEPENDENCE ON SUPPLEMENTAL OXYGEN SNOMED Code(s): 197350699680 (17) Peripheral vascular disease Current Visit: Yes Status: Chronic Code(s): I73.9 - PERIPHERAL VASCULAR DISEASE, UNSPECIFIED SNOMED Code(s): 733181221 (18) History of MRSA infection Current Visit: No Status: Resolved Code(s): Z86.14 - PERSONAL HISTORY OF METHICILLIN RESIS STAPH INFECTION SNOMED Code(s): 752831170 (19) History of smoking Current Visit: No Status: Resolved Code(s): Z87.891 - PERSONAL HISTORY OF NICOTINE DEPENDENCE SNOMED Code(s): 42009834451506107 (20) History of coronary artery bypass graft Current Visit: Yes Status: Chronic Code(s): Z95.1 - PRESENCE OF AORTOCORONARY BYPASS GRAFT SNOMED Code(s): 444703998 Plan: 1. Continue aspirin, statin, beta lisa. Will increase beta lisa therapy as tolerated. 2. Hold Coumadin for now in anticipation of thoracentesis by interventional radiology. Heparin subcu added in for DVT prophylaxis. 3. Wean O2 as tolerated. Encourage incentive spirometry use 10 times every hour. 4. Bronchodilators, steroids per Dr. Cruz. 5. Continue antibiotics. 6. Will monitor daily labs and x-rays. 7. Increase activity, ambulate as tolerated. PT/OT following. 8. Protonix for GI prophylaxis. 9. Insulin, other medical comorbidities per Dr. Crane. 10. If the patient is able to have thoracentesis performed today, from our standpoint he is stable to return to extended care/home on oral steroids and antibiotics. Patient appears to be back to baseline and can be managed outpatient. Time with Patient: Greater than 30
--- NOTE | 2017-10-15 10:59 | XR ---
EXAMINATION TYPE: XR chest 1V DATE OF EXAM: 10/15/2017 COMPARISON: Prior chest 10/15/2017 and earlier time HISTORY: Status post left thoracentesis TECHNIQUE: Single frontal view of the chest is obtained. FINDINGS: There is some improvement in aeration at the left lung base. No evident pneumothorax. No s ignificant interval change. IMPRESSION: No evident complication status post left thoracentesis. Correlate for right lower lobe p neumonia versus pulmonary edema or atelectasis.
--- NOTE | 2017-10-15 11:02 | US ---
EXAMINATION TYPE: US thoracentesis DATE OF EXAM: 10/15/2017 COMPARISON: NONE HISTORY: Pleural effusion. FINDINGS: Maximal barrier technique was utilized. The skin overlying a suitable pocket of fluid was localized and the overlying skin prepped and draped. Lidocaine was used for local anesthesia. Ultras ound was used with sterile technique. A 5 Kisw[place]ili catheter over guide needle was advanced into the pl eural fluid collection using ultrasound guidance and the catheter advanced needle removed. Approxima tely 1.06 liter(s) of serous sanguinous fluid was removed. Catheter was withdrawn and hemostasis ach ieved. There is no immediate complication. The patient discharged in stable condition without compl ication. IMPRESSION: STATUS POST ULTRASOUND GUIDED THORACENTESIS, POST PROCEDURE CHEST X-RAY PENDING. THIS MT OCEDURE WAS PERFORMED BY THE UNDERSIGNED. Specimen sent for laboratory analysis.
[2017-10-15 11:24] LABS: Glucose,Whole Blood 246 mg/dL (75-99)
--- NOTE | 2017-10-15 12:19 | P.PN ---
Subjective Progress Note Date: 10/15/17 Principal diagnosis: Acute on chronic hypoxic respiratory failure secondary to bilateral healthcare acquired pneumonia with left pleural effusion, COPD exacerbation, systolic congestive heart failure exacerbation. This is a very pleasant 77-year-old gentleman who follows with Dr. White as his primary care physician. He has a history of hypertension, osteomyelitis, peripheral vascular occlusive disease, diabetic neuropathy, diabetes mellitus type 2, chronic atrial fibrillation, chronic hypoxic respiratory failure with severe COPD, Gold stage III with an FEV1 value of 45% of predicted. He follows in our office for the same. He has a history of pseudomonas aeruginosa and oxacillin sensitive Staphylococcus aureus positive sputum cultures in August 2017. He also has history of coronary artery disease and recently sustained a non-ST segment myocardial infarction requiring subsequent coronary artery bypass grafting utilizing a PARSON to the LAD, reverse saphenous vein graft to the OM1, OM 2, RCA. He had been seen by Dr. Cruz last week and follow-up in the office. He was found to have a left pleural effusion measuring 10 cm with shortness of breath. He was asked to hold his warfarin and the plan was for a left thoracentesis to be done in the outpatient setting today. However, he presented to the emergency room approximately at 2:00 this morning from the [facility] with worsening shortness of breath and coughing up pink frothy sputum. CT angiogram ruled out pulmonary embolism. There was a noted consolidation involving the right lower lobe with subsegmental changes in the left lower lobe and endobronchial opacification suspicious for pneumonia. There is a left pleural effusion layering posteriorly with mild loculation. He was seen and evaluated in the emergency room this morning with Dr. Cruz. He is awake and alert in mild respiratory distress. He initially required 15L nonrebreather mask. He is currently on 5 L/m per nasal cannula to maintain O2 saturations in the 90s. Afebrile. He slightly tachycardic. Atrial fibrillation. White count 17.7. Hemoglobin 13.3. INR 1.3. Creatinine 0.70. ProBNP 2480. He has been initiated on Zosyn and Levaquin. The patient is seen again today 10/15/2017 in follow-up on the selective care unit. He is currently sitting up in a chair at the bedside. He is awake and alert in no acute distress. He is breathing quite a bit better today as compared to yesterday. He continues with a loose nonproductive cough. He did undergo a left-sided thoracentesis this morning by interventional radiology in approximately 1.06 L of serosanguineous fluid was removed. All of chest x-ray revealed no evidence complications from the thoracentesis. There is a right lower lobe atelectasis. He is working well with the incentive spirometer. Maintaining O2 saturations in the 90s on 3 L/m per nasal cannula. Hemodynamically stable. Sputum culture pending. Blood culture reveals no growth to date. White count 12.9. Hemoglobin 11.2. INR 1.3. Creatinine 0.80. Objective - Vital Signs Vital signs: Vital Signs Temp 96.2 F L 10/14/17 20:30 Pulse 106 H 10/15/17 11:07 Resp 18 10/15/17 11:07 BP 129/68 10/15/17 11:07 Pulse Ox 92 L 10/15/17 11:07 Intake & Output 10/14/17 10/15/17 10/15/17 18:59 06:59 18:59 Intake Total 236 Output Total 200 Balance -200 236 Weight 71.2 kg Intake: Oral 236 Output: Urine 200 Other: Voiding Method Toilet # Voids 3 - Exam - Constitutional General appearance: cooperative, no acute distress - EENT Eyes: EOMI, PERRLA ENT: hearing grossly normal Ears: bilateral: normal - Neck Carotids: bilateral: upstroke normal Thyroid: bilateral: normal size - Respiratory Respiratory: bilateral: diminished, rales, wheezing - Cardiovascular Rhythm: irregularly irregular Heart sounds: normal: S1, S2 - Gastrointestinal General gastrointestinal: normal bowel sounds - Integumentary Integumentary: decreased turgor - Neurologic Neurologic: CNII-XII intact - Musculoskeletal Musculoskeletal: generalized weakness - Psychiatric Psychiatric: A&O x's 3, appropriate affect, intact judgment & insight - Labs CBC & Chem 7: 10/15/17 05:47 10/15/17 05:47 Labs: Abnormal Lab Results - Last 24 Hours (Table) 10/14/17 10/14/17 10/14/17 Range/Units 12:16 18:03 20:38 WBC (3.8-10.6) k/uL RBC (4.30-5.90) m/uL Hgb (13.0-17.5) gm/dL Hct (39.0-53.0) % MCHC (31.0-37.0) g/dL RDW (11.5-15.5) % Neutrophils # (1.3-7.7) k/uL Lymphocytes # (1.0-4.8) k/uL PT (9.0-12.0) sec INR (<1.2) Chloride (98-107) mmol/L Carbon Dioxide (22-30) mmol/L BUN (9-20) mg/dL Glucose (74-99) mg/dL POC Glucose (mg/dL) 195 H 168 H 237 H (75-99) mg/dL Magnesium (1.6-2.3) mg/dL Total Protein (6.3-8.2) g/dL Albumin (3.5-5.0) g/dL 10/15/17 10/15/17 10/15/17 Range/Units 05:47 05:47 05:47 WBC 12.9 H (3.8-10.6) k/uL RBC 4.12 L (4.30-5.90) m/uL Hgb 11.2 L (13.0-17.5) gm/dL Hct 36.3 L (39.0-53.0) % MCHC 30.7 L (31.0-37.0) g/dL RDW 16.4 H (11.5-15.5) % Neutrophils # 11.8 H (1.3-7.7) k/uL Lymphocytes # 0.6 L (1.0-4.8) k/uL PT 12.3 H (9.0-12.0) sec INR 1.3 H (<1.2) Chloride 94 L (98-107) mmol/L Carbon Dioxide 34 H (22-30) mmol/L BUN 28 H (9-20) mg/dL Glucose 165 H (74-99) mg/dL POC Glucose (mg/dL) (75-99) mg/dL Magnesium 2.5 H (1.6-2.3) mg/dL Total Protein 5.7 L (6.3-8.2) g/dL Albumin 3.3 L (3.5-5.0) g/dL 10/15/17 10/15/17 Range/Units 06:09 11:22 WBC (3.8-10.6) k/uL RBC (4.30-5.90) m/uL Hgb (13.0-17.5) gm/dL Hct (39.0-53.0) % MCHC (31.0-37.0) g/dL RDW (11.5-15.5) % Neutrophils # (1.3-7.7) k/uL Lymphocytes # (1.0-4.8) k/uL PT (9.0-12.0) sec INR (<1.2) Chloride (98-107) mmol/L Carbon Dioxide (22-30) mmol/L BUN (9-20) mg/dL Glucose (74-99) mg/dL POC Glucose (mg/dL) 177 H 246 H (75-99) mg/dL Magnesium (1.6-2.3) mg/dL Total Protein (6.3-8.2) g/dL Albumin (3.5-5.0) g/dL Microbiology - Last 24 Hours (Table) 10/14/17 08:38 Blood Culture - Preliminary Blood No Growth after 24 hours 10/14/17 08:42 Blood Culture - Preliminary Blood No Growth after 24 hours 10/14/17 02:49 Blood Culture - Preliminary Blood No Growth after 24 hours 10/14/17 20:54 Gram Stain - Preliminary Sputum Sputum Culture - Preliminary Assessment and Plan Assessment: Impression: #1 Acute on chronic hypoxic respiratory failure secondary to bilateral healthcare acquired pneumonia with left pleural effusion, COPD exacerbation and CHF exacerbation #2 Left pleural effusion, warfarin on hold for plans for an outpatient thoracentesis today prior to his arrival to the emergency room. Status post left thoracentesis today by interventional radiology. Approximately 1 L of serosanguinous removed. #3 Acute exacerbation of oxygen dependent chronic obstructive pulmonary disease , Gold stage III with FEV1 value of 45% of predicted. #4 Recent pneumonia with positive sputum cultures of Pseudomonas and oxacillin sensitive Staphylococcus aureus from 09/08/2017. #5 Acute exacerbation of chronic systolic congestive heart failure. Mild to moderately impaired left ventricular systolic function with ejection fraction 40 -45%. #6 Atrial fibrillation with varying ventricular response. Warfarin currently on hold. INR 1.3. #7 Recent non-ST segment elevation myocardial infarction and subsequent coronary artery bypass grafting on 09/08/2017. PARSON to the LAD, reverse this saphenous vein grafts to the first obtuse marginal artery, second obtuse marginal artery, right coronary artery. #8 Diabetes mellitus, type II. #9 Diabetic neuropathy. #10 Peripheral vascular occlusive disease. Multiple surgeries including palpitations of the fourth toe bilaterally. 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 #12 Hypertension, history of. #13 History of peptic ulcer disease with partial gastrectomy and colectomy. #14 Poor overall functional performance based on the above-mentioned multiple comorbidities. Plan: The patient was seen and evaluated by Dr. Cruz. The patient is improved today as compared to yesterday. Status post left-sided thoracentesis with 1 L of fluid removed today. Continue antibiotics in the form of Zosyn and Levaquin. DuoNeb inhalations every 4 hours and when necessary, Pulmicort and Perforomist inhalations twice a day, IV Solu-Medrol 60 mg every 6 hours. Sputum and blood cultures pending. Continue diuretics. We'll continue to follow and make further recommendations based on his clinical status. I, the cosigning physician, performed a history & physical examination of the patient. Lungs sounds with crackles in the posterior bases, diminished. Maintaining good O2 saturations in the 90s on 3 L/m per nasal cannula. I discussed the assessment and plan of care with my nurse practitioner, Verónica Joseph. I attest to the above note as dictated by her.
[2017-10-15] MEDS: DOCUSATE 100 MG CAP PO SCH ×2 (12:27→21:01)
[2017-10-15] MEDS: METOPROLOL SUCCINATE (ER) 50 MG TAB.ER.24H PO SCH ×2 (12:27→22:36)
[2017-10-15] MEDS: guaiFENesin 600 MG TABLET.ER PO SCH ×2 (12:27→21:01)
[2017-10-15 15:13] LABS: Appearance,BF Bloody; Nucleated Cells, Body Fluid 800 /uL; RBC, Body Fluid 93000 /uL
[2017-10-15 16:44] LABS: Glucose,Whole Blood 179 mg/dL (75-99)
[2017-10-15] MEDS: ASPIRIN 325 MG TAB PO SCH (17:35)
[2017-10-15 17:43] LABS: Mononuclear WBC,Body Fluid 61 %; Polynuclear WBC,Body Fluid 39 %; Total Cells Counted,Body Fluid 100
[2017-10-15] MEDS: TAMSULOSIN 0.4 MG CAP.ER.24H PO SCH (21:01)
[2017-10-15] MEDS: methylPREDNISolone SOD SUCCI 40 MG/ML 1 ML VIAL IV SCH ×2 (21:01→23:25)
[2017-10-15] MEDS: ATORVASTATIN 40 MG TAB PO SCH (21:02)
[2017-10-15] MEDS ORDERED: DEXTROSE 5% IN WATER 250 ML with AMIODARONE 300 MG IV ONE (21:13)
[2017-10-15 21:20] LABS: Glucose,Whole Blood 222 mg/dL (75-99)
[2017-10-15] MEDS ORDERED: DEXTROSE 5% IN WATER 100 ML with AMIODARONE 150 MG IV ONE (21:30)
[2017-10-15] MEDS: MELATONIN 1 MG TAB PO SCH (22:36)
[2017-10-16 02:55] LABS: Total Protein, Body Fluid 2400 mg/dL
[2017-10-16] MEDS: IPRATROPIUM-ALBUTEROL 3 ML NEB INHALATION PRN (03:45)
[2017-10-16] MEDS: FUROSEMIDE 40 MG TAB PO SCH (05:52)
[2017-10-16] MEDS: GABAPENTIN 100 MG CAP PO SCH ×3 (05:52→20:53)
[2017-10-16] MEDS: methylPREDNISolone SOD SUCCI 40 MG/ML 1 ML VIAL IV SCH ×4 (05:52→22:51)
[2017-10-16] MEDS: PANTOPRAZOLE 40 MG TABLET PO SCH (05:53)
[2017-10-16] MEDS: LEVOFLOXACIN 750MG-D5W PMX 750 MG in DEXTROSE/WATER 1 150ML.BAG IVPB SCH (05:53)
[2017-10-16 06:33] LABS: ALT 33 U/L (21-72); AST 24 U/L (17-59); Alkaline Phosphatase 72 U/L (38-126); Anion Gap 7 mmol/L; Blood Urea Nitrogen 30 mg/dL (9-20); Calcium 8.6 mg/dL (8.4-10.2); Carbon Dioxide 33 mmol/L (22-30); Chloride 97 mmol/L (98-107); Glucose 170 mg/dL (74-99); Magnesium 2.3 mg/dL (1.6-2.3); Potassium 4.8 mmol/L (3.5-5.1); Sodium 137 mmol/L (137-145); Total Bilirubin 0.4 mg/dL (0.2-1.3); Total Protein 5.2 g/dL (6.3-8.2)
[2017-10-16 06:36] LABS: INR 1.2 (<1.2); Prothrombin Time 11.2 sec (9.0-12.0)
[2017-10-16 06:46] LABS: Basophils % (A) 0 %; Eosinophils % (A) 0 %; HCT 33.9 % (39.0-53.0); HGB 10.4 gm/dL (13.0-17.5); Hypochromasia Marked; Lymphocytes # (A) 0.3 k/uL (1.0-4.8); Lymphocytes % (A) 3 %; MCH 26.7 pg (25.0-35.0); MCHC 30.7 g/dL (31.0-37.0); MCV 86.9 fL (80.0-100.0); Mean Platelet Volume 6.9; Monocytes # (A) 0.4 k/uL (0-1.0); Monocytes % (A) 5 %; Neutrophils # (A) 8.2 k/uL (1.3-7.7); Neutrophils % (A) 91 %; Platelet Count 179 k/uL (150-450)
[2017-10-16 06:52] LABS: Glucose,Whole Blood 177 mg/dL (75-99)
[2017-10-16] MEDS: GLIMEPIRIDE 0.5 MG TAB PO SCH (07:34)
[2017-10-16] MEDS: INSULIN ASPART 100 UNIT/ML 1 ML 10 ML VIAL SQ SCH ×4 (07:35→21:26)
[2017-10-16] MEDS: FORMOTEROL FUMARATE 20 MCG/2 ML NEBU INHALATION SCH ×2 (07:38→20:22)
[2017-10-16] MEDS: BUDESONIDE 1 MG/2 ML NEBU INHALATION SCH ×2 (07:38→20:22)
[2017-10-16] MEDS: IPRATROPIUM-ALBUTEROL 3 ML NEB INHALATION SCH ×4 (07:38→20:22)
[2017-10-16] MEDS: AMIODARONE 450 MG in DEXTROSE 5% IN WATER 250 ML IV SCH ×4 (08:30→21:45)
[2017-10-16] MEDS: PIPERACILLIN-TAZOBACTAM 3.375 GM in DEXTROSE/WATER 1 50ML.BAG IVPB SCH ×3 (08:31→22:51)
[2017-10-16] MEDS: METOPROLOL SUCCINATE (ER) 50 MG TAB.ER.24H PO SCH ×2 (08:31→20:54)
[2017-10-16] MEDS: DOCUSATE 100 MG CAP PO SCH ×2 (08:31→20:53)
[2017-10-16] MEDS: guaiFENesin 600 MG TABLET.ER PO SCH ×2 (08:31→20:53)
--- NOTE | 2017-10-16 08:32 | P.PN ---
Progress Note - Text The patient is a 77-year-old gentleman who 3 days previous was transferred from [facility] rehab after episode there of increasing shortness of breath associated with the hemorrhagic sputum production and decreasing O2 saturation. The patient had a chest x-ray consistent with bilateral basilar pneumonia along with a left pleural effusion that was tapped yesterday by pulmonary medicine. He has also been maintained on IV antibiotics in the form of levofloxacin and Zosyn. And he is also on IV corticosteroids. This morning he is sitting up at the side of the bed in his chair. States he feels better this morning. Vital signs show a pulse of 86 with respirations of 18. Temperature is 97.3 and blood pressure 143/69. He was 100% saturated on 3 L nasal cannula. Breath sounds are somewhat better at the left base. Otherwise they are diminished and clear. Heart tones were somewhat distant and irregular. No unusual distal edema or new neurological changes noted. Laboratory White count of 9 with a hemoglobin 10.4 and a platelet count of 179. INR is 1.2 this morning Sodium is 137 with a potassium 4.8 and a CO2 content of 33. Blood sugar was 170. GFR is greater than 90. Albumin 3.0. Blood cultures from the 17 are so far all negative. Cultures and stains from the pleural fluid is pending. Chest x-ray from this morning is still consistent with a right lower lobe pneumonia. No pneumothorax. Left lower lobe area has improved. Impressions and plans Overall this generally frail 77-year-old gentleman who has had severe COPD and previous recent coronary artery bypass surgery 3 presented with basilar pneumonias and left pleural effusion. He is presently improving on present treatment. He is to be evaluated by physical and occupational therapy today. We will await further recommendations from pulmonary medicine regarding discharge planning. Discussed with patient possibility of either returning home or returning to rehab at [facility]. Discharge planning and social service on the case.
--- NOTE | 2017-10-16 08:35 | XR ---
EXAMINATION TYPE: XR chest 2V DATE OF EXAM: 10/16/2017 COMPARISON: Prior chest 10/15/2017 HISTORY: Pleural effusion TECHNIQUE: Frontal and lateral views of the chest are obtained. FINDINGS: Minimal blunting of the left costophrenic angle, bibasilar increased attenuation noted. No pneumothorax. Postop, postprocedural changes are stable. Interstitium mildly increased, prominent latosha ng lines suggest COPD. IMPRESSION: Correlate for pneumonia, pleural effusion. Congestive heart failure patient with pre-exi sting COPD is not excluded. Follow-up recommended.
--- NOTE | 2017-10-16 10:14 | P.PN ---
Subjective Progress Note Date: 10/16/17 Principal diagnosis: Admission for right lower lobe pneumonia. Current left-sided pleural effusion. Previous medical history of triple-vessel coronary artery disease with left main disease and non-ST elevation myocardial infarction status post urgent quadruple coronary artery bypass grafting as well as exclusion of the left atrial appendage on 09/08/2017, mild to moderate left ventricular dysfunction, chronic systolic heart failure with ejection fraction of 40-45% as well as diastolic dysfunction, chronic persistent atrial fibrillation on home Coumadin therapy, sick sinus syndrome status post pacemaker insertion, hypertension, hyperlipidemia, carotid stenosis 50-79% bilaterally, previous tobacco dependence , 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 Patient's currently sitting up in chair in no acute distress. States his shortness of breath has improved significantly. He did have an episode of ventricular arrhythmia last night requiring initiation of IV amiodarone per cardiology. Objective - Vital Signs Vital signs: Vital Signs Temp 97.0 F L 10/16/17 08:00 Pulse 86 10/16/17 08:03 Resp 18 10/16/17 04:00 BP 105/60 10/16/17 08:00 Pulse Ox 94 L 10/16/17 08:00 Intake & Output 10/15/17 10/16/17 10/16/17 18:59 06:59 18:59 Intake Total 708 240 Output Total 0 850 Balance 708 -850 240 Weight 71.3 kg Intake: Oral 708 240 Output: Urine 0 850 Stool 0 Other: Voiding Method Toilet Toilet Urinal # Voids 0 1 1 # Bowel Movements 0 - Constitutional General appearance: Present: cooperative, no acute distress - Respiratory Details: Lungs sounds diminished bilaterally with coarse breath sounds in the bases. Respirations even, nonlabored. Currently on 3 L nasal cannula with oxygen saturation 97%. Able to achieve 1500 mL on his incentive spirometry. Effective productive cough. - Cardiovascular Details: S1, S2 present. Irregular rate and rhythm, atrial fibrillation on telemetry. Sternum stable. Palpable peripheral pulses bilaterally. No edema present. No calf pain or tenderness noted. SCDs present. - Gastrointestinal Gastrointestinal Comment(s): Abdomen soft, nontender, nondistended. Active bowel sounds 4 quadrants. Tolerating diet. - Genitourinary Genitourinary Comment(s): Continues to void clear, yellow urine. - Integumentary Integumentary Comment(s): Skin is warm and dry. Anterior chest incision well healed. Right lower extremity EVH site open, covered with dry intact dressing. - Neurologic Neurologic: Present: CNII-XII intact - Musculoskeletal Musculoskeletal: Present: gait normal, strength equal bilaterally - Psychiatric Psychiatric: Present: A&O x's 3, appropriate affect, intact judgment & insight - Allied health notes Allied health notes reviewed: nursing - Labs CBC & Chem 7: 10/16/17 05:55 10/16/17 05:55 Labs: Abnormal Lab Results - Last 24 Hours (Table) 10/15/17 10/15/17 10/15/17 Range/Units 11:22 16:43 21:18 RBC (4.30-5.90) m/uL Hgb (13.0-17.5) gm/dL Hct (39.0-53.0) % MCHC (31.0-37.0) g/dL RDW (11.5-15.5) % Neutrophils # (1.3-7.7) k/uL Lymphocytes # (1.0-4.8) k/uL INR (<1.2) Chloride (98-107) mmol/L Carbon Dioxide (22-30) mmol/L BUN (9-20) mg/dL Glucose (74-99) mg/dL POC Glucose (mg/dL) 246 H 179 H 222 H (75-99) mg/dL Total Protein (6.3-8.2) g/dL Albumin (3.5-5.0) g/dL 10/16/17 10/16/17 10/16/17 Range/Units 05:55 05:55 05:55 RBC 3.90 L (4.30-5.90) m/uL Hgb 10.4 L (13.0-17.5) gm/dL Hct 33.9 L (39.0-53.0) % MCHC 30.7 L (31.0-37.0) g/dL RDW 16.0 H (11.5-15.5) % Neutrophils # 8.2 H (1.3-7.7) k/uL Lymphocytes # 0.3 L (1.0-4.8) k/uL INR 1.2 H (<1.2) Chloride 97 L (98-107) mmol/L Carbon Dioxide 33 H (22-30) mmol/L BUN 30 H (9-20) mg/dL Glucose 170 H (74-99) mg/dL POC Glucose (mg/dL) (75-99) mg/dL Total Protein 5.2 L (6.3-8.2) g/dL Albumin 3.0 L (3.5-5.0) g/dL 10/16/17 Range/Units 06:47 RBC (4.30-5.90) m/uL Hgb (13.0-17.5) gm/dL Hct (39.0-53.0) % MCHC (31.0-37.0) g/dL RDW (11.5-15.5) % Neutrophils # (1.3-7.7) k/uL Lymphocytes # (1.0-4.8) k/uL INR (<1.2) Chloride (98-107) mmol/L Carbon Dioxide (22-30) mmol/L BUN (9-20) mg/dL Glucose (74-99) mg/dL POC Glucose (mg/dL) 177 H (75-99) mg/dL Total Protein (6.3-8.2) g/dL Albumin (3.5-5.0) g/dL Microbiology - Last 24 Hours (Table) 10/14/17 02:49 Blood Culture - Preliminary Blood No Growth after 48 hours 10/15/17 10:35 Gram Stain - Preliminary Pleural Fluid Body Fluid Culture - Preliminary 10/15/17 10:35 Anaerobic Culture - Preliminary Pleural Fluid 10/14/17 08:38 Blood Culture - Preliminary Blood No Growth after 24 hours 10/14/17 08:42 Blood Culture - Preliminary Blood No Growth after 24 hours - Imaging and Cardiology Chest x-ray: report reviewed, image reviewed Assessment and Plan (1) Chronic systolic heart failure Current Visit: Yes Status: Chronic Code(s): I50.22 - CHRONIC SYSTOLIC ( CONGESTIVE) HEART FAILURE SNOMED Code(s): 146037302 (2) Pleural effusion Current Visit: Yes Status: Acute Code(s): J90 - PLEURAL EFFUSION, NOT ELSEWHERE CLASSIFIED SNOMED Code(s): 85022265 (3) Pneumonia Current Visit: Yes Status: Acute Code(s): J18.9 - PNEUMONIA, UNSPECIFIED ORGANISM SNOMED Code(s): 545038941 (4) Non-ST elevated myocardial infarction Current Visit: No Status: Resolved Code(s): I21.4 - NON-ST ELEVATION (NSTEMI ) MYOCARDIAL INFARCTION SNOMED Code(s): 280808703 (5) BPH (benign prostatic hyperplasia) Current Visit: Yes Status: Chronic Code(s): N40.0 - BENIGN PROSTATIC HYPERPLASIA WITHOUT LOWER URINRY TRACT SYMP SNOMED Code(s): 011045388 (6) CAD (coronary artery disease) Current Visit: Yes Status: Chronic Code(s): I25.10 - ATHSCL HEART DISEASE OF [place] CORONARY ARTERY W/O ANG PCTRS SNOMED Code(s): 87525291 (7) COPD (chronic obstructive pulmonary disease) Current Visit: Yes Status: Chronic Code(s): J44.9 - CHRONIC OBSTRUCTIVE PULMONARY DISEASE, UNSPECIFIED SNOMED Code(s): 62482794 (8) Chronic atrial fibrillation Current Visit: Yes Status: Chronic Code(s): I48.2 - CHRONIC ATRIAL FIBRILLATION SNOMED Code(s): 390660644 (9) Diabetes mellitus type 2 in nonobese Current Visit: Yes Status: Chronic Code(s): E11.9 - TYPE 2 DIABETES MELLITUS WITHOUT COMPLICATIONS SNOMED Code(s): 647570416 (10) Family history of early CAD Current Visit: Yes Status: Chronic Code(s): Z82.49 - FAMILY HX OF ISCHEM HEART DIS AND OTH DIS OF THE CIRC SYS SNOMED Code(s): 698549702 (11) GERD (gastroesophageal reflux disease) Current Visit: Yes Status: Chronic Code(s): K21.9 - GASTRO-ESOPHAGEAL REFLUX DISEASE WITHOUT ESOPHAGITIS SNOMED Code(s): 505568379 (12) History of Coumadin therapy Current Visit: Yes Status: Chronic Code(s): Z92.29 - PERSONAL HISTORY OF OTHER DRUG THERAPY SNOMED Code(s): 857057749 (13) History of permanent cardiac pacemaker placement Current Visit: Yes Status: Chronic Code(s): Z95.0 - PRESENCE OF CARDIAC PACEMAKER SNOMED Code(s): 551270801 (14) History of sick sinus syndrome Current Visit: Yes Status: Chronic Code(s): Z86.79 - PERSONAL HISTORY OF OTHER DISEASES OF THE CIRCULATORY SYSTEM SNOMED Code(s): 520639447472367 (15) Hypertension Current Visit: Yes Status: Chronic Code(s): I10 - ESSENTIAL (PRIMARY) HYPERTENSION SNOMED Code(s): 45551115 (16) On home oxygen therapy Current Visit: Yes Status: Chronic Code(s): Z99.81 - DEPENDENCE ON SUPPLEMENTAL OXYGEN SNOMED Code(s): 718094695093 (17) Peripheral vascular disease Current Visit: Yes Status: Chronic Code(s): I73.9 - PERIPHERAL VASCULAR DISEASE, UNSPECIFIED SNOMED Code(s): 072825532 (18) History of MRSA infection Current Visit: No Status: Resolved Code(s): Z86.14 - PERSONAL HISTORY OF METHICILLIN RESIS STAPH INFECTION SNOMED Code(s): 882141100 (19) History of smoking Current Visit: No Status: Resolved Code(s): Z87.891 - PERSONAL HISTORY OF NICOTINE DEPENDENCE SNOMED Code(s): 67766020550439895 (20) History of coronary artery bypass graft Current Visit: Yes Status: Chronic Code(s): Z95.1 - PRESENCE OF AORTOCORONARY BYPASS GRAFT SNOMED Code(s): 330002355 Plan: 1. Continue aspirin, statin, beta lisa. Will increase beta lisa therapy as tolerated. 2. May restart Coumadin from our standpoint. Goal INR 2-2.5. 3. Amiodarone therapy per cardiology. 4. Wean O2 as tolerated. Encourage incentive spirometry use 10 times every hour. 5. Bronchodilators, steroids per Dr. Cruz. 6. Continue antibiotics. 7. Will monitor daily labs and x-rays. 8. Increase activity, ambulate as tolerated. PT/OT following. 9. GI/DVT prophylaxis. 10. Insulin, other medical comorbidities per Dr. Crane. 11. Patient appears to be back to baseline. May discharge to subacute rehab versus home from our standpoint when okay with other consultants. Time with Patient: Greater than 30
[2017-10-16 11:12] LABS: Glucose,Whole Blood 141 mg/dL (75-99)
--- NOTE | 2017-10-16 11:28 | P.PN ---
Subjective Progress Note Date: 10/16/17 Principal diagnosis: Acute on chronic hypoxic respiratory failure secondary to bilateral healthcare acquired pneumonia with left pleural effusion, COPD exacerbation, systolic congestive heart failure exacerbation. This is a very pleasant 77-year-old gentleman who follows with Dr. White as his primary care physician. He has a history of hypertension, osteomyelitis, peripheral vascular occlusive disease, diabetic neuropathy, diabetes mellitus type 2, chronic atrial fibrillation, chronic hypoxic respiratory failure with severe COPD, Gold stage III with an FEV1 value of 45% of predicted. He follows in our office for the same. He has a history of pseudomonas aeruginosa and oxacillin sensitive Staphylococcus aureus positive sputum cultures in August 2017. He also has history of coronary artery disease and recently sustained a non-ST segment myocardial infarction requiring subsequent coronary artery bypass grafting utilizing a PARSON to the LAD, reverse saphenous vein graft to the OM1, OM 2, RCA. He had been seen by Dr. Cruz last week and follow-up in the office. He was found to have a left pleural effusion measuring 10 cm with shortness of breath. He was asked to hold his warfarin and the plan was for a left thoracentesis to be done in the outpatient setting today. However, he presented to the emergency room approximately at 2:00 this morning from the [facility] with worsening shortness of breath and coughing up pink frothy sputum. CT angiogram ruled out pulmonary embolism. There was a noted consolidation involving the right lower lobe with subsegmental changes in the left lower lobe and endobronchial opacification suspicious for pneumonia. There is a left pleural effusion layering posteriorly with mild loculation. He was seen and evaluated in the emergency room this morning with Dr. Cruz. He is awake and alert in mild respiratory distress. He initially required 15L nonrebreather mask. He is currently on 5 L/m per nasal cannula to maintain O2 saturations in the 90s. Afebrile. He slightly tachycardic. Atrial fibrillation. White count 17.7. Hemoglobin 13.3. INR 1.3. Creatinine 0.70. ProBNP 2480. He has been initiated on Zosyn and Levaquin. The patient is seen again today 10/15/2017 in follow-up on the selective care unit. He is currently sitting up in a chair at the bedside. He is awake and alert in no acute distress. He is breathing quite a bit better today as compared to yesterday. He continues with a loose nonproductive cough. He did undergo a left-sided thoracentesis this morning by interventional radiology in approximately 1.06 L of serosanguineous fluid was removed. All of chest x-ray revealed no evidence complications from the thoracentesis. There is a right lower lobe atelectasis. He is working well with the incentive spirometer. Maintaining O2 saturations in the 90s on 3 L/m per nasal cannula. Hemodynamically stable. Sputum culture pending. Blood culture reveals no growth to date. White count 12.9. Hemoglobin 11.2. INR 1.3. Creatinine 0.80. The patient is seen again today 10/16/2017 in follow-up on the selective care unit. He is awake and alert in no acute distress. He is breathing quite a bit easier today as compared to yesterday. Nearly back to his baseline. He sitting up in a chair at the bedside. He denies any worsening shortness of breath, cough or congestion. Today's chest x-ray shows near complete resolution of the pleural effusion status post thoracentesis on the left. There is some minimal blunting of left costophrenic angle. Maintaining good O2 saturations in the mid 90s on 3 L/m per nasal cannula. He is afebrile. White count 9.0. Hemoglobin 10.0. Creatinine 0.69. He did have runs of nonsustained ventricular tachycardia requiring the initiation of amiodarone. Objective - Vital Signs Vital signs: Vital Signs Temp 97.0 F L 10/16/17 08:00 Pulse 86 10/16/17 08:03 Resp 18 10/16/17 04:00 BP 105/60 10/16/17 08:00 Pulse Ox 94 L 10/16/17 08:00 Intake & Output 10/15/17 10/16/17 10/16/17 18:59 06:59 18:59 Intake Total 708 240 Output Total 0 850 Balance 708 -850 240 Weight 71.3 kg Intake: Oral 708 240 Output: Urine 0 850 Stool 0 Other: Voiding Method Toilet Toilet Urinal # Voids 0 1 1 # Bowel Movements 0 - Exam - Constitutional General appearance: cooperative, no acute distress - EENT Eyes: EOMI, PERRLA ENT: hearing grossly normal Ears: bilateral: normal - Neck Carotids: bilateral: upstroke normal Thyroid: bilateral: normal size - Respiratory Respiratory: bilateral: diminished, rales - Cardiovascular Rhythm: irregularly irregular Heart sounds: normal: S1, S2 - Gastrointestinal General gastrointestinal: normal bowel sounds - Integumentary Integumentary: decreased turgor - Neurologic Neurologic: CNII-XII intact - Musculoskeletal Musculoskeletal: generalized weakness - Psychiatric Psychiatric: A&O x's 3, appropriate affect, intact judgment & insight - Labs CBC & Chem 7: 10/16/17 05:55 10/16/17 05:55 Labs: Abnormal Lab Results - Last 24 Hours (Table) 10/15/17 10/15/17 10/15/17 Range/Units 11:22 16:43 21:18 RBC (4.30-5.90) m/uL Hgb (13.0-17.5) gm/dL Hct (39.0-53.0) % MCHC (31.0-37.0) g/dL RDW (11.5-15.5) % Neutrophils # (1.3-7.7) k/uL Lymphocytes # (1.0-4.8) k/uL INR (<1.2) Chloride (98-107) mmol/L Carbon Dioxide (22-30) mmol/L BUN (9-20) mg/dL Glucose (74-99) mg/dL POC Glucose (mg/dL) 246 H 179 H 222 H (75-99) mg/dL Total Protein (6.3-8.2) g/dL Albumin (3.5-5.0) g/dL 10/16/17 10/16/17 10/16/17 Range/Units 05:55 05:55 05:55 RBC 3.90 L (4.30-5.90) m/uL Hgb 10.4 L (13.0-17.5) gm/dL Hct 33.9 L (39.0-53.0) % MCHC 30.7 L (31.0-37.0) g/dL RDW 16.0 H (11.5-15.5) % Neutrophils # 8.2 H (1.3-7.7) k/uL Lymphocytes # 0.3 L (1.0-4.8) k/uL INR 1.2 H (<1.2) Chloride 97 L (98-107) mmol/L Carbon Dioxide 33 H (22-30) mmol/L BUN 30 H (9-20) mg/dL Glucose 170 H (74-99) mg/dL POC Glucose (mg/dL) (75-99) mg/dL Total Protein 5.2 L (6.3-8.2) g/dL Albumin 3.0 L (3.5-5.0) g/dL 10/16/17 Range/Units 06:47 RBC (4.30-5.90) m/uL Hgb (13.0-17.5) gm/dL Hct (39.0-53.0) % MCHC (31.0-37.0) g/dL RDW (11.5-15.5) % Neutrophils # (1.3-7.7) k/uL Lymphocytes # (1.0-4.8) k/uL INR (<1.2) Chloride (98-107) mmol/L Carbon Dioxide (22-30) mmol/L BUN (9-20) mg/dL Glucose (74-99) mg/dL POC Glucose (mg/dL) 177 H (75-99) mg/dL Total Protein (6.3-8.2) g/dL Albumin (3.5-5.0) g/dL Microbiology - Last 24 Hours (Table) 10/15/17 10:35 Gram Stain - Preliminary Pleural Fluid Body Fluid Culture - Preliminary 10/14/17 02:49 Blood Culture - Preliminary Blood No Growth after 48 hours 10/15/17 10:35 Anaerobic Culture - Preliminary Pleural Fluid 10/14/17 08:38 Blood Culture - Preliminary Blood No Growth after 24 hours 10/14/17 08:42 Blood Culture - Preliminary Blood No Growth after 24 hours Assessment and Plan Assessment: Impression: #1 Acute on chronic hypoxic respiratory failure secondary to bilateral healthcare acquired pneumonia with left pleural effusion, COPD exacerbation and CHF exacerbation #2 Left pleural effusion, warfarin on hold for plans for an outpatient thoracentesis today prior to his arrival to the emergency room. Status post left thoracentesis today by interventional radiology. Approximately 1 L of serosanguinous removed. #3 Acute exacerbation of oxygen dependent chronic obstructive pulmonary disease , Gold stage III with FEV1 value of 45% of predicted. #4 Recent pneumonia with positive sputum cultures of Pseudomonas and oxacillin sensitive Staphylococcus aureus from 09/08/2017. #5 Acute exacerbation of chronic systolic congestive heart failure. Mild to moderately impaired left ventricular systolic function with ejection fraction 40 -45%. #6 Atrial fibrillation with varying ventricular response. Warfarin resumed. #7 Recent non-ST segment elevation myocardial infarction and subsequent coronary artery bypass grafting on 09/08/2017. PARSON to the LAD, reverse this saphenous vein grafts to the first obtuse marginal artery, second obtuse marginal artery, right coronary artery. #8 Diabetes mellitus, type II. #9 Diabetic neuropathy. #10 Peripheral vascular occlusive disease. Multiple surgeries including palpitations of the fourth toe bilaterally. 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 #12 Hypertension, history of. #13 History of peptic ulcer disease with partial gastrectomy and colectomy. #14 ventricular tachycardia, initiated on amiodarone #15 Poor overall functional performance based on the above-mentioned multiple comorbidities. Plan: The patient was seen and evaluated by Dr. Cruz. The patient is improved today as compared to yesterday. Status post left-sided thoracentesis with 1.6 L of fluid removed. Preliminary cultures reveal no growth. Continue antibiotics. DuoNeb inhalations every 4 hours and when necessary, Pulmicort and Perforomist inhalations twice a day, convert to oral prednisone. Resume warfarin. Continue diuretics. Patient is now on amiodarone secondary to runs of ventricular tachycardia yesterday. Cardiology is on the case. We'll continue to follow and make further recommendations based on his clinical status. I, the cosigning physician, performed a history & physical examination of the patient. Lungs sounds with crackles in the posterior bases, diminished. Maintaining good O2 saturations in the 90s on 3 L/m per nasal cannula. I discussed the assessment and plan of care with my nurse practitioner, Verónica Joseph. I attest to the above note as dictated by her.
[2017-10-16] MEDS: HEPARIN SODIUM,PORCINE 5,000 UNIT/ML 1 ML VIAL SQ SCH ×3 (12:14→22:51)
--- NOTE | 2017-10-16 14:51 | P.CRDCN ---
History of Present Illness Chief complaint: nonsustained ventricular tachycardia History of present illness: This is a pleasant 77-year-old gentleman with a past medical history significant for coronary artery disease and status post coronary artery that is grafting in August 2017 where the patient underwent CABG 4 with PARSON to LAD, reverse SVG to OM1 and OM 2, and reverse SVG to RCA, as well as multiple comorbid conditions including chronic atrial fibrillation on oral anticoagulation was Coumadin, tonic hypoxic respiratory failure secondary to COPD, the patient uses oxygen at night, mild cardiomyopathy with an ejection fraction of 45%, was transferred from [facility] care facility to the hospital because he was short of breath. The patient was residing at [facility] until about 2 days ago when he started noticing that he is coughing a lot and he was more short of breath. No chest pain or chest discomfort. No dizziness or lightheadedness. And no syncope. The patient underwent a chest x-ray I subsequently ultrasound of the chest and he was found to have large pleural effusion measured 10 cm. The patient was on Coumadin which was held and subsequently he underwent yesterday left pleurocentesis. Today he is feeling much better in terms of shortness of breath. They're also possibility of underlying pneumonia and the patient currently is on antibiotic. We get involved in the care of the patient because he developed multiple episodes of nonsustained ventricular tachycardia with the longest of 30 beats per minutes. I don't have any recent echocardiogram on the patient after the open heart surgery. The last echo before the surgery showed an EF of 45%. The patient is on metoprolol and the blood pressure has been marginally low. He was started yesterday after the nonsustained V. tach on amiodarone IV and he continues to be on amiodarone IV at this point. I'm going to switch him to amiodarone by mouth. Unfortunately we cannot increase the dose of metoprolol in view of the marginally low blood pressure. Also I am going to obtain an echocardiogram was Doppler. We will resume his Coumadin later on today since he had the pleurocentesis done. 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 Last Myocardial Infarction Date:: 09/05/17 History of Any Multi-Drug Resistant Organisms: MRSA Date of last positivie culture/infection: 2013 MDRO Source:: L third finger Past Surgical History: Appendectomy, Back Surgery, Cholecystectomy, Coronary Bypass/CABG, Heart Catheterization, Joint Replacement, Orthopedic Surgery, Pacemaker Additional Past Surgical History / Comment(s): marshal cataracts, had partial gastrectomy and bowel resection d/t bleeding peptic ulcers, total lt knee replacment, several sx on marshal feet had 4th toe each foot removed, rt hand 2nd finger partial amp and 3 rd finger amputated, colonoscopies, CABG x 4 with left atrial appendage ligation in August 2017 Past Anesthesia/Blood Transfusion Reactions: No Reported Reaction Additional Past Anesthesia/Blood Transfusion Reaction / Comment(s): blood transfusion- no reaction Type of Cardiac Device: Permanent Pacemaker Device Placement Date:: 2001 Smoking Status: Former smoker - Past Family History Mother Family Medical History: Cancer Additional Family Medical History / Comment(s): age 52 from colon cancer. Father Family Medical History: Cancer Additional Family Medical History / Comment(s): rectal cancer- age 75 Brother(s) Family Medical History: Coronary Artery Disease (CAD), Myocardial Infarction (ID ) Additional Family Medical History / Comment(s): History of myocardial infarction at age 46. Medications and Allergies Home Medications Medication Instructions Recorded Confirmed Type Gabapentin [Neurontin] 100 mg PO TID@0600,1400,2100 09/05/17 10/14/17 History Ipratropium-Albuterol Nebulize 3 ml INHALATION RT-QID 09/05/17 10/14/17 History [Duoneb 0.5 mg-3 mg/3 ml Soln] Tamsulosin HCl [Flomax] 0.4 mg PO DAILY@0800 09/05/17 10/14/17 History Acetaminophen Tab [Tylenol] 500 mg PO Q4HR PRN tab 09/15/17 10/14/17 Rx Budesonide-Formot 160-4.5 Mcg 2 puff INHALATION RT-BID puff 09/15/17 10/14/17 Rx [Symbicort 160-4.5 Mcg Inhaler] Ipratropium-Albuterol Nebulize 3 ml INHALATION RT-Q2H PRN 09/15/17 10/14/17 Rx [Duoneb 0.5 mg-3 mg/3 ml Soln] ampul.neb Lisinopril [Zestril] 2.5 mg PO DAILY@1200 tab 09/15/17 10/14/17 Rx Magnesium Hydroxide [Milk of 2,400 mg PO BID PRN ml 09/15/17 10/14/17 Rx Magnesia Concentrate] Metoprolol Succinate (ER) [Toprol 50 mg PO BID tab.er.24h 09/15/17 10/14/17 Rx XL] Aspirin 325 mg PO DAILY@1700 10/14/17 10/14/17 History Atorvastatin [Lipitor] 40 mg PO HS@209910/14/17 10/14/17 History Bisacodyl [Dulcolax] 10 mg RECTAL DAILY PRN 10/14/17 10/14/17 History Docusate [Colace] 100 mg PO BID@0800,2100 10/14/17 10/14/17 History Furosemide [Lasix] 40 mg PO DAILY@0600 10/14/17 10/14/17 History Glimepiride [Amaryl] 0.5 mg PO AC-BRKFST 10/14/17 10/14/17 History Glucerna Shake 1 can PO BID@0800,1700 10/14/17 10/14/17 History Insulin Aspart [NovoLOG See Protocol SQ ACHS 10/14/17 10/14/17 History (formulary)] Melatonin 2 mg PO HS@209910/14/17 10/14/17 History Menthol/Zinc Oxide [Calmoseptine 1 applic TOPICAL BID@0800,2100 10/14/17 History Ointment] Na Phos,M-B/Na Phos,Di-Ba [Fleet 133 ml RECTAL DAILY PRN 10/14/17 10/14/17 History Adult] Pantoprazole [Protonix] 40 mg PO DAILY@0600 10/14/17 10/14/17 History Polyethylene Glycol 3350 [Miralax] 17 gm PO DAILY@0800 10/14/17 10/14/17 History Warfarin [Coumadin] 5 mg PO DAILY@1700 10/14/17 10/14/17 History guaiFENesin [Mucinex] 600 mg PO BID@0800,2100 10/14/17 10/14/17 History predniSONE 10 mg PO DAILY@0800 10/14/17 10/14/17 History Allergies Allergy/AdvReac Type Severity Reaction Status Date / Time inhaler AdvReac Rapid Uncoded 09/05/17 15:04 Heart Rate PACEMAKER AdvReac Unknown Uncoded 10/14/17 06:38 Physical Exam Vitals: Vital Signs Temp Pulse Pulse Resp BP Pulse Ox 10/16/17 11:42 86 10/16/17 11:33 84 10/16/17 08:03 86 10/16/17 08:00 97.0 F L 90 18 105/60 94 L 10/16/17 07:56 80 10/16/17 07:55 80 10/16/17 07:40 76 100 10/16/17 04:00 97.3 F L 78 18 143/69 97 10/16/17 03:45 92 10/16/17 00:00 97.1 F L 76 18 143/69 98 10/15/17 20:00 96.2 F L 93 18 116/59 98 10/15/17 19:33 98 10/15/17 19:19 96 10/15/17 19:18 96 10/15/17 19:08 94 10/15/17 16:00 97.0 F L 97 18 125/69 94 L 10/15/17 15:07 98 10/15/17 14:58 94 Intake and Output 10/15/17 10/16/17 10/16/17 22:59 06:59 14:59 Intake Total 236 476 Output Total 0 850 Balance 236 -850 476 Intake: Oral 236 476 Output: Urine 0 850 Stool 0 Other: Voiding Method Toilet Toilet Urinal # Voids 0 1 1 # Bowel Movements 0 Weight 71.3 kg - Constitutional General appearance: no acute distress - Respiratory Respiratory: bilateral: diminished - Cardiovascular Rhythm: irregularly irregular Heart sounds: normal: S1, S2 Results 10/16/17 05:55 10/16/17 05:55 Cardiac Enzymes 10/16/17 Range/Units 05:55 AST 24 (17-59) U/L Coagulation 10/16/17 Range/Units 05:55 PT 11.2 (9.0-12.0) sec CBC 10/16/17 Range/Units 05:55 WBC 9.0 (3.8-10.6) k/uL RBC 3.90 L (4.30-5.90) m/uL Hgb 10.4 L (13.0-17.5) gm/dL Hct 33.9 L (39.0-53.0) % Plt Count 179 (150-450) k/uL Comprehensive Metabolic Panel 10/16/17 Range/Units 05:55 Sodium 137 (137-145) mmol/L Potassium 4.8 (3.5-5.1) mmol/L Chloride 97 L (98-107) mmol/L Carbon Dioxide 33 H (22-30) mmol/L BUN 30 H (9-20) mg/dL Creatinine 0.69 (0.66-1.25) mg/dL Glucose 170 H (74-99) mg/dL Calcium 8.6 (8.4-10.2) mg/dL AST 24 (17-59) U/L ALT 33 (21-72) U/L Alkaline Phosphatase 72 (38-126) U/L Total Protein 5.2 L (6.3-8.2) g/dL Albumin 3.0 L (3.5-5.0) g/dL Current Medications Generic Name Dose Route Start Last Admin Trade Name Freq PRN Reason Stop Dose Admin Acetaminophen 500 mg 10/14/17 06:56 Tylenol Tab PO Q4HR PRN Fever and/ or Pain Albuterol/Ipratropium 3 ml 10/14/17 06:56 10/16/17 03:45 Duoneb 0.5 Mg-3 Mg/3 Ml Soln INHALATION 3 ml RT-Q2H PRN Administration Shortness Of Breath Or Wheezing Albuterol/Ipratropium 3 ml 10/14/17 08:00 10/16/17 11:31 Duoneb 0.5 Mg-3 Mg/3 Ml Soln INHALATION 3 ml RT-QID DAMON Administration Amiodarone HCl 400 mg 10/16/17 16:00 Cordarone PO BID DAMON Aspirin 325 mg 10/14/17 17:00 10/15/17 17:35 Aspirin PO 325 mg DAILY@1700 DAMON Administration Atorvastatin Calcium 40 mg 10/14/17 21:00 10/15/17 21:02 Lipitor PO 40 mg HS@2100 DAMON Administration Bisacodyl 10 mg 10/14/17 06:56 Dulcolax RECTAL DAILY PRN Constipation Budesonide 1 mg 10/14/17 10:00 10/16/17 07:38 Pulmicort INHALATION 1 mg RT-BID DAMON Administration Docusate Sodium 100 mg 10/14/17 08:00 10/16/17 08:31 Colace PO 100 mg BID@0800,2100 [facility] Administration Formoterol Fumarate 20 mcg 10/14/17 10:00 10/16/17 07:38 Perforomist INHALATION 20 mcg RT-BID DAMON Administration Furosemide 40 mg 10/15/17 06:00 10/16/17 05:52 Lasix PO 40 mg DAILY@0600 DAMON Administration Gabapentin 100 mg 10/14/17 14:00 10/16/17 05:52 Neurontin PO 100 mg TID@0600,1400,2100 DAMON Administration Glimepiride 0.5 mg 10/14/17 07:30 10/16/17 07:34 Amaryl PO 0.5 mg AC-BRKFST DAMON Administration Guaifenesin 600 mg 10/14/17 08:00 10/16/17 08:31 Mucinex PO 600 mg BID@0800,2100 DAMON Administration Heparin Sodium (Porcine) 5,000 unit 10/14/17 08:00 10/16/17 12:14 Heparin SQ 5,000 unit Q8HR DAMON Administration Piperacillin/Tazobactam/ 50 mls @ 12.5 mls/hr 10/14/17 16:00 10/16/17 08:31 Dextrose 3.375 gm/ IV Solution IVPB 12.5 mls/hr Q8HR DAMON Administration Levofloxacin 750 mg/ IV 150 mls @ 100 mls/hr 10/15/17 06:00 10/16/17 05:53 Solution IVPB 10/27/17 06:01 100 mls/hr Q24H DAMON Administration Amiodarone HCl 450 mg/ 250 mls @ 16.66 mls/hr 10/16/17 08:00 10/16/17 08:30 Dextrose/Water IV 10/17/17 08:01 0.5 mg/min .Q15H1M DAMON 16.66 mls/hr Administration Protocol 0.5 MG/MIN Insulin Aspart 0 unit 10/14/17 12:30 10/16/17 12:14 Novolog SQ 1 unit ACHS DAMON Administration Protocol Magnesium Hydroxide 2,400 mg 10/14/17 06:56 10/14/17 23:01 Milk Of Magnesia PO 2,400 mg BID PRN Administration Constipation Melatonin 2 mg 10/14/17 21:00 10/15/17 22:36 Melatonin PO 2 mg HS@2100 DAMON Administration Methylprednisolone Sodium Succinate 40 mg 10/15/17 18:00 10/16/17 12:14 Solu-Medrol IV 40 mg Q6HR DAMON Administration Metoprolol Succinate 50 mg 10/14/17 09:00 10/16/17 08:31 Toprol Xl PO 50 mg BID DAMON Administration Miscellaneous Information 1 each 10/14/17 05:53 Pneumonia Protocol Utilized PO ONCE PRN Per Protocol Pantoprazole Sodium 40 mg 10/15/17 06:00 10/16/17 05:53 Protonix PO 40 mg DAILY@0600 DAMON Administration Tamsulosin HCl 0.4 mg 10/14/17 21:00 10/15/17 21:01 Flomax PO 0.4 mg HS DAMON Administration Warfarin Sodium 5 mg 10/16/17 18:00 Coumadin PO 10/16/17 18:01 ONCE@1800 ONE Intake and Output 10/15/17 10/16/17 10/16/17 22:59 06:59 14:59 Intake Total 236 476 Output Total 0 850 Balance 236 -850 476 Intake: Oral 236 476 Output: Urine 0 850 Stool 0 Other: Voiding Method Toilet Toilet Urinal # Voids 0 1 1 # Bowel Movements 0 Weight 71.3 kg 10/16/17 05:55 10/16/17 05:55 Assessment and Plan Assessment: #1 acute on chronic respiratory failure #2 large left pleural effusion and status post pleurocentesis #3 status post coronary artery bypass grafting as described above #4 recurrent nonsustained V. tach #5 mild ischemic cardiomyopathy with EF of 45% #6 chronic atrial fibrillation was controlled heart rate #7 multiple comorbid conditions including hypertension and dyslipidemia Plan #1 the patient underwent left pleurocentesis yesterday. He is feeling better indeterminable shortness of breath #2 I am going to obtain an echocardiogram was Doppler to assess ejection fraction after the surgery #3 switch the patient from amiodarone IV to amiodarone by mouth #4 continue the current dose of metoprolol #5 follow-up with the patient. Thank you for allowing us participate his care and we'll continue following up with him
[2017-10-16] MEDS: AMIODARONE 200 MG TAB PO SCH ×2 (16:33→20:53)
[2017-10-16] MEDS: ASPIRIN 325 MG TAB PO SCH (16:34)
[2017-10-16 16:56] LABS: Glucose,Whole Blood 159 mg/dL (75-99)
[2017-10-16] MEDS ORDERED: WARFARIN 5 MG TAB PO ONE (18:00)
[2017-10-16] MEDS: ATORVASTATIN 40 MG TAB PO SCH (20:53)
[2017-10-16] MEDS: MELATONIN 1 MG TAB PO SCH (20:54)
[2017-10-16] MEDS: TAMSULOSIN 0.4 MG CAP.ER.24H PO SCH (20:54)
[2017-10-16 21:18] LABS: Glucose,Whole Blood 202 mg/dL (75-99)
[2017-10-17 05:37] LABS: Glucose,Whole Blood 182 mg/dL (75-99)
[2017-10-17] MEDS: IPRATROPIUM-ALBUTEROL 3 ML NEB INHALATION PRN (05:41)
[2017-10-17 06:14] LABS: Basophils % (A) 0 %; Eosinophils % (A) 0 %; HCT 34.7 % (39.0-53.0); HGB 10.4 gm/dL (13.0-17.5); Hypochromasia Marked; Lymphocytes # (A) 0.3 k/uL (1.0-4.8); Lymphocytes % (A) 3 %; MCH 25.9 pg (25.0-35.0); MCHC 29.9 g/dL (31.0-37.0); MCV 86.8 fL (80.0-100.0); Mean Platelet Volume 6.6; Monocytes # (A) 0.4 k/uL (0-1.0); Monocytes % (A) 4 %; Neutrophils # (A) 9.3 k/uL (1.3-7.7); Neutrophils % (A) 92 %; Platelet Count 195 k/uL (150-450); RDW 15.8 % (11.5-15.5); WBC 10.1 k/uL (3.8-10.6)
[2017-10-17 06:26] LABS: INR 1.2 (<1.2); Prothrombin Time 11.3 sec (9.0-12.0)
[2017-10-17 06:33] LABS: Anion Gap 7 mmol/L; Blood Urea Nitrogen 34 mg/dL (9-20); Calcium 8.9 mg/dL (8.4-10.2); Carbon Dioxide 30 mmol/L (22-30); Chloride 98 mmol/L (98-107); Glucose 155 mg/dL (74-99); Potassium 4.1 mmol/L (3.5-5.1); Sodium 135 mmol/L (137-145)
[2017-10-17] MEDS: GLIMEPIRIDE 0.5 MG TAB PO SCH (06:33)
[2017-10-17] MEDS: PANTOPRAZOLE 40 MG TABLET PO SCH (06:33)
[2017-10-17] MEDS: FUROSEMIDE 40 MG TAB PO SCH (06:33)
[2017-10-17] MEDS: GABAPENTIN 100 MG CAP PO SCH ×3 (06:33→20:07)
[2017-10-17] MEDS: methylPREDNISolone SOD SUCCI 40 MG/ML 1 ML VIAL IV SCH ×2 (06:33→11:23)
[2017-10-17] MEDS: INSULIN ASPART 100 UNIT/ML 1 ML 10 ML VIAL SQ SCH ×4 (06:35→21:11)
--- NOTE | 2017-10-17 08:19 | P.PN ---
Progress Note - Text The patient is a 77-year-old gentleman who 4 days previous [facility] an episode of shortness of breath associated with some hemorrhagic sputum at the time and decreasing O2 saturations. Patient's chest x -ray at that time was consistent with bilateral basilar pneumonia associated also with a left pleural effusion that has been tapped by pulmonary medicine. Patient has been maintained on IV antibiotics and corticosteroids. The patient also subsequently developed a nonsustained ventricular tachycardia with apparently beats up to 30. Patient has been seen by cardiology. He has been placed on amiodarone. This morning patient is a on the commode. States he is feeling okay. Denies any unusual shortness of breath or chest pain. Vital signs reveal temperature of 97 with a pulse of 88 and respirations 17. Blood pressure 125/87 and he is 94% saturated on 3 L. Lungs are generally clear but diminished diffusely. Heart tones are irregularly irregular. But rate presently controlled. No unusual edema. No focal neurological changes. Laboratory A white count of 10,000 with a hemoglobin of 10.4 and a platelet count of 195. INR is 1.2. Sodium 135 with a potassium of 4.1. CO2 content of 34. GFR is 86. Blood sugar 155 Chest x-ray: Radiology report pending but appears to be stable from previous. Impressions and plan As above patient admitted and under treatment for bilateral basilar pneumonias. He has had his left pleural fluid tapped. He was found to have episodes of ventricular tachycardia is now on amiodarone. Warfarin also was resumed last evening. We'll await further recommendations from pulmonary medicine and cardiology regarding further discharge plans.
[2017-10-17] MEDS: PIPERACILLIN-TAZOBACTAM 3.375 GM in DEXTROSE/WATER 1 50ML.BAG IVPB SCH (08:20)
[2017-10-17] MEDS: HEPARIN SODIUM,PORCINE 5,000 UNIT/ML 1 ML VIAL SQ SCH ×3 (08:21→23:16)
[2017-10-17] MEDS: METOPROLOL SUCCINATE (ER) 50 MG TAB.ER.24H PO SCH ×2 (08:21→20:07)
[2017-10-17] MEDS: DOCUSATE 100 MG CAP PO SCH ×2 (08:22→20:06)
[2017-10-17] MEDS: guaiFENesin 600 MG TABLET.ER PO SCH ×2 (08:22→20:07)
[2017-10-17] MEDS: AMIODARONE 200 MG TAB PO SCH ×2 (08:22→20:06)
--- NOTE | 2017-10-17 08:59 | XR ---
EXAMINATION TYPE: XR chest 2V DATE OF EXAM: 10/17/2017 COMPARISON: Prior chest 10/16/2017 HISTORY: Pleural effusion, cough and abnormal chest x-ray TECHNIQUE: Frontal and lateral views of the chest are obtained. FINDINGS: There is some improvement in aeration at the right lung base. Persistent pleural effusion noted on the left. No other significant interval change. Postop changes are noted, coronary artery ca lcifications are present. Prominent lung lines are compatible with underlying emphysema. IMPRESSION: Improvement in aeration right lung base. Small left pleural effusion persists.
[2017-10-17] MEDS ORDERED: LEVOFLOXACIN 750 MG TAB PO SCH (09:00)
[2017-10-17] MEDS: FORMOTEROL FUMARATE 20 MCG/2 ML NEBU INHALATION SCH ×2 (09:02→19:31)
[2017-10-17] MEDS: BUDESONIDE 1 MG/2 ML NEBU INHALATION SCH ×2 (09:02→19:31)
[2017-10-17] MEDS: IPRATROPIUM-ALBUTEROL 3 ML NEB INHALATION SCH ×4 (09:03→19:31)
--- NOTE | 2017-10-17 09:34 | ECHOF ---
Referral Reason:VT MEASUREMENTS -------- HEIGHT: 172.7 cm WEIGHT: 71.2 kg BP: IVSd: 1.1 cm (0.6 - 1.1) LVIDd: 4.3 cm (3.9 - 5.3) LVPWd: 0.9 cm (0.6 - 1.1) IVSs: 1.2 cm LVIDs: 3.5 cm LVPWs: 1.3 cm FINDINGS -------- Paced rhythm. Limited Study to follow up Post CABG, LV Function. Overall left ventricular systolic function is mild-moderately impaired with, an EF between 40 - 45 %. Inferior Hypokinesis CONCLUSIONS -------- 1. Paced rhythm. 2. Limited Study to follow up Post CABG, LV Function. 3. Overall left ventricular systolic function is mild-moderately impaired with, an EF between 40 - 45 %. 4. Inferior Hypokinesis [facility]UPOL[facility] OPERATOR: Asia Koenig RDCS
[2017-10-17 11:28] LABS: Glucose,Whole Blood 153 mg/dL (75-99)
--- NOTE | 2017-10-17 12:37 | P.PN ---
Subjective Progress Note Date: 10/17/17 Principal diagnosis: CAD and status post CABG This is a pleasant 77-year-old gentleman with a past medical history significant for coronary artery disease and status post coronary artery that is grafting in August 2017 where the patient underwent CABG 4 with PARSON to LAD, reverse SVG to OM1 and OM 2, and reverse SVG to RCA, as well as multiple comorbid conditions including chronic atrial fibrillation on oral anticoagulation was Coumadin, tonic hypoxic respiratory failure secondary to COPD, the patient uses oxygen at night, mild cardiomyopathy with an ejection fraction of 45%, was transferred from [facility] to the hospital because he was short of breath. The patient was residing at [facility] until about 2 days ago when he started noticing that he is coughing a lot and he was more short of breath. No chest pain or chest discomfort. No dizziness or lightheadedness. And no syncope. The patient underwent a chest x-ray I subsequently ultrasound of the chest and he was found to have large pleural effusion measured 10 cm. The patient was on Coumadin which was held and subsequently he underwent yesterday left pleurocentesis. Today he is feeling much better in terms of shortness of breath. They're also possibility of underlying pneumonia and the patient currently is on antibiotic. We get involved in the care of the patient because he developed multiple episodes of nonsustained ventricular tachycardia with the longest of 30 seconds. The patient was on metoprolol and the blood pressure was marginally low and because of that I did not increase the dose. I did start the patient on amiodarone IV and subsequently amiodarone by mouth. The patient did not have any episode of nonsustained ventricular tachycardia for the last 24 hours. The repeated echocardiogram continues to show mild cardiomyopathy with EF around 45% . Objective - Vital Signs Vital signs: Vital Signs Temp 96.7 F L 10/17/17 08:00 Pulse 88 10/17/17 12:07 Resp 18 10/17/17 08:00 BP 109/56 10/17/17 08:00 Pulse Ox 100 10/17/17 08:00 Intake & Output 10/16/17 10/17/17 10/17/17 18:59 06:59 18:59 Intake Total 766 250 240 Output Total 2 Balance 766 248 240 Weight 72.5 kg Intake: Intake, IV Titration 50 50 Amount Piperacillin-Tazobactam 3 50 50 .375 gm In Dextrose/Water 1 50ml.bag @ 12.5 mls/hr IVPB Q8HR [facility] Rx#: [id number] Oral 716 200 240 Output: Stool 2 Other: Voiding Method Toilet # Voids 1 2 # Bowel Movements 1 - Constitutional General appearance: Present: no acute distress - Respiratory Respiratory: bilateral: rales - Cardiovascular Heart sounds: normal: S1, S2 - Labs CBC & Chem 7: 10/17/17 05:54 10/17/17 05:54 Labs: Abnormal Lab Results - Last 24 Hours (Table) 10/16/17 10/16/17 10/17/17 Range/Units 16:54 21:16 05:33 RBC (4.30-5.90) m/uL Hgb (13.0-17.5) gm/dL Hct (39.0-53.0) % MCHC (31.0-37.0) g/dL RDW (11.5-15.5) % Neutrophils # (1.3-7.7) k/uL Lymphocytes # (1.0-4.8) k/uL INR (<1.2) Sodium (137-145) mmol/L BUN (9-20) mg/dL Glucose (74-99) mg/dL POC Glucose (mg/dL) 159 H 202 H 182 H (75-99) mg/dL 10/17/17 10/17/17 10/17/17 Range/Units 05:54 05:54 05:54 RBC 4.00 L (4.30-5.90) m/uL Hgb 10.4 L (13.0-17.5) gm/dL Hct 34.7 L (39.0-53.0) % MCHC 29.9 L (31.0-37.0) g/dL RDW 15.8 H (11.5-15.5) % Neutrophils # 9.3 H (1.3-7.7) k/uL Lymphocytes # 0.3 L (1.0-4.8) k/uL INR 1.2 H (<1.2) Sodium 135 L (137-145) mmol/L BUN 34 H (9-20) mg/dL Glucose 155 H (74-99) mg/dL POC Glucose (mg/dL) (75-99) mg/dL 10/17/17 Range/Units 11:23 RBC (4.30-5.90) m/uL Hgb (13.0-17.5) gm/dL Hct (39.0-53.0) % MCHC (31.0-37.0) g/dL RDW (11.5-15.5) % Neutrophils # (1.3-7.7) k/uL Lymphocytes # (1.0-4.8) k/uL INR (<1.2) Sodium (137-145) mmol/L BUN (9-20) mg/dL Glucose (74-99) mg/dL POC Glucose (mg/dL) 153 H (75-99) mg/dL Microbiology - Last 24 Hours (Table) 10/14/17 08:38 Blood Culture - Preliminary Blood No Growth after 72 hours 10/14/17 08:42 Blood Culture - Preliminary Blood No Growth after 72 hours 10/14/17 20:54 Gram Stain - Final Sputum Sputum Culture - Final 10/14/17 02:49 Blood Culture - Preliminary Blood No Growth after 72 hours 10/15/17 10:35 Gram Stain - Preliminary Pleural Fluid Body Fluid Culture - Preliminary Assessment and Plan Assessment: #1 acute on chronic respiratory failure #2 large left pleural effusion and status post pleurocentesis #3 status post coronary artery bypass grafting as described above #4 recurrent nonsustained V. tach #5 mild ischemic cardiomyopathy with EF of 45% #6 chronic atrial fibrillation was controlled heart rate #7 multiple comorbid conditions including hypertension and dyslipidemia Plan #1 the patient underwent left pleurocentesis yesterday. He is feeling better indeterminable shortness of breath #2 the repeated echocardiogram showed an EF of 45% #3 continue amiodarone by mouth #4 continue the current dose of metoprolol #5 follow-up with the patient. Thank you for allowing us participate his care and we'll continue following up with him
--- NOTE | 2017-10-17 13:48 | P.PN ---
Subjective Progress Note Date: 10/17/17 Principal diagnosis: Acute on chronic hypoxic respiratory failure secondary to bilateral healthcare acquired pneumonia with left pleural effusion, COPD exacerbation, systolic congestive heart failure exacerbation. This is a very pleasant 77-year-old gentleman who follows with Dr. White as his primary care physician. He has a history of hypertension, osteomyelitis, peripheral vascular occlusive disease, diabetic neuropathy, diabetes mellitus type 2, chronic atrial fibrillation, chronic hypoxic respiratory failure with severe COPD, Gold stage III with an FEV1 value of 45% of predicted. He follows in our office for the same. He has a history of pseudomonas aeruginosa and oxacillin sensitive Staphylococcus aureus positive sputum cultures in August 2017. He also has history of coronary artery disease and recently sustained a non-ST segment myocardial infarction requiring subsequent coronary artery bypass grafting utilizing a PARSON to the LAD, reverse saphenous vein graft to the OM1, OM 2, RCA. He had been seen by Dr. Cruz last week and follow-up in the office. He was found to have a left pleural effusion measuring 10 cm with shortness of breath. He was asked to hold his warfarin and the plan was for a left thoracentesis to be done in the outpatient setting today. However, he presented to the emergency room approximately at 2:00 this morning from the [facility] with worsening shortness of breath and coughing up pink frothy sputum. CT angiogram ruled out pulmonary embolism. There was a noted consolidation involving the right lower lobe with subsegmental changes in the left lower lobe and endobronchial opacification suspicious for pneumonia. There is a left pleural effusion layering posteriorly with mild loculation. He was seen and evaluated in the emergency room this morning with Dr. Cruz. He is awake and alert in mild respiratory distress. He initially required 15L nonrebreather mask. He is currently on 5 L/m per nasal cannula to maintain O2 saturations in the 90s. Afebrile. He slightly tachycardic. Atrial fibrillation. White count 17.7. Hemoglobin 13.3. INR 1.3. Creatinine 0.70. ProBNP 2480. He has been initiated on Zosyn and Levaquin. The patient is seen again today 10/15/2017 in follow-up on the selective care unit. He is currently sitting up in a chair at the bedside. He is awake and alert in no acute distress. He is breathing quite a bit better today as compared to yesterday. He continues with a loose nonproductive cough. He did undergo a left-sided thoracentesis this morning by interventional radiology in approximately 1.06 L of serosanguineous fluid was removed. All of chest x-ray revealed no evidence complications from the thoracentesis. There is a right lower lobe atelectasis. He is working well with the incentive spirometer. Maintaining O2 saturations in the 90s on 3 L/m per nasal cannula. Hemodynamically stable. Sputum culture pending. Blood culture reveals no growth to date. White count 12.9. Hemoglobin 11.2. INR 1.3. Creatinine 0.80. The patient is seen again today 10/16/2017 in follow-up on the selective care unit. He is awake and alert in no acute distress. He is breathing quite a bit easier today as compared to yesterday. Nearly back to his baseline. He sitting up in a chair at the bedside. He denies any worsening shortness of breath, cough or congestion. Today's chest x-ray shows near complete resolution of the pleural effusion status post thoracentesis on the left. There is some minimal blunting of left costophrenic angle. Maintaining good O2 saturations in the mid 90s on 3 L/m per nasal cannula. He is afebrile. White count 9.0. Hemoglobin 10.0. Creatinine 0.69. He did have runs of nonsustained ventricular tachycardia requiring the initiation of amiodarone. The patient is seen again today 10/17/2017 in follow-up on the selective care unit. He's been up ambulating with assistance today. He is doing quite well. He denies any worsening shortness of breath, cough or congestion. He is maintaining O2 saturations up to 100% on 3 L/m per nasal cannula. She's been afebrile. Hemodynamically stable. Chest x-ray shows improved aeration in the right lung base. There is a small stable left pleural effusion. Blood, sputum , pleural fluid cultures are negative thus far. Objective - Vital Signs Vital signs: Vital Signs Temp 96.7 F L 10/17/17 08:00 Pulse 88 10/17/17 12:07 Resp 18 10/17/17 08:00 BP 109/56 10/17/17 08:00 Pulse Ox 100 10/17/17 08:00 Intake & Output 10/16/17 10/17/17 10/17/17 18:59 06:59 18:59 Intake Total 766 250 240 Output Total 2 Balance 766 248 240 Weight 72.5 kg Intake: Intake, IV Titration 50 50 Amount Piperacillin-Tazobactam 3 50 50 .375 gm In Dextrose/Water 1 50ml.bag @ 12.5 mls/hr IVPB Q8HR [facility] Rx#: [id number] Oral 716 200 240 Output: Stool 2 Other: Voiding Method Toilet # Voids 1 2 # Bowel Movements 1 - Exam - Constitutional General appearance: cooperative, no acute distress - EENT Eyes: EOMI, PERRLA ENT: hearing grossly normal Ears: bilateral: normal - Neck Carotids: bilateral: upstroke normal Thyroid: bilateral: normal size - Respiratory Respiratory: bilateral: diminished, rales - Cardiovascular Rhythm: irregularly irregular Heart sounds: normal: S1, S2 - Gastrointestinal General gastrointestinal: normal bowel sounds - Integumentary Integumentary: decreased turgor - Neurologic Neurologic: CNII-XII intact - Musculoskeletal Musculoskeletal: generalized weakness - Psychiatric Psychiatric: A&O x's 3, appropriate affect, intact judgment & insight - Labs CBC & Chem 7: 10/17/17 05:54 10/17/17 05:54 Labs: Abnormal Lab Results - Last 24 Hours (Table) 10/16/17 10/16/17 10/17/17 Range/Units 16:54 21:16 05:33 RBC (4.30-5.90) m/uL Hgb (13.0-17.5) gm/dL Hct (39.0-53.0) % MCHC (31.0-37.0) g/dL RDW (11.5-15.5) % Neutrophils # (1.3-7.7) k/uL Lymphocytes # (1.0-4.8) k/uL INR (<1.2) Sodium (137-145) mmol/L BUN (9-20) mg/dL Glucose (74-99) mg/dL POC Glucose (mg/dL) 159 H 202 H 182 H (75-99) mg/dL 10/17/17 10/17/17 10/17/17 Range/Units 05:54 05:54 05:54 RBC 4.00 L (4.30-5.90) m/uL Hgb 10.4 L (13.0-17.5) gm/dL Hct 34.7 L (39.0-53.0) % MCHC 29.9 L (31.0-37.0) g/dL RDW 15.8 H (11.5-15.5) % Neutrophils # 9.3 H (1.3-7.7) k/uL Lymphocytes # 0.3 L (1.0-4.8) k/uL INR 1.2 H (<1.2) Sodium 135 L (137-145) mmol/L BUN 34 H (9-20) mg/dL Glucose 155 H (74-99) mg/dL POC Glucose (mg/dL) (75-99) mg/dL 10/17/17 Range/Units 11:23 RBC (4.30-5.90) m/uL Hgb (13.0-17.5) gm/dL Hct (39.0-53.0) % MCHC (31.0-37.0) g/dL RDW (11.5-15.5) % Neutrophils # (1.3-7.7) k/uL Lymphocytes # (1.0-4.8) k/uL INR (<1.2) Sodium (137-145) mmol/L BUN (9-20) mg/dL Glucose (74-99) mg/dL POC Glucose (mg/dL) 153 H (75-99) mg/dL Microbiology - Last 24 Hours (Table) 10/15/17 10:35 Gram Stain - Preliminary Pleural Fluid Body Fluid Culture - Preliminary 10/15/17 10:35 Anaerobic Culture - Preliminary Pleural Fluid 10/14/17 08:38 Blood Culture - Preliminary Blood No Growth after 72 hours 10/14/17 08:42 Blood Culture - Preliminary Blood No Growth after 72 hours 10/14/17 20:54 Gram Stain - Final Sputum Sputum Culture - Final 10/14/17 02:49 Blood Culture - Preliminary Blood No Growth after 72 hours Assessment and Plan Assessment: Impression: #1 Acute on chronic hypoxic respiratory failure secondary to bilateral healthcare acquired pneumonia with left pleural effusion, COPD exacerbation and CHF exacerbation #2 Left pleural effusion, warfarin on hold for plans for an outpatient thoracentesis today prior to his arrival to the emergency room. Status post left thoracentesis today by interventional radiology. Approximately 1.6 L of serosanguinous removed. #3 Acute exacerbation of oxygen dependent chronic obstructive pulmonary disease , Gold stage III with FEV1 value of 45% of predicted. #4 Recent pneumonia with positive sputum cultures of Pseudomonas and oxacillin sensitive Staphylococcus aureus from 09/08/2017. #5 Acute exacerbation of chronic systolic congestive heart failure. Mild to moderately impaired left ventricular systolic function with ejection fraction 40 -45%. #6 Atrial fibrillation with varying ventricular response. Warfarin resumed. #7 Recent non-ST segment elevation myocardial infarction and subsequent coronary artery bypass grafting on 09/08/2017. PARSON to the LAD, reverse this saphenous vein grafts to the first obtuse marginal artery, second obtuse marginal artery, right coronary artery. #8 Diabetes mellitus, type II. #9 Diabetic neuropathy. #10 Peripheral vascular occlusive disease. Multiple surgeries including palpitations of the fourth toe bilaterally. 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 #12 Hypertension, history of. #13 History of peptic ulcer disease with partial gastrectomy and colectomy. #14 ventricular tachycardia, initiated on amiodarone #15 Poor overall functional performance based on the above-mentioned multiple comorbidities. Plan: The patient was seen and evaluated by Dr. Cruz. The patient is stable from the pulmonary standpoint. We will switch him to oral Augmentin. Convert to oral prednisone. Resume warfarin. Discharge once cleared by cardiology. We' ll continue to follow and make further recommendations based on his clinical status. I, the cosigning physician, performed a history & physical examination of the patient. Lungs sounds with crackles in the posterior bases, diminished. Maintaining good O2 saturations in the 90s on 3 L/m per nasal cannula. I discussed the assessment and plan of care with my nurse practitioner, Verónica Joseph. I attest to the above note as dictated by her.
[2017-10-17] MEDS: ASPIRIN 325 MG TAB PO SCH (15:51)
--- NOTE | 2017-10-17 16:02 | P.PN ---
Subjective Progress Note Date: 10/17/17 Principal diagnosis: Admission for right lower lobe pneumonia. Current left-sided pleural effusion. Previous medical history of triple-vessel coronary artery disease with left main disease and non-ST elevation myocardial infarction status post urgent quadruple coronary artery bypass grafting as well as exclusion of the left atrial appendage on 09/08/2017, mild to moderate left ventricular dysfunction, chronic systolic heart failure with ejection fraction of 40-45% as well as diastolic dysfunction, chronic persistent atrial fibrillation on home Coumadin therapy, sick sinus syndrome status post pacemaker insertion, hypertension, hyperlipidemia, carotid stenosis 50-79% bilaterally, previous tobacco dependence , 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 The patient is sitting up to the bedside chair. He is in no acute distress. He reports since having the fluid removed off his left chest his breathing has improved significantly. He denies any complaints of pain or shortness of breath at this time. He has had no further episodes of ventricular arrhythmias since the amiodarone has been started. He is anxious to be discharged back to the subacute rehab. Objective - Vital Signs Vital signs: Vital Signs Temp 97.1 F L 10/17/17 11:00 Pulse 88 10/17/17 12:07 Resp 18 10/17/17 11:00 BP 101/64 10/17/17 11:00 Pulse Ox 98 10/17/17 11:00 Intake & Output 10/16/17 10/17/17 10/17/17 18:59 06:59 18:59 Intake Total 766 250 480 Output Total 2 800 Balance 766 248 -320 Weight 72.5 kg Intake: Intake, IV Titration 50 50 Amount Piperacillin-Tazobactam 3 50 50 .375 gm In Dextrose/Water 1 50ml.bag @ 12.5 mls/hr IVPB Q8HR [facility] Rx#: [id number] Oral 716 200 480 Output: Urine 800 Stool 2 Other: Voiding Method Toilet # Voids 1 2 # Bowel Movements 1 - Constitutional General appearance: Present: cooperative, no acute distress - Respiratory Details: Lung sounds are essentially clear throughout, diminished to his bilateral bases with few scattered crackles. Respirations are symmetrical and nonlabored. Oxygen saturation are 98% on 3 L nasal cannula. He is achieving 1500 mL on his incentive spirometry. - Cardiovascular Details: Irregular rhythm with controlled rate. S1 and S2 present, negative for S3, gallop or murmur. Sternum is stable. Remote telemetry showing atrial fibrillation heart rate 94. No edema present. Sequential compression devices in place to his bilateral lower extremities. - Gastrointestinal Gastrointestinal Comment(s): Abdomen is soft, nontender and nondistended. Active bowel sounds all 4 power quadrants. Tolerating oral intake. No guarding or rigidity. No organomegaly. - Genitourinary Genitourinary Comment(s): Voiding clear yellow urine. - Integumentary Integumentary Comment(s): Skin is warm and dry. No clubbing or cyanosis present. Midline sternal incision clean dry and approximated, healed. Right lower extremity EVH site with scant serosanguineous drainage. Dressing is clean dry and intact. Left heel dressing clean dry and intact. - Neurologic Neurologic: Present: CNII-XII intact - Musculoskeletal Musculoskeletal: Present: gait normal, generalized weakness, strength equal bilaterally - Psychiatric Psychiatric: Present: A&O x's 3, appropriate affect, intact judgment & insight - Allied health notes Allied health notes reviewed: nursing - Labs CBC & Chem 7: 10/17/17 05:54 10/17/17 05:54 Labs: Abnormal Lab Results - Last 24 Hours (Table) 10/16/17 10/16/17 10/17/17 Range/Units 16:54 21:16 05:33 RBC (4.30-5.90) m/uL Hgb (13.0-17.5) gm/dL Hct (39.0-53.0) % MCHC (31.0-37.0) g/dL RDW (11.5-15.5) % Neutrophils # (1.3-7.7) k/uL Lymphocytes # (1.0-4.8) k/uL INR (<1.2) Sodium (137-145) mmol/L BUN (9-20) mg/dL Glucose (74-99) mg/dL POC Glucose (mg/dL) 159 H 202 H 182 H (75-99) mg/dL 10/17/17 10/17/17 10/17/17 Range/Units 05:54 05:54 05:54 RBC 4.00 L (4.30-5.90) m/uL Hgb 10.4 L (13.0-17.5) gm/dL Hct 34.7 L (39.0-53.0) % MCHC 29.9 L (31.0-37.0) g/dL RDW 15.8 H (11.5-15.5) % Neutrophils # 9.3 H (1.3-7.7) k/uL Lymphocytes # 0.3 L (1.0-4.8) k/uL INR 1.2 H (<1.2) Sodium 135 L (137-145) mmol/L BUN 34 H (9-20) mg/dL Glucose 155 H (74-99) mg/dL POC Glucose (mg/dL) (75-99) mg/dL 10/17/17 Range/Units 11:23 RBC (4.30-5.90) m/uL Hgb (13.0-17.5) gm/dL Hct (39.0-53.0) % MCHC (31.0-37.0) g/dL RDW (11.5-15.5) % Neutrophils # (1.3-7.7) k/uL Lymphocytes # (1.0-4.8) k/uL INR (<1.2) Sodium (137-145) mmol/L BUN (9-20) mg/dL Glucose (74-99) mg/dL POC Glucose (mg/dL) 153 H (75-99) mg/dL Microbiology - Last 24 Hours (Table) 10/15/17 10:35 Gram Stain - Preliminary Pleural Fluid Body Fluid Culture - Preliminary 10/15/17 10:35 Anaerobic Culture - Preliminary Pleural Fluid 10/14/17 08:38 Blood Culture - Preliminary Blood No Growth after 72 hours 10/14/17 08:42 Blood Culture - Preliminary Blood No Growth after 72 hours 10/14/17 20:54 Gram Stain - Final Sputum Sputum Culture - Final 10/14/17 02:49 Blood Culture - Preliminary Blood No Growth after 72 hours - Imaging and Cardiology Chest x-ray: report reviewed, image reviewed Assessment and Plan (1) Pleural effusion Current Visit: Yes Status: Acute Code(s): J90 - PLEURAL EFFUSION, NOT ELSEWHERE CLASSIFIED SNOMED Code(s): 06120693 (2) BPH (benign prostatic hyperplasia) Current Visit: Yes Status: Chronic Code(s): N40.0 - BENIGN PROSTATIC HYPERPLASIA WITHOUT LOWER URINRY TRACT SYMP SNOMED Code(s): 185651469 (3) CAD (coronary artery disease) Current Visit: Yes Status: Chronic Code(s): I25.10 - ATHSCL HEART DISEASE OF [place] CORONARY ARTERY W/O ANG PCTRS SNOMED Code(s): 01923492 (4) COPD (chronic obstructive pulmonary disease) Current Visit: Yes Status: Chronic Code(s): J44.9 - CHRONIC OBSTRUCTIVE PULMONARY DISEASE, UNSPECIFIED SNOMED Code(s): 56527849 (5) Chronic atrial fibrillation Current Visit: Yes Status: Chronic Code(s): I48.2 - CHRONIC ATRIAL FIBRILLATION SNOMED Code(s): 143866895 (6) Chronic systolic heart failure Current Visit: Yes Status: Chronic Code(s): I50.22 - CHRONIC SYSTOLIC ( CONGESTIVE) HEART FAILURE SNOMED Code(s): 870701852 (7) Diabetes mellitus type 2 in nonobese Current Visit: Yes Status: Chronic Code(s): E11.9 - TYPE 2 DIABETES MELLITUS WITHOUT COMPLICATIONS SNOMED Code(s): 524407789 (8) Family history of early CAD Current Visit: Yes Status: Chronic Code(s): Z82.49 - FAMILY HX OF I[place]HE[place] HEART DIS AND OTH DIS OF [facility] SNOMED Code(s): 993822147 (9) GERD (gastroesophageal reflux disease) Current Visit: Yes Status: Chronic Code(s): K21.9 - GASTRO-ESOPHAGEAL REFLUX DISEASE WITHOUT ESOPHAGITIS SNOMED Code(s): 225183689 (10) History of Coumadin therapy Current Visit: Yes Status: Chronic Code(s): Z92.29 - PERSONAL HISTORY OF OTHER DRUG THERAPY SNOMED Code(s): 693773869 (11) History of coronary artery bypass graft Current Visit: Yes Status: Chronic Code(s): Z95.1 - PRESENCE OF AORTOCORONARY BYPASS GRAFT SNOMED Code(s): 978307757 (12) History of permanent cardiac pacemaker placement Current Visit: Yes Status: Chronic Code(s): Z95.0 - PRESENCE OF CARDIAC PACEMAKER SNOMED Code(s): 750986992 (13) History of sick sinus syndrome Current Visit: Yes Status: Chronic Code(s): Z86.79 - PERSONAL HISTORY OF OTHER DISEASES OF THE CIRCULATORY SYSTEM SNOMED Code(s): 383968851723336 (14) Hypertension Current Visit: Yes Status: Chronic Code(s): I10 - ESSENTIAL (PRIMARY) HYPERTENSION SNOMED Code(s): 13191497 (15) On home oxygen therapy Current Visit: Yes Status: Chronic Code(s): Z99.81 - DEPENDENCE ON SUPPLEMENTAL OXYGEN SNOMED Code(s): 187148982832 (16) Peripheral vascular disease Current Visit: Yes Status: Chronic Code(s): I73.9 - PERIPHERAL VASCULAR DISEASE, UNSPECIFIED SNOMED Code(s): 776697998 (17) Family history of coronary artery disease in brother Current Visit: No Status: Acute Code(s): Z82.49 - FAMILY HX OF ISCHEM HEART DIS AND OTH DIS OF THE CIRC SYS SNOMED Code(s): 288776651 (18) History of MRSA infection Current Visit: No Status: Resolved Code(s): Z86.14 - PERSONAL HISTORY OF METHICILLIN RESIS STAPH INFECTION SNOMED Code(s): 120712237 (19) History of smoking Current Visit: No Status: Resolved Code(s): Z87.891 - PERSONAL HISTORY OF NICOTINE DEPENDENCE SNOMED Code(s): 97687571094590376 Plan: 1. Continue aspirin, statin, beta lisa. Will increase beta lisa therapy as tolerated. 2. Continue Coumadin. Goal INR 2-2.5. 3. Amiodarone therapy per cardiology. 4. Wean O2 as tolerated. Encourage incentive spirometry use 10 times every hour. 5. Bronchodilators, steroids per Dr. Cruz. 6. Continue antibiotics. 7. Will monitor daily labs and x-rays. 8. Increase activity, ambulate as tolerated. PT/OT following. 9. GI/DVT prophylaxis. 10. Insulin, other medical comorbidities per Dr. Crane. 11. Continue localized wound care to his right leg EVH site and left heel. 12. More recommendations to follow based on patient's clinical course. May discharge to subacute rehab versus home from our standpoint when okay with other consultants. Time with Patient: Greater than 30
[2017-10-17] MEDS: WARFARIN 5 MG TAB PO SCH (16:49)
[2017-10-17 17:28] LABS: Glucose,Whole Blood 214 mg/dL (75-99)
[2017-10-17] MEDS: AMOXIC-POT CLAV 875-125MG 1 EACH TAB PO SCH (20:06)
[2017-10-17] MEDS: ATORVASTATIN 40 MG TAB PO SCH (20:06)
[2017-10-17] MEDS: TAMSULOSIN 0.4 MG CAP.ER.24H PO SCH (20:07)
[2017-10-17 21:03] LABS: Glucose,Whole Blood 221 mg/dL (75-99)
[2017-10-17] MEDS: MELATONIN 1 MG TAB PO SCH (21:10)
[2017-10-18 02:08] LABS: Glucose,Whole Blood 127 mg/dL (75-99)
[2017-10-18] MEDS: IPRATROPIUM-ALBUTEROL 3 ML NEB INHALATION PRN (04:27)
[2017-10-18 05:33] LABS: Glucose,Whole Blood 100 mg/dL (75-99)
[2017-10-18] MEDS: INSULIN ASPART 100 UNIT/ML 1 ML 10 ML VIAL SQ SCH ×4 (05:39→20:30)
[2017-10-18] MEDS: FUROSEMIDE 40 MG TAB PO SCH (06:40)
[2017-10-18] MEDS: PANTOPRAZOLE 40 MG TABLET PO SCH (06:40)
[2017-10-18] MEDS: GABAPENTIN 100 MG CAP PO SCH ×3 (06:40→21:47)
[2017-10-18] MEDS: GLIMEPIRIDE 0.5 MG TAB PO SCH (06:40)
[2017-10-18 06:48] LABS: Basophils % (A) 0 %; Eosinophils % (A) 0 %; HCT 34.4 % (39.0-53.0); HGB 10.4 gm/dL (13.0-17.5); Hypochromasia Marked; Lymphocytes # (A) 0.6 k/uL (1.0-4.8); Lymphocytes % (A) 8 %; MCH 26.1 pg (25.0-35.0); MCHC 30.2 g/dL (31.0-37.0); MCV 86.4 fL (80.0-100.0); Mean Platelet Volume 6.4; Monocytes # (A) 0.6 k/uL (0-1.0); Monocytes % (A) 7 %; Neutrophils # (A) 6.9 k/uL (1.3-7.7); Neutrophils % (A) 83 %; Platelet Count 191 k/uL (150-450); Poikilocytosis Slight; RBC 3.98 m/uL (4.30-5.90); RDW 15.7 % (11.5-15.5); WBC 8.3 k/uL (3.8-10.6)
[2017-10-18 06:59] LABS: INR 1.4 (<1.2); Prothrombin Time 13.5 sec (9.0-12.0)
[2017-10-18 07:13] LABS: Anion Gap 6 mmol/L; Blood Urea Nitrogen 33 mg/dL (9-20); Calcium 8.6 mg/dL (8.4-10.2); Carbon Dioxide 34 mmol/L (22-30); Chloride 98 mmol/L (98-107); Glucose 91 mg/dL (74-99); Potassium 4.2 mmol/L (3.5-5.1); Sodium 138 mmol/L (137-145)
[2017-10-18] MEDS: FORMOTEROL FUMARATE 20 MCG/2 ML NEBU INHALATION SCH ×2 (07:41→19:36)
[2017-10-18] MEDS: IPRATROPIUM-ALBUTEROL 3 ML NEB INHALATION SCH ×4 (07:41→19:35)
[2017-10-18] MEDS: BUDESONIDE 1 MG/2 ML NEBU INHALATION SCH ×2 (07:41→19:35)
[2017-10-18] MEDS: HEPARIN SODIUM,PORCINE 5,000 UNIT/ML 1 ML VIAL SQ SCH ×3 (08:39→23:53)
[2017-10-18] MEDS: AMOXIC-POT CLAV 875-125MG 1 EACH TAB PO SCH ×2 (08:39→20:30)
[2017-10-18] MEDS: AMIODARONE 200 MG TAB PO SCH ×2 (08:39→20:30)
[2017-10-18] MEDS: guaiFENesin 600 MG TABLET.ER PO SCH ×2 (08:40→20:30)
[2017-10-18] MEDS: DOCUSATE 100 MG CAP PO SCH ×2 (08:40→20:26)
[2017-10-18] MEDS: METOPROLOL SUCCINATE (ER) 50 MG TAB.ER.24H PO SCH ×2 (08:41→20:30)
[2017-10-18] MEDS: predniSONE 20 MG TAB PO SCH (08:41)
--- NOTE | 2017-10-18 10:10 | P.PN ---
Progress Note - Text The patient is a 77-year-old gentleman who 5 days previous was transferred from [facility] rehab after an episode of increasing shortness of breath associated with hemorrhagic sputum and at that time decreasing O2 saturations. Patient last month had undergone coronary artery bypass surgery. Chest x-ray was consistent with bilateral basilar pneumonias and he also had a left pleural effusion. The left pleural effusion has been tapped. The patient is on oral antibiotics at this time along with the 40 mg of prednisone orally. He has also been restarted back on his Coumadin. He has chronic atrial fibrillation. This morning he is sitting up in his room. States he slept well. Denies any acute short shortness of breath or chest discomfort. No nausea or vomiting. Last recorded vitals reveal a temperature 97.3 with a pulse of 80 and respirations 17. Blood pressure 106/64 and he is 94% saturated on 3 L. Lungs are generally clear although diminished. Heart tones are irregularly irregular but rate is overall controlled. No unusual edema. He is alert and oriented without focal weakness noted. Laboratory White count 8.3 with a hemoglobin of 10.4 and a platelet count of 191. INR this morning is 1.4 Basic metabolic panel was stable. Blood sugar 100. Impressions and plans Overall this gentleman appears to be recovering well. He is post thoracentesis of the left pleural effusion. Pulmonary status appears to be improving on present antibiotics. Pulmonary medicine notes regarded. He is back on Coumadin and INRs to be monitored. Anticipating transfer back to [facility] on Friday. Discussed with patient and nursing staff this morning. If bed is needed on selective care from my standpoint patient can be moved if okay with cardiology to a general medical floor with telemetry. Dr. Adi Schaefer on-call for me over the weekend if any concerns or problems should arise.
[2017-10-18 11:13] LABS: Glucose,Whole Blood 195 mg/dL (75-99)
--- NOTE | 2017-10-18 13:05 | P.PN ---
Subjective Progress Note Date: 10/18/17 Principal diagnosis: Acute on chronic hypoxic respiratory failure secondary to healthcare acquired pneumonia, left pleural effusion, underlying COPD, chronic systolic congestive heart failure. This is a very pleasant 77-year-old gentleman who follows with Dr. White as his primary care physician. He has a history of hypertension, osteomyelitis, peripheral vascular occlusive disease, diabetic neuropathy, diabetes mellitus type 2, chronic atrial fibrillation, chronic hypoxic respiratory failure with severe COPD, Gold stage III with an FEV1 value of 45% of predicted. He follows in our office for the same. He has a history of pseudomonas aeruginosa and oxacillin sensitive Staphylococcus aureus positive sputum cultures in August 2017. He also has history of coronary artery disease and recently sustained a non-ST segment myocardial infarction requiring subsequent coronary artery bypass grafting utilizing a PARSON to the LAD, reverse saphenous vein graft to the OM1, OM 2, RCA. He had been seen by Dr. Cruz last week and follow-up in the office. He was found to have a left pleural effusion measuring 10 cm with shortness of breath. He was asked to hold his warfarin and the plan was for a left thoracentesis to be done in the outpatient setting today. However, he presented to the emergency room approximately at 2:00 this morning from the [facility] with worsening shortness of breath and coughing up pink frothy sputum. CT angiogram ruled out pulmonary embolism. There was a noted consolidation involving the right lower lobe with subsegmental changes in the left lower lobe and endobronchial opacification suspicious for pneumonia. There is a left pleural effusion layering posteriorly with mild loculation. He was seen and evaluated in the emergency room this morning with Dr. Cruz. He is awake and alert in mild respiratory distress. He initially required 15L nonrebreather mask. He is currently on 5 L/m per nasal cannula to maintain O2 saturations in the 90s. Afebrile. He slightly tachycardic. Atrial fibrillation. White count 17.7. Hemoglobin 13.3. INR 1.3. Creatinine 0.70. ProBNP 2480. He has been initiated on Zosyn and Levaquin. The patient is seen again today 10/15/2017 in follow-up on the selective care unit. He is currently sitting up in a chair at the bedside. He is awake and alert in no acute distress. He is breathing quite a bit better today as compared to yesterday. He continues with a loose nonproductive cough. He did undergo a left-sided thoracentesis this morning by interventional radiology in approximately 1.06 L of serosanguineous fluid was removed. All of chest x-ray revealed no evidence complications from the thoracentesis. There is a right lower lobe atelectasis. He is working well with the incentive spirometer. Maintaining O2 saturations in the 90s on 3 L/m per nasal cannula. Hemodynamically stable. Sputum culture pending. Blood culture reveals no growth to date. White count 12.9. Hemoglobin 11.2. INR 1.3. Creatinine 0.80. The patient is seen again today 10/16/2017 in follow-up on the selective care unit. He is awake and alert in no acute distress. He is breathing quite a bit easier today as compared to yesterday. Nearly back to his baseline. He sitting up in a chair at the bedside. He denies any worsening shortness of breath, cough or congestion. Today's chest x-ray shows near complete resolution of the pleural effusion status post thoracentesis on the left. There is some minimal blunting of left costophrenic angle. Maintaining good O2 saturations in the mid 90s on 3 L/m per nasal cannula. He is afebrile. White count 9.0. Hemoglobin 10.0. Creatinine 0.69. He did have runs of nonsustained ventricular tachycardia requiring the initiation of amiodarone. The patient is seen again today 10/17/2017 in follow-up on the selective care unit. He's been up ambulating with assistance today. He is doing quite well. He denies any worsening shortness of breath, cough or congestion. He is maintaining O2 saturations up to 100% on 3 L/m per nasal cannula. She's been afebrile. Hemodynamically stable. Chest x-ray shows improved aeration in the right lung base. There is a small stable left pleural effusion. Blood, sputum , pleural fluid cultures are negative thus far. Patient was seen today on 10/18/2017, remains on a monitor bed, feeling better, breathing easier, patient is already ambulating in the hallway, remains on antibiotics for pneumonia involving the right lower lobe, his left pleural effusion was drained, and felt much better since the drainage. He is on 2-3 L nasal cannula. Hemodynamically stable. Follow-up chest x-ray showed improvement. Patient will likely be discharged to [facility] early Friday. Objective - Vital Signs Vital signs: Vital Signs Temp 97.0 F L 10/18/17 11:06 Pulse 86 10/18/17 11:32 Resp 18 10/18/17 11:07 BP 107/54 10/18/17 11:06 Pulse Ox 95 10/18/17 11:06 Intake & Output 10/17/17 10/18/17 10/18/17 18:59 06:59 18:59 Intake Total 480 450 890 Output Total 800 Balance -320 450 890 Weight 73.1 kg Intake: IV 10 Invasive Line 5 10 Oral 480 450 880 Output: Urine 800 Other: Voiding Method Toilet Toilet # Voids 1 # Bowel Movements 1 - Exam Physical Exam: Revealed a 77-year-old white male in no distress, very pleasant. Head: Atraumatic, normocephalic. HEENT:[Neck is supple.] [No neck masses.] [No thyromegaly.] [No JVD.] No icterus, moist mucous membranes. Chest: [Diminished breath sounds at the bases, no crackles, no rhonchi and no wheezes. No chest wall tenderness.] Cardiac Exam: [Irregular irregular rhythm. Normal S1 and S2, no S3 gallop, no murmur.] Abdomen: [Soft, nontender, no megaly, no rebound, no guarding, normal bowel sounds.] Extremities: [No clubbing, no edema, no cyanosis.] Neurological Exam: [No focal neurologic deficit. Psychiatric: Normal mood affect and mental status examination. : No lymphadenopathy.] - Labs CBC & Chem 7: 10/18/17 05:59 10/18/17 05:59 Labs: Abnormal Lab Results - Last 24 Hours (Table) 10/17/17 10/17/17 10/18/17 Range/Units 17:05 20:59 02:07 RBC (4.30-5.90) m/uL Hgb (13.0-17.5) gm/dL Hct (39.0-53.0) % MCHC (31.0-37.0) g/dL RDW (11.5-15.5) % Lymphocytes # (1.0-4.8) k/uL PT (9.0-12.0) sec INR (<1.2) Carbon Dioxide (22-30) mmol/L BUN (9-20) mg/dL POC Glucose (mg/dL) 214 H 221 H 127 H (75-99) mg/dL 10/18/17 10/18/17 10/18/17 Range/Units 05:31 05:59 05:59 RBC 3.98 L (4.30-5.90) m/uL Hgb 10.4 L (13.0-17.5) gm/dL Hct 34.4 L (39.0-53.0) % MCHC 30.2 L (31.0-37.0) g/dL RDW 15.7 H (11.5-15.5) % Lymphocytes # 0.6 L (1.0-4.8) k/uL PT 13.5 H (9.0-12.0) sec INR 1.4 H (<1.2) Carbon Dioxide (22-30) mmol/L BUN (9-20) mg/dL POC Glucose (mg/dL) 100 H (75-99) mg/dL 10/18/17 10/18/17 Range/Units 05:59 11:11 RBC (4.30-5.90) m/uL Hgb (13.0-17.5) gm/dL Hct (39.0-53.0) % MCHC (31.0-37.0) g/dL RDW (11.5-15.5) % Lymphocytes # (1.0-4.8) k/uL PT (9.0-12.0) sec INR (<1.2) Carbon Dioxide 34 H (22-30) mmol/L BUN 33 H (9-20) mg/dL POC Glucose (mg/dL) 195 H (75-99) mg/dL Microbiology - Last 24 Hours (Table) 10/15/17 10:35 Gram Stain - Preliminary Pleural Fluid Body Fluid Culture - Preliminary 10/14/17 08:38 Blood Culture - Preliminary Blood No Growth after 96 hours 10/14/17 08:42 Blood Culture - Preliminary Blood No Growth after 96 hours 10/14/17 02:49 Blood Culture - Preliminary Blood No Growth after 96 hours 10/15/17 10:35 Anaerobic Culture - Preliminary Pleural Fluid Assessment and Plan Assessment: #1 Acute on chronic hypoxic respiratory failure secondary to bilateral healthcare acquired pneumonia with left pleural effusion, COPD exacerbation and CHF exacerbation #2 Left pleural effusion, warfarin on hold for plans for an outpatient thoracentesis today prior to his arrival to the emergency room. Status post left thoracentesis today by interventional radiology. Approximately 1.6 L of serosanguinous removed. #3 Acute exacerbation of oxygen dependent chronic obstructive pulmonary disease , Gold stage III with FEV1 value of 45% of predicted. #4 Recent pneumonia with positive sputum cultures of Pseudomonas and oxacillin sensitive Staphylococcus aureus from 09/08/2017. #5 Acute exacerbation of chronic systolic congestive heart failure. Mild to moderately impaired left ventricular systolic function with ejection fraction 40 -45%. #6 Atrial fibrillation with varying ventricular response. Warfarin resumed. #7 Recent non-ST segment elevation myocardial infarction and subsequent coronary artery bypass grafting on 09/08/2017. PARSON to the LAD, reverse this saphenous vein grafts to the first obtuse marginal artery, second obtuse marginal artery, right coronary artery. #8 Diabetes mellitus, type II. #9 Diabetic neuropathy. #10 Peripheral vascular occlusive disease. Multiple surgeries including palpitations of the fourth toe bilaterally. 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 #12 Hypertension, history of. #13 History of peptic ulcer disease with partial gastrectomy and colectomy. #14 ventricular tachycardia, initiated on amiodarone #15 Poor overall functional performance based on the above-mentioned multiple comorbidities. Recommendation: Continue present treatment plan including oral antibiotics, Coumadin, patient was cleared from our perspective for discharge planning, however he is to be discharged back to ECF/rehab facility. Patient can see me on outpatient basis post discharge. Time with Patient: Less than 30
[2017-10-18] MEDS: WARFARIN 5 MG TAB PO SCH (16:55)
[2017-10-18] MEDS: ASPIRIN 325 MG TAB PO SCH (16:55)
[2017-10-18 17:06] LABS: Glucose,Whole Blood 190 mg/dL (75-99)
[2017-10-18 20:16] LABS: Glucose,Whole Blood 275 mg/dL (75-99)
[2017-10-18] MEDS: TAMSULOSIN 0.4 MG CAP.ER.24H PO SCH (20:30)
[2017-10-18] MEDS: MELATONIN 1 MG TAB PO SCH (20:30)
[2017-10-18] MEDS: ATORVASTATIN 40 MG TAB PO SCH (20:30)
[2017-10-19] MEDS: IPRATROPIUM-ALBUTEROL 3 ML NEB INHALATION PRN (03:13)
[2017-10-19] MEDS: PANTOPRAZOLE 40 MG TABLET PO SCH (05:42)
[2017-10-19] MEDS: FUROSEMIDE 40 MG TAB PO SCH (05:42)
[2017-10-19] MEDS: GABAPENTIN 100 MG CAP PO SCH ×3 (05:42→20:14)
[2017-10-19 07:10] LABS: Glucose,Whole Blood 99 mg/dL (75-99)
[2017-10-19] MEDS: IPRATROPIUM-ALBUTEROL 3 ML NEB INHALATION SCH ×4 (07:31→20:48)
[2017-10-19] MEDS: FORMOTEROL FUMARATE 20 MCG/2 ML NEBU INHALATION SCH ×2 (07:31→20:48)
[2017-10-19] MEDS: BUDESONIDE 1 MG/2 ML NEBU INHALATION SCH ×2 (07:31→20:48)
[2017-10-19 07:55] LABS: INR 2.1 (<1.2); Prothrombin Time 19.4 sec (9.0-12.0)
[2017-10-19] MEDS: AMIODARONE 200 MG TAB PO SCH ×2 (09:02→20:14)
[2017-10-19] MEDS: METOPROLOL SUCCINATE (ER) 50 MG TAB.ER.24H PO SCH ×2 (09:02→20:14)
[2017-10-19] MEDS: AMOXIC-POT CLAV 875-125MG 1 EACH TAB PO SCH ×2 (09:02→20:15)
[2017-10-19] MEDS: predniSONE 20 MG TAB PO SCH (09:02)
[2017-10-19] MEDS: DOCUSATE 100 MG CAP PO SCH ×3 (09:03→20:14)
[2017-10-19] MEDS: INSULIN ASPART 100 UNIT/ML 1 ML 10 ML VIAL SQ SCH ×4 (09:03→20:15)
[2017-10-19] MEDS: guaiFENesin 600 MG TABLET.ER PO SCH ×2 (09:03→20:14)
[2017-10-19] MEDS: HEPARIN SODIUM,PORCINE 5,000 UNIT/ML 1 ML VIAL SQ SCH ×2 (09:03→16:27)
[2017-10-19] MEDS: GLIMEPIRIDE 0.5 MG TAB PO SCH (09:03)
[2017-10-19 12:13] LABS: Glucose,Whole Blood 123 mg/dL (75-99)
--- NOTE | 2017-10-19 13:49 | P.PN ---
Subjective Progress Note Date: 10/19/17 Principal diagnosis: Acute on chronic hypoxic respiratory failure secondary to healthcare acquired pneumonia, left pleural effusion, underlying COPD, chronic systolic congestive heart failure. This is a very pleasant 77-year-old gentleman who follows with Dr. White as his primary care physician. He has a history of hypertension, osteomyelitis, peripheral vascular occlusive disease, diabetic neuropathy, diabetes mellitus type 2, chronic atrial fibrillation, chronic hypoxic respiratory failure with severe COPD, Gold stage III with an FEV1 value of 45% of predicted. He follows in our office for the same. He has a history of pseudomonas aeruginosa and oxacillin sensitive Staphylococcus aureus positive sputum cultures in August 2017. He also has history of coronary artery disease and recently sustained a non-ST segment myocardial infarction requiring subsequent coronary artery bypass grafting utilizing a PARSON to the LAD, reverse saphenous vein graft to the OM1, OM 2, RCA. He had been seen by Dr. Cruz last week and follow-up in the office. He was found to have a left pleural effusion measuring 10 cm with shortness of breath. He was asked to hold his warfarin and the plan was for a left thoracentesis to be done in the outpatient setting today. However, he presented to the emergency room approximately at 2:00 this morning from the [facility] with worsening shortness of breath and coughing up pink frothy sputum. CT angiogram ruled out pulmonary embolism. There was a noted consolidation involving the right lower lobe with subsegmental changes in the left lower lobe and endobronchial opacification suspicious for pneumonia. There is a left pleural effusion layering posteriorly with mild loculation. He was seen and evaluated in the emergency room this morning with Dr. Cruz. He is awake and alert in mild respiratory distress. He initially required 15L nonrebreather mask. He is currently on 5 L/m per nasal cannula to maintain O2 saturations in the 90s. Afebrile. He slightly tachycardic. Atrial fibrillation. White count 17.7. Hemoglobin 13.3. INR 1.3. Creatinine 0.70. ProBNP 2480. He has been initiated on Zosyn and Levaquin. The patient is seen again today 10/15/2017 in follow-up on the selective care unit. He is currently sitting up in a chair at the bedside. He is awake and alert in no acute distress. He is breathing quite a bit better today as compared to yesterday. He continues with a loose nonproductive cough. He did undergo a left-sided thoracentesis this morning by interventional radiology in approximately 1.06 L of serosanguineous fluid was removed. All of chest x-ray revealed no evidence complications from the thoracentesis. There is a right lower lobe atelectasis. He is working well with the incentive spirometer. Maintaining O2 saturations in the 90s on 3 L/m per nasal cannula. Hemodynamically stable. Sputum culture pending. Blood culture reveals no growth to date. White count 12.9. Hemoglobin 11.2. INR 1.3. Creatinine 0.80. The patient is seen again today 10/16/2017 in follow-up on the selective care unit. He is awake and alert in no acute distress. He is breathing quite a bit easier today as compared to yesterday. Nearly back to his baseline. He sitting up in a chair at the bedside. He denies any worsening shortness of breath, cough or congestion. Today's chest x-ray shows near complete resolution of the pleural effusion status post thoracentesis on the left. There is some minimal blunting of left costophrenic angle. Maintaining good O2 saturations in the mid 90s on 3 L/m per nasal cannula. He is afebrile. White count 9.0. Hemoglobin 10.0. Creatinine 0.69. He did have runs of nonsustained ventricular tachycardia requiring the initiation of amiodarone. The patient is seen again today 10/17/2017 in follow-up on the selective care unit. He's been up ambulating with assistance today. He is doing quite well. He denies any worsening shortness of breath, cough or congestion. He is maintaining O2 saturations up to 100% on 3 L/m per nasal cannula. She's been afebrile. Hemodynamically stable. Chest x-ray shows improved aeration in the right lung base. There is a small stable left pleural effusion. Blood, sputum , pleural fluid cultures are negative thus far. Patient was seen today on 10/18/2017, remains on a monitor bed, feeling better, breathing easier, patient is already ambulating in the hallway, remains on antibiotics for pneumonia involving the right lower lobe, his left pleural effusion was drained, and felt much better since the drainage. He is on 2-3 L nasal cannula. Hemodynamically stable. Follow-up chest x-ray showed improvement. Patient will likely be discharged to [facility] early Friday. Reevaluated today on 10/19/2017, patient is presently on the fifth floor, asymptomatic, no cough no wheezing no shortness of breath, continues to do well , discharge planning is likely in progress to be discharged to a rehab facility in the morning. Patient was admitted from a rehab facility. His labs were reviewed, INR is therapeutic at 2.1. CBC is relatively normal. The pleural effusion which has been drained was basically transudate of in nature. Objective - Vital Signs Vital signs: Vital Signs Temp 97.6 F 10/19/17 06:00 Pulse 79 10/19/17 11:37 Resp 18 10/19/17 06:00 BP 107/59 10/19/17 09:01 Pulse Ox 99 10/19/17 06:00 Intake & Output 10/18/17 10/19/17 10/19/17 18:59 06:59 18:59 Intake Total 890 360 Balance 890 360 Intake: IV 10 Invasive Line 5 10 Oral 880 360 Other: Voiding Method Toilet Toilet Toilet # Voids 1 2 - Exam Physical Exam: Revealed a 77-year-old white male in no distress, very pleasant. Head: Atraumatic, normocephalic. HEENT:[Neck is supple.] [No neck masses.] [No thyromegaly.] [No JVD.] No icterus, moist mucous membranes. Chest: [Diminished breath sounds at the bases, no crackles, no rhonchi and no wheezes. No chest wall tenderness.] Cardiac Exam: [Irregular irregular rhythm. Normal S1 and S2, no S3 gallop, no murmur.] Abdomen: [Soft, nontender, no megaly, no rebound, no guarding, normal bowel sounds.] Extremities: [No clubbing, no edema, no cyanosis.] Neurological Exam: [No focal neurologic deficit. Psychiatric: Normal mood affect and mental status examination. : No lymphadenopathy.] - Labs CBC & Chem 7: 10/18/17 05:59 10/18/17 05:59 Labs: Abnormal Lab Results - Last 24 Hours (Table) 10/18/17 10/18/17 10/19/17 Range/Units 17:05 20:15 07:14 PT 19.4 H (9.0-12.0) sec INR 2.1 H (<1.2) POC Glucose (mg/dL) 190 H 275 H (75-99) mg/dL 10/19/17 Range/Units 12:12 PT (9.0-12.0) sec INR (<1.2) POC Glucose (mg/dL) 123 H (75-99) mg/dL Microbiology - Last 24 Hours (Table) 10/14/17 08:38 Blood Culture - Preliminary Blood No Growth after 120 hours 10/14/17 08:42 Blood Culture - Preliminary Blood No Growth after 120 hours 10/15/17 10:35 Anaerobic Culture - Final Pleural Fluid 10/15/17 10:35 Gram Stain - Final Pleural Fluid Body Fluid Culture - Final 10/14/17 02:49 Blood Culture - Preliminary Blood No Growth after 120 hours Assessment and Plan Assessment: #1 Acute on chronic hypoxic respiratory failure secondary to bilateral healthcare acquired pneumonia with left pleural effusion, COPD exacerbation and CHF exacerbation #2 Left pleural effusion, warfarin on hold for plans for an outpatient thoracentesis today prior to his arrival to the emergency room. Status post left thoracentesis today by interventional radiology. Approximately 1.6 L of serosanguinous removed. #3 Acute exacerbation of oxygen dependent chronic obstructive pulmonary disease , Gold stage III with FEV1 value of 45% of predicted. #4 Recent pneumonia with positive sputum cultures of Pseudomonas and oxacillin sensitive Staphylococcus aureus from 09/08/2017. #5 Acute exacerbation of chronic systolic congestive heart failure. Mild to moderately impaired left ventricular systolic function with ejection fraction 40 -45%. #6 Atrial fibrillation with varying ventricular response. Warfarin resumed. #7 Recent non-ST segment elevation myocardial infarction and subsequent coronary artery bypass grafting on 09/08/2017. PARSON to the LAD, reverse this saphenous vein grafts to the first obtuse marginal artery, second obtuse marginal artery, right coronary artery. #8 Diabetes mellitus, type II. #9 Diabetic neuropathy. #10 Peripheral vascular occlusive disease. Multiple surgeries including palpitations of the fourth toe bilaterally. 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 #12 Hypertension, history of. #13 History of peptic ulcer disease with partial gastrectomy and colectomy. #14 ventricular tachycardia, initiated on amiodarone #15 Poor overall functional performance based on the above-mentioned multiple comorbidities. Recommendation: Continue present treatment plan including oral antibiotics, Coumadin, consider discharge planning in the morning to rehab facility. See me in the office in one week for follow-up. Time with Patient: Less than 30
[2017-10-19 17:28] LABS: Glucose,Whole Blood 220 mg/dL (75-99)
[2017-10-19] MEDS: WARFARIN 5 MG TAB PO SCH (17:36)
[2017-10-19] MEDS: ASPIRIN 325 MG TAB PO SCH (17:36)
[2017-10-19 20:06] LABS: Glucose,Whole Blood 190 mg/dL (75-99)
[2017-10-19] MEDS: MELATONIN 1 MG TAB PO SCH (20:13)
[2017-10-19] MEDS: TAMSULOSIN 0.4 MG CAP.ER.24H PO SCH (20:14)
[2017-10-19] MEDS: ATORVASTATIN 40 MG TAB PO SCH (20:14)
[2017-10-20] MEDS: HEPARIN SODIUM,PORCINE 5,000 UNIT/ML 1 ML VIAL SQ SCH (00:49)
[2017-10-20 02:12] LABS: Glucose,Whole Blood 128 mg/dL (75-99)
[2017-10-20] MEDS: IPRATROPIUM-ALBUTEROL 3 ML NEB INHALATION PRN (03:34)
[2017-10-20] MEDS: FUROSEMIDE 40 MG TAB PO SCH (05:48)
[2017-10-20] MEDS: PANTOPRAZOLE 40 MG TABLET PO SCH (05:48)
[2017-10-20] MEDS: GABAPENTIN 100 MG CAP PO SCH ×3 (05:48→20:36)
[2017-10-20 06:55] LABS: Glucose,Whole Blood 87 mg/dL (75-99)
[2017-10-20] MEDS: INSULIN ASPART 100 UNIT/ML 1 ML 10 ML VIAL SQ SCH ×4 (07:21→20:35)
[2017-10-20] MEDS: METOPROLOL SUCCINATE (ER) 50 MG TAB.ER.24H PO SCH ×2 (07:55→20:36)
[2017-10-20] MEDS: GLIMEPIRIDE 0.5 MG TAB PO SCH (07:55)
[2017-10-20] MEDS: predniSONE 20 MG TAB PO SCH (07:55)
[2017-10-20] MEDS: guaiFENesin 600 MG TABLET.ER PO SCH ×2 (07:55→20:37)
[2017-10-20] MEDS: AMIODARONE 200 MG TAB PO SCH ×2 (07:55→20:36)
[2017-10-20] MEDS: DOCUSATE 100 MG CAP PO SCH ×2 (07:57→20:36)
--- NOTE | 2017-10-20 08:05 | P.DS ---
Providers Date of admission: 10/14/17 06:01 Attending physician: Jimmy White Consults: 10/14/17 05:53 Consult Physician Routine Consulting Provider: Montrell Horvath Consult Reason/Comments: Status post bypass Do you want consulting provider notified?: Yes 10/14/17 06:00 Consult Physician Routine Consulting Provider: Johanny Cruz Consult Reason/Comments: Pleural effusion Do you want consulting provider notified?: Yes 10/14/17 14:58 Consult Physician Routine Consulting Provider: Bakari Espinal Consult Reason/Comments: US guided left thoracentesis Do you want consulting provider notified?: Yes 10/16/17 11:17 Consult Physician Routine Consulting Provider: Art Guaman Consult Reason/Comments: vtach Do you want consulting provider notified?: Yes Primary care physician: Jimmy White The patient is a 69-year-old gentleman who was transferred from [facility] with increasing shortness of breath associated with hemorrhagic sputum and decreasing O2 saturations. Patient had a recent history of coronary artery bypass surgery and on admission his chest x-ray was consistent with bilateral basilar pneumonias and left pleural effusion. On presentation his white count was elevated at 17.7 with a hemoglobin 13.1 and platelet count 326. INR was 1.3. D-dimer was 2.71. BUN was 31 with a creatinine of 0.7 given him a GFR 90. Sodium was 137. Blood sugar 112. Troponin was only 0.031. BNP was 2480. Patient did have a angiographic computed tomography scan of the chest which did not show evidence of pulmonary embolus but was consistent with right and left lung pneumonias. Along with a left pleural effusion. He did have atrial fibrillation with rapid ventricular response also. He does have a history of chronic atrial fib. Also history of severe COPD. Hospital course The patient was treated with IV antibiotics and corticosteroids along with respiratory treatments. His Coumadin was continued to be held and he underwen a left thoracentesis. The pathology did not show any malignant cells. Culture on the fluid was no growth. Patient showed some continued pulmonary improvement but did develop episodes of nonsustained ventricular tachycardia. Consultation was obtained with cardiology and he was placed on IV amiodarone and then switched to oral. Patient also was continued on physical therapy. Chest x-ray showed improvement and clearing. Echocardiogram showed a paced rhythm with left ventricular systolic function in a mild-moderate way with an ejection fraction of 40-45%. Inferior hypokinesis. At this time plans are to transfer back to [facility] rehab with the following medications Acetaminophen 500 mg every 4 hours when necessary Amiodarone 400 mg twice a day Augmentin 875-125, 1 tablet twice a day for 5 more days. Aspirin 325 mg daily Atorvastatin 40 mg at at bedtime Dulcolax 10 mg rectal when necessary constipation Pulmicort 1 mg inhalation twice a day Colace 100 mg twice a day Formoterol 20 g inhalation twice a day Furosemide 40 mg daily Neurontin 100 mg 3 times a day Amaryl 0.5 mg before breakfast Mucinex 600 mg twice a day DuoNeb respiratory treatments 0.5 mg-3 mg/3 mL's of 4 times a day and when necessary shortness of breath Milk of magnesia twice a day when necessary Melatonin 2 mg at at bedtime for sleep Metoprolol succinate 50 mg twice a day Protonix 40 mg daily Prednisone 30 mg daily for 5 days. Then 20 mg daily for 5 days. Then 10 mg daily. Tamsulosin 0.4 mg at at bedtime Coumadin 2 mg daily with INRs on Mondays and . With results sent to my office. Discharge diagnosis Patient with healthcare acquired bilateral basilar pneumonia with underlying exacerbation of severe COPD presenting with shortness of breath and hemorrhagic sputum and decreasing O2 saturations consistent with acute on chronic respiratory failure. Left pleural effusion, status post thoracentesis and drainage. Nonsustained ventricular tachycardia, on amiodarone. Severe chronic COPD. Chronic atrial fibrillation. Chronic systolic congestive heart failure with ejection fraction of 40-45% Coronary artery disease and status post recent coronary artery bypass surgery. 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 Patient to continue with physical and occupational therapies. Diet as tolerated. Follow-up also with pulmonary medicine and thoracic surgery and cardiology. The patient was seen today on 10/20/2017: Patient is sitting up at the side of the bed. Eating breakfast. In no acute distress. No complaints of chest pain or unusual shortness of breath at this time. Vital signs this morning show a temperature of 97.5 with a pulse of 70 and respirations 18. Blood pressure was 107/70 and he was 98% saturated on 2 L. Lung and heart examination is clear. Irregular but rate controlled. No unusual edema. No new neurological changes. Blood sugar was 87 this morning. Other labs pending. Plans: Likely awaiting discharge back to [facility] later today. Discussed with nursing staff and patient this morning. Medications and orders as listed above pending any changes per pulmonary medicine. Plan - Discharge Summary Discharge Rx Participant: No New Discharge Prescriptions: No Action Tamsulosin HCl [Flomax] 0.4 mg PO DAILY@0800 Ipratropium-Albuterol Nebulize [Duoneb 0.5 mg-3 mg/3 ml Soln] 3 ml INHALATION RT-QID Gabapentin [Neurontin] 100 mg PO TID@0600,1400,2100 Acetaminophen Tab [Tylenol] 500 mg PO Q4HR PRN tab PRN Reason: Fever And/ Or Pain Budesonide-Formot 160-4.5 Mcg [Symbicort 160-4.5 Mcg Inhaler] 2 puff INHALATION RT-BID puff Ipratropium-Albuterol Nebulize [Duoneb 0.5 mg-3 mg/3 ml Soln] 3 ml INHALATION RT-Q2H PRN ampul.neb PRN Reason: Shortness Of Breath Or Wheezing Lisinopril [Zestril] 2.5 mg PO DAILY@1200 tab Magnesium Hydroxide [Milk of Magnesia Concentrate] 2,400 mg PO BID PRN ml PRN Reason: Constipation Metoprolol Succinate (ER) [Toprol XL] 50 mg PO BID tab.er.24h Aspirin 325 mg PO DAILY@1700 Atorvastatin [Lipitor] 40 mg PO HS@2100 Bisacodyl [Dulcolax] 10 mg RECTAL DAILY PRN PRN Reason: Constipation Docusate [Colace] 100 mg PO BID@0800,2100 Furosemide [Lasix] 40 mg PO DAILY@0600 Glimepiride [Amaryl] 0.5 mg PO AC-BRKFST Glucerna Shake 1 can PO BID@0800,1700 guaiFENesin [Mucinex] 600 mg PO BID@0800,2100 Insulin Aspart [NovoLOG (formulary)] See Protocol SQ ACHS Melatonin 2 mg PO HS@2100 Menthol/Zinc Oxide [Calmoseptine Ointment] 1 applic TOPICAL BID@0800,2100 Na Phos,M-B/Na Phos,Di-Ba [Fleet Adult] 133 ml RECTAL DAILY PRN PRN Reason: Constipation Pantoprazole [Protonix] 40 mg PO DAILY@0600 Polyethylene Glycol 3350 [Miralax] 17 gm PO DAILY@0800 predniSONE 10 mg PO DAILY@0800 Warfarin [Coumadin] 5 mg PO DAILY@1700 Discharge Medication List Gabapentin [Neurontin] 100 mg PO TID@0600,1400,2100 09/05/17 [History] Ipratropium-Albuterol Nebulize [Duoneb 0.5 mg-3 mg/3 ml Soln] 3 ml INHALATION RT -QID 09/05/17 [History] Tamsulosin HCl [Flomax] 0.4 mg PO DAILY@0800 09/05/17 [History] Acetaminophen Tab [Tylenol] 500 mg PO Q4HR PRN tab 09/15/17 [Rx] Budesonide-Formot 160-4.5 Mcg [Symbicort 160-4.5 Mcg Inhaler] 2 puff INHALATION RT-BID puff 09/15/17 [Rx] Ipratropium-Albuterol Nebulize [Duoneb 0.5 mg-3 mg/3 ml Soln] 3 ml INHALATION RT -Q2H PRN ampul.neb 09/15/17 [Rx] Lisinopril [Zestril] 2.5 mg PO DAILY@1200 tab 09/15/17 [Rx] Magnesium Hydroxide [Milk of Magnesia Concentrate] 2,400 mg PO BID PRN ml 09/15 [Rx] Metoprolol Succinate (ER) [Toprol XL] 50 mg PO BID tab.er.24h 09/15/17 [Rx] Aspirin 325 mg PO DAILY@1700 10/14/17 [History] Atorvastatin [Lipitor] 40 mg PO HS@209910/14/17 [History] Bisacodyl [Dulcolax] 10 mg RECTAL DAILY PRN 10/14/17 [History] Docusate [Colace] 100 mg PO BID@0800,209910/14/17 [History] Furosemide [Lasix] 40 mg PO DAILY@0600 10/14/17 [History] Glimepiride [Amaryl] 0.5 mg PO AC-BRKFST 10/14/17 [History] Glucerna Shake 1 can PO BID@0800,1700 10/14/17 [History] Insulin Aspart [NovoLOG (formulary)] See Protocol SQ ACHS 10/14/17 [History] Melatonin 2 mg PO HS@209910/14/17 [History] Menthol/Zinc Oxide [Calmoseptine Ointment] 1 applic TOPICAL BID@0800,2099 [History] Na Phos,M-B/Na Phos,Di-Ba [Fleet Adult] 133 ml RECTAL DAILY PRN 10/14/17 [ History] Pantoprazole [Protonix] 40 mg PO DAILY@0600 10/14/17 [History] Polyethylene Glycol 3350 [Miralax] 17 gm PO DAILY@0800 10/14/17 [History] Warfarin [Coumadin] 5 mg PO DAILY@169910/14/17 [History] guaiFENesin [Mucinex] 600 mg PO BID@0800,209910/14/17 [History] predniSONE 10 mg PO DAILY@0810/14/17 [History] Follow up Appointment(s)/Referral(s): Jimmy White MD [Primary Care Provider] - 1-2 days Activity/Diet/Wound Care/Special Instructions: ronal
[2017-10-20] MEDS: IPRATROPIUM-ALBUTEROL 3 ML NEB INHALATION SCH ×4 (08:25→19:54)
[2017-10-20] MEDS: FORMOTEROL FUMARATE 20 MCG/2 ML NEBU INHALATION SCH ×2 (08:25→19:52)
[2017-10-20] MEDS: BUDESONIDE 1 MG/2 ML NEBU INHALATION SCH ×2 (08:25→19:52)
--- NOTE | 2017-10-20 09:21 | XR ---
EXAMINATION TYPE: XR chest 2V DATE OF EXAM: 10/20/2017 COMPARISON: 10/17/2017 TECHNIQUE: PA and lateral views submitted. HISTORY: Postthoracentesis FINDINGS: Bilateral consolidation small effusion greater on the left. No sizable pneumothorax. Underlying COPD. Postsurgical changes and cardiac device. Arthropathy of the shoulders. IMPRESSION: 1. Stable pleural-parenchymal changes.
--- NOTE | 2017-10-20 09:37 | P.PN ---
Subjective Progress Note Date: 10/20/17 Principal diagnosis: Admission for right lower lobe pneumonia. Current left-sided pleural effusion. Previous medical history of triple-vessel coronary artery disease with left main disease and non-ST elevation myocardial infarction status post urgent quadruple coronary artery bypass grafting as well as exclusion of the left atrial appendage on 09/08/2017, mild to moderate left ventricular dysfunction, chronic systolic heart failure with ejection fraction of 40-45% as well as diastolic dysfunction, chronic persistent atrial fibrillation on home Coumadin therapy, sick sinus syndrome status post pacemaker insertion, hypertension, hyperlipidemia, carotid stenosis 50-79% bilaterally, previous tobacco dependence , 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 POD #5 left-sided ultrasound guided thoracentesis performed by interventional radiology with approximately 1 L serosanguineous fluid removal. Patient's currently sitting up in the chair in no acute distress. States his symptoms have improved significantly and he feels ready to go back to rehab. Objective - Vital Signs Vital signs: Vital Signs Temp 97.5 F L 10/20/17 06:06 Pulse 76 10/20/17 08:50 Resp 18 10/20/17 06:06 BP 107/70 10/20/17 06:06 Pulse Ox 99 10/20/17 08:26 Intake & Output 10/19/17 10/20/17 10/20/17 18:59 06:59 18:59 Other: Voiding Method Toilet Toilet Toilet # Voids 1 1 # Bowel Movements 1 - Constitutional General appearance: Present: cooperative, no acute distress - Respiratory Details: Lungs sounds diminished on the left. Respirations even, nonlabored. Currently on 2 L nasal cannula with oxygen saturation 98%. Able to achieve 1500 mL on his incentive spirometry. Effective productive cough with yellow sputum. - Cardiovascular Details: S1, S2 present. Irregular rate and rhythm, atrial fibrillation on telemetry. Sternum stable. Palpable peripheral pulses bilaterally. No edema present. No calf pain or tenderness noted. SCDs present. - Gastrointestinal Gastrointestinal Comment(s): Abdomen soft, nontender, nondistended. Active bowel sounds 4 quadrants. Tolerating diet. Positive bowel movement - Genitourinary Genitourinary Comment(s): Continues to void clear, yellow urine. - Integumentary Integumentary Comment(s): Skin is warm and dry. Anterior chest incision well healed. Right lower extremity EVH site open, scant serosanguineous drainage, covered with dry intact dressing. - Neurologic Neurologic: Present: CNII-XII intact - Musculoskeletal Musculoskeletal: Present: gait normal, strength equal bilaterally - Psychiatric Psychiatric: Present: A&O x's 3, appropriate affect, intact judgment & insight - Allied health notes Allied health notes reviewed: nursing - Labs CBC & Chem 7: 10/18/17 05:59 10/18/17 05:59 Labs: Abnormal Lab Results - Last 24 Hours (Table) 10/19/17 10/19/17 10/19/17 Range/Units 12:12 17:27 20:04 POC Glucose (mg/dL) 123 H 220 H 190 H (75-99) mg/dL 10/20/17 Range/Units 02:10 POC Glucose (mg/dL) 128 H (75-99) mg/dL Microbiology - Last 24 Hours (Table) 10/14/17 02:49 Blood Culture - Final Blood No Growth after 144 hours 10/14/17 08:38 Blood Culture - Preliminary Blood No Growth after 120 hours 10/14/17 08:42 Blood Culture - Preliminary Blood No Growth after 120 hours 10/15/17 10:35 Anaerobic Culture - Final Pleural Fluid 10/15/17 10:35 Gram Stain - Final Pleural Fluid Body Fluid Culture - Final - Imaging and Cardiology Chest x-ray: report reviewed, image reviewed Assessment and Plan (1) Chronic systolic heart failure Current Visit: Yes Status: Chronic Code(s): I50.22 - CHRONIC SYSTOLIC ( CONGESTIVE) HEART FAILURE SNOMED Code(s): 800877306 (2) Pleural effusion Current Visit: Yes Status: Acute Code(s): J90 - PLEURAL EFFUSION, NOT ELSEWHERE CLASSIFIED SNOMED Code(s): 31074652 (3) Pneumonia Current Visit: Yes Status: Acute Code(s): J18.9 - PNEUMONIA, UNSPECIFIED ORGANISM SNOMED Code(s): 782850803 (4) Non-ST elevated myocardial infarction Current Visit: No Status: Resolved Code(s): I21.4 - NON-ST ELEVATION (NSTEMI ) MYOCARDIAL INFARCTION SNOMED Code(s): 778168926 (5) BPH (benign prostatic hyperplasia) Current Visit: Yes Status: Chronic Code(s): N40.0 - BENIGN PROSTATIC HYPERPLASIA WITHOUT LOWER URINRY TRACT SYMP SNOMED Code(s): 812232583 (6) CAD (coronary artery disease) Current Visit: Yes Status: Chronic Code(s): I25.10 - ATHSCL HEART DISEASE OF [place] CORONARY ARTERY W/O ANG PCTRS SNOMED Code(s): 85745495 (7) COPD (chronic obstructive pulmonary disease) Current Visit: Yes Status: Chronic Code(s): J44.9 - CHRONIC OBSTRUCTIVE PULMONARY DISEASE, UNSPECIFIED SNOMED Code(s): 91832760 (8) Chronic atrial fibrillation Current Visit: Yes Status: Chronic Code(s): I48.2 - CHRONIC ATRIAL FIBRILLATION SNOMED Code(s): 247453939 (9) Diabetes mellitus type 2 in nonobese Current Visit: Yes Status: Chronic Code(s): E11.9 - TYPE 2 DIABETES MELLITUS WITHOUT COMPLICATIONS SNOMED Code(s): 741414518 (10) Family history of early CAD Current Visit: Yes Status: Chronic Code(s): Z82.49 - FAMILY HX OF ISCHEM HEART DIS AND OTH DIS OF THE CIRC SYS SNOMED Code(s): 221502640 (11) GERD (gastroesophageal reflux disease) Current Visit: Yes Status: Chronic Code(s): K21.9 - GASTRO-ESOPHAGEAL REFLUX DISEASE WITHOUT ESOPHAGITIS SNOMED Code(s): 266247153 (12) History of Coumadin therapy Current Visit: Yes Status: Chronic Code(s): Z92.29 - PERSONAL HISTORY OF OTHER DRUG THERAPY SNOMED Code(s): 618441202 (13) History of permanent cardiac pacemaker placement Current Visit: Yes Status: Chronic Code(s): Z95.0 - PRESENCE OF CARDIAC PACEMAKER SNOMED Code(s): 264247291 (14) History of sick sinus syndrome Current Visit: Yes Status: Chronic Code(s): Z86.79 - PERSONAL HISTORY OF OTHER DISEASES OF THE CIRCULATORY SYSTEM SNOMED Code(s): 069950964699158 (15) Hypertension Current Visit: Yes Status: Chronic Code(s): I10 - ESSENTIAL (PRIMARY) HYPERTENSION SNOMED Code(s): 40969968 (16) On home oxygen therapy Current Visit: Yes Status: Chronic Code(s): Z99.81 - DEPENDENCE ON SUPPLEMENTAL OXYGEN SNOMED Code(s): 129453570481 (17) Peripheral vascular disease Current Visit: Yes Status: Chronic Code(s): I73.9 - PERIPHERAL VASCULAR DISEASE, UNSPECIFIED SNOMED Code(s): 909644721 (18) History of MRSA infection Current Visit: No Status: Resolved Code(s): Z86.14 - PERSONAL HISTORY OF METHICILLIN RESIS STAPH INFECTION SNOMED Code(s): 531863564 (19) History of smoking Current Visit: No Status: Resolved Code(s): Z87.891 - PERSONAL HISTORY OF NICOTINE DEPENDENCE SNOMED Code(s): 32832229150410894 (20) History of coronary artery bypass graft Current Visit: Yes Status: Chronic Code(s): Z95.1 - PRESENCE OF AORTOCORONARY BYPASS GRAFT SNOMED Code(s): 723418478 Plan: 1. Continue aspirin, statin, beta lisa. Will increase beta lisa therapy as tolerated. 2. Continue Coumadin. Goal INR 2-2.5. 3. Amiodarone therapy per cardiology. 4. Wean O2 as tolerated. Encourage incentive spirometry use 10 times every hour. 5. Bronchodilators, steroids, antibiotics per Dr. Cruz. 6. Increase activity, ambulate as tolerated. PT/OT following. 7. GI/DVT prophylaxis. 8. Insulin, other medical comorbidities per Dr. Crane. 9. May discharge to subacute rehab from our standpoint when okay with other consultants. Follow-up appointment made for patient to see Dr. Horvath in the office at 3 months post cardiac surgery. Time with Patient: Greater than 30
[2017-10-20] MEDS: AMOXIC-POT CLAV 875-125MG 1 EACH TAB PO SCH ×2 (11:15→21:12)
[2017-10-20 11:27] LABS: Glucose,Whole Blood 164 mg/dL (75-99)
--- NOTE | 2017-10-20 12:01 | P.PN ---
Subjective Progress Note Date: 10/20/17 Principal diagnosis: Acute on chronic hypoxic respiratory failure secondary to healthcare acquired pneumonia, left pleural effusion, underlying COPD, chronic systolic congestive heart failure This is a very pleasant 77-year-old gentleman who follows with Dr. White as his primary care physician. He has a history of hypertension, osteomyelitis, peripheral vascular occlusive disease, diabetic neuropathy, diabetes mellitus type 2, chronic atrial fibrillation, chronic hypoxic respiratory failure with severe COPD, Gold stage III with an FEV1 value of 45% of predicted. He follows in our office for the same. He has a history of pseudomonas aeruginosa and oxacillin sensitive Staphylococcus aureus positive sputum cultures in August 2017. He also has history of coronary artery disease and recently sustained a non-ST segment myocardial infarction requiring subsequent coronary artery bypass grafting utilizing a PARSON to the LAD, reverse saphenous vein graft to the OM1, OM 2, RCA. He had been seen by Dr. Cruz last week and follow-up in the office. He was found to have a left pleural effusion measuring 10 cm with shortness of breath. He was asked to hold his warfarin and the plan was for a left thoracentesis to be done in the outpatient setting today. However, he presented to the emergency room approximately at 2:00 this morning from the [facility] with worsening shortness of breath and coughing up pink frothy sputum. CT angiogram ruled out pulmonary embolism. There was a noted consolidation involving the right lower lobe with subsegmental changes in the left lower lobe and endobronchial opacification suspicious for pneumonia. There is a left pleural effusion layering posteriorly with mild loculation. He was seen and evaluated in the emergency room this morning with Dr. Cruz. He is awake and alert in mild respiratory distress. He initially required 15L nonrebreather mask. He is currently on 5 L/m per nasal cannula to maintain O2 saturations in the 90s. Afebrile. He slightly tachycardic. Atrial fibrillation. White count 17.7. Hemoglobin 13.3. INR 1.3. Creatinine 0.70. ProBNP 2480. He has been initiated on Zosyn and Levaquin. The patient is seen again today 10/15/2017 in follow-up on the selective care unit. He is currently sitting up in a chair at the bedside. He is awake and alert in no acute distress. He is breathing quite a bit better today as compared to yesterday. He continues with a loose nonproductive cough. He did undergo a left-sided thoracentesis this morning by interventional radiology in approximately 1.06 L of serosanguineous fluid was removed. All of chest x-ray revealed no evidence complications from the thoracentesis. There is a right lower lobe atelectasis. He is working well with the incentive spirometer. Maintaining O2 saturations in the 90s on 3 L/m per nasal cannula. Hemodynamically stable. Sputum culture pending. Blood culture reveals no growth to date. White count 12.9. Hemoglobin 11.2. INR 1.3. Creatinine 0.80. The patient is seen again today 10/16/2017 in follow-up on the selective care unit. He is awake and alert in no acute distress. He is breathing quite a bit easier today as compared to yesterday. Nearly back to his baseline. He sitting up in a chair at the bedside. He denies any worsening shortness of breath, cough or congestion. Today's chest x-ray shows near complete resolution of the pleural effusion status post thoracentesis on the left. There is some minimal blunting of left costophrenic angle. Maintaining good O2 saturations in the mid 90s on 3 L/m per nasal cannula. He is afebrile. White count 9.0. Hemoglobin 10.0. Creatinine 0.69. He did have runs of nonsustained ventricular tachycardia requiring the initiation of amiodarone. The patient is seen again today 10/17/2017 in follow-up on the selective care unit. He's been up ambulating with assistance today. He is doing quite well. He denies any worsening shortness of breath, cough or congestion. He is maintaining O2 saturations up to 100% on 3 L/m per nasal cannula. She's been afebrile. Hemodynamically stable. Chest x-ray shows improved aeration in the right lung base. There is a small stable left pleural effusion. Blood, sputum , pleural fluid cultures are negative thus far. Patient was seen today on 10/18/2017, remains on a monitor bed, feeling better, breathing easier, patient is already ambulating in the hallway, remains on antibiotics for pneumonia involving the right lower lobe, his left pleural effusion was drained, and felt much better since the drainage. He is on 2-3 L nasal cannula. Hemodynamically stable. Follow-up chest x-ray showed improvement. Patient will likely be discharged to [facility] early Friday. Reevaluated today on 10/19/2017, patient is presently on the fifth floor, asymptomatic, no cough no wheezing no shortness of breath, continues to do well , discharge planning is likely in progress to be discharged to a rehab facility in the morning. Patient was admitted from a rehab facility. His labs were reviewed, INR is therapeutic at 2.1. CBC is relatively normal. The pleural effusion which has been drained was basically transudate of in nature. On 10/20/2017 patient seen in follow-up on medical surgical floor. He sitting up in the chair, he distress, he has been ambulating about the room, tolerating it well. He is currently on room air, on 2 L per nasal cannula his pulse ox was 99%, no chest pain, no worsening dyspnea. Denies any fever or chills, denies any chest wall tenderness. His pleural fluid culture showed no growth, blood cultures have been negative, sputum cultures are negative. Today's chest x-ray was reviewed, and showed bilateral consolidation and small effusions greater on the left. Signs have been stable, he is afebrile. He remains on Augmentin, is on oral diuretics, is on oral prednisone, and oral anticoagulation in the form of Coumadin. For pulmonary standpoint patient is stable for discharge to the subacute rehab, follow-up with Dr. Cruz any office in one week Objective - Vital Signs Vital signs: Vital Signs Temp 97.5 F L 10/20/17 06:06 Pulse 76 10/20/17 08:50 Resp 18 10/20/17 06:06 BP 107/70 10/20/17 06:06 Pulse Ox 99 10/20/17 08:26 Intake & Output 10/19/17 10/20/17 10/20/17 18:59 06:59 18:59 Other: Voiding Method Toilet Toilet Toilet # Voids 1 1 # Bowel Movements 1 - Exam Physical Exam: Revealed a 77-year-old white male in no distress, very pleasant. Head: Atraumatic, normocephalic. HEENT:[Neck is supple.] [No neck masses.] [No thyromegaly.] [No JVD.] No icterus, moist mucous membranes. Chest: [Diminished breath sounds at the bases, no crackles, no rhonchi and no wheezes. No chest wall tenderness.] Cardiac Exam: [Irregular irregular rhythm. Normal S1 and S2, no S3 gallop, no murmur.] Abdomen: [Soft, nontender, no megaly, no rebound, no guarding, normal bowel sounds.] Extremities: [No clubbing, no edema, no cyanosis.] Neurological Exam: [No focal neurologic deficit. Psychiatric: Normal mood affect and mental status examination. : No lymphadenopathy.] - Labs CBC & Chem 7: 10/18/17 05:59 10/18/17 05:59 Labs: Abnormal Lab Results - Last 24 Hours (Table) 10/19/17 10/19/17 10/19/17 Range/Units 12:12 17:27 20:04 POC Glucose (mg/dL) 123 H 220 H 190 H (75-99) mg/dL 10/20/17 10/20/17 Range/Units 02:10 11:26 POC Glucose (mg/dL) 128 H 164 H (75-99) mg/dL Microbiology - Last 24 Hours (Table) 10/14/17 08:38 Blood Culture - Final Blood No Growth after 144 hours 10/14/17 08:42 Blood Culture - Final Blood No Growth after 144 hours 10/14/17 02:49 Blood Culture - Final Blood No Growth after 144 hours 10/15/17 10:35 Anaerobic Culture - Final Pleural Fluid 10/15/17 10:35 Gram Stain - Final Pleural Fluid Body Fluid Culture - Final Assessment and Plan Plan: Assessment: #1 Acute on chronic hypoxic respiratory failure secondary to bilateral healthcare acquired pneumonia with left pleural effusion, COPD exacerbation and CHF exacerbation #2 Left pleural effusion, Status post left thoracentesis today by interventional radiology. Approximately 1.6 L of serosanguinous removed. The pleural fluid was transudative in nature #3 Acute exacerbation of oxygen dependent chronic obstructive pulmonary disease , Gold stage III with FEV1 value of 45% of predicted. #4 Recent pneumonia with positive sputum cultures of Pseudomonas and oxacillin sensitive Staphylococcus aureus from 09/08/2017. #5 Acute exacerbation of chronic systolic congestive heart failure. Mild to moderately impaired left ventricular systolic function with ejection fraction 40 -45%. #6 Atrial fibrillation with varying ventricular response. Warfarin resumed. #7 Recent non-ST segment elevation myocardial infarction and subsequent coronary artery bypass grafting on 09/08/2017. PARSON to the LAD, reverse this saphenous vein grafts to the first obtuse marginal artery, second obtuse marginal artery, right coronary artery. #8 Diabetes mellitus, type II. #9 Diabetic neuropathy. #10 Peripheral vascular occlusive disease. Multiple surgeries including palpitations of the fourth toe bilaterally. 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 #12 Hypertension, history of. #13 History of peptic ulcer disease with partial gastrectomy and colectomy. #14 ventricular tachycardia, initiated on amiodarone #15 Poor overall functional performance based on the above-mentioned multiple comorbidities. Recommendation: Patient remains stable from pulmonary standpoint, no acute no dyspnea, no chest pain, no signs are stable. He's tolerating ambulation, he is on room air. Complete course of Augmentin and prednisone taper, all cultures are negative thus far, pleural fluid cultures showed no growth. Anticipate discharge to subacute rehab today follow-up with Dr. Walsh in the office in 7-10 days. I performed a history & physical examination of the patient and discussed their management with my nurse practitioner, Rowena Rowe. I reviewed the nurse practitioner's note and agree with the documented findings and plan of care. Lung sounds are clear. The findings and the impression was discussed with the patient. I attest to the documentation by the nurse practitioner. Time with Patient: Less than 30
[2017-10-20] MEDS: ASPIRIN 325 MG TAB PO SCH (16:02)
[2017-10-20 16:41] LABS: INR 2.7 (<1.2); Prothrombin Time 24.1 sec (9.0-12.0)
[2017-10-20 17:02] LABS: Glucose,Whole Blood 270 mg/dL (75-99)
[2017-10-20] MEDS: WARFARIN 5 MG TAB PO SCH (17:15)
[2017-10-20 20:15] LABS: Glucose,Whole Blood 192 mg/dL (75-99)
[2017-10-20] MEDS: MELATONIN 1 MG TAB PO SCH (20:36)
[2017-10-20] MEDS: ATORVASTATIN 40 MG TAB PO SCH (20:36)
[2017-10-20] MEDS: TAMSULOSIN 0.4 MG CAP.ER.24H PO SCH (20:37)
[2017-10-21] MEDS: IPRATROPIUM-ALBUTEROL 3 ML NEB INHALATION PRN (03:09)
[2017-10-21 04:22] LABS: Glucose,Whole Blood 138 mg/dL (75-99)
[2017-10-21] MEDS: PANTOPRAZOLE 40 MG TABLET PO SCH (05:45)
[2017-10-21] MEDS: FUROSEMIDE 40 MG TAB PO SCH (05:45)
[2017-10-21] MEDS: GABAPENTIN 100 MG CAP PO SCH (05:45)
[2017-10-21 06:19] VITALS: BP 116/62; TEMP 97
[2017-10-21] MEDS: BUDESONIDE 1 MG/2 ML NEBU INHALATION SCH (07:12)
[2017-10-21] MEDS: FORMOTEROL FUMARATE 20 MCG/2 ML NEBU INHALATION SCH (07:12)
[2017-10-21] MEDS: IPRATROPIUM-ALBUTEROL 3 ML NEB INHALATION SCH ×3 (07:12→15:38)
[2017-10-21 07:14] LABS: Glucose,Whole Blood 98 mg/dL (75-99)
[2017-10-21] MEDS: METOPROLOL SUCCINATE (ER) 50 MG TAB.ER.24H PO SCH (08:04)
[2017-10-21] MEDS: DOCUSATE 100 MG CAP PO SCH (08:04)
[2017-10-21] MEDS: GLIMEPIRIDE 0.5 MG TAB PO SCH (08:04)
[2017-10-21] MEDS: AMIODARONE 200 MG TAB PO SCH (08:04)
[2017-10-21] MEDS: guaiFENesin 600 MG TABLET.ER PO SCH (08:04)
[2017-10-21] MEDS: predniSONE 20 MG TAB PO SCH (08:04)
[2017-10-21] MEDS: AMOXIC-POT CLAV 875-125MG 1 EACH TAB PO SCH (08:04)
[2017-10-21] MEDS: INSULIN ASPART 100 UNIT/ML 1 ML 10 ML VIAL SQ SCH ×2 (08:04→12:53)
--- NOTE | 2017-10-21 08:26 | P.PN ---
Progress Note - Text The patient is a 77-year-old gentleman who was initially transferred from [facility] with increasing shortness of breath associated with hemoptysis and decreasing O2 saturations. He also had a previous recent coronary artery bypass surgery. On admission chest x-ray showed bibasilar pneumonia is with a large left pleural effusion. Patient had the effusion tapped it has been placed on antibiotics and has been gradually improving. Likely anticipating transfer back to [facility]. At this morning she is sitting in a chair at the side of the bed. Vital signs reveal temperature of 97 with a pulse of 82 and respirations 16. Blood pressure 116/62 and he is 97% saturated on 2 L. Lungs are generally clear but diffusely diminished. Heart tones are somewhat irregular with history of atrial flutter. No unusual distal edema. No focal neurological changes. Blood sugar was 98 this morning. INR from yesterday evening was 2.7. Chest x-ray from yesterday was stable. Impressions and plans Anticipating a discharge back to [facility]. Please refer to discharge summary that was dictated on October 19 for orders and medications. Medications and discharge diagnoses listed there. Prognosis is still overall guarded in light of age and numerous medical concerns.
--- NOTE | 2017-10-21 11:11 | P.PN ---
Subjective Progress Note Date: 10/21/17 Principal diagnosis: Acute on chronic hypoxic respiratory failure secondary to healthcare acquired pneumonia, left pleural effusion, underlying COPD, chronic systolic congestive heart failure This is a very pleasant 77-year-old gentleman who follows with Dr. White as his primary care physician. He has a history of hypertension, osteomyelitis, peripheral vascular occlusive disease, diabetic neuropathy, diabetes mellitus type 2, chronic atrial fibrillation, chronic hypoxic respiratory failure with severe COPD, Gold stage III with an FEV1 value of 45% of predicted. He follows in our office for the same. He has a history of pseudomonas aeruginosa and oxacillin sensitive Staphylococcus aureus positive sputum cultures in August 2017. He also has history of coronary artery disease and recently sustained a non-ST segment myocardial infarction requiring subsequent coronary artery bypass grafting utilizing a PARSON to the LAD, reverse saphenous vein graft to the OM1, OM 2, RCA. He had been seen by Dr. Cruz last week and follow-up in the office. He was found to have a left pleural effusion measuring 10 cm with shortness of breath. He was asked to hold his warfarin and the plan was for a left thoracentesis to be done in the outpatient setting today. However, he presented to the emergency room approximately at 2:00 this [facility] with worsening shortness of breath and coughing up pink frothy sputum. CT angiogram ruled out pulmonary embolism. There was a noted consolidation involving the right lower lobe with subsegmental changes in the left lower lobe and endobronchial opacification suspicious for pneumonia. There is a left pleural effusion layering posteriorly with mild loculation. He was seen and evaluated in the emergency room this morning with Dr. Cruz. He is awake and alert in mild respiratory distress. He initially required 15L nonrebreather mask. He is currently on 5 L/m per nasal cannula to maintain O2 saturations in the 90s. Afebrile. He slightly tachycardic. Atrial fibrillation. White count 17.7. Hemoglobin 13.3. INR 1.3. Creatinine 0.70. ProBNP 2480. He has been initiated on Zosyn and Levaquin. The patient is seen again today 10/15/2017 in follow-up on the selective care unit. He is currently sitting up in a chair at the bedside. He is awake and alert in no acute distress. He is breathing quite a bit better today as compared to yesterday. He continues with a loose nonproductive cough. He did undergo a left-sided thoracentesis this morning by interventional radiology in approximately 1.06 L of serosanguineous fluid was removed. All of chest x-ray revealed no evidence complications from the thoracentesis. There is a right lower lobe atelectasis. He is working well with the incentive spirometer. Maintaining O2 saturations in the 90s on 3 L/m per nasal cannula. Hemodynamically stable. Sputum culture pending. Blood culture reveals no growth to date. White count 12.9. Hemoglobin 11.2. INR 1.3. Creatinine 0.80. The patient is seen again today 10/16/2017 in follow-up on the selective care unit. He is awake and alert in no acute distress. He is breathing quite a bit easier today as compared to yesterday. Nearly back to his baseline. He sitting up in a chair at the bedside. He denies any worsening shortness of breath, cough or congestion. Today's chest x-ray shows near complete resolution of the pleural effusion status post thoracentesis on the left. There is some minimal blunting of left costophrenic angle. Maintaining good O2 saturations in the mid 90s on 3 L/m per nasal cannula. He is afebrile. White count 9.0. Hemoglobin 10.0. Creatinine 0.69. He did have runs of nonsustained ventricular tachycardia requiring the initiation of amiodarone. The patient is seen again today 10/17/2017 in follow-up on the selective care unit. He's been up ambulating with assistance today. He is doing quite well. He denies any worsening shortness of breath, cough or congestion. He is maintaining O2 saturations up to 100% on 3 L/m per nasal cannula. She's been afebrile. Hemodynamically stable. Chest x-ray shows improved aeration in the right lung base. There is a small stable left pleural effusion. Blood, sputum , pleural fluid cultures are negative thus far. Patient was seen today on 10/18/2017, remains on a monitor bed, feeling better, breathing easier, patient is already ambulating in the hallway, remains on antibiotics for pneumonia involving the right lower lobe, his left pleural effusion was drained, and felt much better since the drainage. He is on 2-3 L nasal cannula. Hemodynamically stable. Follow-up chest x-ray showed improvement. Patient will likely be discharged to [facility] early Friday. Reevaluated today on 10/19/2017, patient is presently on the fifth floor, asymptomatic, no cough no wheezing no shortness of breath, continues to do well , discharge planning is likely in progress to be discharged to a rehab facility in the morning. Patient was admitted from a rehab facility. His labs were reviewed, INR is therapeutic at 2.1. CBC is relatively normal. The pleural effusion which has been drained was basically transudate of in nature. On 10/20/2017 patient seen in follow-up on medical surgical floor. He sitting up in the chair, he distress, he has been ambulating about the room, tolerating it well. He is currently on room air, on 2 L per nasal cannula his pulse ox was 99%, no chest pain, no worsening dyspnea. Denies any fever or chills, denies any chest wall tenderness. His pleural fluid culture showed no growth, blood cultures have been negative, sputum cultures are negative. Today's chest x-ray was reviewed, and showed bilateral consolidation and small effusions greater on the left. Signs have been stable, he is afebrile. He remains on Augmentin, is on oral diuretics, is on oral prednisone, and oral anticoagulation in the form of Coumadin. For pulmonary standpoint patient is stable for discharge to the subacute rehab, follow-up with Dr. Cruz any office in one week On 10/21/2017 patient is seen in follow-up on medical surgical floor. Remains stable, no specific complaints, no dyspnea, no chest pain. He is on room air, he has been wearing her oxygen intermittently, on 2 L per nasal cannula his pulse ox is 97%, tolerating ambulation, lung sounds are clear, diminished at the bases, no rhonchi no wheezing noted. No new labs or chest x-rays, no fever or chills, patient is awaiting previous surgery for placement to [facility] rehab. We will sign off at this time, and continue with the patient on as-needed basis. Patient is to follow-up with Dr. Walsh in one week Objective - Vital Signs Vital signs: Vital Signs Temp 97 F L 10/21/17 06:18 Pulse 80 10/21/17 07:34 Resp 16 10/21/17 06:18 BP 116/62 10/21/17 06:18 Pulse Ox 97 10/21/17 06:18 Intake & Output 10/20/17 10/21/17 10/21/17 18:59 06:59 18:59 Intake Total 540 240 Output Total 2 Balance -2 540 240 Intake: Oral 540 240 Output: Stool 2 Other: Voiding Method Toilet Toilet Toilet # Voids 2 2 - Exam Physical Exam: Revealed a 77-year-old white male in no distress, very pleasant. Head: Atraumatic, normocephalic. HEENT:[Neck is supple.] [No neck masses.] [No thyromegaly.] [No JVD.] No icterus, moist mucous membranes. Chest: [Diminished breath sounds at the bases, no crackles, no rhonchi and no wheezes. No chest wall tenderness.] Cardiac Exam: [Irregular irregular rhythm. Normal S1 and S2, no S3 gallop, no murmur.] Abdomen: [Soft, nontender, no megaly, no rebound, no guarding, normal bowel sounds.] Extremities: [No clubbing, no edema, no cyanosis.] Neurological Exam: [No focal neurologic deficit. Psychiatric: Normal mood affect and mental status examination. : No lymphadenopathy.] - Labs CBC & Chem 7: 10/18/17 05:59 10/18/17 05:59 Labs: Abnormal Lab Results - Last 24 Hours (Table) 10/20/17 10/20/17 10/20/17 Range/Units 11:26 16:15 16:59 PT 24.1 H (9.0-12.0) sec INR 2.7 H (<1.2) POC Glucose (mg/dL) 164 H 270 H (75-99) mg/dL 10/20/17 10/21/17 Range/Units 20:11 04:21 PT (9.0-12.0) sec INR (<1.2) POC Glucose (mg/dL) 192 H 138 H (75-99) mg/dL Microbiology - Last 24 Hours (Table) 10/14/17 08:38 Blood Culture - Final Blood No Growth after 144 hours 10/14/17 08:42 Blood Culture - Final Blood No Growth after 144 hours Assessment and Plan Plan: Assessment: #1 Acute on chronic hypoxic respiratory failure secondary to bilateral healthcare acquired pneumonia with left pleural effusion, COPD exacerbation and CHF exacerbation #2 Left pleural effusion, Status post left thoracentesis today by interventional radiology. Approximately 1.6 L of serosanguinous removed. The pleural fluid was transudative in nature #3 Acute exacerbation of oxygen dependent chronic obstructive pulmonary disease , Gold stage III with FEV1 value of 45% of predicted. #4 Recent pneumonia with positive sputum cultures of Pseudomonas and oxacillin sensitive Staphylococcus aureus from 09/08/2017. #5 Acute exacerbation of chronic systolic congestive heart failure. Mild to moderately impaired left ventricular systolic function with ejection fraction 40 -45%. #6 Atrial fibrillation with varying ventricular response. Warfarin resumed. #7 Recent non-ST segment elevation myocardial infarction and subsequent coronary artery bypass grafting on 09/08/2017. PARSON to the LAD, reverse this saphenous vein grafts to the first obtuse marginal artery, second obtuse marginal artery, right coronary artery. #8 Diabetes mellitus, type II. #9 Diabetic neuropathy. #10 Peripheral vascular occlusive disease. Multiple surgeries including palpitations of the fourth toe bilaterally. 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 #12 Hypertension, history of. #13 History of peptic ulcer disease with partial gastrectomy and colectomy. #14 ventricular tachycardia, initiated on amiodarone #15 Poor overall functional performance based on the above-mentioned multiple comorbidities. Recommendation: Patient remains stable, no specific complaints, no dyspnea, no chest pain, tolerating ambulation. From pulmonary standpoint stable for discharge to [facility] rehab as precertification goes through. We will follow with him on as- needed basis. Follow-up with Dr. Walsh in the office in 7-10 days. I performed a history & physical examination of the patient and discussed their management with my nurse practitioner, Rowena Rowe. I reviewed the nurse practitioner's note and agree with the documented findings and plan of care. Lung sounds are clear. The findings and the impression was discussed with the patient. I attest to the documentation by the nurse practitioner. Time with Patient: Less than 30
[2017-10-21 11:16] VITALS: RESP 18
[2017-10-21 11:23] VITALS: PULSE 84
[2017-10-21 11:28] LABS: Glucose,Whole Blood 136 mg/dL (75-99)
--- NOTE | 2017-10-21 12:03 | CDI ---
Last Revision, February 2017 Date: 10/21/2017 11:30:00 AM From: Annabella ALEXANDER,RN,CCDS Admit Date: 10/14/2017 6:01:00 AM Patient Name: Blayne Draper Visit Number: [id number] ATTENTION: The Clinical Documentation Specialists (CDI) and [facility] Coding Staff appreciate your assistance in clarifying documentation. Please respond to the clarification below the line at the bottom and electronically sign. The CDI & [facility] Coding staff will review the response and follow-up if needed. Please note: Queries are made part of the Legal Health Record. If you have any questions, please contact the author of this message via ITS. Dr. [facility] acquired bilateral basilar pneumonia is documented in your progress notes. Pulmonology notes Acute on chronic hypoxic respiratory failure secondary to bilateral healthcare acquired pneumonia with left pleural effusion, COPD exacerbation and CHF exacerbation History/Risk Factors: previous smoker admitted from rehab s/p NSTEMI and CABG August 2017, with acute on chronic Systolic CHF with note of thoracentesis LT side performed 10/15 mostly transudative. Afib, NSVT Recent pneumonia with positive sputum cultures of Pseudomonas and oxacillin sensitiveStaphylococcus aureus from 09/08/2017 Clinical Indicators: hemoptysis, respiratory failure, PN states on admission chest x-ray showed bibasilar pneumonia with large left pleural effusion. WBC on presentation of 17.7 sputum culture noted many nl resp [place] CT chest 10/14 consolidation rt lower lobe, subsegmental changes left lower lobe with endobronchial pacification, presumed reactive subcarnal and partracheal lymph nodes. Left pleural effusion layering posteriorly with mild lobulation Lung/Breathing assessment diminished bs with rales and wheezing, Treatment: steroids, mucinex. Antibiotics Levaquin, Zosyn (dc 10/17) Augmentin PO O2 supplementation & Breathing Txs duoneb In order to capture the severity of condition, further clarification of the pneumonia being treated is requested, if known; please render you opinion below line. Gram negative Pneumonia Pneumonia Due to MSSA Pneumonia due to Other bacteria (please specify) Other, please specify Unable to determine Bibasilar health care acquired pneumonia of unspecified bacteria. RD. Please continue to document in your progress notes and discharge summary in order to capture severity of illness and risk of mortality. Include clinical findings that support your diagnosis. MTDD
--- NOTE | 2017-10-21 12:08 | P.PN ---
Subjective Progress Note Date: 10/21/17 Principal diagnosis: Admission for right lower lobe pneumonia. Current left-sided pleural effusion. Previous medical history of triple-vessel coronary artery disease with left main disease and non-ST elevation myocardial infarction status post urgent quadruple coronary artery bypass grafting as well as exclusion of the left atrial appendage on 09/08/2017, mild to moderate left ventricular dysfunction, chronic systolic heart failure with ejection fraction of 40-45% as well as diastolic dysfunction, chronic persistent atrial fibrillation on home Coumadin therapy, sick sinus syndrome status post pacemaker insertion, hypertension, hyperlipidemia, carotid stenosis 50-79% bilaterally, previous tobacco dependence , 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 POD #6 left-sided ultrasound guided thoracentesis performed by interventional radiology with approximately 1 L serosanguineous fluid removal. Patient's currently sitting up in the chair in no acute distress. States his symptoms have improved significantly and he feels ready to go back to rehab, just waiting on a bed. Objective - Vital Signs Vital signs: Vital Signs Temp 97 F L 10/21/17 06:18 Pulse 84 10/21/17 11:23 Resp 18 10/21/17 11:23 BP 116/62 10/21/17 06:18 Pulse Ox 97 10/21/17 06:18 Intake & Output 10/20/17 10/21/17 10/21/17 18:59 06:59 18:59 Intake Total 540 240 Output Total 2 Balance -2 540 240 Intake: Oral 540 240 Output: Stool 2 Other: Voiding Method Toilet Toilet Toilet # Voids 2 2 - Constitutional General appearance: Present: cooperative, no acute distress - Respiratory Details: Lungs sounds diminished on the left. Respirations even, nonlabored. Currently on 2 L nasal cannula with oxygen saturation 97%. Able to achieve 1750 mL on his incentive spirometry. Effective productive cough with cullen sputum. - Cardiovascular Details: S1, S2 present. Irregular rate and rhythm, atrial fibrillation on telemetry. Sternum stable. Palpable peripheral pulses bilaterally. No edema present. No calf pain or tenderness noted. SCDs present. - Gastrointestinal Gastrointestinal Comment(s): Abdomen soft, nontender, nondistended. Active bowel sounds 4 quadrants. Tolerating diet. Positive bowel movement - Genitourinary Genitourinary Comment(s): Continues to void clear, yellow urine. - Integumentary Integumentary Comment(s): Skin is warm and dry. Anterior chest incision well healed. Right lower extremity EVH site open, scant serosanguineous drainage, covered with dry intact dressing. - Neurologic Neurologic: Present: CNII-XII intact - Musculoskeletal Musculoskeletal: Present: gait normal, strength equal bilaterally - Psychiatric Psychiatric: Present: A&O x's 3, appropriate affect, intact judgment & insight - Allied health notes Allied health notes reviewed: nursing - Labs CBC & Chem 7: 10/18/17 05:59 10/18/17 05:59 Labs: Abnormal Lab Results - Last 24 Hours (Table) 10/20/17 10/20/17 10/20/17 Range/Units 16:15 16:59 20:11 PT 24.1 H (9.0-12.0) sec INR 2.7 H (<1.2) POC Glucose (mg/dL) 270 H 192 H (75-99) mg/dL 10/21/17 10/21/17 Range/Units 04:21 11:25 PT (9.0-12.0) sec INR (<1.2) POC Glucose (mg/dL) 138 H 136 H (75-99) mg/dL Microbiology - Last 24 Hours (Table) 10/14/17 08:38 Blood Culture - Final Blood No Growth after 144 hours 10/14/17 08:42 Blood Culture - Final Blood No Growth after 144 hours Assessment and Plan (1) Chronic systolic heart failure Current Visit: Yes Status: Chronic Code(s): I50.22 - CHRONIC SYSTOLIC ( CONGESTIVE) HEART FAILURE SNOMED Code(s): 908051657 (2) Pleural effusion Current Visit: Yes Status: Acute Code(s): J90 - PLEURAL EFFUSION, NOT ELSEWHERE CLASSIFIED SNOMED Code(s): 06339668 (3) Pneumonia Current Visit: Yes Status: Acute Code(s): J18.9 - PNEUMONIA, UNSPECIFIED ORGANISM SNOMED Code(s): 694859909 (4) Non-ST elevated myocardial infarction Current Visit: No Status: Resolved Code(s): I21.4 - NON-ST ELEVATION (NSTEMI ) MYOCARDIAL INFARCTION SNOMED Code(s): 993275597 (5) BPH (benign prostatic hyperplasia) Current Visit: Yes Status: Chronic Code(s): N40.0 - BENIGN PROSTATIC HYPERPLASIA WITHOUT LOWER URINRY TRACT SYMP SNOMED Code(s): 249756988 (6) CAD (coronary artery disease) Current Visit: Yes Status: Chronic Code(s): I25.10 - ATHSCL HEART DISEASE OF [place] CORONARY ARTERY W/O ANG PCTRS SNOMED Code(s): 28769347 (7) COPD (chronic obstructive pulmonary disease) Current Visit: Yes Status: Chronic Code(s): J44.9 - CHRONIC OBSTRUCTIVE PULMONARY DISEASE, UNSPECIFIED SNOMED Code(s): 38193517 (8) Chronic atrial fibrillation Current Visit: Yes Status: Chronic Code(s): I48.2 - CHRONIC ATRIAL FIBRILLATION SNOMED Code(s): 512678227 (9) Diabetes mellitus type 2 in nonobese Current Visit: Yes Status: Chronic Code(s): E11.9 - TYPE 2 DIABETES MELLITUS WITHOUT COMPLICATIONS SNOMED Code(s): 300235299 (10) Family history of early CAD Current Visit: Yes Status: Chronic Code(s): Z82.49 - FAMILY HX OF ISCHEM HEART DIS AND OTH DIS OF THE CIRC SYS SNOMED Code(s): 920692073 (11) GERD (gastroesophageal reflux disease) Current Visit: Yes Status: Chronic Code(s): K21.9 - GASTRO-ESOPHAGEAL REFLUX DISEASE WITHOUT ESOPHAGITIS SNOMED Code(s): 651226582 (12) History of Coumadin therapy Current Visit: Yes Status: Chronic Code(s): Z92.29 - PERSONAL HISTORY OF OTHER DRUG THERAPY SNOMED Code(s): 179929861 (13) History of permanent cardiac pacemaker placement Current Visit: Yes Status: Chronic Code(s): Z95.0 - PRESENCE OF CARDIAC PACEMAKER SNOMED Code(s): 958934611 (14) History of sick sinus syndrome Current Visit: Yes Status: Chronic Code(s): Z86.79 - PERSONAL HISTORY OF OTHER DISEASES OF THE CIRCULATORY SYSTEM SNOMED Code(s): 527367462577679 (15) Hypertension Current Visit: Yes Status: Chronic Code(s): I10 - ESSENTIAL (PRIMARY) HYPERTENSION SNOMED Code(s): 65968826 (16) On home oxygen therapy Current Visit: Yes Status: Chronic Code(s): Z99.81 - DEPENDENCE ON SUPPLEMENTAL OXYGEN SNOMED Code(s): 227831508719 (17) Peripheral vascular disease Current Visit: Yes Status: Chronic Code(s): I73.9 - PERIPHERAL VASCULAR DISEASE, UNSPECIFIED SNOMED Code(s): 732996903 (18) History of MRSA infection Current Visit: No Status: Resolved Code(s): Z86.14 - PERSONAL HISTORY OF METHICILLIN RESIS STAPH INFECTION SNOMED Code(s): 153573939 (19) History of smoking Current Visit: No Status: Resolved Code(s): Z87.891 - PERSONAL HISTORY OF NICOTINE DEPENDENCE SNOMED Code(s): 69008910869337019 (20) History of coronary artery bypass graft Current Visit: Yes Status: Chronic Code(s): Z95.1 - PRESENCE OF AORTOCORONARY BYPASS GRAFT SNOMED Code(s): 683597588 Plan: 1. Continue aspirin, statin, beta lisa. Will increase beta lisa therapy as tolerated. 2. Continue Coumadin. Goal INR 2-2.5. 3. Amiodarone therapy per cardiology. 4. Wean O2 as tolerated. Encourage incentive spirometry use 10 times every hour. 5. Bronchodilators, steroids, antibiotics per Dr. Linares. 6. Increase activity, ambulate as tolerated. PT/OT following. 7. GI/DVT prophylaxis. 8. Insulin, other medical comorbidities per Dr. Crane. 9. May discharge to subacute rehab from our standpoint when okay with other consultants. Follow-up appointment made for patient to see Dr. Horvath in the office at 3 months post cardiac surgery. Time with Patient: Greater than 30
== END 2017-10-21 15:50 | DRG 193 ==
LOC: EC 01:48 → 6SEL 06:01 → 5MS5E 10-18 14:20
PROVIDERS: ADMIT Internal Medicine; ATTEND Internal Medicine
PROC: 0W9B3ZZ Drainage of Left Pleural Cavity, Percutaneous Approach (ICD-10-PCS; principal; 2017-10-15)
DX: J18.9 Pneumonia, unspecified organism (principal); I50.23 Acute on chronic systolic (congestive) heart failure; J96.21 Acute and chronic respiratory failure with hypoxia; J44.0 Chronic obstructive pulmonary disease with (acute) lower respiratory infection; J44.1 Chronic obstructive pulmonary disease with (acute) exacerbation; I47.2 Ventricular tachycardia; J98.11 Atelectasis; E11.40 Type 2 diabetes mellitus with diabetic neuropathy, unspecified; E11.51 Type 2 diabetes mellitus with diabetic peripheral angiopathy without gangrene; I48.2 Chronic atrial fibrillation; I11.0 Hypertensive heart disease with heart failure; I25.5 Ischemic cardiomyopathy; I65.23 Occlusion and stenosis of bilateral carotid arteries; R40.2142 Coma scale, eyes open, spontaneous, at arrival to emergency department; R40.2362 Coma scale, best motor response, obeys commands, at arrival to emergency department; R40.2252 Coma scale, best verbal response, oriented, at arrival to emergency department; E78.5 Hyperlipidemia, unspecified; N40.0 Benign prostatic hyperplasia without lower urinary tract symptoms; I25.2 Old myocardial infarction; M19.91 Primary osteoarthritis, unspecified site; K21.9 Gastro-esophageal reflux disease without esophagitis; I25.10 Atherosclerotic heart disease of native coronary artery without angina pectoris; M51.36 Other intervertebral disc degeneration, lumbar region; M47.816 Spondylosis without myelopathy or radiculopathy, lumbar region; G47.33 Obstructive sleep apnea (adult) (pediatric); M20.62 Acquired deformities of toe(s), unspecified, left foot; M20.61 Acquired deformities of toe(s), unspecified, right foot; M20.001 Unspecified deformity of right finger(s); Z99.81 Dependence on supplemental oxygen; Z79.82 Long term (current) use of aspirin; Z79.51 Long term (current) use of inhaled steroids; Z79.4 Long term (current) use of insulin; Z79.01 Long term (current) use of anticoagulants; Z79.02 Long term (current) use of antithrombotics/antiplatelets; Z79.899 Other long term (current) drug therapy; Z86.718 Personal history of other venous thrombosis and embolism; Z86.14 Personal history of Methicillin resistant Staphylococcus aureus infection; Z90.49 Acquired absence of other specified parts of digestive tract; Z87.01 Personal history of pneumonia (recurrent); Z95.0 Presence of cardiac pacemaker; Z87.11 Personal history of peptic ulcer disease; Z96.652 Presence of left artificial knee joint; Z90.3 Acquired absence of stomach [part of]; Z95.1 Presence of aortocoronary bypass graft; Z87.891 Personal history of nicotine dependence; Z98.42 Cataract extraction status, left eye; Z98.41 Cataract extraction status, right eye; Z88.8 Allergy status to other drugs, medicaments and biological substances; Y95 Nosocomial condition; Z80.0 Family history of malignant neoplasm of digestive organs; Z82.49 Family history of ischemic heart disease and other diseases of the circulatory system; Z80.9 Family history of malignant neoplasm, unspecified
CPT/HCPCS: 32555; 36415; 71045; 71046; 71275; 76604; 80048; 80053; 82550; 82553; 82945; 83036; 83605; 83615; 83735; 83880; 84157; 84484; 85025; 85379; 85610; 85730; 87040; 87070; 87075; 87205; 88108; 88305; 89050; 93005; 93308; 94640; 94760; 96365; 96366; 96375; 96376; 99285